=== PATIENT | female | born 1940 | race Caucasian/White ===

== ENCOUNTER 2018-11-14 07:57 | Day surgery (SDC) | payer OTHER ==
--- OUTSIDE RECORDS SUMMARY | 2018-11-14 08:00 | XMS REPORT | Clinical Summary ---
:1940 Author Organization [facility] Address [address] [place] [address] Care Team Providers Name Role Phone Raffaele White MD Primary Care Provider Allergies No Known Allergies Medications Medication Sig Dispensed Refills Start Date End Date Status XARELTO 20 mg tablet 0 02/04/2017 Active DULoxetine (CYMBALTA) 30 0 02/19/2017 Active MG capsule montelukast (SINGULAIR) 0 01/16/2017 Active 10 mg tablet rOPINIRole (REQUIP) 4 MG 0 01/26/2017 Active tablet fluticasone (FLONASE) 50 0 11/19/2016 Active mcg/actuation nasal spray esomeprazole (NexIUM) 40 Take 40 mg 0 Active MG capsule by mouth daily before breakfast. cetirizine (ZyrTEC) 10 Take 10 mg 0 Active MG tablet by mouth daily. multivitamin with Take 1 0 Active minerals tablet tablet by mouth daily. ezetimibe-simvastatin Take 1 0 Active (VYTORIN) 10-20 mg per tablet by tablet mouth nightly. thyroid, pork, (ARMOUR Take 65 mg 0 Active THYROID) 60 mg tablet by mouth daily. hydroCHLOROthiazide Take 1 0 01/26/2017 Active (MICROZIDE) 12.5 mg capsule by capsule mouth daily. sulfaSALAzine 0 03/24/2018 Active (AZULFIDINE) 500 mg tablet gabapentin (NEURONTIN) 0 12/30/2016 04/14/20 Discontinued 400 mg capsule 18 traMADol (ULTRAM) 50 mg 0 01/25/2017 04/12/20 Discontinued tablet 18 LINZESS 145 mcg capsule Take 1 0 11/25/2016 04/12/20 Discontinued capsule by 18 mouth as needed. Active Problems No known active problems Encounters Date Type Specialty Care Team Description 10/27/2018 Transcribe Orders Access Jono Sen, Nontraumatic cortical hemorrhage of cerebral hemisphere, unspecified laterality (HCC) (Primary Dx); Other spondylosis with myelopathy, cervical region 05/05/2018 Anesthesia Event General Surgery Ruth, Lora, COAT OPERATOR 05/05/2018 Surgery General Surgery Jono Sen, RADIOFREQUENCY LUMBAR MD BILATERAL L3, L4, L5, S1 05/05/2018 Hospital Encounter General Surgery Jono Sen MD 04/14/2018 Anesthesia Event General Surgery Ruth, Lora, COAT OPERATOR 04/14/2018 Surgery General Surgery Jono Sen, LUMBAR FACET INJECTION MD L3, L4, L5, S1 BILATERAL 04/14/2018 Hospital Encounter General Surgery Jono Sen MD after 11/13/2017 Social History Tobacco Use Types Packs/Day Years Used Date Never Smoker Smokeless Tobacco: Never Used Alcohol Use Drinks/Week oz/Week Comments No Sex Assigned at Date Recorded Not on file Job Start Date Occupation Industry Not on file Not on file Not on file Travel History Travel Start Travel End No recent travel history available. Last Filed Vital Signs Vital Sign Reading Time Taken Blood Pressure 129/63 05/05/2018 11:57 AM CDT Pulse 77 05/05/2018 11:57 AM CDT Temperature 36.2 C (97.1 F) 05/05/2018 11:17 AM CDT Respiratory Rate 19 05/05/2018 11:57 AM CDT Oxygen Saturation 100% 05/05/2018 11:57 AM CDT Inhaled Oxygen Concentration - - Weight 89.4 kg (197 lb) 04/14/2018 7:30 AM CDT Height 167.6 cm (5' 6") 04/14/2018 7:30 AM CDT Body Mass Index 31.8 04/14/2018 7:30 AM CDT Plan of Treatment Health Maintenance Due Date Last Done Comments SHINGLES VACCINES (#1) 1990 65+ PNEUMOCOCCAL VACCINE (1 of 2 - PCV13) 2005 PNEUMOCOCCAL POLYSACCHARIDE VACCINE AGE 65 AND OVER 2005 INFLUENZA VACCINE 03/09/2019 Procedures Procedure Name Priority Date/Time Associated Diagnosis Comments OR FL < 1 HOUR Routine 05/05/2018 11:05 AM Results for this CDT procedure are in the results section. OR FL < 1 HOUR Routine 04/14/2018 9:45 AM Results for this CDT procedure are in the results section. after 11/13/2017 Results OR FL < 1 Hour (05/05/2018 11:05 AM CDT)Only the most recent of2 resultswithin the time period is included. Narrative Performed At EXAMINATION:OR [place] 1 HOUR [facility] CLINICAL HISTORY: IMPRESSION: Fluoroscopy was provided. No radiologist present.Please see procedure report for discussion of procedure, findings and fluoroscopic time. [facility]-[id number] Procedure Note Hm Interface, Radiology Results Incoming - 05/05/2018 1:47 PM CDT EXAMINATION: OR [place] 1 HOUR CLINICAL HISTORY: IMPRESSION: Fluoroscopy was provided. No radiologist present. Please see procedure report for discussion of procedure, findings and fluoroscopic time. [id number] Performing Organization Address City/State/Zipcode Phone Number [facility] [address] [place] [address] after 11/13/2017 Insurance Payer Benefit Plan / Group Subscriber ID Type Phone Address MEDICARE MEDICARE PART A AND B xxxxxxxxxx Medicare [place], [place] AETNA AETNA HMO,POS,EPO, MC/EC xxxxxxxxx HMO Advance Directives Patient has advance care planning documents on file. For more information, please contact:[facility] [place] [phone]
--- OUTSIDE RECORDS SUMMARY | 2018-11-14 08:00 | XMS REPORT | Continuity of Care Document ---
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[facility] ARTHROPATHY [facility] SPRAIN OF ANKLE Active [facility] NEC Medications Medication Details Route Status Patient Ordering Order Source Instructions Provider Date Allergies, Adverse Reactions, Alerts Substance Category Reaction Severity Reaction Status Date Comments Source type Reported Immunizations Immunization Date Given Site Status Last Updated Comments Source Results Order Name Results Value Reference Date Interpretation Comments Source Range Shoulder 2+ Shoulder 2+ CLINICAL HISTORY: - Psoriatic Arthritis 08/04 - Views /2016 - [facility] Bilateral Bilateral AGE: 77 years City DX DX GENDER: Female Read by: Gildardo Elmore MD Dictated Date/time: 08/04/17 13:10 Electronically Signed by: Gildardo Elmore MD 08/04/17 13:15 FINAL REPORT TECHNIQUE: Bilateral shoulder radiographs, 3 views each. COMPARISON: None FINDINGS: Right shoulder: There is no evidence of fracture or dislocation. Moderate osseous demineralization.. Large subacromial spur formation with severe narrowing of the acromiohumeral distance. Mild osseous remodeling of the greater tuberosity. There is moderate degenerative change in the acromioclavicular joint. Mild osteophyte formation along the inferior humeral head and glenoid. Left shoulder: There is no evidence of fracture or dislocation. Moderate osseous demineralization.. Postoperative changes from rotator cuff repair with orthopedic anchors in the greater tuberosity. No significant narrowing of the acromiohumeral distance.. Status post distal clavicular resection and acromioplasty. Mild osteophyte formation along the glenoid articular surface. Spinal cord stimulator device with leads projecting over the midthoracic spine, partially visualized. IMPRESSION: Marked subacromial spurring on the right with findings highly suspicious for full-thickness rotator cuff tear and rotator cuff impingement.. Mild right glenohumeral joint osteoarthrosis. Postoperative changes from left rotator cuff repair and distal clavicular resection and acromioplasty. Mild left glenohumeral joint osteoarthrosis. Sacroiliac Sacroiliac EXAM: Sacroiliac joints series DX 08/04 - joints joints /2016 - [facility] series DX series DX DATE: 08/04/2017 11:10 AM SENIOR ADVOCATE . [facility] ORDERING PHYSICIAN: Karissa Rodriguez MD Read by: Berhane Forde MD Dictated Date/time: 08/04/17 13:07 Electronically Signed by: Berhane Forde MD 08/04/17 13:27 FINAL REPORT CLINICAL INDICATION: - Psoriatic Arthritis; TECHNIQUE: AP and bilateral oblique views of the SI joints COMPARISON: Unavailable FINDINGS: The SI joint spaces are preserved without osteophyte reformation. There is no bony sclerosis. There are no acute erosions. There is less portions of the sacrum and pubic symphysis are unremarkable. IMPRESSION: No radiographic sequela of sacroiliitis Knee 1-2 Knee 1-2 EXAMINATION: Bilateral knees 1 to 2 views each. 08/04 - Views Views /2016 - [facility] Bilateral Bilateral City DX DX HISTORY: Bilateral knee pain; bilateral knee arthritis Read by: Terrell Graff MD Dictated Date/time: 08/04/17 14:30 Electronically Signed by: Terrell Graff MD 08/04/17 14:31 FINAL REPORT FINDINGS: Frontal view of both knees and lateral views of each knee are performed without comparison. On the left, there is no acute fracture. There is mild to moderate medial and mild patellofemoral compartment, bicompartmental knee osteoarthritis. There is a trace knee effusion. On the right, there is no acute fracture. There is severe lateral and moderate to severe patellofemoral compartment, bicompartmental knee osteoarthritis. There is a trace knee effusion. IMPRESSION: 1. Mild to moderate medial and mild patellofemoral compartment, bicompartmental left knee osteoarthritis with a trace left knee effusion. 2. Severe lateral and moderate to severe patellofemoral compartment, bicompartmental right knee osteoarthritis with a trace right knee effusion. Hand 2 Hand 2 CLINICAL HISTORY: - Psoriatic Arthritis 08/04 - views views /2016 - [facility] Bilateral Bilateral AGE: 77 years City DX DX GENDER: Female Read by: Gildardo Elmore MD Dictated Date/time: 08/04/17 13:16 Electronically Signed by: Gildardo Elmore MD 08/04/17 13:19 FINAL REPORT TECHNIQUE:Bilateral hand radiographs, 2 views. COMPARISON: None FINDINGS: Right hand: There is no evidence of fracture or dislocation. Moderate osseous demineralization. Moderate interphalangeal joint space narrowing. Mild 1st CMC joint osteoarthrosis.. No cortical or erosion or periosteal reaction.. Left hand: There is no evidence of fracture or dislocation. Moderate osseous demineralization. Moderate interphalangeal joint space narrowing. Mild to moderate 1st CMC joint osteoarthrosis.. No cortical or erosion or periosteal reaction.. IMPRESSION: No specific radiographic evidence of inflammatory arthropathy. Moderate osseous demineralization. Mild bilateral osteoarthrosis. Foot 2 Foot 2 CLINICAL HISTORY: - Psoriatic Arthritis 08/04 - views views /2017 - [facility] bilateral bilateral AGE: 77 years City DX DX GENDER: Female Read by: Gildardo Elmore MD Dictated Date/time: 08/04/17 13:20 Electronically Signed by: Gildardo Elmore MD 08/04/17 13:26 FINAL REPORT TECHNIQUE: Bilateral foot radiographs, 2 views each. Bilateral ankle radiograph, 2 views. COMPARISON: None FINDINGS: Right foot and ankle: There is no evidence of fracture or dislocation. Moderate osseous demineralization.. No cortical or erosion or periosteal reaction. Joint space narrowing is seen in the DIP joints. Moderate osteoarthrosis is seen in the dorsal talonavicular joint. Mild plantar calcaneal spurring.. Talar dome and tibial plafond are intact allowing for obliquity Left foot and ankle: There is no evidence of fracture or dislocation. Moderate osseous demineralization.. No cortical or erosion or periosteal reaction. Mild joint space narrowing in the DIP joints. Mild to moderate osteoarthrosis of the dorsal talonavicular joint. Orthopedic anchor in the medial navicular suggesting prior The posterior tibialis tendon insertion. There is questionable cortical erosive change at the medial naviculocuneiform articulation.. Mild plantar calcaneal spurring. Talar dome and tibial plafond are intact. IMPRESSION: Questionable erosive change along the left medial naviculocuneiform articulation. Consider further evaluation with oblique images for further characterization. Moderate osseous demineralization. Mild to moderate bilateral osteoarthrosis of the talonavicular joints, right greater than left. Mild degenerative change of the bilateral interphalangeal joints. Mild plantar calcaneal spurring. Ankle 2 Ankle 2 CLINICAL HISTORY: - Psoriatic Arthritis 08/04 - views /2016 - [facility] bilateral bilateral AGE: 77 years City DX DX GENDER: Female Read by: Gildardo Elmore MD Dictated Date/time: 08/04/17 13:20 Electronically Signed by: Gildardo Elmore MD 08/04/17 13:26 FINAL REPORT TECHNIQUE: Bilateral foot radiographs, 2 views each. Bilateral ankle radiograph, 2 views. COMPARISON: None FINDINGS: Right foot and ankle: There is no evidence of fracture or dislocation. Moderate osseous demineralization.. No cortical or erosion or periosteal reaction. Joint space narrowing is seen in the DIP joints. Moderate osteoarthrosis is seen in the dorsal talonavicular joint. Mild plantar calcaneal spurring.. Talar dome and tibial plafond are intact allowing for obliquity Left foot and ankle: There is no evidence of fracture or dislocation. Moderate osseous demineralization.. No cortical or erosion or periosteal reaction. Mild joint space narrowing in the DIP joints. Mild to moderate osteoarthrosis of the dorsal talonavicular joint. Orthopedic anchor in the medial navicular suggesting prior The posterior tibialis tendon insertion. There is questionable cortical erosive change at the medial naviculocuneiform articulation.. Mild plantar calcaneal spurring. Talar dome and tibial plafond are intact. IMPRESSION: Questionable erosive change along the left medial naviculocuneiform articulation. Consider further evaluation with oblique images for further characterization. Moderate osseous demineralization. Mild to moderate bilateral osteoarthrosis of the talonavicular joints, right greater than left. Mild degenerative change of the bilateral interphalangeal joints. Mild plantar calcaneal spurring. Vital Signs Vital Sign Value Date Comments Source Encounters Location Location Encounter Encounter Reason Attending ADM DC Status Source Details Type Number For Provider Date Date Visit Outpatient [id number] TYESHA ANTONIO 11/18 Active [facility] SPRAIN, ANKLE SPRAIN LFT [facility] Outpatient [id number] Karissa 08/04 08/05 Bautista Rodriguez /2016 [facility] Procedures Procedure Code Date Perfomer Comments Source
[2018-11-14] MEDS ORDERED: NS 0.9% VIAL 10 ML ONE (08:29)
[2018-11-14] MEDS ORDERED: BALANCED SALT IRRIG PLAIN 500 ML BTL IRR ONE (08:29)
[2018-11-14] MEDS ORDERED: EPINEPHRINE/PF 1 MG/ML AMP ONE (08:29)
[2018-11-14] MEDS ORDERED: DUOVISC 1 KIT OPTH ONE (08:29)
[2018-11-14] MEDS ORDERED: LIDOCAINE 1% MPF 2 ML AMPULE ONE (08:30)
[2018-11-14] MEDS ORDERED: MOXIFLOXACIN HCL 10 DROPS/ML **OR USE OPTH ONE (08:30)
[2018-11-14] MEDS ORDERED: CYCLOPENTOLATE 1% OPTH 2 ML OPTH ONE ×2 (08:40→08:45)
[2018-11-14] MEDS ORDERED: PHENYLEPHRINE 10% OPTH 5ML OPTH ONE ×2 (08:40→08:45)
[2018-11-14 09:31] VITALS: O2SAT 97
[2018-11-14] MEDS ORDERED: TETRACAINE HCL 0.5% 2ML OPTH ONE (09:35)
[2018-11-14] MEDS ORDERED: LIDOCAINE 2% MPF 5 ML VIAL ONE (09:35)
[2018-11-14] MEDS ORDERED: BUPIVACAINE 0.25% PF 10 ML VIAL ONE (09:35)
[2018-11-14] MEDS ORDERED: CYCLOPENTOLATE 1% OPTH 2 ML ONE (09:35)
[2018-11-14] MEDS ORDERED: PHENYLEPHRINE 10% OPTH 5ML ONE (09:36)
[2018-11-14] MEDS ORDERED: LIDOCAINE HCL/PF 3.5% OPTH GEL ONE (09:36)
[2018-11-14] MEDS ORDERED: NA CHLORIDE 0.9% 500 ML ONE (09:36)
--- NOTE | 2018-11-14 10:36 | P.BOP ---
Preoperative diagnosis: Nuclear sclerotic cataract OD Postoperative diagnosis: Same Primary procedure: Phacoemulsification with IOL OD Estimated blood loss: None Anesthesia: Local (Topical with anesthesia for cataract surgery) Complications: None Implants: SN60WF +21.5 Transferred to: Other (Day surgery) Condition: Good
[2018-11-14 10:57] VITALS: BP 132/91; TEMP 97.5
--- NOTE | 2018-11-14 22:15 | OP ---
Date of Procedure: 11/14/2018 Surgeon: Rosa Sin MD Anesthesiologist: Nilda Lainez CRNA; Georges Brewer CRNA; and Malcolm Vaca MD. Preoperative Diagnosis: Nuclear sclerotic cataract, right eye. Operation Performed: Phacoemulsification with intraocular lens implant, right eye. Anesthesia: Per cataract surgery. Complications: None. Description Of Procedure: In the operating room the patient was prepped and draped in the usual ster ile fashion for ophthalmic surgery. A lid speculum was placed in the right eye. Two paracentesis si katharina were made superiorly and inferiorly in the limbal cornea. Viscoat was placed in the anterior uriel mber and a crescent blade was used to make a corneal groove and tunnel, and a keratome was used to en ter the anterior chamber. Provisc was placed in the anterior chamber and a 360 degree capsulotomy wa s performed with a cystitome. The lens was hydrodissected with BSS and rotated freely. The lens was removed with a stop and chop technique. 9.90 phaco CDE was used to remove the lens. Residual bonnie x was removed with the irrigation and aspiration. Provisc was placed in the capsular bag. A SN60WF +21.5 lens was placed in the capsular bag without complications. Irrigation and aspiration were used to remove residual viscoelastic. The paracentesis sites were hydrated with BSS. The wound and para centesis sites were inspected and found to be watertight. Vigamox 0.07 cc was placed intracamerally at the end of the procedure. The eye was irrigated with balanced salt solution. The eye was patched with a soft cotton patch and Zuniga metal shield. The patient was returned to day surgery in good condition. Comments: Akten was placed in the eye in Day Surgery and irrigated out of the eye with BSS in the OR . Preservative free 1% lidocaine was placed in the anterior chamber prior to Viscoat. Discharge Instructions: Ms. Klein is discharged to home in good condition and is to follow up with Kenny Sin in the morning. LOGAN/SABA Voice ID: [id number] Report ID: [id number]
== END 2018-11-14 11:05 | disposition home or self-care (01) ==
LOC: PRE 07:57
PROVIDERS: ATTEND Ophthalmology Retina Specialist
PROC: 08RJ3JZ Replacement of Right Lens with Synthetic Substitute, Percutaneous Approach (ICD-10-PCS; principal; 2018-11-14 09:35)
DX: H25.11 Age-related nuclear cataract, right eye (principal); I10 Essential (primary) hypertension; K21.9 Gastro-esophageal reflux disease without esophagitis; E03.9 Hypothyroidism, unspecified; G25.81 Restless legs syndrome; M19.90 Unspecified osteoarthritis, unspecified site; Z90.49 Acquired absence of other specified parts of digestive tract; Z86.718 Personal history of other venous thrombosis and embolism; Z79.01 Long term (current) use of anticoagulants; Z83.511 Family history of glaucoma; Z83.3 Family history of diabetes mellitus; Z82.3 Family history of stroke; Z82.49 Family history of ischemic heart disease and other diseases of the circulatory system
CPT/HCPCS: 36415; 84132; 66984; J0171; J2001

== ENCOUNTER 2020-03-28 09:08 | Emergency (ER) | payer OTHER ==
--- OUTSIDE RECORDS SUMMARY | 2020-03-28 09:10 | XMS REPORT | Continuity of Care Document ---
:1940 Author Organization [employer] Care Team Providers Name Role Phone [employer] Unavailable Un available Problems Problem Status Onset Classification Date Comments Sourc e Date Reported GRADE [address] SPRAIN, ANKLE 2 SPRAIN LFT L40.59 [facility] [place] [facility] [place] [facility] [place] OF [place] [facility] Medications No Data Provided for This Section Allergies, Adverse Reactions, Alerts No Known Medication Allergies Immunizations No Data Provided for This Section Results No Data Provided for This Section Pathology Reports No Data Provided for This Section Diagnostic Reports Report Value Date Source Shoulder 2+ Views CLINICAL HISTORY: - Psoriatic Arthritis 08/04 [facility] Bilateral DX AGE: 77 years GENDER: Female TECHNIQUE: Bilateral shoulder radiographs, 3 vie ws each. COMPARISON: None FINDINGS: Right shoulder: There is no evidence of frac ture or dislocation. Moderate osseous demineralization.. Large subacromial spur formation with severe narrowing of the acromiohumeral distance. Mild osseous remodeling of the greater tuberosity. There i s moderate degenerative change in the acromioclavicular joint. Mild osteophyte formation along the inferior hum eral head and glenoid. Left shoulder: There is no evidence of frac ture or dislocation. Moderate osseous demineralization.. Postoperative changes from rotator cuff repair with orthopedic anchors in the greater tuberosity. No significant narrowing of the acromiohumeral distance.. Status post distal clavicula r resection and acromioplasty. Mild osteophyte formation along the glenoid articular surface. Spinal cord stimulator devic e with leads projecting over the midthoracic spine, partially visualized. IMPRESSION: Marked subacromial spurring on the right with findings highly suspicious for full-thickness rotator cuff tear and rotator cuff impingement.. Mild right glenohumeral joint osteoarthrosis. Postoperative changes from l eft rotator cuff repair and distal clavicular resection and acromioplasty. Mild left glenohumeral joint osteoarthrosis. Sacroiliac joints EXAM: Sacroiliac joints series DX 08/04/2017 [facility] series DX DATE: 08/04/2017 11:10 AM [facility] [employer] . ORDERING PHYSICIAN: Karissa oRdriguez MD CLINICAL INDICATION: - Psoriatic Arthritis; TECHNIQUE: AP and bilateral oblique views of the SI joints COMPARISON: Unavailable FINDINGS: The SI joint space s are preserved without osteophyte reformation. There is no bony sclerosis. There are no acute erosions. There is less portions of the sacrum and pubic symphysis are unremarkable. IMPRESSION: No radiographic sequela of sacroilii tis Knee 1-2 Views EXAMINATION: Bilateral knees 1 to 2 views each. 08/04/2017 [facility] Bilateral DX HISTORY: Bilateral knee pain; bilateral knee art hritis FINDINGS: Frontal view of gabriel th knees and lateral views of each knee are performed without comparison. On the left, there is no acu te fracture. There is mild to moderate medial and mild patellofemoral compartment, bicompartmental knee osteoarthritis. There is a trace knee effusion. On the right, there is no ac [place] fracture. There is severe lateral and moderate to severe patellofemoral compartment, bicompartmental knee osteoarthritis. There is a trace knee effusion. IMPRESSION: 1. Mild to moderate medial a nd mild patellofemoral compartment, bicompartmental left knee osteoarthritis with a trace left knee effusion. 2. Severe lateral and modera te to severe patellofemoral compartment, bicompartmental right knee osteoarthritis with a trace right knee effusion. Hand 2 views Bilateral CLINICAL HISTORY: - Psoriatic Arthritis 08/04/2017 [facility] DX AGE: 77 years GENDER: Female TECHNIQUE:Bilateral hand radiographs, 2 views. COMPARISON: None FINDINGS: Right hand: There is no evidence of frac ture or dislocation. Moderate osseous demineralization. Moderate interphalangeal joint space narrowing. Mild 1st CMC joint osteoarthrosis.. No cortical or erosion or periosteal reaction.. Left hand: There is no evidence of frac ture or dislocation. Moderate osseous demineralization. Moderate interphalangeal joint space narrowing. Mild to moderate 1st CMC joint osteoarthrosis.. No cortical or erosion or periosteal reaction.. IMPRESSION: No specific radiographic evidence of inflammator y arthropathy. Moderate osseous demineralization. Mild bilateral osteoarthrosis. Foot 2 views bilateral CLINICAL HISTORY: - Psoriatic Arthritis 08/04/2017 [facility] DX AGE: 77 years GENDER: Female TECHNIQUE: Bilateral foot ra diographs, 2 views each. Bilateral ankle radiograph, 2 views. COMPARISON: None FINDINGS: Right foot and ankle: There is no evidence of frac ture or dislocation. Moderate osseous demineralization.. No cortical or erosion or pe riosteal reaction. Joint space narrowing is seen in the DIP joints. Moderate osteoarthrosis is seen in the dorsal talonavicular joint. Mild plantar calcaneal spurring.. Talar dome and tibial plafond are intact allowin g for obliquity Left foot and ankle: There is no evidence of frac ture or dislocation. Moderate osseous demineralization.. No cortical or erosion or pe riosteal reaction. Mild joint space narrowing in the DIP joints. Mild to moderate osteoarthrosis of the dorsal talonavicular joint. Orthopedic anchor in the medial navicular suggesting prior The posterior tibialis tendo n insertion. There is questionable cortical erosive change at the medial naviculocuneiform articulation.. Mild plantar calcaneal spurring. Talar dome and tibial plafond are intact. IMPRESSION: Questionable erosive change along the left medial naviculocuneiform articulation. Consider further evaluation with oblique images for further characterization. Moderate osseous demineralization. Mild to moderate bilateral o steoarthrosis of the talonavicular joints, right greater than left. Mild degenerative change of the bilateral interp halangeal joints. Mild plantar calcaneal spurring. Ankle 2 views CLINICAL HISTORY: - Psoriatic Arthritis 017 [facility] bilateral DX AGE: 77 years GENDER: Female TECHNIQUE: Bilateral foot ra diographs, 2 views each. Bilateral ankle radiograph, 2 views. COMPARISON: None FINDINGS: Right foot and ankle: There is no evidence of frac ture or dislocation. Moderate osseous demineralization.. No cortical or erosion or pe riosteal reaction. Joint space narrowing is seen in the DIP joints. Moderate osteoarthrosis is seen in the dorsal talonavicular joint. Mild plantar calcaneal spurring.. Talar dome and tibial plafond are intact allowin g for obliquity Left foot and ankle: There is no evidence of frac ture or dislocation. Moderate osseous demineralization.. No cortical or erosion or pe riosteal reaction. Mild joint space narrowing in the DIP joints. Mild to moderate osteoarthrosis of the dorsal talonavicular joint. Orthopedic anchor in the medial navicular suggesting prior The posterior tibialis tendo n insertion. There is questionable cortical erosive change at the medial naviculocuneiform articulation.. Mild plantar calcaneal spurring. Talar dome and tibial plafond are intact. IMPRESSION: Questionable erosive change along the left medial naviculocuneiform articulation. Consider further evaluation with oblique images for further characterization. Moderate osseous demineralization. Mild to moderate bilateral o steoarthrosis of the talonavicular joints, right greater than left. Mild degenerative change of the bilateral interp halangeal joints. Mild plantar calcaneal spurring. Consultation Notes No Data Provided for This Section Discharge Summaries No Data Provided for This Section History and Physicals No Data Provided for This Section Vital Signs No Data Provided for This Section Encounters Location Location Encounter Encounter Reason Attending ADM AR Stat us Source Details Type Number For Provider Date Date Visit Outpatient [id number] GRADE MAGALI ANTONIO 11/18 Acti ve [facility] st SPRAIN, ANKLE SPRAIN LFT [facility] Outpatient [id number] Karissa 08/04 08/05 Bautista Rodriguez /2016 [facility] Procedures No Data Provided for This Section Assessment and Plan No Data Provided for This Section Plan of Care No Data Provided for This Section Social History Social History Date Source No data available for this 08/05/2017 [facility] Tamiko cottrell section Family History No Data Provided for This Section Advance Directives No Data Provided for This Section Functional Status No Data Provided for This Section
--- OUTSIDE RECORDS SUMMARY | 2020-03-28 09:10 | XMS REPORT | Clinical Summary ---
:1940 Author Organization [facility] Address [address] [place] [id number] Care Team Providers Name Role Phone MD Cindy Primary Care Provider Allergies No Known Allergies Medications Medication Sig Dispensed Refills Start Date End Date Status multivitamin Take 1 tablet by 0 Active (MULTIVITAMIN) per mouth daily. tablet cholecalciferol, Take 2,000 Units 0 Active vitamin D3, 2,000 unit by mouth daily. Tab UNKNOWN Med Name: 0 Active esomeprazole (NEXIUM) Take 20 mg by 0 Active 20 MG capsule mouth daily. ezetimibe-simvastatin Take 1 tablet by 0 Active (VYTORIN) 10-40 mg per mouth nightly. tablet celecoxib (CELEBREX) Take 200 mg by 0 Active 200 MG capsule mouth every 12 (twelve) hours as needed. DULoxetine (CYMBALTA) Take 20 mg by 0 Active 20 MG capsule mouth daily. Active Problems No known active problems Social History Tobacco Use Types Packs/Day Years Used Date Never Smoker Alcohol Use Drinks/Week oz/Week Comments Yes 1-2 glass of win e a day Sex Assigned at Date Recorded Not on file Job Start Date Occupation Industry Not on file Not on file Not on file Travel History Travel Start Travel End No recent travel history available. Last Filed Vital Signs Not on file Plan of Treatment Not on file Results Not on fileafter 03/28/2019 Insurance Payer Benefit Plan / Group Subscriber ID Type Phone A ddress MEDICARE MEDICARE A B xxxxxxxxxx Medicare AETNA - MGD CARE AET[employer] INDEMNITY NON CONTR xxxxxxxxx Comm [id number] [place] [id number]
--- OUTSIDE RECORDS SUMMARY | 2020-03-28 09:10 | XMS REPORT | Clinical Summary ---
:1940 Author Organization [facility] Address [address] [place] [address] Care Team Providers Name Role Phone MD [...] spray esomeprazole (NexIUM) 40 Take 40 mg by 0 Active MG capsule mouth daily before breakfast. cetirizine (ZyrTEC) 10 MG Take 10 mg by 0 Active tablet mouth daily. multivitamin with Take 1 tablet 0 Active minerals tablet by mouth daily. ezetimibe-simvastatin Take 1 tablet 0 Active (VYTORIN) 10-20 mg per by mouth tablet nightly. thyroid, pork, (ARMOUR Take 65 mg by 0 Active THYROID) 60 mg tablet mouth daily. hydroCHLOROthiazide Take 1 capsule 0 01/26/2017 Active (MICROZIDE) 12.5 mg by mouth capsule daily. sulfaSALAzine 0 03/24/2018 Activ e (AZULFIDINE) 500 mg tablet acetaminophen-codeine Take 1 tablet 20 tablet 0 12/01/2019 (TYLENOL WITH CODEINE #3) by mouth every 0 300-30 mg per 6 (six) hours tabletIndications: acute as needed for pain moderate pain for up to 7 days .acute pain. Active Problems No known active problems Encounters Date Type Specialty Care Team Description 12/14/2019 Anesthesia Event General Surgery Domingo Lorenzo MD Cheema, Ivelisse, FNP 12/14/2019 Surgery General Surgery Jono Sen, SACROPLAST Y 12/14/2019 Hospital Encounter General Surgery Jono Sen MD 12/14/2019 Travel 12/01/2019 Emergency Emergency Medicine Taz Chase d fracture of T., sacrum, unspeci fied portion of sacr um, initial encount er ([facility]) (Primary Dx) after 03/28/2019 Social History Tobacco Use Types Packs/Day Years Used Date Never Smoker Smokeless Tobacco: Never Used Alcohol Use Drinks/Week oz/Week Comments No Sex Assigned at Date Recorded Not on file Job Start Date Occupation Industry Not on file Not on file Not on file Travel History Travel Start Travel End No recent travel history available. Last Filed Vital Signs Vital Sign Reading Time Taken Comments Blood Pressure 116/62 12/14/2019 9:40 AM CDT Pulse 72 12/14/2019 9:50 AM CDT Temperature 36.7 C (98 F) 12/14/2019 8:29 AM CDT Respiratory Rate 35 12/14/2019 10:00 AM CDT Oxygen Saturation 93% 12/14/2019 10:00 AM CDT Inhaled Oxygen Concentration - - Weight 90.7 kg (200 lb) 12/14/2019 7:01 AM CDT Height 167.6 cm (5' 6") 12/14/2019 7:01 AM CDT Body Mass Index 32.28 12/14/2019 7:01 AM CDT Plan of Treatment Health Maintenance Due Date Last Done Comments SHINGLES VACCINES (#1) 1990 65+ PNEUMOCOCCAL VACCINE (1 of 2 - PCV13) 2005 INFLUENZA VACCINE 04/09/2020 Implants Implanted Type Area Behavioral Health Rn Device Shelf Model / Identifier Expiration Serial / Date Lot [employer] - [id number] IMPLANT N/A: N/A ROSHNI 09/08/2021 [id number] / Implanted: 12/14/2019 at [facility] (Quantity not on file) DE VICES INSTRUMENTS / [id number] Kit Sys Autoplex W/O Ndl Vertaplex [facility] - [id number] Surgical N/A: N/A ROSHNI 08/09/2021 [id number] / Implanted: 12/14/2019 at [facility] (Quantity not on file) Im plants; INSTRUMENTS / Expanders; [id number] Extenders; Surgical Wires Procedures Procedure Name Priority Date/Time Associated Diagnosis Comme nts OR [place] < 1 HOUR Routine 12/14/2019 8:20 AM Result s for this CDT procedure are i n the results section. ECG 12-LEAD STAT 12/14/2019 7:00 AM Results for this CDT procedure are i n the results section. CT LUMBAR SPINE WO STAT 12/01/2019 7:46 PM Re sults for this CONTRAST CDT procedure are i n the results section. CT LOWER EXTREMITY STAT 12/01/2019 7:44 PM Re sults for this WO CONTRAST LEFT CDT procedure a re in the results section. after 03/28/2019 Results OR FL < 1 Hour (12/14/2019 8:20 AM CDT) Specimen Narrative Performed At EXAMINATION: OR [place] < 1 HOUR [facility] CL[facility]ICAL H[facility]ORY: None Provided IMPRESSION: Fluoroscopy was provided. No radiologist present. Pl ease see procedure report for discussion of procedure, find ings and fluoroscopic time. [id number] Procedure Note Interface, Radiology Results Incoming - 12/14/2019 10:19 AM CDT EXAMINATION: OR FL < 1 HOUR CLINICAL HISTORY: None Provided IMPRESSION: Fluoroscopy was provided. No radiologist present. Please see procedure report for discussion of procedure, findings and fluoroscopic time. [id number] Performing Organization Address City/State/Zipcode Phone Number [facility] [address] [place] [address] ECG 12 lead (12/14/2019 7:00 AM CDT) Pathologist Sig nature Ventricular rate 76 [facility] Atrial rate 76 [facility] [place] interval 158 [facility] QRSD interval 78 [facility] QT interval 408 [facility] QTC interval 459 [facility] P axis 1 84 [facility] QRS axis 1 62 [facility] T wave axis 73 [facility] EKG impression Normal sinus rhythm-ST eleva tion, consider early repolarization, pericarditis, or injury-Nonspecific ST abnormality-Abnormal ECG-In automated comparison with ECG of 04-MAR-2017 06:36,-ST elevation now p [facility] M[facility] resent in Inferior leads- Specimen Narrative Performed At This result has an attachment that is no t available. Performing Organization Address City/State/Zipcode Phone Number [facility] [address] [place] [address] CT Lumbar Spine Wo Contrast (12/01/2019 7:46 PM CDT) Specimen Narrative Performed At EXAMINATION: CT LUMBAR SPINE WO CONTRA ST [facility] CT IMAGING WAS PERFORMED WITH ITERATIVE RECONSTRUCTION TECHNIQUE AND/OR AUTOMATED EXPOSURE CONTROL TO REDUCE RAD IATION DOSE. CLINICAL HISTORY: Pain secondary to recent fall w ith negative plain films COMPARISON: None. FINDINGS: There is an element of diffuse bone demineralization. There is no lumbar spine fracture demonstrated. However there is a mild fracture of the anterior lateral aspect of the left sacral ala whi ch is acute in appearance. There could be a small chron ic cortical infarct in the anterior superior aspect of th e S2 vertebra. There is otherwise no fracture demonstra angi. There is mild to moderate curvature of the lumbar spin e convex towards the right. L5-S1: There is marked spondylosis, disc space narro wing and degenerative change in the disc laterally on the right at L5-S1 where there is grade 1 spondylolisthesis, marked degenerativ e change in the facet joint and mild dorsal bulging of t he disc with possible small central disc protrusion more towards t he left resulting in moderate to marked foraminal stenosis on the right and moderate foraminal stenosis on the left without significant spi nal canal stenosis. L4-5: There is a marked spondylosis, disc space narrow ing and degenerative change in the disc greater on the left at L4-5 and slight lateral subluxation of L4 relation L5 towards the righ t and with mild degenerative change in the facet joints. There is mild dorsal spondylosis and bulging of the disc much g reater on the left with moderate foraminal stenosis on the left and mild foraminal stenosis on the right without spinal canal stenos is. L3-4: There are moderate hypertrophic changes the face t joints at L3-4 where there is minimal spondylolisthesis, mild dorsal bulging of the disc resulting in moderate to marked (6 mm) spinal can al stenosis and moderate bilateral foraminal stenosis. L2-3: There is slight retrolisthesis and minimal spond ylosis with the mild the dorsal bulging of the disc. There are moderat e hypertrophic changes the facet joints and at least mild thickening of ligamentum flavum. There is somewhat prominent dors al epidural fat resulting in moderate to ma rked (6 mm) thecal sac stenosis. L1-2: There is minimal spondylosis, [id number]-[id number] dorsal bulging of the disc and mild thickening of the ligamentum flavum with a somewhat prominent dorsal epidural fat resulting in moderate (7 mm) thecal sac stenosis there is minimal spondylosis at T12-L1 and mild spondylosis and vacuum disc phenomena at T11-12 with moderate foraminal stenosis of bilaterally at T11-12 w ithout spinal canal stenosis IMPRESSION: Mild acute fracture involving the anterior lateral asp ect of the left sacral ala. Lumbar spondylosis with multilevel spina l canal and foraminal stenosis. Lumbar dextroscoliosis. CATIE BOWLING was informed of these findings on 8:06 PM and acknowledged understanding of the [facility]. [id number] Procedure Note Hm Interface, Radiology Results Incoming - 12/01/2019 8:11 PM CDT EXAMINATION: CT LUMBAR SPINE WO CONTRAST CT IMAGING WAS PERFORMED WITH ITERATIVE RECONSTRUCTION TECHNIQUE AND/OR AUTOMATED EXPOSURE CONTROL TO REDUCE RADIATION DOSE. CLINICAL HISTORY: Pain secondary to r ecent fall with negative plain films COMPARISON: None. FINDINGS: There is an element of diffuse bone dem ineralization. There is no lumbar spine fracture demonstrated. However there is a mild fracture of the anterior lateral aspect of the left sacral ala which is acute in appearance. There could be a small chron ic cortical infarct in the anterior superio r aspect of the S2 vertebra. There is otherwise no fracture demonstrated. There is mild to moderate curvature of t he lumbar spine convex towards the right. L5-S1: There is marked spondylosis, dis c space narrowing and degenerative change in the disc laterally on the right at L5-S1 where there is grade 1 spondylolisthesis, marked degenerative change in the facet joint and mild dorsal bulging of the disc with possible small central disc protrusion more towards the left resulting in moderate to marked foraminal stenosis on the right and moderate foraminal stenosis on the left without significant spinal canal stenosis. L4-5: There is a marked spondylosis, dis c space narrowing and degenerative change in the disc greater on the left at L4-5 and slight lateral subluxation of L4 relation L5 towards the right and with mild degenerative change in the facet joints. There is mild dorsal spondylosis and bulging of t he disc much greater on the left with moderate foraminal stenosis on the left and mild foraminal stenosis on the right without spinal canal stenosis. L3-4: There are moderate hypertrophic ch anges the facet joints at L3-4 where there is minimal spondylolisthesis, mild dorsal bulging of the disc resulting in moderate to marked (6 mm) spinal canal stenosis and moderate bilateral foraminal stenosis. L2-3: There is slight retrolisthesis and minimal spondylosis with the mild the dorsal bulging of the disc. There are moderate hypertrophic changes the facet joints and at least mild thickening of ligamentum flavum. There is somewhat prominent dorsal epidural fat resulting in moderate to ma rked (6 mm) thecal sac stenosis. L1-2: There is minimal spondylosis, mil [id number]-hb-hxkkwulk dorsal bulging of the disc and mild thickening of the ligamentum flavum with a somewhat prominent dorsal epidural fat resulting in moderate (7 mm) thecal sac stenosis there is minimal spondylosis at T12-L1 and mild spondylosis and vacuum d isc phenomena at T11-12 with moderate foraminal stenosis of bilaterally at T11-12 without spinal canal stenosis IMPRESSION: Mild acute fracture involving the anteri or lateral aspect of the left sacral ala. Lumbar spondylosis with multilevel spina l canal and foraminal stenosis. Lumbar dextroscoliosis. CAITE BOWLING was informed of these findings on 12/01/2019 8:06 PM and acknowledged understanding of the findings. [id number] Performing Organization Address City/State/Zipcode Phone Number [facility] [address] [place] [address] CT Lower Extremity Wo Contrast Left (12/01/2019 7:44 PM CDT) Specimen Narrative Performed At Procedure:CT LOWER EXTREMITY WO CONTRAST LEFT [facility] REFERRING PHYSICIAN:CATIE BOWLING HISTORY: Left hip. Pain secondary to recent fall wit h negative plain films COMPARISON: None. TECHNIQUE: Multiple helical axial images were performed of the pe lvis without contrast. Additional sagittal and coronal reformat pati ges were acquired., All CT scan performed using radiation dose reduction t echniques. Technical factors are evaluated and adjusted to ensure appropriate moderation of exposure. Automated dose talent management specialist nology is applied to adjust the radiation dose to minimize expose while achieving a diagnostic quality i mage. FINDINGS: No acute fracture or dislocation is seen of the left h ip. An approximately 1.6 x 2 cm expansile lytic narrows on th e transition lesion is seen within the right pubic bone with pathol ogic fracture, series 3 image #94. There is callus form ation along the anterior aspect of the fracture site, suggesting of edouard bacute healing fracture. No evidence of associated soft tissue mass. Subacute to chronic healing fracture deformity of the mid right in ferior ramus is seen, series 3 image #108. No other acut e fracture or dislocation is seen. Wbqh-nu-lkdphzyu dege nerative change of both hip joints with joint space narrowing are noted. Severe degenerative change of the image portion of the lumbar spine is noted. There is no evidence of hematoma. Limited evaluation o f the regional musculature is unremarkable. Diverticulosis is noted. Moderate to marked rectosigmo id colon fecal retention is noted. The image portion of the pelvic vi scera is otherwise unremarkable. IMPRESSION: No CT evidence of acute fracture or disl ocation of the left hip. An approximately 1.6 x 2 cm right pubic bone expansile lytic lesion with subacute healing pathologic fracture. Differential judith gnoses including enchondroma. Recommend clinical correlation and short- term follow-up with CT of the pelvis in 5-6 months to document stability and to rule out malig rhonda. Subacute to chronic healing fracture deformity of the mid aspect of the right inferior ramus. Large rectosigmoid colon fecal retention . Recommend evacuation. Diverticulosis noted. [id number] Procedure Note Hm Interface, Radiology Results Incoming - 12/01/2019 8:10 PM CDT Procedure:CT LOWER EXTREMITY WO CONTRAST LEFT REFERRING PHYSICIAN:CATIE ESTEVEZ RAY HISTORY: Left hip. Pain secondary to re cent fall with negative plain films COMPARISON: None. TECHNIQUE: Multiple helical axial images were perfo rmed of the pelvis without contrast. Additional sagittal and coronal reformat images were acquired., All CT scan performed using radiation do se reduction techniques. Technical factors are evaluated and adjusted to ensure appropriate moderation of exposure. Automated dose management technology is applied to adjust the radiation dose to minimize expose while achieving a diagnostic quality im age. FINDINGS: No acute fracture or dislocation is seen of the left hip. An approximately 1.6 x 2 cm expansile lytic narrows on the transition lesion is seen within the right pubic bone with pathologic fracture, series 3 image #94. There is callus formation along the anterior aspect of the fracture site, edouard ggesting of subacute healing fracture. No evidence of associated soft tissue mass. Subacute to chronic healing fracture deformity of the mid right inferior ramus is seen, series 3 image #108. No other acute fracture or dislocation is seen. Mild-to -moderate degenerative change of both hip joints with joint space narrowing are noted. Severe degenerative change of the image portion of the lumbar spine is noted. There is no evidence of hematoma. Limite d evaluation of the regional musculature is unremarkable. Diverticulosis is noted. Moderate to mar ked rectosigmoid colon fecal retention is noted. The image portion of the pelvic viscera is otherwise unremarkable. IMPRESSION: No CT evidence of acute fracture or disl ocation of the left hip. An approximately 1.6 x 2 cm right pubic bone expansile lytic lesion with subacute healing pathologic fracture. Differential diagnoses including enchondroma. Recommend clinical correlation and short-term follow-up with CT of the pelvis in 5-6 months to document stability and to rule out malig rhonda. Subacute to chronic healing fracture def ormity of the mid aspect of the right inferior ramus. Large rectosigmoid colon fecal retention . Recommend evacuation. Diverticulosis noted. 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
--- OUTSIDE RECORDS SUMMARY | 2020-03-28 09:11 | XMS REPORT | Continuity of Care Document ---
:1940 Author Organization [facility] t Address [address] [place] [address] Care Team Providers Name Role Phone Cindy DENG Primary Care Physician Mckinley DENG Attending Clinician Maura DENG Attending Clinician Ruth JACKSON Attending Clinician Robin DENG TJuan Attending Clinician Liz Rodriguez Attending Clinician MCKINLEY Admitting Clinician Unavailable Liz Rodriguez Admitting Clinician Payers Payer Name Policy Policy Number Effective Expiration Source Type Date Date MEDICAREMEDICARE PART xxxxxxxxxxx 2005 Alistair tong A AND 00:00:00 [place] Bxxxxxxxxxxx2004- [place], [place]xxxxxxxx 2000 [place] HMO,POS,EPO, 00:00:00 [facility] MELL/ECxxxxxxxxx1-PresentO Problems Condition Condition Condition Status Onset Resolution Last Treating Co mments Source Name Details Category Date Date Treatment Clinician Date GRADE 11 Diagnosis Active 2011-11-19 M emoria SPRAIN, 11-17 18:28:00 l ANKLE GRADE 11 00:00: González n SPRAIN LFT SPRAIN, 00 ANKLE SPRAIN LFT Active 11/18/2011 [place] L40.59 Diagnosis Active 2017-08-04 Mem oria 1- 11:19:00 l L40.59 00:00: [place] 00 Active 08/09/2000 [facility] [place] 2] OTHER Diagnosis Active 2017-08-04 Mem oria PSORIATIC 11:19:00 l ARTHROPATH OTHER Gisel nn Y PSORIATIC ARTHROPATH Y Active [facility] [place]note 2] SPRAIN OF Diagnosis Active 2011-11-19 Memoria ANKLE NEC 18:28:00 l SPRAIN Bautista OF ANKLE NEC Active [facility] Allergies, Adverse Reactions, Alerts This patient has no known allergies or adverse reactions. Social History Social Habit Start Date Stop Date Quantity Comments Source Sex Assigned At [facility] ethodist Alcohol intake 2019-12-15 2019-12-15 Current [facility] thodist 00:00:00 00:00:00 non-drinker of alcohol (finding) Social History 2017-08-05 2017-08-05 [facility] ermann 05:59:00 05:59:00 Alcohol Comment 2013-04-25 2013-04-25 1-[address] [facility] - 00:00:00 00:00:00 [email or web address] a day [facility] Smoking Status Start Date Stop Date Source Never smoker [place] [facility] Medications Ordered Filled Start Stop Current Ordering Indication Dosage Frequency Signature Comments Components Source Medication Medication Date Date Medication? Clinician (SIG) Name Name esomeprazol 2019-0 Yes 40mg QD Take 40 mg [place] e (NexIUM) 5-07 by mouth Metho di 40 MG 10:19: daily st capsule 21 before breakfast. cetirizine 0 Yes 10mg QD Take 10 mg [place] (ZyrTEC) 10 5-07 by mouth Meth danielle MG tablet 10:19: daily. st 21 multivitami 2020-0 Yes 1{tbl} QD Take 1 [place] with 5-07 tablet by [facility]i minerals 10:19: mouth st tablet 21 daily. ezetimibe-s 2020-0 Yes 1{tbl} QD Take 1 [place] imvastatin 5-07 tablet by Meth danielle (VYTORIN) 10:19: mouth st 10-20 mg 21 nightly. per tablet thyroid, 2019-0 Yes 65mg QD Take 65 mg Lewis ston pork, 5-07 by mouth Methodi (ARMOUR 10:19: daily. st THYROID) 60 21 mg tablet acetaminoph 2020- No acute pain 1{tbl} Q6H Take 1 [place] en-codeine 4-24 05-01 tablet by Met moreira (TYLENOL 00:00: 23:[address] WITH 00 :00 every 6 CODEINE #3) (six) 300-30 mg hours as per tablet needed for moderate pain for up to 7 days .acute pain. sulfaSALAzi Yes [place] n ne 8-16 [facility]i (AZULFIDINE 00:00: st ) 500 mg 00 tablet DULoxetine Yes [place] (CYMBALTA) 7-14 [facility] 30 MG 00:00: st capsule 00 XARELTO 20 Yes [place] mg tablet 6-29 [facility]i 00:00: st 00 rOPINIRole Yes [place] (REQUIP) 4 6-20 [facility] MG tablet 00:00: st 00 hydroCHLORO Yes 1{capsu QD Take 1 [place] thiazide 6-20 le} capsule by Wayne rios (MICROZIDE) 00:00: mouth st 12.5 mg 00 daily. capsule montelukast Yes Brian dave (SINGULAIR) 6-10 [facility] 10 mg 00:00: st tablet 00 fluticasone Yes Brina n (FLONASE) 4-13 Method[facility] 50 00:00: st mcg/actuati 00 on nasal spray DULoxetine Yes 20mg QD Take [address] (CYMBALTA) 9-17 by mouth [facility] - 20 MG 07:21: daily. Medical capsule 13 Center UNKNOWN Yes Med [facility] - 07[facility]19[facility] Medical 19 Center esomeprazol Yes 20mg QD Take [address] [facility] (NEXIUM) 9-17 by mouth [facility]ukes - 20 MG 07:19: daily. Medical capsule 19 Center ezetimibe-s Yes 1{tbl} QD Take [address] imvastatin 9-17 tablet by Russell mcdonald - (VYTORIN) 07:19: mouth Medical 10-40 mg 19 nightly. Center per tablet celecoxib Yes 200mg Take [address] (CELEBREX) 9-17 mg by [facility]ukes - 200 MG 07:19: mouth Medical capsule 19 every 12 Center (twelve) hours as needed. multivitami Yes 1{tbl} QD Take [address] n 9-17 tablet by Lukes - (MULTIVITAM 07:08: mouth Medic al [place]) per 56 daily. Center tablet cholecalcif Yes 2000U QD Take 2,[address] lyle, 9-17 Units by [email or web address] - vitamin D3, 07:08: mouth Medic al 2,000 unit 56 daily. Center Tab Vital Signs Vital Name Observation Time Observation Value Comments Source Respiratory rate 2019-12-14 10:00:00 35 /min Hazel Mcneil Oxygen saturation in 2019-12-14 10:00:00 93 /min Andrews Mcneil Arterial blood by Pulse oximetry Heart rate 2019-12-14 09:50:00 72 /min Andrews Mcneil Systolic blood 2019-12-14 09:40:00 116 mm[Hg] [place] n [facility] pressure Diastolic blood 2019-12-14 09:40:00 62 mm[Hg] Enedina on [facility]ab[facility]ism pressure Body temperature 2019-12-14 08:29:00 36.67 Allison Hazel Mcneil Body height 2019-12-14 07:01:00 167.6 cm Andrews Mcneil Body weight 2019-12-14 07:01:00 90.719 kg Andrews Mcneil BMI 2019-12-14 07:01:00 32.28 kg/m2 Andrews Mcneil Procedures Procedure Date / Time Performed Performing Clinician Sourc e OR [place] < 1 HOUR 2019-12-14 08:20:00 Jono Sen Meth odist ECG 12-LEAD 2019-12-14 07:00:15 Dom[address] od[address] LUMBAR SPINE WO 2019-12-01 19:46:17 Josef Paulino [facility] CONTRAST CT LOWER EXTREMITY WO 2019-12-01 19:44:46 Josef Paulino Lewis stojolie Mcneil CONTRAST LEFT Plan of Care Planned Activity Planned Date Details Comments Source Future Scheduled 2020-04-09 INFLUENZA VACCINE Brian n [facility] Test 00:00:00 [code = INFLUENZA VACCINE] Future Scheduled 2005 65+ PNEUMOCOCCAL Andrews [facility] Test 00:00:00 VACCINE (1 of 2 - PCV13) [code = 65+ PNEUMOCOCCAL VACCINE (1 of 2 - PCV13)] Future Scheduled 1990 SHINGLES VACCINES (#1) H emre [facility] Test 00:00:00 [code = SHINGLES VACCINES (#1)] Encounters Start End Encounter Admission Attending Care Care Encounter Source Date/Time Date/Time Type Type Clinicians Facility Department ID 2019-12-14 2019-12-14 Outpatient MCKINLEY, [facility] [id number] [place] 00:00:00 00:00:[address] IRFAN [address] 2019-12-01 2019-12-01 Emergency ROBIN, [facility] [id number] [place] 00:00:00 00:00:00 FARTUN [address] 2017-08-04 2017-08-04 [id number] 11:06:00 23:59:00 Karissa 61 Liz Results Test Description Test Time Test Comments Results Result Comments Source ECG 12 lead 2019-12-14 12:43:10 Test Item Value Reference Range Interpretation Comme nts Ventricular rate (test code = 253) 76 Atrial rate (test code = 255) 76 [place] interval (test code = 266) 158 QRSD interval (test code = 260) 78 QT interval (test code = 264) 408 QTC interval (test code = 265) 459 P axis 1 (test code = 267) 84 QRS axis 1 (test code = 268) 62 T wave axis (test code = 270) 73 EKG impression (test code = 273) Normal sinus rhythm-ST elevation, consider early repolarization, pericarditis, or injury-Nonspecific ST abnormality-Abnormal ECG-In automated comparison with ECG of 04-MAR-2017 06:36,-ST elevation now present in Inferior leads- Andrews Marquez [place] < 1 [id number] 10:16:43Hm Interface, Radiology Results - 12/14/2019 10:19 AM CDTEXAMINATION: OR [place] < 1 HOURCLIN ICAL HISTORY: None ProvidedIMPRESSION:Fluoroscopy was provided. No radiologist present. Please seeprocedure report for discussion of procedure, findings and fluoroscopic time.[facility]-[id number] MethodistCT Lumbar Spine Wo Contrast 2019-12-01 20:08:52Hm Interface, Radiology Results 12/01/2019 8:11 PM CDTEXAMINATION: CT LUMBAR SPINE WO CONTRASTCT IMAGING WAS PERFORMED WITH ITERATIVE RECONSTRUCTION TECHNIQUE AND/OR AUTOMATED EXPOSURE CONTROL TO REDUCE RADIATION DOSE.CLINICAL HISTORY: Pain secondary to recent fall with negative plain filmsCOMPARISON: None.FINDINGS: There is an element of diffuse bone demineralization. There is no lumbar spine fracture demonstrated. However there is a mild fracture of the anterior lateral aspect of the left sacral ala which is acute in appearance. There could be a small chronic cortical infarct in the anterior superior aspect of the S2 vertebra. There is otherwise no fracture demonstrated.There ismild to moderate curvature of the lumbar spine convex towards the right.L5-S1: There is marked spondylosis, disc space narrowing and degenerative change in the [...] on the left without significant spinal canal stenosis.L4-5: There is a marked spondylosis, disc space narrowing and degene rative change in the disc greater on the left at L4-5 and slight lateral subluxation of L4 relation L5 towards the right and with mild degenerative change in the facet joints. There is mild dorsal spondylosis and bulging of the disc much greater on the left with moderate foraminal stenosis on the leftand mild foraminal stenosis on the right without spinal canal stenosis.L3-4: There are moderate hypertrophic changes the facet joints at L3-4 where there is minimal spondylolisthesis, mild dorsal bulging of the disc resulting in moderate to marked (6 mm) spinal canal stenosis and moderate bilateral foraminal stenosis.L2-3: There is slight retrolisthesis and minimal spondylosis with the mild the dorsal bulging of the disc. There are moderate hypertrophic changes the facet joints and at least mild thickening of ligamentum flavum. There is somewhat prominent dorsal epidural fat resulting in moderate to marked (6 mm) thecal sac stenosis. L1-2: There is minimal spondylosis, ctnq-dr-onalsqkh dorsal bulging of the disc and mild thickening of the ligamentum flavum with a somewhat prominent dorsal epidural fat resulting in moderate (7 mm) thecal sac stenosis there is minimal spondylosis at T12-L1 and mild spondylosis and vacuum disc phenomena at T11-12 with moderate foraminal stenosis of bilaterally at T11-12 without spinal canal stenosisIMPRESSION:Mild acute fracture involving the anterior lateral aspect of the left sacral ala.Lumbar spondylosis with multilevel spinal canal and foraminal stenosis.Lumbar dextroscoliosis.JOSEF PAULINO was informed of these findings on 12/01/2019 8:06 PM and acknowledged understanding of the findings.[id number] MethodistCT Lower Extremity Wo Contrast [id number] 20:07:28Hm Interface, Radiology Results 12/01/2019 8:10 PM CDTProcedure:CT LOWER EXTREMITY WO CONTRAST LEFTREFERRING PHYSICIAN:JOSEF PAULINOHISTORY: Left hip. Pain secondary to recent fall with negative plain filmsCOMPARISON:None.TECHNIQUE:Multiple helical axial images were performed of the pelvis without contrast. Additional sagittal and coronal reformat images were acquired.,All CT scan performed using radiation dose reduction techniques. Technical factors are evaluated and adjusted to ensure appropriate moderation of exposure. Automated dose management technology is applied to adjust the radiation dose to minimize expose while achieving a diagnostic quality image.FINDINGS:No acute fracture or dislocation is seen of the left hip. An approximately 1.6 x 2 cm expansile lytic narrows on the transition lesion is seen within the right pubic bone with pathologic fracture, series 3 image #94. There is callus formation along the anterior aspect of the fracture site, suggesting of subacute healing fracture. No evidence of associated soft tissue mass. Subacute to chronic healing fracture deformity of the mid right inferior ramus is seen, series 3 image #108. No other acute fracture or dislocation is seen. Riss-sc-zebxjgfb degenerative change of both hip joints with joint space narrowing are noted. Severe degenerative change of the image portion of the lumbar spine is noted. There is no evidence of hematoma. Limited evaluation of the regional musculature is unremarkable.Diverticulosis is noted. Moderate to marked rectosigmoid colon fecal retention is noted. The image portion of the pelvic viscera is otherwise unremarkable.IMPRESSION:No CT evidence of acute fracture or dislocation of the left hip.An approximately 1.6 x 2 cm right pubic bone expansile lytic lesion with subacute healing pathologic fracture. Differential diagnoses including enchondroma. Recommend clinical correlation and short-term follow-up with CT of the pelvis in 5-6 months to document stability and to rule out maligna ncy.Subacute to chronic healing fracture deformity of the mid aspect of the right inferior ramus.Large rectosigmoid colon fecal retention. Recommend evacuation.Diverticulosis noted.[id number] [facility]ism
--- NOTE | 2020-03-28 09:50 | RAD REPORT ---
EXAM DESCRIPTION: CT - Spine Lumbar Wo Con - 03/28/2020 9:35 am CLINICAL HISTORY: Radiculopathy. PAIN COMPARISON: Lumbar Spine 3 Views dated 11/24/2019 TECHNIQUE: Axial noncontrast CT imaging of the lumbar spine was performed with coronal and sagittal re-formatted images. All CT scans are performed using dose optimization technique as appropriate and may include automated exposure control or mA/KV adjustment according to patient size. FINDINGS: The bones are diffusely osteopenic. There is no evidence of acute compression fracture. Va cuum disc degeneration is present L4-5 and L5-S1. Paraspinal tissues are normal in thickness. No paraspinal abscess or hematoma seen. Multilevel spondylosis is present involving the lumbar levels with facet hypertrophy and posterior di sc bulge is spinal canal stenosis is likely present. Mild degenerative dextroscoliosis is identified. Significant is noted in the left sacral ala likely related to prior insufficiency fracture. Subtle r ight-sided sacral insufficiency fracture is likely present. IMPRESSION: No acute lumbar spine abnormality discerned. Sacral insufficiency fractures are seen with cement present in the left sacral ala. Multilevel degenerative spondylosis lumbar spine with probable spinal canal stenosis.
--- NOTE | 2020-03-28 10:13 | ER ---
Nurse's Notes [facility] Name: Joellen Klein Age: 79 yrs Sex: Female : 1940 Arrival Date: 03/28/2020 Time: 09:10 Bed 18 Private MD: Raffaele White Diagnosis: Fall on same level from slipping, tripping and stumbling;Low back pain;Contusion of lower back and pelvis Presentation: 03/28 09:22 Chief complaint: Patient states: lost balance last night and fell from standing ss position. Pt c/o low back pain. Bruising noted to lumbar area. Pt had repair to sacrum 3 months ago at [facility]. Coronavirus screen: Client denies travel out of the [place] in the last 14 days. At this time, the client does not indicate any symptoms associated with coronavirus-19. Ebola Screen: Patient denies exposure to infectious person. Patient denies travel to an Ebola-affected area in the 21 days before illness onset. Initial Sepsis Screen: Does the patient meet any 2 criteria? No. Patient's initial sepsis screen is negative. Does the patient have a suspected source of infection? No. Patient's initial sepsis screen is negative. Risk Assessment: Do you want to hurt yourself or someone else? Patient reports no desire to harm self or others. Onset of symptoms was March 27, 2020. 09:22 Method Of Arrival: Wheelchair 09:22 Acuity: SRINIVASA 3 ss Historical: - Allergies: 09:25 No Known Allergies; ss - PMHx: 09:25 blood clots; GERD; Hypertension; ss - PSHx: 09:25 BACK SX; Cholecystectomy; nerve stimulator in spine; Hysterectomy; NECK SX; FOOT SX; ss - Immunization history:: Adult Immunizations up to date. - Social history:: Smoking status: Patient denies any tobacco usage or history of. Screenin: Abuse screen: Denies threats or abuse. Denies injuries from another. ss 09:25 Nutritional screening: No deficits noted. Tuberculosis screening: No symptoms or risk jr10 factors identified. Fall Risk Fall in past 12 months (25 points). No secondary diagnosis (0 pts). No IV (0 pts). Ambulatory Aid- Crutches/Cane/Walker (15 pts). Gait- Weak (10 pts.). Mental Status- Oriented to own ability (0 pts). Assessment: 09:25 General: Appears uncomfortable, Behavior is calm, cooperative, appropriate for age. jr10 Pain: Complains of pain in coccyx Pain began 1 day ago. Respiratory: Airway is patent Respiratory effort is even, unlabored, Respiratory pattern is regular, symmetrical. Derm: Bruising that is dark purple, on coccyx. Musculoskeletal: Tenderness present in coccyx. Injury Description: Bruise sustained to coccyx pt reports that she putting up a mirror in the bathroom with her last night and lost her balance and fell in the shower; pt reports recent sx to sacral area 3 months ago to repair a fx; pt c/o pain with palpation and ambulation; normally ambulatory with walker; pt reports that she is currently on eliquis. Vital Signs: 09:21 BP 121 / 67; Pulse 91; Resp 17; Temp 97.7(TE); Pulse Ox 97% on R/A; Weight 96.16 kg; ss Height 5 ft. 5 in. (165.10 cm); Pain 8/10; 10:30 BP 116 / 52; Pulse 79; Resp 20; Pulse Ox 97% on R/A; jr10 09:21 Body Mass Index 35.28 (96.16 kg, 165.10 cm) ss Carrington Coma Score: 09:21 Eye Response: spontaneous(4). Verbal Response: oriented(5). Motor Response: obeys ss commands(6). Total: 15. Trauma Score (Adult): 09:21 Eye Response: spontaneous(1); Verbal Response: oriented(1); Motor Response: obeys ss commands(2); Systolic BP: > 89 mm Hg(4); Respiratory Rate: 10 to 29 per min(4); Karyn Score: 15; Trauma Score: 12 ED Course: 09:10 Patient arrived in ED. mr 09:10 Raffaele White MD is Private Physician. mr 09:13 James Jimenez MD is Attending Physician. uriel 09:14 Geovanna Foote FNP-C [facility] kb 09:17 Lilian Mendez, STEVEN is Primary Nurse. jr10 09:24 Triage completed. ss 09:25 Arm band placed on right wrist. ss 09:25 Patient has correct armband on for positive identification. Fall risk band placed. Bed jr10 in low position. Call light in reach. Side rails up X2. 09:35 CT Lumbar Spine Wo Con In Process Unspecified. EDMS 10:22 No provider procedures requiring assistance completed. Patient did not have IV access jr10 during this emergency room visit. Administered Medications: No medications were administered Outcome: 10:12 Discharge ordered by . kb 10:22 Discharged to home via wheelchair. jr10 10: Condition: stable 10: Discharge instructions given to patient, Instructed on discharge instructions, follow up and referral plans. Demonstrated understanding of instructions, follow-up care, medications, Prescriptions given X 1. 10:29 Patient left the ED. jr10 Signatures: Dispatcher [employer] EDMS Geovanna Foote, MANAGER UNIVERSAL-C MANAGER UNIVERSAL-Ckb James Jimenez MD MD cha Rivera, Mary mr Smirch, Shelby, RN Lilian Jordan RN RN jr10 Corrections: (The following items were deleted from the chart) 09:25 Injury Description: Bruise sustained to coccyx pt reports that she putting up a jr10 mirror in the bathroom with her last night and lost her balance and fell in the shower; pt reports recent sx to sacral area 3 months ago to repair a fx; pt c/o pain with palpation and ambulation; normally ambulatory with walker jr10
--- NOTE | 2020-03-28 10:13 | EDPHYS ---
Physician Documentation [facility] Name: Joellen Klein Age: 79 yrs Sex: Female : 1940 Arrival Date: 03/28/2020 Time: 09:10 Bed 18 Private MD: Raffaele White ED Physician James Jimenez HPI: 03/28 09:58 This 79 yrs old Female presents to ER via Wheelchair with complaints of Fall kb Injury. 09:58 Details of fall: The patient fell from an upright position. Onset: The symptoms/episode kb began/occurred last night. Associated injuries: The patient sustained injury to the low back, contusion, swelling, tenderness. Severity of symptoms: At their worst the symptoms were moderate, in the emergency department the symptoms are unchanged. The patient has not experienced similar symptoms in the past. The patient has not recently seen a physician. Pt reports she has RA and is getting over a sacral fracture repair. States she cannot reach up because it causes her to loose her balance and fall. States she was helping her hang a mirror in the bathroom last night and lost her balance when she reached up causing her to fall to her buttocks into the bathtub. Historical: - Allergies: 09:25 No Known Allergies; ss - PMHx: 09:25 blood clots; GERD; Hypertension; ss - PSHx: 09:25 BACK SX; Cholecystectomy; nerve stimulator in spine; Hysterectomy; NECK SX; FOOT SX; ss - Immunization history:: Adult Immunizations up to date. - Social history:: Smoking status: Patient denies any tobacco usage or history of. ROS: 10:10 Constitutional: Negative for fever, chills, and weight loss, Cardiovascular: Negative kb for chest pain, palpitations, and edema, Respiratory: Negative for shortness of breath, cough, wheezing, and pleuritic chest pain, Abdomen/GI: Negative for abdominal pain, nausea, vomiting, diarrhea, and constipation, : Negative for injury, bleeding, discharge, and swelling, MS/Extremity: Negative for injury and deformity, Skin: Negative for injury, rash, and discoloration, Neuro: Negative for headache, weakness, numbness, tingling, and seizure. 10:10 Back: Positive for pain with movement, of the lumbar area and sacrum. Exam: 10:10 Constitutional: This is a well developed, well nourished patient who is awake, alert, kb and in no acute distress. Head/Face: Normocephalic, atraumatic. Chest/axilla: Normal chest wall appearance and motion. Nontender with no deformity. No lesions are appreciated. Cardiovascular: Regular rate and rhythm with a normal S1 and S2. No gallops, murmurs, or rubs. Normal PMI, no JVD. No pulse deficits. Respiratory: Lungs have equal breath sounds bilaterally, clear to auscultation and percussion. No rales, rhonchi or wheezes noted. No increased work of breathing, no retractions or nasal flaring. Abdomen/GI: Soft, non-tender, with normal bowel sounds. No distension or tympany. No guarding or rebound. No evidence of tenderness throughout. MS/ Extremity: Pulses equal, no cyanosis. Neurovascular intact. Full, normal range of motion. Neuro: Awake and alert, GCS 15, oriented to person, place, time, and situation. Cranial nerves II-XII grossly intact. Motor strength 5/5 in all extremities. Sensory grossly intact. Cerebellar exam normal. Normal gait. 10:10 Back: pain, that is moderate, of the lumbar area. 10:10 Skin: injury, contusion(s), that are superficial, of the lumbar area and sacrum. Vital Signs: 09:21 BP 121 / 67; Pulse 91; Resp 17; Temp 97.7(TE); Pulse Ox 97% on R/A; Weight 96.16 kg; ss Height 5 ft. 5 in. (165.10 cm); Pain 8/10; 10:30 BP 116 / 52; Pulse 79; Resp 20; Pulse Ox 97% on R/A; jr10 09:21 Body Mass Index 35.28 (96.16 kg, 165.10 cm) Karyn Coma Score: 09:21 Eye Response: spontaneous(4). Verbal Response: oriented(5). Motor Response: obeys ss commands(6). Total: 15. Trauma Score (Adult): 09:21 Eye Response: spontaneous(1); Verbal Response: oriented(1); Motor Response: obeys ss commands(2); Systolic BP: > 89 mm Hg(4); Respiratory Rate: 10 to 29 per min(4); Karyn Score: 15; Trauma Score: 12 MDM: 09:13 Patient medically screened. [facility] 09:55 Data reviewed: vital signs, nurses notes. Data interpreted: Pulse oximetry: on room air kb is 97 %. Interpretation: normal. Counseling: I had a detailed discussion with the patient and/or guardian regarding: the historical points, exam findings, and any diagnostic results supporting the discharge/admit diagnosis, radiology results, the need for outpatient follow up, a family practitioner, to return to the emergency department if symptoms worsen or persist or if there are any questions or concerns that arise at home. 03/28 09:21 Order name: CT Lumbar Spine Wo Con; Complete Time: 09:55 kb Administered Medications: No medications were administered Disposition: 03/28/20 10:12 Discharged to Home. Impression: Fall on same level from slipping, tripping and stumbling, Low back pain, Contusion of lower back and pelvis. - Condition is Stable. - Discharge Instructions: Musculoskeletal Pain, Back Pain, Adult, [id number], Fall Prevention in the Home, [id number]. - Prescriptions for Tramadol 50 mg Oral Tablet - take 1 tablet by ORAL route every 8 hours as needed; 12 tablet. - Medication Reconciliation Form, Thank You Letter, Antibiotic Education, Prescription Opioid Use form. - Follow up: Emergency Department; When: As needed; Reason: Worsening of condition. Follow up: Private Physician; When: 2 - 3 days; Reason: Recheck today's complaints, Continuance of care, Re-evaluation by your physician. Addendum: 03/29/2020 10:49 Co-signature as Attending Physician, James Jimenez MD I agree with the assessment and c zhao plan of care. Signatures: Dispatcher [employer] EDGeovanna Jaramillo, SHOPPER INSIGHTS MANAGER-C SHOPPER INSIGHTS MANAGER-Ckb James Jimenez MD MD cha Smirch, Shelby, RN RN Lilian Wills, STEVEN RN jr10 Corrections: (The following items were deleted from the chart) 03/28 10:29 10:12 03/28/2020 10:12 Discharged to Home. Impression: Fall on same level from jr10 slipping, tripping and stumbling; Low back pain; Contusion of lower back and pelvis. Condition is Stable. Forms are Medication Reconciliation Form, Thank You Letter, Antibiotic Education, Prescription Opioid Use. Follow up: Emergency Department; When: As needed; Reason: Worsening of condition. Follow up: Private Physician; When: 2 - 3 days; Reason: Recheck today's complaints, Continuance of care, Re-evaluation by your physician. kb
[2020-03-28 10:35] VITALS: BP 121/67; TEMP 97.7; O2SAT 97
== END 2020-03-28 10:29 | disposition home or self-care (01) ==
LOC: ER 09:08
DX: S30.0XXA Contusion of lower back and pelvis, initial encounter (principal); W01.0XXA Fall on same level from slipping, tripping and stumbling without subsequent striking against object, initial encounter; Y93.89 Activity, other specified; Y92.9 Unspecified place or not applicable; I10 Essential (primary) hypertension
CPT/HCPCS: 72131; 99283

== ENCOUNTER → 2022-09-18 | Day surgery (SDC) | payer OTHER ==
--- NOTE | 2022-09-18 13:16 | RAD REPORT ---
EXAM DESCRIPTION: US - Breast Core BX w/US Guidance - 09/18/2022 12:14 pm CLINICAL HISTORY: ICD N63.12 COMPARISON: ultrasound September 02, 2022 TECHNIQUE: The risks, benefits alternatives to the procedure were explained to the patient and infor med consent obtained. Skin and subcutaneous tissues anesthetized with lidocaine. Under sonographic guidance, three 14 gauge vacuum assisted core biopsies of the mass within the inner right breast obtained. 2 centimeter specimens taken. Tissue given to pathology. Subsequently a localizing clip was placed into the mass. Patient experienced no immediate complication IMPRESSION: Vacuum assisted core biopsies of the small right breast mass
== END ==
LOC: DS 09:30
PROVIDERS: ATTEND Family Medicine
DX: C50.911 Malignant neoplasm of unspecified site of right female breast (principal); Z17.0 Estrogen receptor positive status [ER+]
CPT/HCPCS: 19083; 88305

== ENCOUNTER 2022-10-22 08:01 | Day surgery (SDC) | payer OTHER ==
[~2022-10-22 08:01] MED LIST: CEFAZOLIN 3 GM in NA CHLORIDE 0.9% 100 ML IVPB SCH
[2022-10-22] MEDS ORDERED: BUPIVACAINE 0.25% PF 10 ML VIAL ONE (08:15)
[2022-10-22] MEDS: Ringers Lactate 1,000 ML IV ONE ×2 (08:16→08:18)
[2022-10-22] MEDS ORDERED: CEFAZOLIN SODIUM 1 GM/VIAL ONE (08:16)
[2022-10-22] MEDS ORDERED: CEFAZOLIN SODIUM 2 GM/VIAL ONE (08:16)
[2022-10-22] MEDS ORDERED: HEPARIN 5000 UNIT/ML 1 ML VIAL ONE (08:27)
[2022-10-22] MEDS ORDERED: propofoL 200 MG/20 ML VIAL IV ONE (08:27)
[2022-10-22] MEDS ORDERED: FENTANYL CITR 100 MCG/2 ML ONE (08:27)
[2022-10-22] MEDS ORDERED: ONDANSETRON 4 MG/2 ML VIAL ONE (08:27)
[2022-10-22] MEDS ORDERED: ROCURONIUM 50 MG/5 ML VIAL IV ONE (08:27)
[2022-10-22] MEDS ORDERED: LIDOCAINE 2% MPF 5 ML VIAL ONE (08:27)
[2022-10-22] MEDS ORDERED: BUPIVACAINE 0.25% PF 30 ML VIAL ONE (09:03)
[2022-10-22] MEDS ORDERED: dexAMETHasone 4 MG/ML VIAL ONE (09:57)
[2022-10-22] MEDS ORDERED: dexAMETHasone 10 MG/ML VIAL ONE (09:58)
[2022-10-22] MEDS ORDERED: EPHEDRINE SULF 50 MG/ML VIAL ONE (10:17)
[2022-10-22] MEDS ORDERED: PROMETHAZINE INJ 25 MG/ML AMP IV PRN (11:24)
[2022-10-22] MEDS ORDERED: HYDROCODONE/APAP 5/325 MG TAB PO PRN (11:24)
[2022-10-22] MEDS ORDERED: INFLIXIMAB 100 MG IV SCH (11:30)
--- NOTE | 2022-10-22 11:34 | P.BOP ---
Preoperative diagnosis: mixed incontinence, UUI, voiding dysfunction Postoperative diagnosis: same Primary procedure: Incision/Implantation of quadripolar tined lead electrodes RtS3 foramen Secondary procedure: with Fluoroscopic guidance for needle placement, Pocket on Rt Estimated blood loss: min Specimen: none Findings: RtS3, Lead0:no repsonse,1&2: strongToe/karol@3.5mA;4:mildToe/Karol Anesthesia: General Complications: None Implants: Quadripolar tined lead, percutaneous extension Transferred to: Recovery Room Condition: Good
[2022-10-22] MEDS ORDERED: HYDROCODONE/APAP 5/325 MG TAB ONE (12:10)
--- NOTE | 2022-10-22 12:12 | RAD REPORT ---
EXAM DESCRIPTION: RAD - Fluoroscopy <1 Hour - 10/22/2022 12:00 pm CLINICAL HISTORY: Sacral neural modulation FINDINGS: Sacral neural modulation performed The examination was performed by Fluoroscopy time 1 minutes. Eleven fluoroscopic spot images obtained
[2022-10-22 13:21] VITALS: BP 117/82; TEMP 97.4; O2SAT 100
--- NOTE | 2022-10-22 17:13 | OP ---
Surgeon: Humaira Krueger MD Marine Cargo Specialist: No assistants. Preoperative Diagnosis: Mixed urinary incontinence (refractory overactive bladder, stress urinary in continence), urinary urgency, urinary incontinence, voiding dysfunction. Postoperative Diagnoses: Mixed urinary incontinence (refractory overactive bladder, stress urinary i ncontinence), urinary urgency, urinary incontinence, voiding dysfunction. Procedures Performed: Incision and implantation of quadripolar tined lead electrodes into right S3 f oramen under fluoroscopic guidance for needle placement, pocket on the right side as well (InterStim stage I). Complications: None. Drains: None. Specimens: None. Estimated Blood Loss: Minimal. Anesthesia: General. Implants: Quadripolar tined lead and percutaneous extension. Condition: Patient's condition is stable. Findings: Right S3 foramen was used. Right side buttock pocket was created. Lead 0 had no response and leads 1 and 2 had strong toe and jt between 2.5 to 3.5 mL and lead 3 had mild toe and nielson ws. 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 History of venous thromboembolism, h ad medical clearance for this and was on Xarelto, held for 48 hours, now on heparin subcu. Early amb ulation is a plan and then restarting this in 2 days. She underwent all investigations including cys toscopy, urodynamic studies to understand her voiding function. No evidence of any bladder tumors. Recurrent bladder infections being treated. However, although she is in remission right now from an infection, these have been recurrent and still have to be worked on. Despite the treatment optimally of the infection, she still has severe urgency and urge-related symptoms. May fail the medications and the second-line treatments, so she was offered sacral neuromodulation as her third-line treatment option and she is not a good candidate for Botox injections due to her history as dictated above. She has history of back surgery and neurostimulator on the left side in the past. She understood the benefits and risks and complications of this procedure. I reviewed all these with the patient and her . Trial of 1 week post for bladder logging and looking for response, the n she will come off stage II. She was consented for stage I. 3 g of Ancef were given. Description Of Procedure: She was taken back to OR placed in supine fashion. General anesthesia was given on the bed. Then, she was placed in a prone position per OR protocol. Pillows were placed un aliza the lower abdomen to flatten her sacrum and under the shins to allow the toes to dangle freely. Patient was then prepped and draped in a sterile fashion using ChloraPrep. The C-arm was draped and moved into an AP position to provide fluoroscopic mapping of the sacral region, which marked out the midline SI joint, sciatic notches, from no borders and the sacral foramen. The C-arm was then moved to lateral position to image the area from the sacral promontory and coccyx. Local injection was given 10 cc of lidocaine. A 19-gauge foramen needle was inserted 1.5 cm lateral to the midline, 11 cm superior to the coccyx, a nd aiming towards the midline in the plane parallel to the lateral aspect of the sacral foramina. Th e needle was dropped into the foraminal space. On testing, this had jt only confirming that thi s is S4. Then, the needle was removed from this foramen and then reinserted showing the needle up an d once it was placed in the S3 foramen confirmed by the fluoroscopy to get to the anterior aspect of the sacrum and then observation of lifting of the perineum or bellowing was seen as well as the plant ar flexion of the great toe with the external test stimulator. The foramen needle and stylet were removed, however, the response was not optimal, so this was remove d at the level of the skin and I went up 1 cm superior to this in the same plane. There was an excel lent bellowing of the perineum and plantar flexion of the great toe. So, this was optimal position a nd angle. The foramen needle and stylet were removed and the bidirectional guide was placed and confirmed fluor oscopically, the needle was removed. The incision was made peripherally to the directional guide ginger ng the fascial layer, the lead introducer sheath. The lead introducer sheath with the dilator was pl aced over the bidirectional guide and directed to the foramen ensuring the radiopaque marker of the l ead introducer did not extend beyond the anterior edge of the sacrum. The dilator was unlocked and r emoved along with the bidirectional guide and the lead was then introduced through the introducer she ath to the first white line. Position was checked fluoroscopically and the lead was then further ins erted in until 3 electrodes were visible below the sacrum. Each electrode was tested for jt and plantar flexion of the great toe. After satisfactory positioning and changing the angle, then I carlyle led the introducer sheath out carefully. The electrode seemed to be slightly more distal, so pinchin g the electrode at the level of the skin, this was adjusted to pull back moderate amount and this was confirmed to be in an optimal position at this point on both AP and lateral views. Further incision was made in the subcutaneous tissue posterior to the iliac crest, lateral to the sac rum on the right side. Blunt dissection was continued along with the Bovie until the gluteal fascia was identified and hemostasis was secured here. The tunneling tool was used with a straw and was man earl around the lead exit site subcutaneously to the incision pocket side. A tunneling tool was remov ed and the lead was fed through the straw, pulled out of the pocket site. The lead was cleaned of the bodily fluids and dried and a protective boot was introduced through the incision superior to it on the right side as well. The temporary percutaneous extension of the metal bands were brought out. They were inserted into the extension. The lead was inserted into the exte nsion. 4 set screws were tightened with a hex wrench and the boot was pushed over the connection and the silk ties were placed and sutured to the boot grooves on either side of the connection. The tunnel that was made from here to the percutaneous extension side was done first. Wounds were irrigated with antibiotic solution and water and closed with the help of 3-0 chromic in t he subcutaneous plane and then 4-0 Monocryl in the subcuticular plane. All skin incisions were close d with simple suture at the lead incision site. Then, at the exit site and then continuous running s uture at the pocket site. Counts were correct and Dermabond was placed and then 4 x 4's over this in cision and Tegaderm was placed to cover the incisions and the gauze was placed under the Twist-Lock c able connector. EBL was minimal. Patient was transferred to the recovery room in stable condition u sing the external test stimulator. Patient will be programmed to the electrode of optimal sensation and given instructions on utilizing the external test stimulator prior to discharge. Diary will be k ept until return appointment to my office to discuss results of this test stimulation. JENNIFER/SABA Voice ID: [id number] Report ID: [id number]
[2022-10-22] MEDS ORDERED: FOLIC ACID 1 MG TABLET PO SCH (21:00)
[2022-10-22] MEDS ORDERED: BIFIDOBACTERIUM INFANTIS 4 MG PO SCH (21:00)
[2022-10-22] MEDS ORDERED: HOME MED 1 EA UNK (Vit C/E/Zn/Coppr/Lutein/Zeaxan [Preservision Areds 2 Softgel] Capsule) PO SCH (21:00)
[2022-10-22] MEDS ORDERED: HOME MED 1 EA UNK (Ropinirole Hcl [Ropinirole Hcl] 4 MG Tablet) PO SCH (21:00)
[2022-10-22] MEDS ORDERED: HOME MED 1 EA UNK (Omeprazole Magnesium [Prilosec Otc] 20 MG Tablet.Dr) PO SCH (21:00)
[2022-10-22] MEDS ORDERED: HOME MED 1 EA UNK (Simvastatin [Simvastatin] 20 MG Tablet) PO SCH (21:00)
[2022-10-22] MEDS ORDERED: HOME MED 1 EA UNK (Cyclosporine [Restasis] Droperette) EACH EYE SCH (21:00)
[2022-10-22] MEDS ORDERED: MELATONIN 10 MG PO SCH (21:00)
[2022-10-23] MEDS ORDERED: HOME MED 1 EA UNK (Cholecalciferol (Vitamin D3) [Vitamin D3] 2000 UNIT Capsule) PO SCH (09:00)
[2022-10-23] MEDS ORDERED: HOME MED 1 EA UNK (Cetirizine Hcl [Zyrtec] 10 MG Tablet) PO SCH (09:00)
[2022-10-23] MEDS ORDERED: FUROSEMIDE 40 MG TABLET PO SCH (09:00)
[2022-10-23] MEDS ORDERED: THYROID PORK 15 MG PO SCH (09:00)
[2022-10-23] MEDS ORDERED: DULOXETINE 30 MG CAP PO SCH (09:00)
[2022-10-23] MEDS ORDERED: CRANBERRY FRUIT EXTRACT 200 MG CAP PO SCH (09:00)
[2022-10-23] MEDS ORDERED: HOME MED 1 EA UNK (Multivitamin [Multivitamin] Tablet) PO SCH (09:00)
[2022-10-24] MEDS ORDERED: RIVAROXABAN 10 MG TABLET PO SCH (21:00)
== END 2022-10-22 12:45 | disposition home or self-care (01) ==
LOC: OR 08:01
PROVIDERS: ADMIT Obstetrics & Gynecology; ATTEND Obstetrics & Gynecology
PROC: 01HY3MZ Insertion of Neurostimulator Lead into Peripheral Nerve, Percutaneous Approach (ICD-10-PCS; principal; 2022-10-22 09:15)
DX: N39.46 Mixed incontinence (principal); N32.81 Overactive bladder; N31.9 Neuromuscular dysfunction of bladder, unspecified
CPT/HCPCS: 76000; J0690; J1100; J1644; J2001; J2405; J2704; J3010; J7120

== ENCOUNTER 2022-10-29 07:30 | Day surgery (SDC) | payer OTHER ==
[2022-10-29] MEDS ORDERED: HEPARIN 5000 UNIT/ML 1 ML VIAL ONE ×2 (07:54→07:56)
[2022-10-29] MEDS ORDERED: Ringers Lactate 1,000 ML IV ONE (07:54)
[2022-10-29] MEDS ORDERED: propofoL 200 MG/20 ML VIAL IV ONE ×3 (08:41→09:37)
[2022-10-29] MEDS ORDERED: LIDOCAINE 2% MPF 5 ML VIAL ONE (08:41)
[2022-10-29] MEDS ORDERED: FENTANYL CITR 100 MCG/2 ML ONE (08:41)
[2022-10-29] MEDS ORDERED: MIDAZOLAM HCL 2 MG/2 ML INJ ONE (08:43)
[2022-10-29] MEDS ORDERED: LIDOCAINE 1% W/EPI 1:100,000 50 ML MDV ONE ×2 (08:44→09:59)
[2022-10-29] MEDS ORDERED: CEFAZOLIN SODIUM 1 GM/VIAL ONE (08:44)
[2022-10-29] MEDS ORDERED: ONDANSETRON 4 MG/2 ML VIAL ONE (09:17)
[2022-10-29] MEDS ORDERED: Mastisol Adhesive Liq ONE (09:19)
[2022-10-29] MEDS ORDERED: MORPHINE 4 MG/ML SYR ONE (10:18)
--- NOTE | 2022-10-29 10:22 | P.BOP ---
Preoperative diagnosis: urge incontinence, refractory OAB, ROHINI Postoperative diagnosis: same Primary procedure: Stage 2 interstim(implantation of Neurostimulator+programming) Secondary procedure: Urethral Bulking and cysto Estimated blood loss: min Specimen: none Findings: Rt buttock, 1.2ml Bulkamid Anesthesia: MAC Complications: None Implants: Interstim X, Bulkamid Transferred to: Recovery Room Condition: Good
[2022-10-29] MEDS ORDERED: INFLIXIMAB 100 MG IV SCH (10:30)
[2022-10-29 13:11] VITALS: BP 131/51; TEMP 96.4; O2SAT 98
[2022-10-29] MEDS ORDERED: HOME MED 1 EA UNK (Simvastatin [Simvastatin] 20 MG Tablet) PO SCH (21:00)
[2022-10-29] MEDS ORDERED: HOME MED 1 EA UNK (Cyclosporine [Restasis] Droperette) EACH EYE SCH (21:00)
[2022-10-29] MEDS ORDERED: BIFIDOBACTERIUM INFANTIS 4 MG PO SCH (21:00)
[2022-10-29] MEDS ORDERED: HOME MED 1 EA UNK (Vit C/E/Zn/Coppr/Lutein/Zeaxan [Preservision Areds 2 Softgel] Capsule) PO SCH (21:00)
[2022-10-29] MEDS ORDERED: MELATONIN 10 MG PO SCH (21:00)
[2022-10-29] MEDS ORDERED: FOLIC ACID 1 MG TABLET PO SCH (21:00)
[2022-10-29] MEDS ORDERED: HOME MED 1 EA UNK (Omeprazole Magnesium [Prilosec Otc] 20 MG Tablet.Dr) PO SCH (21:00)
[2022-10-29] MEDS ORDERED: HOME MED 1 EA UNK (Ropinirole Hcl [Ropinirole Hcl] 4 MG Tablet) PO SCH (21:00)
[2022-10-30] MEDS ORDERED: CRANBERRY FRUIT EXTRACT 200 MG CAP PO SCH (09:00)
[2022-10-30] MEDS ORDERED: HOME MED 1 EA UNK (Multivitamin [Multivitamin] Tablet) PO SCH (09:00)
[2022-10-30] MEDS ORDERED: THYROID PORK 15 MG PO SCH (09:00)
[2022-10-30] MEDS ORDERED: HOME MED 1 EA UNK (Cetirizine Hcl [Zyrtec] 10 MG Tablet) PO SCH (09:00)
[2022-10-30] MEDS ORDERED: HOME MED 1 EA UNK (Cholecalciferol (Vitamin D3) [Vitamin D3] 2000 UNIT Capsule) PO SCH (09:00)
[2022-10-30] MEDS ORDERED: FUROSEMIDE 40 MG TABLET PO SCH (09:00)
[2022-10-30] MEDS ORDERED: DULOXETINE 30 MG CAP PO SCH (09:00)
[2022-10-30] MEDS ORDERED: RIVAROXABAN 10 MG TABLET PO SCH (21:00)
--- NOTE | 2022-10-31 00:38 | OP ---
Date of Procedure: 10/29/2022 Surgeon: Humaira Krueger MD Preoperative Diagnoses: Urge incontinence, refractory overactive bladder, and stress urinary inconti nence. Postoperative Diagnoses: Urge incontinence, refractory overactive bladder, and stress urinary incont inence. Procedures Performed: 1.Stage II InterStim and implantation of neurostimulator and programming. 2.Urethral bulking with Bulkamid. 3.Cystoscopy. Anesthesia: MAC. Specimens: None. Complications: None. Drains: None. Implants: InterStim X neurostimulator and Bulkamid 1.2 mL. Findings: Right buttock implant was placed and the Bulkamid quantity is as dictated 1.2 mL. Condition: Good. Indications: The patient is an 82-year-old female with mixed incontinence with predominant urge symp toms treated with suppression second-line therapies and failed to improve and tolerate. She has cont raindication due to her age and dementia and memory loss. So she was counseled on the alternatives b etween Botox and given the fact that she has voiding dysfunction as well, she wanted to proceed with the InterStim neurostimulator. She went through stage I with an excellent response with significant decrease in urge, frequency, and urge incontinence. She is very excited to proceed with the implanta tion. She was also evaluated with urodynamic cystoscopy. No evidence of any bladder tumor or foreign body or stone. No infections either. She went ahead and wanted to get a urethral bulking procedure. At this age, probably just adequate for this patient instead of sling at this time as there was no signi ficant hypermobility. Description Of Procedure: Once the patient was consented, she was taken back to the OR and placed in a supine fashion. After MAC was given, she was placed in a prone position per OR protocol. She was prepped and draped in the usual sterile fashion using ChloraPrep for prep solution. Local injection of 1% lidocaine, 10 cc was administered. The previous body pocket incision was opened up using scalpel after the local was placed and slightly extended laterally. The lead and percutaneous extension connection were identified and elevated. T he sutures holding the protective boot were exposed and the protective boot was retracted from the po cket. The set screws were exposed and loosened with a hex wrench. The boot was removed and discarde d after the extension was cut and removed from the field ensuring sterility. The subcutaneous pocket anterior to the muscle surface was then enlarged and hemostasis was established. The lead was then cleansed off bodily fluids and dried. The lead was inserted into the header of the InterStim II neurostimulator until the blue tip was visualized at the distal window. The single set screw was tightened. The pocket was irrigated with sterile water. The neurostimulator was placed into the subcutaneous pocket with the etched identification side place d upwards and the excessive lead wrapped counterclockwise around the neurostimulator. The programmin g head was placed over the implanted neurostimulator in a sterile cover to ensure adequate lead conne ction and that parameters are within normal limits. The impedances were confirmed to be within rosario l limits, greater than 50 and less than 4000. The wound was irrigated with the antibiotic solution and water and closed with 3-0 chromic sutures in subcuticular plane and a 5-0 Monocryl on the skin. Counts were correct. Steri-Strips and 4x4s were placed over the incision. EBL was minimal. The patient was transferred to the bed and placed in a supine fashion and transferred back on the ope rating table and placed in a dorsal lithotomy position using Zay stirrups. Once this position was done, vulva, vagina, and perineum were prepped and draped in a sterile fashion. Then using a pediatr ic cystoscope, the bladder was entered and drained first and then visualized with brisk flow to maint ain the lumen of the urethra. The Bulkamid syringe was opened up, tightened into the needle and this was advanced after placing the tip of the cystoscope sheath at the internal meatus. The needle was extended 2 cm into the bladder. Once this was done, then the entire system was pulled into the mid urethral area, which was 2 cm pr oximal to the internal meatus and here the injections started at 4 o'clock, 2 o'clock, 11 o'clock, an d at 8 o'clock position injecting a total of 1.3 mL. Excellent cushions were made. Good coaptation was noted. The cystoscope was gradually removed from the urethra. EBL was minimal. She tolerated t he procedure well. She was recovered from anesthesia and taken to PACU in stable condition. The generator was programmed while the patient was still sedated and restored to the old settings. S he will be called later in the day and the settings will be redone and they will be entered into the electronic chart at the office. EBL minimal. She will follow up after a voiding trial today at the office. The family was debriefed about her procedure. JENNIFER/SABA Voice ID: [id number] Report ID: [id number]
[2022-11-05] MEDS ORDERED: METHOTREXATE 2.5 MG TAB PO SCH (09:00)
== END 2022-10-29 11:33 | disposition home or self-care (01) ==
LOC: OR 07:30
PROVIDERS: ATTEND Obstetrics & Gynecology
PROC: 0JH73BZ Insertion of Single Array Stimulator Generator into Back Subcutaneous Tissue and Fascia, Percutaneous Approach (ICD-10-PCS; principal; 2022-10-29 08:30)
PROC: 0TVD8ZZ Restriction of Urethra, Via Natural or Artificial Opening Endoscopic (ICD-10-PCS; 2022-10-29 08:30)
DX: N39.46 Mixed incontinence (principal); N32.81 Overactive bladder
CPT/HCPCS: 64590; 51715; J1644 ×2; J2704 ×3; J2001; J2250; J2405; J7120; J0690; L8606; J3010

== ENCOUNTER 2023-06-05 14:13 | Inpatient (IN) | payer OTHER ==
--- OUTSIDE RECORDS SUMMARY | 2023-06-05 14:19 | XMS REPORT | Continuity of Care Document ---
:1940 Author Organization [facility] [place] [facility] t Address [address] [place] [address] Care Team Providers Name Role Phone Raffaele White MD Primary Care Physician Darleen FRITZ, Silke Attending Clinician Mirian DENG, Benjamín Attending Clinician Vonnie Rodriguez MA Attending Clinician Unavailable Doreen HARRIS, Cristina Attending Clinician Unavailable Hannah Gallegos RN Attending Clinician Unavailable Jose Herrera MD Attending Clinician Becky Rider RN Attending Clinician Unavailable Provider, Unknown Attending Clinician Unavailable [email or web address]_S Attending Clinician Unavailable Sindhu Saldivar RN Attending Clinician Unavailable Dameon Rutherford MD Attending Clinician Rhett Meléndez MD Attending Clinician [phone] Roger Yin APRN Attending Clinician Betty Herman RN Attending Clinician Unavailable SHAWN, LUCERO Attending Clinician Unavailable Shawn DENG, Lucero Attending Clinician Doctor Unassigned, [place] Attending Clinician Unavailable Honorio HARRIS, Missy Vance Attending Clinician Unavailable Zbigniew Will MA Attending Clinician Unavailable Provider , Not In System Attending Clinician Unavailable Stefany Cuellar MD Attending Clinician Fidel Rios Attending Clinician Unavailable Hai MCMANUS, Galilea Attending Clinician Unavailable Jamin Freire MD Attending Clinician Sho Barry MA Attending Clinician Unavailable Ángela Laws DO Attending Clinician Pob, [facility] Attending Clinician Unavailable Ya Cody MD Attending Clinician YA CODY Attending Clinician Unavailable JACQUELINE WANG Attending Clinician Unavailable MD JACQUELINE WANG Attending Clinician Unavailable 2, [facility] Attending Clinician Unavailable , [facility] Vascular Room 1 - Attending Clinician Unavailable FARTUN KELLY Attending Clinician Unavailable Karissa Rodriguez Attending Clinician [email or web address]_S Admitting Clinician Unavailable DAMEON RUTHERFORD Admitting Clinician Unavailable JACQUELINE WANG Admitting Clinician Unavailable CATRINA SOW Admitting Clinician Unavailable Karissa Rodriguez Admitting Clinician Payers Payer Name Policy Type Policy Number Effective Date Expiration Date Raj luke [employer] (MEDICARE [id number] REPLACEMENT PPO) [employer] MANAGED [id number] 2022 MEDICARE PPO-BIN 00:00:00 Problems Condition Condition Condition Status Onset Resolution Last Treating Co mments Source Name Details Category Date Date Treatment Clinician Date 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 00:00: Ho spita (DVT) of (DVT) of 00 l right right lower lower extremity extremity Fall Fall Disease Active 2022-08 [facility] 0[facility] 00:00: Hospita 00 l Arthritis Arthritis Disease Active 2022-08 Met [facility] 0-03 [facility] 00:00: Hospita 00 l Malignant Malignant Disease Active 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 00:00: Hosp jaclyn breast breast 00 l History of History of Disease Active U nivers DVT (deep DVT (deep - ity of vein vein 00:00: [place] thrombosis thrombosis 00 Me dical ) ) Branch Venous Venous Disease Active Univers insufficie insufficie 4-09 it y of ncy ncy 00:00: [place] [address] Medical Branch Elevated Elevated Disease Active Unive rs brain brain 4-09 ity of natri[place] peptide c peptide 00 [place] (BNP) (BNP) Branch level level Hyperlipid Hyperlipid Disease Active U nivers emia, emia, 4- ity of unspecifie unspecifie [place] d 00 Medical hyperlipid hyperlipid Br anch emia type emia type Obesity Obesity Disease Active Univers (BMI (BMI - ity of 30-39.9) 30-39.9) 00:00: [place] [address] Medical Branch S/P total S/P total Disease Active Uni vers knee knee 5-16 ity of arthroplas arthroplas [place] ty, right ty, right 00 Med[place] Branch GRADE 11 GRADE 11 Diagnosis Active 2011-11-19 Memoria SPRAIN, SPRAIN, 4-11 18:28:00 l ANKLE ANKLE 00:00: aButista SPRAIN LFT SPRAIN LFT 00 Active 11/18/2011 [facility] L40.59 L40.59 Diagnosis Active 2017-08-04 M emoria Active 08-09 11:19:00 l 08/09/2000 00:00: González dave [address] No known No known Disease Metho di active active st problems problems Hospit a l OTHER OTHER Diagnosis Active 2017-08-04 Mem oria PSORIATIC PSORIATIC 11:19:00 l ARTHROPATH ARTHROPATH He rmann Y Y Active [facility] SPRAIN OF SPRAIN OF Diagnosis Active 2011-11-19 Memoria ANKLE NEC ANKLE NEC 18:28:00 l Active González [facility] Allergies, Adverse Reactions, Alerts Allergy Allergy Status Severity Reaction(s) Onset Inactive Treating Comm ents Source Name Type Date Date Clinician NO KNOWN Drug Active Univers ALLERGIE Class ity of S [facility] NO KNOWN Allergy Active [facility] Family History Family Member Diagnosis Comments Start Date Stop Date Source [facility] father Hyperlipidemia Method [facility] Natural father Skin cancer Cheondoism [facility] Natural father Stroke [facility] Natural mother Diabetes [facility] Natural sister Breast cancer [facility] Social History Social Habit Start Date Stop Date Quantity Comments Source History SDOH [facility] Alcohol Frequency [facility] History SDOH [facility] Alcohol Std Dr[facility] History SDOH [facility] Alcohol Binge Medical Dominick ter Sexual orientation Method [facility] History of Social 2023-05-11 2023-05-[address] function 00:00:00 00:00:00 Hospital Exposure to 2022-12-20 2022-12-30 Not sure University of SARS-CoV-2 (event) 00:00:00 14:00:00 [facility] Tobacco use and 2022-11-17 2022-11-17 Smokeless Cheondoism exposure 00:00:00 00:00:00 tobacco non-user Hospital Alcohol intake 2013-04-26 2013-04-26 [facility]er [facility]00 of [facility] (finding) Alcohol Comment 2013-04-25 2013-04-25 1-2 glass of ANDRES Cassidy 00:00:00 00:00:00 wine a day [facility] Sex Assigned At [birth year] ANDRES Perdue 00:00:00 00:00:00 Medical Center Smoking Status Start Date Stop Date Source Never smoked tobacco [facility]ondoism [facility]spital Medications Ordered Filled Start Stop Current Ordering Indication Dosage Frequency Signature Comments Components Source Medication Medication Date Date Medication? Clinician (SIG) Name Name cephalexin 2022-08 Yes 500mg [id number] Take 1 Methodi (Keflex) 0-[id number] 500 MG 00:00: 3D (500 mg Hospita capsule 00 total) by l mouth 3 (three) times a day. esomeprazol 2022-08 Yes 40mg QD Take 1 Meth danielle e (NexIUM) 0-[address] 40 MG 13:35: (40 mg Hospita capsule 44 total) by l mouth daily before breakfast. cetirizine 2022-08 Yes 10mg QD Take 1 Metho di (ZyrTEC) 10 0-03 tablet (10 st MG tablet 13:35: mg total) Hos doug 44 by mouth l daily. multivitami 2022-08 Yes 1{tbl} QD Take 1 Me thodi n with 0-[address] minerals 13:35: mouth Hospita tablet 44 daily. l ezetimibe-s 2022-08 Yes 1{tbl} QD Take 1 Me thodi imvastatin 0-[address] (VYTORIN) 13:35: mouth Hospita 10-20 mg 44 nightly. l per tablet thyroid, 2022-08 Yes 65mg QD Take 65 mg Met hodi pork, 0-[address] (ARMOUR 13:35: daily. Hospita THYROID) 60 44 l mg tablet cholecalcif 2022-08 Yes 2000U QD Take 2,000 Methodi lyle, 0-[address] vitamin D3, 13:35: mouth Hospi ta (VITAMIN D3 44 daily. l ORAL) traMADoL 2022-08 Yes [id number] 50mg Q6H Take 1 Method i (ULTRAM) 50 0-03 tablet (50 st mg tablet 13:35: mg total) Hos doug 44 by mouth l every 6 (six) hours as needed for moderate pain .acute pain. ondansetron 2022- No 4mg Q8H Take 1 Met hodi (ZOFRAN) 4 04-2114 tablet (4 st MG tablet 00:00: 04:59 mg total) Ho spita 00 :00 by mouth l every 8 (eight) hours as needed for nausea or vomiting for up to 30 days. cephalexin 2022- No 500mg Q.25D Take 1 Me thodi (Keflex) 02-[address] 500 MG 00:00: 04:59 (500 mg Hospita capsule 00 :00 total) by l mouth 4 (four) times a day for 14 days. celecoxib 2022- No 100mg Q.5D Take 1 Meth danielle (CeleBREX) 01-[address] 100 MG 00:00: 04:59 (100 mg Hospita capsule 00 :00 total) by l mouth 2 (two) times a day for 5 days. certolizuma 2022- No Q30D Inject Met hodi b pegol 6-16 06-[address] (CIMZIA 06:22: 00:00 skin every Hos doug SUBQ) 25 :00 30 l (thirty) days. acetaminoph 3-0 Yes 1000mg Q6H Take 2 Me thodi en (Tylenol 6-[address] Extra 00:00: (1,000 mg Hospita Strength) 00 total) by l 500 MG mouth tablet every 6 (six) hours. celecoxib 3-0 2023- No 100mg Q.5D Take 1 Meth danielle (CeleBREX) 16 - capsule st 100 MG 00:00: 04:59 (100 mg Hospita capsule 00 :00 total) by l mouth 2 (two) times a day for 5 days. furosemide 2021-0 Yes [id number] 40mg Take 1 U nivers 40 mg 9-09 tablet by ity of tablet 00:00: mouth in [place] [address] the Medical morning. Branch furosemide 2022-0 Yes [id number] 40mg Take 1 U nivers 40 mg 9-09 tablet by ity of tablet 00:00: mouth in [place] 00 the Medical morning. Branch furosemide 2022-0 Yes [id number] 40mg Take 1 U nivers 40 mg 9-09 tablet by ity of tablet 00:00: mouth in [place] 00 the Medical morning. Branch furosemide 2022-0 Yes [id number] 40mg Take 1 U nivers 40 mg 9-09 tablet by ity of tablet 00:00: mouth in [place] 00 the Medical morning. Branch furosemide 2022-0 Yes [id number] 40mg Take 1 U nivers 40 mg 9-09 tablet by ity of tablet 00:00: mouth in [place] 00 the Medical morning. Branch furosemide 2022-0 Yes [id number] 40mg Take 1 U nivers 40 mg 9-09 tablet by ity of tablet 00:00: mouth in [place] 00 the Medical morning. Branch furosemide 2022-0 Yes [id number] 40mg Take 1 U nivers 40 mg 8-09 tablet by ity of tablet 00:00: mouth in [place] 00 the Medical morning. Branch furosemide 2022-0 Yes [id number] 40mg Take 1 U nivers 40 mg 8-09 tablet by ity of tablet 00:00: mouth in [place] 00 the Medical morning. Branch furosemide 2022-0 Yes [id number] 40mg Take 1 U nivers 40 mg 8-09 tablet by ity of tablet 00:00: mouth in [place] 00 the Medical morning. Branch furosemide Yes [id number] 40mg Take 1 U nivers 40 mg 8-09 tablet by ity of tablet 00:00: mouth in [place] 00 the Medical morning. Branch furosemide 2021-0 2022- No [id number] 40mg Take 1 Univers 40 mg 8-09 -09 tablet by ity of tablet 00:00: 00:00 mouth in [place] 00 :00 the Medical morning. Branch furosemide 0 Yes 40mg Take 1 Unive rs 40 mg 2-10 tablet by ity of tablet 00:00: mouth [place] 00 daily. Medical Branch furosemide 0 2021- No 40mg Take 1 Univ ers 40 mg 2-10 08-09 tablet by ity of tablet 00:00: 00:00 mouth [place] 00 :00 daily. Medical Branch rivaroxaban Yes 20mg Take 20 mg Univers (XARELTO) 02-14 by mouth ity of 20 mg 13:33: daily. [place] tablet 12 Medical Branch Cholecalcif Yes 1{tbl} Take 1 Un puneet lyle, - tablet by ity of Vitamin D3, 13:33: mouth [place] (VITAMIN 12 daily. Medical D3) 2,000 Branch unit tablet cetirizine Yes 10mg Take 10 mg U nivers (ZYRTEC) 10 02-14 by mouth ity of mg tablet 13:33: daily. [place] [address] Medical Branch cycloSPORIN Yes 1[drp] Place 1 U nivers E - Drop in ity of (RESTASIS) 13:33: left eye [place] as 0.05 % 12 daily. Medical drops Branch rOPINIRole Yes 4mg Take 4 mg Un puneet 4 mg tablet -09 by mouth ity of 13:33: at [place] [address] bedtime. Medical Branch thyroid Yes 60mg Take 60 mg Univ ers (ARMOUR 02-14 by mouth ity of THYROID) 60 13:33: [place]. [place] tablet 12 Medical Branch montelukast Yes 10mg Take 10 mg Univers (SINGULAIR) 02-14 by mouth ity of 10 mg 13:33: daily. [place] tablet 12 Medical Branch esomeprazol Yes 40mg Take 40 mg Univers e 40 mg 7-09 by mouth ity of capsule 13:33: daily. [place] [address] Medical Branch ezetimibe-s Yes 1{tbl} Take 1 Un puneet imvastatin 7-09 tablet by ity of -20 13:33: mouth at [place] (VYTORIN 12 bedtime. Medical 05/28) Branch 10-20 mg tablet DULoxetine Yes 30mg Take 30 mg U nivers 30 mg 7-09 by mouth ity of capsule 13:33: daily. [place] [address] Medical Branch traMADoL 50 Yes 50mg Take 50 mg Univers mg tablet 7-09 by mouth ity of 13:33: every 6 [place] [address] (six) Medical hours as Branch needed. rivaroxaban Yes 20mg Take 20 mg Univers (XARELTO) 7-09 by mouth ity of 20 mg 13:33: daily. [place] [address] Medical Branch Cholecalcif Yes 1{tbl} Take 1 Un puneet lyle, - tablet by ity of Vitamin D3, 13:33: mouth [place] (VITAMIN 12 daily. Medical D3) 2,000 Branch unit tablet cetirizine Yes 10mg Take 10 mg U nivers (ZYRTEC) 10 7-09 by mouth ity of mg tablet 13:33: daily. [place] [address] Medical Branch cycloSPORIN Yes 1[drp] Place 1 U nivers E - Drop in ity of (RESTASIS) 13:33: left eye [place] as 0.05 % 12 daily. Medical drops Branch rOPINIRole Yes 4mg Take 4 mg Un puneet 4 mg tablet 7-09 by mouth ity of 13:33: at [place] 12 bedtime. Medical Branch thyroid Yes 60mg Take 60 mg Univ ers (ARMOUR 7-09 by mouth ity of THYROID) 60 13:33: [place]. [place] tablet 12 [place] Branch montelukast Yes 10mg Take 10 mg Univers (SINGULAIR) 7-09 by mouth ity of 10 mg 13:33: daily. [place] [address] Medical Branch esomeprazol Yes 40mg Take 40 mg Univers e 40 mg 7-09 by mouth ity of capsule 13:33: daily. [place] [address] Medical Branch ezetimibe-s Yes 1{tbl} Take 1 Un puneet imvastatin 7-09 tablet by ity of 05-28 13:33: mouth at [place] (VYTORIN 12 bedtime. Medical 05/28) Branch 10-20 mg tablet DULoxetine Yes 30mg Take 30 mg U nivers 30 mg 7-09 by mouth ity of capsule 13:33: daily. [place] [address] Medical Branch traMADoL 50 Yes 50mg Take 50 mg Univers mg tablet 7-09 by mouth ity of 13:33: every 6 [place] [address] (six) Medical hours as Branch needed. rivaroxaban Yes 20mg Take 20 mg Univers (XARELTO) 7-09 by mouth ity of 20 mg 13:33: daily. [place] [address] Medical Branch Cholecalcif Yes 1{tbl} Take 1 Un puneet lyle, - tablet by ity of Vitamin D3, 13:33: mouth [place] (VITAMIN 12 daily. Medical D3) 2,000 Branch unit tablet cetirizine Yes 10mg Take 10 mg U nivers (ZYRTEC) 10 -09 by mouth ity of mg tablet 13:33: daily. [place] [address] Medical Branch cycloSPORIN Yes 1[drp] Place 1 U nivers E - Drop in ity of (RESTASIS) 13:33: left eye [place] as 0.05 % 12 daily. Medical drops Branch rOPINIRole Yes 4mg Take 4 mg Un puneet 4 mg tablet 02-14 by mouth ity of 13:33: at [place] 12 bedtime. Medical Branch thyroid Yes 60mg Take 60 mg Univ ers (ARMOUR 02-14 by mouth ity of THYROID) 60 13:33: [place]. [place] tablet 12 [place] Branch montelukast Yes 10mg Take 10 mg Univers (SINGULAIR) 09 by mouth ity of 10 mg 13:33: daily. [place] [address] Medical Branch esomeprazol Yes 40mg Take 40 mg Univers e 40 mg 7-09 by mouth ity of capsule 13:33: daily. [place] [address] Medical Branch ezetimibe-s Yes 1{tbl} Take 1 Un puneet imvastatin 7-09 tablet by ity of -20 13:33: mouth at [place] (VYTORIN 12 bedtime. Medical 05/28) Branch 10-20 mg tablet DULoxetine Yes 30mg Take 30 mg U nivers 30 mg 7-09 by mouth ity of capsule 13:33: daily. [place] [address] Medical Branch traMADoL 50 Yes 50mg Take 50 mg Univers mg tablet 7-09 by mouth ity of 13:33: every 6 [place] [address] (six) Medical hours as Branch needed. rivaroxaban Yes 20mg Take 20 mg Univers (XARELTO) 7-09 by mouth ity of 20 mg 13:33: daily. [place] [address] Medical Branch Cholecalcif Yes 1{tbl} Take 1 Un puneet lyle, - tablet by ity of Vitamin D3, 13:33: mouth [place] (VITAMIN 12 daily. Medical D3) 2,000 Branch unit tablet cetirizine Yes 10mg Take 10 mg U nivers (ZYRTEC) 10 -09 by mouth ity of mg tablet 13:33: daily. [place] [address] Medical Branch cycloSPORIN Yes 1[drp] Place 1 U nivers E - Drop in ity of (RESTASIS) 13:33: left eye [place] as 0.05 % 12 daily. Medical drops Branch rOPINIRole Yes 4mg Take 4 mg Un puneet 4 mg tablet 02-14 by mouth ity of 13:33: at [place] [address] bedtime. Medical Branch thyroid Yes 60mg Take 60 mg Univ ers (ARMOUR -09 by mouth ity of THYROID) 60 13:33: [place]. [place] tablet 12 [place] Branch montelukast Yes 10mg Take 10 mg Univers (SINGULAIR) 7-09 by mouth ity of 10 mg 13:33: daily. [place] [address] Medical Branch esomeprazol Yes 40mg Take 40 mg Univers e 40 mg 7-09 by mouth ity of capsule 13:33: daily. [place] [address] Medical Branch ezetimibe-s Yes 1{tbl} Take 1 Un puneet imvastatin 7-09 tablet by ity of 10-20 13:33: mouth at [place] (VYTORIN 12 bedtime. Medical 05/28) Branch 10-20 mg tablet DULoxetine Yes 30mg Take 30 mg U nivers 30 mg 7-09 by mouth ity of capsule 13:33: daily. [address] Branch traMADoL 50 Yes 50mg Take 50 mg Univers mg tablet 7-09 by mouth ity of 13:33: every 6 [place] [address] (six) Medical hours as Branch needed. rivaroxaban Yes 20mg Take 20 mg Univers (XARELTO) 7-09 by mouth ity of 20 mg 13:33: daily. [place] [address] Medical Branch Cholecalcif Yes 1{tbl} Take 1 Un puneet lyle, - tablet by ity of Vitamin D3, 13:33: mouth [place] (VITAMIN 12 daily. Medical D3) 2,000 Branch unit tablet cetirizine Yes 10mg Take 10 mg U nivers (ZYRTEC) 10 -09 by mouth ity of mg tablet 13:33: daily. [place] [address] Medical Branch cycloSPORIN Yes 1[drp] Place 1 U nivers E 7- Drop in ity of (RESTASIS) 13:33: left eye [place] as 0.05 % 12 daily. Medical drops Branch rOPINIRole Yes 4mg Take 4 mg Un puneet 4 mg tablet 09 by mouth ity of 13:33: at [place] 12 bedtime. Medical Branch thyroid Yes 60mg Take 60 mg Univ ers (ARMOUR 02-14 by mouth ity of THYROID) 60 13:33: [place]. [place] tablet 12 Medical Branch montelukast Yes 10mg Take 10 mg Univers (SINGULAIR) 09 by mouth ity of 10 mg 13:33: daily. [place] [address] Medical Branch esomeprazol Yes 40mg Take 40 mg Univers e 40 mg 7-09 by mouth ity of capsule 13:33: daily. [address] Branch ezetimibe-s Yes 1{tbl} Take 1 Un puneet imvastatin - tablet by ity of - 13:33: mouth at [place] (VYTORIN 12 bedtime. Medical 05/28) Branch 10-20 mg tablet DULoxetine Yes 30mg Take 30 mg U nivers 30 mg 7-09 by mouth ity of capsule 13:33: daily. [place] [address] Medical Branch traMADoL 50 Yes 50mg Take 50 mg Univers mg tablet 7-09 by mouth ity of 13:33: every 6 [place] [address] (six) Medical hours as Branch needed. rivaroxaban Yes 20mg Take 20 mg Univers (XARELTO) 7-09 by mouth ity of 20 mg 13:33: daily. [place] [address] Medical Branch Cholecalcif Yes 1{tbl} Take 1 Un puneet lyle, 7- tablet by ity of Vitamin D3, 13:33: mouth [place] (VITAMIN 12 daily. [facility] D3) 2,000 Branch unit tablet cetirizine Yes 10mg Take 10 mg U nivers (ZYRTEC) 10 7-09 by mouth ity of mg tablet 13:33: daily. [place] [address] Medical Branch cycloSPORIN Yes 1[drp] Place 1 U nivers E - Drop in ity of (RESTASIS) 13:33: left eye [place] as 0.05 % 12 daily. Medical drops Branch rOPINIRole Yes 4mg Take 4 mg Un puneet 4 mg tablet 09 by mouth ity of 13:33: at [place] 12 bedtime. Medical Branch thyroid Yes 60mg Take 60 mg Univ ers (ARMOUR 02-14 by mouth ity of THYROID) 60 13:33: [place]. [place] mg tablet 12 Medical Branch montelukast Yes 10mg Take 10 mg Univers (SINGULAIR) 09 by mouth ity of 10 mg 13:33: daily. [place] [address] Medical Branch esomeprazol Yes 40mg Take 40 mg Univers e 40 mg 7-09 by mouth ity of capsule 13:33: daily. [place] [address] Medical Branch ezetimibe-s Yes 1{tbl} Take 1 Un puneet imvastatin 7-09 tablet by ity of 10-20 13:33: mouth at [place] (VYTORIN 12 bedtime. Medical 05/28) Branch 10-20 mg tablet DULoxetine 2021-0 Yes 30mg Take 30 mg U nivers 30 mg 7-09 by mouth ity of capsule 13:33: daily. [place] [address] Medical Branch traMADoL 50 Yes 50mg Take 50 mg Univers mg tablet 7-09 by mouth ity of 13:33: every 6 [place] [address] (six) Medical hours as Branch needed. rivaroxaban Yes 20mg Take 20 mg Univers (XARELTO) 7-09 by mouth ity of 20 mg 13:33: daily. [place] [address] Medical Branch Cholecalcif Yes 1{tbl} Take 1 Un puneet lyle, 7-09 tablet by ity of Vitamin D3, 13:33: mouth [place] (VITAMIN 12 daily. Medical D3) 2,000 Branch unit tablet cetirizine Yes 10mg Take 10 mg U nivers (ZYRTEC) 10 7-09 by mouth ity of mg tablet 13:33: daily. [place] [address] Medical Branch cycloSPORIN Yes 1[drp] Place 1 U nivers E - Drop in ity of (RESTASIS) 13:33: left eye [place] as 0.05 % 12 daily. Medical drops Branch rOPINIRole Yes 4mg Take 4 mg Un puneet 4 mg tablet -09 by mouth ity of 13:33: at [place] 12 bedtime. Medical Branch thyroid Yes 60mg Take 60 mg Univ ers (ARMOUR 09 by mouth ity of THYROID) 60 13:33: [place]. [place] mg tablet 12 Medical Branch montelukast Yes 10mg Take 10 mg Univers (SINGULAIR) 09 by mouth ity of 10 mg 13:33: daily. [place] [address] Medical Branch esomeprazol Yes 40mg Take 40 mg Univers e 40 mg 7-09 by mouth ity of capsule 13:33: daily. [place] [address] Medical Branch ezetimibe-s Yes 1{tbl} Take 1 Un puneet imvastatin 7-09 tablet by ity of -20 13:33: mouth at [place] (VYTORIN 12 bedtime. Medical 05/28) Branch 10-20 mg tablet DULoxetine Yes 30mg Take 30 mg U nivers 30 mg -09 by mouth ity of capsule 13:33: daily. [place] [address] Medical Branch traMADoL 50 Yes 50mg Take 50 mg Univers mg tablet 09 by mouth ity of 13:33: every 6 [place] [address] (six) Medical hours as Branch needed. rivaroxaban Yes 20mg Take 20 mg Univers (XARELTO) 02-14 by mouth ity of 20 mg 13:33: daily. [place] [address] Medical Branch Cholecalcif Yes 1{tbl} Take 1 Un puneet lyle, - tablet by ity of Vitamin D3, 13:33: mouth [place] (VITAMIN 12 daily. Medical D3) 2,000 Branch unit tablet cetirizine Yes 10mg Take 10 mg U nivers (ZYRTEC) 10 09 by mouth ity of mg tablet 13:33: daily. [place] [address] Medical Branch cycloSPORIN Yes 1[drp] Place 1 U nivers E - Drop in ity of (RESTASIS) 13:33: left eye [place] as 0.05 % 12 daily. Medical drops Branch rOPINIRole Yes 4mg Take 4 mg Un puneet 4 mg tablet 02-14 by mouth ity of 13:33: at [place] 12 bedtime. Medical Branch thyroid Yes 60mg Take 60 mg Univ ers (ARMOUR 02-14 by mouth ity of THYROID) 60 13:33: [place]. [place] tablet 12 Medical Branch montelukast Yes 10mg Take 10 mg Univers (SINGULAIR) 02-14 by mouth ity of 10 mg 13:33: daily. [place] [address] Medical Branch esomeprazol Yes 40mg Take 40 mg Univers e 40 mg -09 by mouth ity of capsule 13:33: daily. [place] [address] Medical Branch ezetimibe-s Yes 1{tbl} Take 1 Un puneet imvastatin 7-09 tablet by ity of - 13:33: mouth at [place] (VYTORIN 12 bedtime. Medical 05/28) Branch 10-20 mg tablet DULoxetine Yes 30mg Take 30 mg U nivers 30 mg 09 by mouth ity of capsule 13:33: daily. [place] [address] Medical Branch traMADoL 50 Yes 50mg Take 50 mg Univers mg tablet 7-09 by mouth ity of 13:33: every 6 [place] [address] (six) Medical hours as Branch needed. rivaroxaban Yes 20mg Take 20 mg Univers (XARELTO) 7-09 by mouth ity of 20 mg 13:33: daily. [place] [address] Medical Branch Cholecalcif Yes 1{tbl} Take 1 Un puneet lyle, 7-09 tablet by ity of Vitamin D3, 13:33: mouth [place] (VITAMIN 12 daily. Medical D3) 2,000 Branch unit tablet cetirizine Yes 10mg Take 10 mg U nivers (ZYRTEC) 10 7-09 by mouth ity of mg tablet 13:33: daily. [place] [address] Medical Branch cycloSPORIN Yes 1[drp] Place 1 U nivers E 7-09 Drop in ity of (RESTASIS) 13:33: left eye [place] as 0.05 % 12 daily. Medical drops Branch rOPINIRole Yes 4mg Take 4 mg Un puneet 4 mg tablet 7-09 by mouth ity of 13:33: at [place] 12 bedtime. Medical Branch thyroid Yes 60mg Take 60 mg Univ ers (ARMOUR 7-09 by mouth ity of THYROID) 60 13:33: [place]. [place] mg tablet 12 Medical Branch montelukast Yes 10mg Take 10 mg Univers (SINGULAIR) 7-09 by mouth ity of 10 mg 13:33: daily. [place] [address] Medical Branch esomeprazol Yes 40mg Take 40 mg Univers e 40 mg 7-09 by mouth ity of capsule 13:33: daily. [place] [address] Medical Branch ezetimibe-s Yes 1{tbl} Take 1 Un puneet imvastatin 7-09 tablet by ity of - 13:33: mouth at [place] (VYTORIN 12 bedtime. Medical 05/28) Branch 10-20 mg tablet DULoxetine Yes 30mg Take 30 mg U nivers 30 mg 7-09 by mouth ity of capsule 13:33: daily. [place] [address] Medical Branch traMADoL 50 Yes 50mg Take 50 mg Univers mg tablet 7-09 by mouth ity of 13:33: every 6 [place] 12 (six) Medical hours as Branch needed. rivaroxaban Yes 20mg Take 20 mg Univers (XARELTO) 7-09 by mouth ity of 20 mg 13:33: daily. [facility] 12 Medical Branch Cholecalcif Yes 1{tbl} Take 1 Un puneet lyle, 7-09 tablet by ity of Vitamin D3, 13:33: mouth [place] (VITAMIN 12 daily. Medical D3) 2,000 Branch unit tablet cetirizine Yes 10mg Take 10 mg U nivers (ZYRTEC) 10 7-09 by mouth ity of mg tablet 13:33: daily. [place] [address] Medical Branch cycloSPORIN Yes 1[drp] Place 1 U nivers E 7- Drop in ity of (RESTASIS) 13:33: left eye [place] as 0.05 % 12 daily. Medical drops Branch rOPINIRole Yes 4mg Take 4 mg Un puneet 4 mg tablet 7-09 by mouth ity of 13:33: at [place] 12 bedtime. Medical Branch thyroid Yes 60mg Take 60 mg Univ ers (ARMOUR 09 by mouth ity of THYROID) 60 13:[place] tablet 12 [facility] montelukast Yes 10mg Take 10 mg Univers (SINGULAIR) 09 by mouth ity of 10 mg 13:33: daily. [place] [address] Medical Branch esomeprazol Yes 40mg Take 40 mg Univers e 40 mg 7-09 by mouth ity of capsule 13:33: daily. [place] [address] Medical Branch ezetimibe-s Yes 1{tbl} Take 1 Un puneet imvastatin -09 tablet by ity of 10-20 13:33: mouth at [place] (VYTORIN 12 bedtime. Medical 05/28) Branch 10-20 mg tablet DULoxetine Yes 30mg Take 30 mg U nivers 30 mg 7-09 by mouth ity of capsule 13:33: daily. [place] [address] Medical Branch traMADoL 50 Yes 50mg Take 50 mg Univers mg tablet 7-09 by mouth ity of 13:33: every 6 [place] [address] (six) Medical hours as Branch needed. rivaroxaban Yes 20mg Take 20 mg Univers (XARELTO) 7-09 by mouth ity of 20 mg 13:33: daily. [place] [address] Medical Branch Cholecalcif Yes 1{tbl} Take 1 Un puneet lyle, 7- tablet by ity of Vitamin D3, 13:33: mouth [place] (VITAMIN 12 daily. Medical D3) 2,000 Branch unit tablet cetirizine Yes 10mg Take 10 mg U nivers (ZYRTEC) 10 7-09 by mouth ity of mg tablet 13:33: daily. [place] [address] Medical Branch cycloSPORIN Yes 1[drp] Place 1 U nivers E 7- Drop in ity of (RESTASIS) 13:33: left eye [place] as 0.05 % 12 daily. Medical drops Branch rOPINIRole Yes 4mg Take 4 mg Un puneet 4 mg tablet -09 by mouth ity of 13:33: at [place] 12 bedtime. Medical Branch thyroid Yes 60mg Take 60 mg Univ ers (ARMOUR 02-14 by mouth ity of THYROID) 60 13:[place]. [place] 12 [facility] montelukast Yes 10mg Take 10 mg Univers (SINGULAIR) 09 by mouth ity of 10 mg 13:33: daily. [place] [address] Medical Branch esomeprazol Yes 40mg Take 40 mg Univers e 40 mg -09 by mouth ity of capsule 13:33: daily. [address] Branch ezetimibe-s Yes 1{tbl} Take 1 Un puneet imvastatin - tablet by ity of 10-20 13:33: mouth at [place] (VYTORIN 12 bedtime. Medical 05/28) Branch 10-20 mg tablet DULoxetine Yes 30mg Take 30 mg U nivers 30 mg 7-09 by mouth ity of capsule 13:33: daily. [address] Branch traMADoL 50 Yes 50mg Take 50 mg Univers mg tablet 7-09 by mouth ity of 13:33: every 6 [place] [address] (six) Medical hours as Branch needed. rivaroxaban Yes 20mg Take 20 mg Univers (XARELTO) 7-09 by mouth ity of 20 mg 13:33: daily. [place] [address] Medical Branch Cholecalcif Yes 1{tbl} Take 1 Un puneet lyle, 7- tablet by ity of Vitamin D3, 13:33: mouth [place] (VITAMIN 12 daily. Medical D3) 2,000 Branch unit tablet cetirizine Yes 10mg Take 10 mg U nivers (ZYRTEC) 10 7-09 by mouth ity of mg tablet 13:33: daily. [place] [address] Medical Branch cycloSPORIN Yes 1[drp] Place 1 U nivers E 7- Drop in ity of (RESTASIS) 13:33: left eye [place] as 0.05 % 12 daily. Medical drops Branch rOPINIRole Yes 4mg Take 4 mg Un puneet 4 mg tablet 7-09 by mouth ity of 13:33: at [place] 12 bedtime. Medical Branch thyroid Yes 60mg Take 60 mg Univ ers (ARMOUR 02-14 by mouth ity of THYROID) 60 13:[place]: [place] tablet 12 [facility] montelukast Yes 10mg Take 10 mg Univers (SINGULAIR) 709 by mouth ity of 10 mg 13:33: daily. [place] [address] Medical Branch esomeprazol Yes 40mg Take 40 mg Univers e 40 mg 7-09 by mouth ity of capsule 13:33: daily. [place] [address] Medical Branch ezetimibe-s Yes 1{tbl} Take 1 Un puneet imvastatin 7-09 tablet by ity of - 13:33: mouth at [place] (VYTORIN 12 bedtime. Medical 05/28) Branch 10-20 mg tablet DULoxetine Yes 30mg Take 30 mg U nivers 30 mg 7-09 by mouth ity of capsule 13:33: daily. [place] [address] Medical Branch traMADoL 50 Yes 50mg Take 50 mg Univers mg tablet 7-09 by mouth ity of 13:33: every 6 [place] [address] (six) Medical hours as Branch needed. esomeprazol Yes 40mg QD Take 40 mg Methodi e (NexIUM) 4-[address] 40 MG 12:40: daily Hospita capsule 13 before l breakfast. cetirizine Yes 10mg QD Take 10 mg M ethodi (ZyrTEC) 10 4-[address] MG tablet 12:40: daily. Hospit a 13 l multivitami Yes 1{tbl} QD Take 1 Me thodi n with 4-[address] minerals 12:40: mouth Hospita tablet 13 daily. l ezetimibe-s Yes 1{tbl} QD Take 1 Me thodi imvastatin 4-[address] (VYTORIN) 12:40: mouth Hospita 10-20 mg 13 nightly. l per tablet thyroid, Yes 65mg QD Take 65 mg Met hodi pork, 4-[address] (ARMOUR 12:40: daily. Hospita THYROID) 60 13 l mg tablet cholecalcif Yes 2000U QD Take 2,000 Methodi lyle, 4-[address] vitamin D3, 12:40: mouth Hospi ta (VITAMIN D3 13 daily. l ORAL) traMADoL Yes 24710 50mg Q6H Take 50 mg Me thodi (ULTRAM) 50 4-[address] mg tablet 12:40: every 6 Hospi ta 13 (six) l hours as needed for moderate pain .acute pain. certolizuma Yes Q30D Inject Meth danielle b pegol 4-[address] (CIMZIA 12:40: skin every Hosp jaclyn SUBQ) 13 30 l (thirty) days. furosemide Yes 40mg Take 1 Unive rs 40 mg 3-17 tablet by ity of tablet 00:00: mouth [place] 00 daily. Medical Branch furosemide 0 2021- No 40mg Take 1 Univ ers 40 mg 3-17 02-10 tablet by ity of tablet 00:00: 00:00 mouth [place] 00 :00 daily. Medical Branch DULoxetine Yes Methodi (CYMBALTA) 7-14 st 30 MG 00:00: Hospita capsule 00 l DULoxetine Yes QD daily. Metho di (CYMBALTA) 7-14 st 30 MG 00:00: Hospita capsule 00 l XARELTO 20 Yes 20mg QD Take 20 mg M ethodi mg tablet 6-[address] 00:00: daily. Hospita 00 l XARELTO 20 Yes 20mg QD Take 1 Metho di mg tablet 6-29 tablet (20 st 00:00: mg total) Hospita 00 by mouth l daily. rOPINIRole Yes Methodi (REQUIP) 4 6-20 st MG tablet 00:00: Hospita 00 l hydroCHLORO Yes 1{capsu QD Take 1 M ethodi thiazide 6-20 le} capsule by st (MICROZIDE) 00:00: mouth Hospi ta 12.5 mg 00 daily. l capsule rOPINIRole Yes QD nightly. Met hodi (REQUIP) 4 6-20 st MG tablet 00:00: Hospita 00 l hydroCHLORO Yes 12.5mg QD Take 1 Me thodi thiazide 6-[address] (MICROZIDE) 00:00: (12.5 mg Ho spita 12.5 mg 00 total) by l capsule mouth daily. montelukast Yes 10mg QD Take 10 mg Methodi (SINGULAIR) 6-[address] 10 mg 00:00: daily. Hospita tablet 00 l montelukast Yes 10mg QD Take 1 Meth danielle (SINGULAIR) 6-10 tablet (10 st 10 mg 00:00: mg total) Hospita tablet 00 by mouth l nightly. cholecalcif Yes 2000U QD Take 2,[address] [facility]yle, 9-17 Units by [facility] vitamin D3, 10:31: mouth Medic al 2,000 unit 11 daily. Center Tab UNKNOWN Yes Med [facility] [place] 10:31: Medical 11 Center esomeprazol Yes 20mg QD Take [address] [facility] (NEXIUM) 9-17 [facility] 20 MG 10:31: daily. Medical capsule 11 Center ezetimibe-s Yes 1{tbl} QD Take [address] imvastatin 9-17 tablet by [place] [facility] (VYTORIN) 10:31: mouth Medical 10-40 mg 11 nightly. Center per tablet celecoxib Yes 200mg Take [address] (CELEBREX) 9-17 mg by [facility] 200 MG 10:31: mouth Medical capsule 11 every 12 Center (twelve) hours as needed. DULoxetine Yes 20mg QD Take [address] (CYMBALTA) 9-17 by mouth [facility] 20 MG 10:31: daily. Medical capsule 11 Center multivitami Yes 1{tbl} QD Take [address] n 9-17 tablet by [facility] (MULTIVITAM 10:31: mouth Medic al [place]) per 11 daily. Center tablet ezetimibe-s Yes 1{tbl} QD Take [address] imvastatin 9-17 tablet by Luke s (VYTORIN) 10:31: mouth Medical 10-40 mg 11 nightly. Center per tablet celecoxib Yes 200mg Take [address] (CELEBREX) 9-17 mg by [facility] 200 MG 10:31: mouth Medical capsule 11 every 12 Center (twelve) hours as needed. DULoxetine Yes 20mg QD Take [address] (CYMBALTA) 9-17 by mouth [facility] 20 MG 10:31: daily. Medical capsule 11 [place] multivitami Yes 1{tbl} QD Take [address] n 9-17 tablet by [facility] (MULTIVITAM 10:31: mouth Medic al [place]) per 11 daily. Center tablet cholecalcif Yes 2000U QD Take 2,[address] lyle, 9-17 Units by [facility] vitamin D3, 10:31: mouth Medic al 2,000 unit 11 daily. Center Tab UNKNOWN Yes Med [facility] 10:31: Medical 11 Center esomeprazol Yes 20mg QD Take [address] [facility] (NEXIUM) 9-17 by mouth [facility] 20 MG 10:31: daily. Medical capsule 11 Center Immunizations Ordered Filled Date Status Comments Source Immunization Name Immunization Name MODERNA COVID-19 2020-10-11 Completed Methodis t MRNA VACCINATION 00:00:00 Hospital MODERNA COVID-19 2020-09-15 Completed Methodis t MRNA VACCINATION 00:00:00 [facility] SARS-COV-2 COVID-19 2020-08-16 Completed Unive rsity of MODERNA VACCINE 00:00:00 [facility] SARS-COV-2 COVID-19 2020-08-16 Completed Unive rsity of MODERNA VACCINE 00:00:00 [place] [facility] SARS-COV-2 COVID-19 2020-08-16 Completed Unive rsity of MODERNA VACCINE 00:00:00 [place] [facility] ical Branch SARS-COV-2 COVID-19 2020-08-16 Completed Unive rsity of MODERNA VACCINE 00:00:00 [facility] ical Branch SARS-COV-2 COVID-19 2020-08-16 Completed Unive rsity of MODERNA VACCINE 00:00:00 [place] [facility] ical Branch SARS-COV-2 COVID-19 2020-08-16 Completed Unive rsity of MODERNA VACCINE 00:00:00 [facility] ical Branch SARS-COV-2 COVID-19 2020-08-16 Completed Unive rsity of MODERNA 12+ YRS 00:00:00 [facility] ical VACCINE Branch SARS-COV-2 COVID-19 2020-08-16 Completed Unive rsity of MODERNA 12+ YRS 00:00:00 [facility] ical VACCINE Branch SARS-COV-2 COVID-19 2020-08-16 Completed Unive rsity of MODERNA 12+ YRS 00:00:00 [place] [facility] ical VACCINE Branch SARS-COV-2 COVID-19 2020-08-16 Completed Unive rsity of MODERNA 12+ YRS 00:00:00 [facility] ical VACCINE Branch SARS-COV-2 COVID-19 2020-08-16 Completed Unive rsity of MODERNA 12+ YRS 00:00:00 [facility] ical VACCINE Branch SARS-COV-2 COVID-19 2020-08-16 Completed Unive rsity of MODERNA 12+ YRS 00:00:00 [facility] [place] [facility] VACCINE Branch Influenza High Dose 2020-05-09 Completed Unive rsity of 00:00:00 [facility] Influenza High Dose 2020-05-09 Completed Unive rsity of 00:00:00 [facility] Influenza High Dose 2020-05-09 Completed Unive rsity of 00:00:00 [facility] Influenza High Dose 2020-05-09 Completed Unive rsity of 00:00:00 [facility] Influenza High Dose 2020-05-09 Completed Unive rsity of 00:00:00 [facility] Influenza High Dose 2020-05-09 Completed Unive rsity of 00:00:00 [facility] Influenza High Dose 2020-05-09 Completed Unive rsity of 00:00:00 [facility] Influenza High Dose 2020-05-09 Completed Unive rsity of 00:00:00 [facility] Influenza High Dose 2020-05-09 Completed Unive rsity of 00:00:00 [facility] Influenza High Dose 2020-05-09 Completed Unive rsity of 00:00:00 [facility] Influenza High Dose 2020-05-09 Completed Unive rsity of 00:00:00 [facility] Influenza High Dose 2020-05-09 Completed Unive rsity of 00:00:00 [facility] MODERNA COVID-19 Unknown Completed Methodis t [facility]RNA VACCINATION Hospital [facility] COVID-19 Unknown Completed Methodis t MRNA VACCINATION Hospital Vital Signs Vital Name Observation Time Observation Value Comments Source Systolic blood 2022-12-30 19:50:00 141 mm[Hg] Univer sity of pressure [facility] Diastolic blood 2022-12-30 19:50:00 65 mm[Hg] Unive rsity of pressure [facility] Heart rate 2022-12-30 19:50:00 64 /min Universi ty of [facility] Body height 2022-12-30 19:50:00 167.6 cm Universi ty of [facility] Body weight 2022-12-30 19:50:00 99.882 kg Universi ty [facility] BMI 2022-12-30 19:50:00 35.54 kg/m2 Universi ty [facility] Oxygen saturation in 2022-12-30 19:50:00 96 /min [facility] Arterial blood by [facility] Pulse oximetry Branch Systolic blood 2021-09-15 20:56:00 123 mm[Hg] Univer sity of pressure [facility] Diastolic blood 2021-09-15 20:56:00 67 mm[Hg] Unive rsity of pressure [facility] Heart rate 2021-09-15 20:56:00 79 /min Universi ty of [facility] Respiratory rate 2021-09-15 20:56:00 20 /min Univ ersity of [facility] Body height 2021-09-15 20:56:00 170.2 cm Universi ty [facility] Body weight 2021-09-15 20:56:00 96.026 kg Universi ty of [facility] BMI 2021-09-15 20:56:00 33.16 kg/m2 Universi [facility] Medical Branch Oxygen saturation in 2021-09-15 20:56:00 97 /min University Arterial blood by [facility] Pulse oximetry Branch Systolic blood 2023-05-11 18:33:00 161 mm[Hg] [facility] pressure Diastolic blood 2023-05-11 18:33:00 93 mm[Hg] [facility] pressure Heart rate 2023-05-11 18:33:00 81 /min [facility] Body temperature 2023-05-11 18:33:00 36.67 Allison [facility] Body height 2023-05-11 18:33:00 168.9 cm [facility] Body weight 2023-05-11 18:33:00 98.005 kg [facility] BMI 2023-05-11 18:33:00 34.35 kg/m2 [facility] Oxygen saturation in 2023-05-11 18:33:00 98 /min [facility] Arterial blood by Pulse oximetry Respiratory rate 2023-04-21 19:03:00 18 /min [facility] Procedures Procedure Date / Time Performing Clinician Source Performed RAD ONC COURSE SUMMARY 2023-04-27 16:03:40 Provider, Unknown [facility] [place] [facility] RAD ONC DAILY TREATMENT 2023-04-21 18:44:09 Provider, Unknown [facility] RAD ONC DAILY TREATMENT 2023-04-19 18:48:08 Provider, Unknown [facility] RAD ONC DAILY TREATMENT 2023-04-16 18:34:03 Provider, Unknown [facility] RAD ONC DAILY TREATMENT 2023-04-09 18:01:19 Provider, Unknown [facility] RAD ONC DAILY TREATMENT 2023-04-07 17:36:29 Provider, Unknown [facility] SURGICAL PATHOLOGY 2023-01-22 13:30:00 Dameon Rutherford [facility] REQUEST BREAST SPECIMEN 2023-01-22 13:18:[address] [facility] MI AN ELECTIVE 2023-01-22 12:46:00 Ann Marie Merino [facility] ENDOTRACHEAL AIRWAY MASTECTOMY, PARTIAL 2023-01-22 12:30:00 Dameon Rutherford [facility] [place] [facility] BIOPSY, LYMPH NODE, 2023-01-22 12:30:00 Dameon Rutherford [facility] [place] [facility] SENTINEL NM INJECTION LYMPHOSEEK 2023-01-22 12:28:51 [facility]NOSTIC POST 2023-01-21 18:50:08 Dameon Rutherford [facility] CLIP RIGHT MAMMO DIGITAL BREAST 2023-01-21 18:34:00 Dameon Rutherford [facility] LOCALIZATION RIGHT HEMOGLOBIN A1C 2023-01-07 22:44:00 Roger Yin ospital COMPREHENSIVE METABOLIC 2023-01-07 22:44:00 Roger Yin [facility] PANEL ESTIMATED GFR 2023-01-07 22:44:00 Roger Yin ospital ASSIGNMENT OF BENEFITS 2022-12-30 19:01:42 Doctor Unassigned, No [facility] US BREAST COMPLETE 2022-12-24 18:36:16 [facility] DIAGNOSTIC 2022-12-24 18:10:39 [facility] TOMOSYNTHESIS BILATERAL AUTHORIZATION FOR 2022-12-17 05:01:00 [facility] SURGICAL PATHOLOGY 2022-12-14 16:23:00 [facility] US BREAST EXTERNAL STUDY 2022-09-18 15:46:25 Stefany Cuellar [facility] US BREAST EXTERNAL STUDY 2022-09-02 16:46:57 Stefany Cuellar [facility] MAMMO EXTERNAL STUDY 2022-09-02 16:19:47 Stefany Cuellar [facility] MAMMO EXTERNAL STUDY 2022-07-28 20:03:49 Stefany Cuellar [facility] ASSIGNMENT OF BENEFITS 2022-03-21 15:16:16 Doctor Unassigned, No [facility] Plan of Care Planned Activity Planned Date Details Comments Source Future Scheduled 2023-06-02 SHINGLES VACCINES (1 Met [facility] Test 02:20:43 of 2) [code = SHINGLES VACCINES (1 of 2)] Future Scheduled 2023-06-02 65+ PNEUMOCOCCAL [facility] Test 02:20:43 VACCINE (1 - PCV) [code = 65+ PNEUMOCOCCAL VACCINE (1 - PCV)] Future Scheduled 2023-06-02 COVID-19 VACCINE (7 - [facility] Hospital Test 02:20:43 season) [code = COVID-19 VACCINE (7 - season)] Future Scheduled 2023-06-02 INFLUENZA VACCINE (#1) M [facility] Hospital Test 02:20:43 [code = INFLUENZA VACCINE (#1)] Future Scheduled 2022-07-22 SHINGLES VACCINES (1 Met [facility] Hospital Test 02:26:19 of 2) [code = SHINGLES VACCINES (1 of 2)] Future Scheduled 2022-07-22 65+ PNEUMOCOCCAL [facility] Test 02:26:19 VACCINE (1 - PCV) [code = 65+ PNEUMOCOCCAL VACCINE (1 - PCV)] Future Scheduled 2022-07-22 COVID-19 VACCINE (4 - [facility] Hospital Test 02:26:19 Booster for Moderna series) [code = COVID-19 VACCINE (4 - Booster for Moderna series)] Future Scheduled 2022-07-22 INFLUENZA VACCINE Method [facility] Hospital Test 02:26:19 [code = INFLUENZA VACCINE] Encounters Start End Encounter Admission Attending Care Care Encounter Source Date/Time Date/Time Type Type Clinicians Facility Department ID 2023-05-19 2023-05-19 Orders Silke Mahmood 1.2.840.6 [id number] [facility]i 00:00:00 00:00:[id number] 3.430.2.7 Hospit a .3.999834 l .8 2023-05-18 2023-05-18 Telephone Benjamín Buenrostro 1.2.840.1 [id number] Methodi 00:00:00 00:00:[address] 3.430.2.7 Hospit a .3.713370 l .8 2023-05-12 2023-05-12 Orders Jennifer 1.2.840.1 [id number] Methodi 00:00:00 00:00:00 Only Vonnie 77234.1.[address] 3.430.2.7 Hospit a .3.238685 l .8 2023-05-11 2023-05-11 Office Benjamín Buenrostro 1.2.840.1 [id number] Methodi 13:30:00 14:30:[address] 3.430.2.7 Hospit a .3.383187 l .8 2023-05-11 2023-05-11 Outpatient BENJAMÍN BUENROSTRO [facility] [id number] [place] 00:00:00 00:00:[address] 2023-05-07 2023-05-07 Telephone Doreen, 1.2.840.1 [id number] Methodi 00:00:00 00:00:[address] 3.430.2.7 Hospit a .3.842542 l .8 2023-04-30 2023-04-30 Telephone Jennifer, 1.2.840.1 [id number] Methodi 00:00:00 00:00:[address] 3.430.2.7 Hospit a .3.423812 l .8 2023-04-28 2023-04-28 Oncology Bartos, 1.2.840.1 [id number] Methodi 00:00:00 00:00:00 Survivorsh Hannah 10590.1.1 162 s t ip 3.430.2.7 Hospit a .3.322935 l .8 2023-04-27 2023-04-27 Telephone Jennifer, 1.2.840.1 [id number] Methodi 00:00:00 00:00:[address] 3.430.2.7 Hospit a .3.167477 l .8 2023-04-22 2023-04-22 Oncology Bartos, 1.2.840.1 [id number] Methodi 00:00:00 00:00:00 Survivorsh Hannah 15620.1.1 339 s t ip 3.430.2.7 Hospit a .3.902173 l .8 2023-04-21 2023-04-21 [facility] Sanders 1.2.840.1 [id number] Methodi 13:45:00 15:01:58 Encounter Becky Rider 40407.1.[address] 3.430.2.7 Hospit a .3.737189 l .8 2023-04-21 2023-04-21 [facility] 1.2.840.1 [id number] Methodi 13:24:47 13:44:09 Encounter Tommy [address]648.1.[address] 3.430.2.7 Hospit a .3.227410 l .8 2023-04-21 2023-04-21 Orders Provider, 1.2.840.1 [id number] Methodi 00:00:00 00:00:00 Only Unknown 81299.1.[address] 3.430.2.7 Hospit a .3.083029 l .8 2023-04-21 2023-04-21 Outpatient [facility] [id number] [place] 00:00:00 00:00:[address] 2023-04-21 2023-04-21 Outpatient [facility] [id number] [place] 00:00:00 00:00:[address] 2023-04-19 2023-04-19 Outpatient GC_GCBZW_Ka PRIV PRIV [id number] [facility] 00:00:00 00:00:00 diyala_S [id number] Medic al 2023-04-19 2023-04-19 Outpatient GC_GCBZW_Ka PRIV PRIV [id number] [facility] 00:00:00 00:00:00 diyala_S [id number] Medic al 2023-04-19 2023-04-19 Outpatient GC_GCBZW_Ka PRIV PRIV [id number] [facility] 00:00:00 00:00:00 diyala_S [id number] Medic al 2023-04-19 2023-04-19 Orders Provider, 1.2.840.1 [id number] Methodi 00:00:00 00:00:00 Only Unknown 37416.1.[address] 3.430.2.7 Hospit a .3.509758 l .8 2023-04-16 2023-04-16 Orders Provider, 1.2.840.1 [id number] [id number] Methodi 00:00:00 00:00:00 Only Unknown [address]122.1.[address] 3.430.2.7 Hospit a .3.136348 l .8 2023-04-09 2023-04-09 [facility] 1.2.840.1 [id number] Methodi 01:00:00 11:48:07 Encounter Sing 03839.1.[address] 3.430.2.7 Hospit a .3.374842 l .8 2023-04-09 2023-04-09 Orders Provider, 1.2.840.1 [id number] [id number] Methodi 00:00:00 00:00:00 Only Unknown 32734.1.[address] 3.430.2.7 Hospit a .3.852059 l .8 2023-04-09 2023-04-09 [facility] [id number] [place] 00:00:00 00:00:[address] 2023-04-07 2023-04-07 Orders Provider, 1.2.840.1 [id number] 2099 [id number] [facility]i 00:00:00 00:00:00 Only Unknown 19620.1.[address] 3.430.2.7 Hospit a .3.757262 l .8 2023-03-29 2023-03-29 Telephone Jennifer, 1.2.840.1 [id number] [facility]i 00:00:00 00:00:[address] 3.430.2.7 Hospit a .3.417614 l .8 2023-03-29 2023-03-29 Telephone Jennifer, 1.2.840.1 [id number] Methodi 00:00:00 00:00:[address] 3.430.2.7 Hospit a .3.375697 l .8 2023-03-22 2023-03-23 [facility] Jose Sanders 1.2.840.1 [id number] Methodi 15:27:09 07:52:48 Encounter Sindhu Saldivar 88273.1.[address] 3.430.2.7 Hospit a .3.774513 l .8 2023-03-23 2023-03-23 Documentat Yariel 1.2.840.1 [id number] Methodi 00:00:00 00:00:00 ion Sindhu 86425.1.[address] 3.430.2.7 Hospit a .3.020461 l .8 2023-03-22 2023-03-23 Outpatient [facility] [id number] [place] 00:00:00 00:00:[address] 2023-03-22 2023-03-22 [facility] 1.2.840.1 [id number] Methodi 16:15:00 16:48:13 Encounter Sing 73628.1.[address] 3.430.2.7 Hospit a .3.611473 l .8 2023-03-22 2023-03-22 [facility] [id number] [place] 00:00:00 00:00:[address] 2023-03-17 2023-03-17 Telephone Benjamín Buenrostro 1.2.840.1 [id number] Methodi 00:00:00 00:00:[address] 3.430.2.7 Hospit a .3.626197 l .8 2023-03-16 2023-03-16 [facility] Jose 1.2.840.1 [id number] Methodi 00:00:00 00:00:[address] 3.430.2.7 Hospit a .3.130448 l .8 2023-03-12 2023-03-12 [facility] Sing 1.2.840.1 [id number] Methodi 14:45:27 15:15:59 Encounter Sindhu Saldivar 67641.1.[address] 3.430.2.7 Hospit a .3.814422 l .8 2023-03-12 2023-03-12 Outpatient [facility] [id number] [address] [place] 00:00:00 00:00:[address] 2023-03-11 2023-03-11 Office Sangeeta 1.2.840.5 [id number] Methodi 12:15:00 12:28:34 Visit Dameon Walton 74050.1.1 [address] 3.430.2.7 Hospit a .3.810879 l .8 2023-03-11 2023-03-11 [facility] [address] [address] [place] 00:00:00 00:00:[address] 2023-03-09 2023-03-09 [facility] 1.2.840.1 [id number] 2100 [id number] Methodi 01:00:00 14:37:22 Encounter Tommy 57692.1.[address] 3.430.2.7 Hospit a .3.887896 l .8 2023-03-09 2023-03-09 Outpatient [facility] [id number] 3166 [place] 00:00:00 00:00:[address] 2023-02-24 2023-02-24 Telephone Jennifer 1.2.840.1 [id number] 2100 [id number] Methodi 00:00:00 00:00:[address] 3.430.2.7 Hospit a .3.371153 l .8 2023-02-18 2023-02-18 Office Sangeeta 1.2.840.5 [id number] 220 [id number] Methodi 12:45:00 15:45:31 Visit Dameon Walton 15388.1.1 499 s t 3.430.2.7 Hospit a .3.388757 l .8 2023-02-18 2023-02-18 [facility] 82548 06149 [place] 00:00:00 00:00:[address] 2023-01-29 2023-01-29 Orders Silke Mahmood 1.2.840.1 [id number] 2 [id number] Methodi 00:00:00 00:00:[address] 3.430.2.7 Hospit a .3.929086 l .8 2023-01-28 2023-01-28 Telephone [facility], 1.2.840.3 [id number] 2 [id number] Methodi 00:00:00 00:00:00 Dameon Walton 49136.1.1 446 s t 3.430.2.7 Hospit a .3.673768 l .8 2023-01-28 2023-01-28 Oncology Rosy, 1.2.840.1 [id number] 08572 44484 Methodi 00:00:00 00:00:00 [facility] Hannah 61464.1.1 086 s t ip 3.430.2.7 Hospit a .3.366615 l .8 2023-01-22 2023-01-22 [facility], 1.2.840.1 [id number] 142 [id number] Methodi 07:07:18 23:59:00 Encounter Dameon Walton 12144.1.[address] 3.430.2.7 Hospit a .3.658396 l .8 2023-01-22 2023-01-22 [facility], 1.2.840.1 [id number] 814 [id number] Methodi 06:02:00 14:11:00 Encounter Dameon Walton 76315.1.[address] 3.430.2.7 Hospit a .3.815621 l .8 2023-01-22 2023-01-22 [facility], 1.2.840.1 [id number] 2100 547590 Methodi 07:30:00 10:20:00 Dameon Walton 46364.1.1 203 s t 3.430.2.7 Hospit a .3.839168 l .8 2023-01-22 2023-01-22 Anesthesia Rhett Meléndez. 1.2.840 .1 [id number] Methodi 07:30:00 09:55:00 Event Roger Yin 11882.1.[address] 3.430.2.7 Hospit a .3.939611 l .8 2023-01-22 2023-01-22 [facility], 1.2.840.1 [id number] 461 [id number] Methodi 00:00:00 00:00:00 Encounter Dameon Walton 47362.1.[address] 3.430.2.7 Hospit a .3.536871 l .8 2023-01-22 2023-01-22 Outpatient [facility], [facility] 021 [id number] 80293 [place] 00:00:00 00:00:00 DAMEON [address] 2023-01-22 2023-01-22 Outpatient [facility], [facility] 021 87079 15800 [place] 00:00:00 00:00:00 DAMEON [address] 2023-01-22 2023-01-22 Outpatient [facility], [facility] [id number] 45127 [place] 00:00:00 00:00:00 DAMEON [address] 2023-01-21 2023-01-21 [facility], 1.2.840.1 [id number] 384 [id number] Methodi 13:34:10 23:59:00 Encounter Dameon Anton 27247.1.[address] 3.430.2.7 Hospit a .3.618816 l .8 2023-01-21 2023-01-21 [facility], 1.2.840.1 [id number] 209 [id number] Methodi 12:42:54 13:33:00 Encounter Dameon Walton 11297.1.[address] 3.430.2.7 Hospit a .3.982024 l .8 2023-01-21 2023-01-21 [facility], 1.2.840.1 [id number] 205 [id number] Methodi 11:55:02 12:41:00 Encounter Dameon A 48636.1.[address] 3.430.2.7 Hospit a .3.463064 l .8 2023-01-21 2023-01-21 Outpatient SANGEETA, [facility] 35529 83450 [place] 00:00:00 00:00:00 DAMEON [address] 2023-01-21 2023-01-21 Outpatient SANGEETA, [facility] 27241 78761 [place] 00:00:00 00:00:00 DAMEON [address] 2023-01-21 2023-01-21 Outpatient SANGEETA, [facility] 29032 [place] 00:00:00 00:00:00 DAMEON [address] 2023-01-11 2023-01-11 Telephone Virgil, 1.2.840.1 [id number] 2100 079115 Methodi 00:00:00 00:00:[address] 3.430.2.7 Hospit a .3.407198 l .8 2023-01-08 2023-01-08 Telephone Virgil, 1.2.840.1 [id number] 2100 768019 Methodi 00:00:00 00:00:[address] 3.430.2.7 Hospit a .3.409005 l .8 2023-01-07 2023-01-07 Pre-Admiss Sangeeta, 1.2.840.1 [id number] 2 [id number] Methodi 16:00:00 17:00:00 ion Dameon A 39609.1.1 687 s t Testing 3.430.2.7 Hospit a .3.432443 l .8 2023-01-07 2023-01-07 Travel 1.2.840.1 1.2.891.662 2290 843854 Methodi 00:00:00 00:00:[address] 3.430.2.7 0.2.7.3.698 Ho spita .3.503382 084.8 l .8 2023-01-07 2023-01-07 Outpatient SANGEETA, [facility] 47399 80596 [place] 00:00:00 00:00:[address]AMEON [address] 2023-01-06 2023-01-06 Telephone Virgil, 1.2.840.1 [id number] 2100 [id number] Methodi 00:00:00 00:00:[address] 3.430.2.7 Hospit a .3.117073 l .8 2023-01-05 2023-01-05 Telephone Virgil, 1.2.840.1 [id number] 2099 604116 Methodi 00:00:00 00:00:[address] 3.430.2.7 Hospit a .3.482203 l .8 2022-12-31 2022-12-31 Telemedici Sangeeta, 1.2.840.1 [id number] Methodi 15:00:00 15:44:23 ne Dameon A 17442.1.1 863 s t 3.430.2.7 Hospit a .3.045864 l .8 2022-12-31 2022-12-31 Outpatient [facility] 24956 99117 [place] 00:00:00 00:00:00 DAMEON [address] 2022-12-30 2022-12-30 Outpatient R SHAWN [facility] [id number] 927 Univers 14:40:00 15:05:44 LUCERO centeno [facility] 2022-12-30 2022-12-30 [facility] 1.2.840.114 [id number] 270 Univers 14:40:00 15:05:44 Visit Lucero JOYA 350.1.13.10 ity of [place] [phone] [address] 2022-12-30 2022-12-30 Orders Doctor DARLEEN 1.2.840.114 [id number] 996 Univers 00:00:00 00:00:00 Only Unassigned, MIKE 350.1.13.10 ity of [place] [facility] 4.2.7.2.686 [place] [phone] [place] [address] [place] 2022-12-29 2022-12-29 Telephone Virgil, 1.2.840.1 [id number] 2099 [id number] Methodi 00:00:00 00:00:[address] 3.430.2.7 Hospit a .3.599211 l .8 2022-12-28 2022-12-28 Telephone Honorio, 1.2.840.1 [id number] 2100 138568 Methodi 00:00:00 00:00:[address] 3.430.2.7 Hospit a .3.937099 l .8 2022-12-28 2022-12-28 Travel 1.2.840.1 1.2.384.415 3814 211001 Methodi 00:00:00 00:00:[address] 3.430.2.7 0.2.7.3.698 spita .3.871019 084.8 l .8 2022-12-24 2022-12-24 [facility], 1.2.840.1 [id number] 534 [id number] Methodi 12:06:54 23:59:00 Encounter Dameon Walton 10601.1.[address] 3.430.2.7 Hospit a .3.152450 l .8 2022-12-24 2022-12-24 [facility], 1.2.840.1 [id number] 219 [id number] Methodi 11:49:45 12:05:00 Encounter Dameon Walton 15682.1.[address] 3.430.2.7 Hospit a .3.950419 l .8 2022-12-24 2022-12-24 Outpatient [facility] 08421 60342 [place] 00:00:00 00:00:00 DAMEON [address] 2022-12-24 2022-12-24 Outpatient [facility] 44585 47041 [place] 00:00:00 00:00:00 DAMEON [address] 2022-12-232022-12-23 Orders Will, 1.2.840.2 [id number] 21 [id number] Methodi 00:00:00 00:00:00 Only Zbigniew 29914.1.[address] 3.430.2.7 Hospit a .3.071096 l .8 2022-12-23 2022-12-23 Travel 1.2.840.1 1.2.024.642 1022 344156 Methodi 00:00:00 00:00:[address] 3.430.2.7 0.2.7.3.698 Ho spita .3.538824 084.8 l .8 2022-12-17 2022-12-17 Office Sangeeta, 1.2.840.1 [id number] 575 [id number] Methodi 12:30:00 15:53:09 Visit Dameon Walton 49348.1.1 298 s t 3.430.2.7 Hospit a .3.124944 l .8 2022-12-17 2022-12-17 Telephone [facility], [facility] 1.2.071.453 2676 56222 Univers 00:00:00 00:00:00 Lucero JOYA 350.1.13.10 it[place] of [place] [phone] [facility] 059 [facility] 2022-12-17 2022-12-17 Orders Doctor DARLEEN 1.2.840.114 [id number] 856 Univers 00:00:00 00:00:00 Only Unassigned, MIKE 350.1.13.10 ity of [place] [facility] 4.2.7.2.686 [place] [phone] [place] [address] [place] 2022-12-17 2022-12-17 Travel 1.2.840.1 1.2.441.173 7335 893330 Methodi 00:00:00 00:00:[address] 3.430.2.7 0.2.7.3.698 Ho spita .3.085513 084.8 l .8 2022-12-17 2022-12-17 Outpatient SANGEETA [facility] 87096 29652 [place] 00:00:00 00:00:00 DAMEON [address] 2022-12-16 2022-12-16 Telephone Sangeeta 1.2.840.5 [id number] 2 [id number] Methodi 00:00:00 00:00:00 Dameon Walton 01076.1.1 626 s t 3.430.2.7 Hospit a .3.413224 l .8 2022-12-14 2022-12-14 Lab Provider, Not In System 1.2.840.1 [id number] Methodi 00:00:00 00:05:00 Dameon Rutherford 98206.1.[address] 3.430.2.7 Hospit a .3.353225 l .8 2022-12-14 2022-12-14 Outpatient SANGEETA [facility] 23215 64147 [place] 00:00:00 00:00:[address] DAMEON [address] 2022-12-10 2022-12-10 Telephone Polo, 1.2.840.4 [id number] 162 [id number] Methodi 00:00:00 00:00:[address] [facility] a .3.022276 l .8 2022-12-09 2022-12-09 Travel 1.2.840.1 1.2.333.144 3547 021778 Methodi 00:00:00 00:00:[address] 3.430.2.7 0.2.7.3.698 Ho spita .3.237761 084.8 l .8 2022-12-01 2022-12-01 Telephone Fidel Rios 1.2.840.1 [id number] Methodi 00:00:00 00:00:[address] 3.430.2.7 Hospit a .3.642494 l .8 2022-11-26 2022-11-26 Telephone Hai, 1.2.840.1 [id number] 21 [id number] Methodi 00:00:00 00:00:[address] 3.430.2.7 Hospit a .3.312711 l .8 2022-11-11 2022-11-11 [facility] Black, 1.2.840.1 [id number] 06192 85358 Methodi 12:28:18 23:59:00 Encounter Dalliah 12007.1.[address] [place] 3.430.2.7 Hospit a .3.847834 l .8 2022-11-11 2022-11-11 [facility] Black, 1.2.840.1 [id number] 36655 47342 Methodi 12:17:28 12:27:00 Encounter Dalliah [address]159.1.[address] [facility] 3[facility]430[facility] Hospit a .3.957144 l .8 2022-11-11 2022-11-11 [facility] Black, 1.2.840.1 [id number] 99891 53179 Methodi 12:03:16 12:16:00 Encounter Dalliah 44716.1.[address] [facility] Hospit a .3.952583 l .8 2022-11-11 2022-11-11 Outpatient BLACK, [facility] [id number] [address] [place] [address] 00:00:00 00:00:00 PHUOGNIA [address] 2022-11-11 2022-11-11 Outpatient BLACK, [facility] [id number] [address] [place] [address] 00:00:00 00:00:00 [facility] [address] 2022-11-11 2022-11-11 Outpatient BLACK, [facility] [id number] [address] [place] [address] 00:00:00 00:00:00 PHUONGIA [address] 2022-11-10 2022-11-10 [facility], 1.2.840.1 [id number] 1020 Methodi 12:10:00 12:15:[address] 3.430.2.7 Hospit a .3.221925 l .8 2022-11-10 2022-11-10 Clinical Freire, 1.2.840.1 [id number] 45361 97803 Methodi 11:00:00 12:00:00 Support Dharamvir 68601.1.[address] 3.430.2.7 Hospit a .3.934069 l .8 2022-11-10 2022-11-10 Oncology Bartos, 1.2.840.1 [id number] 93133 36617 Methodi 00:00:00 00:00:00 [facility] Hannah 25609.1.1 456 s t ip 3.430.2.7 Hospit a .3.511781 l .8 2022-11-10 2022-11-10 Travel 1.2.840.1 1.2.391.435 8631 037113 Methodi 00:00:00 00:00:[address] 3.430.2.7 0.2.7.3.698 Ho spita .3.119622 084.8 l .8 2022-11-10 2022-11-10 Outpatient FREIRE, [facility] [id number] 105 [place] 00:00:00 00:00:00 DHARAMVIR [address] 2022-11-10 2022-11-10 Outpatient FREIRE, [facility] [id number] 593 [place] 00:00:00 00:00:[address]IR [address] 2022-11-09 2022-11-09 Telephone Hai, 1.2.840.1 [id number] 21 [id number] Methodi 00:00:00 00:00:[address] 3.430.2.7 Hospit a .3.833199 l .8 2022-11-04 2022-11-04 Telephone Asha, 1.2.840.3 [id number] 880 [id number] Methodi 00:00:00 00:00:00 [address]12.1.[address] 3.430.2.7 Hospit a .3.275181 l .8 2022-11-03 2022-11-03 Oncology Bartos, 1.2.840.1 [id number] 45300 86482 Methodi 00:00:00 00:00:00 [facility] 05477.1.1 861 s t ip 3.430.2.7 Hospit a .3.610684 l .8 2022-11-03 2022-11-03 Telephone Ángela Laws 1.2.840.1 [id number] 21 [id number] Methodi 00:00:00 00:00:[address] 3.430.2.7 Hospit a .3.079450 l .8 2022-10-30 2022-10-30 Hospital Black, 1.2.840.1 [id number] 18527 96937 Methodi 12:21:24 23:59:00 Encounter Stefany 92194.1.[address] [place] 3.430.2.7 Hospit a .3.227276 l .8 2022-10-30 2022-10-30 Hospital Black, 1.2.840.1 [id number] 13078 94291 Methodi 12:21:15 23:59:00 Encounter Stefany 91992.1.[address] [place] 3.430.2.7 Hospit a .3.684348 l .8 2022-10-30 2022-10-30 Office Black, 1.2.840.0 [id number] 21421 97179 Methodi 12:30:00 13:26:18 Visit Stefany 66883.1.[address] [facility]430[facility] Hospit a .3.596365 l .8 2022-10-30 2022-10-30 Hospital Black, 1.2.840.1 [id number] 96120 59418 Methodi 12:20:36 12:20:36 Encounter Stefany 73049.1.[address] [place] 3.430.2.7 Hospit a .3.553045 l .8 2022-10-30 2022-10-30 Orders Black, 1.2.840.1 [id number] 430348 3385 Methodi 00:00:00 00:00:00 Only Stefany 03943.1.1 740 [facility] 3.430.2.7 Hospit a .3.266066 l .8 2022-10-30 2022-10-30 Travel 1.2.840.1 1.2.822.236 0661 065724 Methodi 00:00:00 00:00:[address] 3.430.2.7 0.2.7.3.698 Ho spita .3.609639 084.8 l .8 2022-10-30 2022-10-30 Outpatient BLACK, [facility] [id number] 495 [place] 00:00:00 00:00:00 APRIL 191 Method i 2022-10-30 2022-10-30 Outpatient BLACK, [facility] [id number] 830 [place] 00:00:00 00:00:00 APRIL 743 Method i 2022-10-30 2022-10-30 Outpatient BLACK, [facility] [id number] 830 [place] 00:00:00 00:00:00 APRIL 816 Method i 2022-10-30 2022-10-30 Outpatient BLACK, [facility] [id number] 830 [place] 00:00:00 00:00:00 APRIL 836 Method i 2022-09-29 2022-09-29 Travel 1.2.840.1 1.2.857.320 4248 801044 Methodi 00:00:00 00:00:[address] 3.430.2.7 0.2.7.3.698 Ho spita .3.856796 084.8 l .8 2022-04-16 2022-04-16 Refill ALYSSA Escobar 1.2.840.114 [id number] 96 Univers 00:00:00 00:00:00 Lucero [facility].1.13.10 [facility] 4.2.7.2.686 Patricia KNOWLESIO [phone] [address] 2022-03-31 2022-03-31 Telephone ALYSSA Escobar 1.2.052.689 3007 0434 Univers 00:00:00 00:00:00 Amadoreyluh TOAN 350.1.13.10 ity of [place] [phone] Ar dical NAL 059 [facility] 2022-03-21 2022-03-21 Tabber Jonh, [facility] 1.2.8 40.114 [id number] Univers 10:15:00 10:30:00 Visit Lucero Escobar 350.1.13.10 ity of [facility] 4.2.7.2.[place] [phone] [facility] NAL 353 [facility] 2022-03-21 2022-03-21 [facility] [id number] 094 Univers 10:15:00 10:15:00 LUCERO cottrell o f [facility] 2022-03-21 2022-03-21 Orders Doctor DARLEEN 1.2.840.114 [id number] Univers 00:00:00 00:00:00 Only Unassigned, MIKE 350.1.13.10 ity of [place] [facility] 4.2.7.2.686 [place] [phone] [address] 2022-03-17 2022-03-17 [facility] 1.2.840.114 [id number] 54 Univers 00:00:00 00:00:00 Amadoreyluh TOAN 350.1.13.10 it[place] [phone] Ar dical NAL 059 [facility] 2021-09-15 2021-09-15 [facility] 1.2.840.114 [id number] 52 Univers 14:40:00 16:43:14 Visit Lucero JOYA 350.1.13.10 it[place] of [place] [phone] Ar dical NAL 059 [facility] 2021-09-15 2021-09-15 [facility] [id number] 872 Univers 14:40:00 16:43:14 LUCERO montoyay o f [facility] 2021-09-15 2021-09-15 Outpatient R SHAWN, [facility] [id number] 872 Univers 14:40:00 14:40:00 LUCERO centeno [facility] 2021-09-15 2021-09-15 Orders Doctor DARLEEN 1.2.840.114 [id number] Univers 00:00:00 00:00:00 Only Unassigned, MIKE 350.1.13.[address] [facility] 4.2.7.2.686 [place] [phone] [address] 2021-09-15 2021-09-15 Refill [facility] 1.2.840.114 [id number] 49 Univers 00:00:00 00:00:00 Lucero JOYA 350.1.13.10 it[place] [phone] Ar dical NAL [address] [place] [address] 2021-08-26 2021-08-26 Outpatient R SHAWN, [facility] [id number] 061 Univers 13:00:00 13:00:00 LUCERO anthony [facility] 2021-08-20 2021-08-20 Outpatient R SHAWN, [facility] [id number] 812 Univers 13:40:00 13:40:00 LUCERO anthony [facility] 2021-02-14 2021-02-14 [facility] 1.2.840.114 [id number] Univers 13:15:49 13:47:15 Visit Lucero Joya 350.1.13.10 ity of [place] [phone] Ar dical nal [address] [place] [address] 2021-02-14 2021-02-14 Outpatient R SHAWN, [facility] [id number] 475 Univers 13:20:00 13:20:00 LUCERO anthony [facility] 2020-12-24 2020-12-24 [facility] 1.2.840.114 [id number] 792 Univers 11:05:32 12:20:15 Visit Ya Joya 350.1.13.10 it[place] of [place] [phone] Ar dical nal 205 [facility] 2020-12-24 2020-12-24 Outpatient R GLO [facility] [id number] 2076 [facility] 11:15:00 11:15:00 YA centeno [facility] 2020-12-05 2020-12-05 Outpatient KATHLEEN, [facility] 908 [id number] 342 [place] 00:00:00 00:00:00 IRFAN 835 Method i 2020-12-04 2020-12-04 Outpatient KATHLEEN, [facility] [id number] 365 [place] 00:00:00 00:00:00 IRFAN 266 Method i 2020-12-04 2020-12-04 [facility]phone [facility] 1.2.039.753 6126 0603 [facility] 00:00:00 00:00:00 Lucero Joya 350.1.13.10 it[place] of [place] [phone] Ar dical nal 059 [facility] 2020-12-03 2020-12-03 Orders Doctor DARLEEN 1.2.840.114 [id number] Univers 00:00:00 00:00:00 Only Unassigned, MIKE 350.1.13.10 ity of [place] [facility] 4.2.7.2.686 [place] [phone] [address] 2020-11-15 2020-11-15 Tabber 2, [facility] 1.2.840.114 [id number] Univers 14:31:28 14:46:28 Visit Lucero Escobar 350.1.13.10 it[place] of [place] [phone] Ar dical nal 353 [facility] 2020-11-15 2020-11-15 Office [facility] 1.2.840.114 [id number] 15 Univers 13:56:52 14:25:53 Visit Lucero Joya 350.1.13.10 it[place] of [place] [phone] Ar dical nal 059 [facility] 2020-11-15 2020-11-15 Outpatient R [facility] [id number] 597 Univers 14:00:00 14:00:00 AMADOCHRISTINA centeno [facility] 2020-11-12 2020-11-12 [facility] 1.2.840.114 [id number] Univers 11:11:25 13:04:19 Visit Ya Joya 350.1.13.10 it[place] of [place] [phone] Ar dical nal 205 [facility] 2020-11-12 2020-11-12 Outpatient R [facility] [id number] Univers 11:15:00 11:15:00 YA centeno [facility] 2020-10-23 2020-10-23 [facility] 1.2.408.960 8511 1468 Univers 00:00:00 00:00:00 Lucero Joya 350.1.13.10 it[place] of [place] [phone] Ar dical nal 059 [facility] 2020-10-21 2020-10-21 Outpatient R [facility] [id number] 647 Univers 14:02:42 15:34:00 RAMBOLUH jansabrina anthony [facility] 2020-10-21 2020-10-21 Outpatient R [facility] [id number] Univers 15:00:00 15:00:00 ity of [facility] 2020-10-21 2020-10-21 Outpatient R [facility] [id number] Univers 14:00:00 14:00:00 RAMBOLUH ronit gabrielle [facility] 2020-10-15 2020-10-15 [facility] [id number] Univers 11:53:56 23:59:00 Encounter Lucero Joya [id number] [id number] [phone] [facility] [address] 2020-10-15 2020-10-15 Outpatient R [facility] [id number] Univers 00:00:00 00:00:00 LUCERO cottrell o f [facility] 2020-10-14 2020-10-14 [facility] [id number] Univers 00:00:00 00:00:00 Lucero [facility] [id number] [place] [facility] [phone] [facility] [address] 2020-10-04 2020-10-04 Tabber Podaisy, Adc Lab Main [facility] [id number] Univers 11:02:20 11:17:20 Visit Lucero Escobar [id number] [id number] [phone] Ar dical nal [address] [facility] 2020-10-04 2020-10-04 Tabber Pc, Adc Vascular Room 1 - [facility] [id number] Univers 09:55:04 10:55:04 Visit Lucero Escobar 350.1.13.10 [id number] [phone] Ar dical nal 9 [facility] 2020-10-04 2020-10-04 [facility] [id number] Univers 10:00:00 10:00:00 LUCERO cottrell o [facility] 2020-10-01 2020-10-01 [facility] [id number] Univers 15:00:00 15:00:00 LUCERO anthony [facility] 2020-09-18 2020-09-18 Outpatient R [facility] [id number] Univers 16:00:00 16:00:00 ity [facility] 2020-09-03 2020-09-03 [facility] [id number] Univers 16:40:00 16:40:00 LUCERO cottrell o [facility] 2020-09-03 2020-09-03 Office [facility] [id number] Univers 15:41:08 16:22:01 Visit Lucero Joya 350.1.13.10 [place] [phone] Ar dical nal 059 [facility] 2020-09-03 2020-09-03 Orders Doctor DARLEEN [id number] Univers 00:00:00 00:00:00 Only Unassigned, MIKE 350.1.13.10 [facility] 4.2.7.2.686 [place] [phone] [facility] [address] 2019-12-14 2019-12-14 Outpatient KATHLEEN, [facility] [id number] 951 [place] 00:00:00 00:00:00 IRFAN 589 Method i 2019-12-01 2019-12-01 Emergency ROBIN, [facility] [id number] 9890 [place] 00:00:00 00:00:00 FARTUN 357 Method i 2017-08-04 2017-08-05 Outpatient Replaced by [facility] [id number] Memoria 17:06:00 05:59:00 r Bautista [address] [facility] 2017-08-04 2017-08-05 Outpatient Replaced by [facility] [id number] Memoria 17:06:00 05:59:00 r Bautista [address] [facility] 2017-08-04 2017-08-04 Outpatient Jennifer [facility] [id number] 11:06:00 23:59:00 Karissa 61 Liz 2011-11-19 2011-11-19 Outpatient [facility] [id number] Memoria 18:24:00 18:24:00 r Yanick Baum 2011-11-19 2011-11-19 Outpatient nullFlavo [id number] Memoria 18:24:00 18:24:00 [place] 02 sony Baum Results Test Description Test Time Test Comments Results Result Comments Source RAD ONC COURSE SUMMARY 2023-04-27 16:03:40 Test Item Value Reference Range Interpretation Comme nts Course ID (test code = 5706) C1 Course Start Date (test code = 5707) 2023-03-29 @16:35 Treatment Elapsed Days (test code = 5709) 14 Course Intent (test code = 5686) Unknown Treatment Dates (test code = 5685) Course End Date: 2023-04-27 @11:03First Treatment Date: 2023-04-07 @12:33Last Treatment Date: 2023-04-21 @13:42 Reference Point ID (test code = 5710) Rt Breast Dosage Given to Date in Gy (test code = 30 5711) Plan ID (test code = 5713) Rt Breast Plan Name (test code = 5714) Rt Breast Fractions Treated to Date (test code = 5 of 5 5715) Prescribed Dose Per Fraction in Gy (test 6 code = 5716) Prescription Dose in cGy (test code = 3000 5717) [facility] DAILY [id number] 18:44:09 Test Item Value Reference Range Interpretation Comments Course ID (test code = C1 5706) Course Start Date (test 2023-03-29 @16:35 code = 5707) Treatment Elapsed Days 14 (test code = 5709) Course Intent (test code Unknown = 5686) Treatment Dates (test First Treatment Date: code = 5685) 2023-04-07 @12:33Last Treatment Date: 2023-04-21 @13:42 Reference Point ID (test Rt Breast code = 5710) Dosage Given to Date in 30 Gy (test code = 5711) Session Dosage Given in 6 Gy (test code = 5712) Plan ID (test code = Rt Breast 5713) Plan Name (test code = Rt Breast 5714) Fractions Treated to 5 of 5 Date (test code = 5715) Prescribed Dose Per 6 Fraction in Gy (test code = 5716) Prescription Dose in cGy 3000 (test code = 5717) [facility] ONC DAILY [id number] 18:48:08 Test Item Value Reference Range Interpretation Comments Course ID (test code = C1 5706) Course Start Date (test 2023-03-29 @16:35 code = 5707) Treatment Elapsed Days 12 (test code = 5709) Course Intent (test code Unknown = 5686) Treatment Dates (test First Treatment Date: code = 5685) 2023-04-07 @12:33Last Treatment Date: 2023-04-19 @13:46 Reference Point ID (test Rt Breast code = 5710) Dosage Given to Date in 24 Gy (test code = 5711) Session Dosage Given in 6 Gy (test code = 5712) Plan ID (test code = Rt Breast 5713) Plan Name (test code = Rt Breast 5714) Fractions Treated to 4 of 5 Date (test code = 5715) Prescribed Dose Per 6 Fraction in Gy (test code = 5716) Prescription Dose in cGy 3000 (test code = 5717) [facility] DAILY [id number] 18:34:03 Test Item Value Reference Range Interpretation Comments Course ID (test code = C1 5706) Course Start Date (test 2023-03-29 @16:35 code = 5707) Treatment Elapsed Days 9 (test code = 5709) Course Intent (test code Unknown = 5686) Treatment Dates (test First Treatment Date: code = 5685) 2023-04-07 @12:33Last Treatment Date: 2023-04-16 @13:32 Reference Point ID (test Rt Breast code = 5710) Dosage Given to Date in 18 Gy (test code = 5711) Session Dosage Given in 6 Gy (test code = 5712) Plan ID (test code = Rt Breast 5713) Plan Name (test code = Rt Breast 5714) Fractions Treated to 3 of 5 Date (test code = 5715) Prescribed Dose Per 6 Fraction in Gy (test code = 5716) Prescription Dose in cGy 3000 (test code = 5717) [facility] DAILY [id number] 18:01:19 Test Item Value Reference Range Interpretation Comments Course ID (test code = C1 5706) Course Start Date (test 2023-03-29 @16:35 code = 5707) Treatment Elapsed Days 2 (test code = 5709) Course Intent (test code Unknown = 5686) Treatment Dates (test First Treatment Date: code = 5685) 2023-04-07 @12:33Last Treatment Date: 2023-04-09 @12:59 Reference Point ID (test Rt Breast code = 5710) Dosage Given to Date in 12 Gy (test code = 5711) Session Dosage Given in 6 Gy (test code = 5712) Plan ID (test code = Rt Breast 5713) Plan Name (test code = Rt Breast 5714) Fractions Treated to 2 of 5 Date (test code = 5715) Prescribed Dose Per 6 Fraction in Gy (test code = 5716) Prescription Dose in cGy 3000 (test code = 5717) [facility] [id number] 17:36:29 Test Item Value Reference Range Interpretation Comments Course ID (test code = C1 5706) Course Start Date (test 2023-03-29 @16:35 code = 5707) Treatment Elapsed Days 0 (test code = 5709) Course Intent (test code Unknown = 5686) Treatment Dates (test First Treatment Date: code = 5685) 2023-04-07 @12:33Last Treatment Date: 2023-04-07 @12:34 Reference Point ID (test Rt Breast code = 5710) Dosage Given to Date in 6 Gy (test code = 5711) Session Dosage Given in 6 Gy (test code = 5712) Plan ID (test code = Rt Breast 5713) Plan Name (test code = Rt Breast 5714) Fractions Treated to 1 of 5 Date (test code = 5715) Prescribed Dose Per 6 Fraction in Gy (test code = 5716) Prescription Dose in cGy 3000 (test code = 5717) [facility] [id number] 15:21:07 Test Item Value Reference Range Interpretation Comments Case number (test code = [id number]) Surgical pathology See link below for report (test code = PDF Lab Report 9264) Result status (test code This is Final Report = [id number]) for [id number] [facility] RNA [Presence] in Respiratory specimen by YAMILA with probe [id number] 14:28:44 Test Item Value Reference Range Interpretation Comments SARS-CoV-2 (COVID-19) RNA Not detected Not-Detected [Presence] in Respiratory specimen by YAMILA with probe detection (test code = 92465-6) Whether patient is employed in a healthcare setting (test code = 18274-9) Whether the patient has symptoms related to condition of interest (test code = 91966-8) Patient was hospitalized because of this condition (test code = 05387-3) Whether the patient was admitted to intensive care unit (ICU) for condition of interest (test code = 26820-2) Whether patient resides in a congregate care setting (test code = 01235-1) [facility]
[2023-06-05 15:59] LABS: Absolute Lymphocytes (CBC) 1.8 K/uL (0.7-4.9); Hematocrit 37.1 % (36.0-45.0); Lymphocytes % 23.6 % (15.3-44.8); MCV 90.3 fL (80-100); MPV 9.5 fL (7.6-11.3); Platelets 214 thou/uL (152-406); RBC Red Blood Cell Count 4.11 M/uL (3.86-4.86)
[2023-06-05 16:00] LABS: Protime INR 1.23
[2023-06-05] MEDS ORDERED: dilTIAZem HCL 25 MG/5 ML VIAL IV ONE ×3 (16:12→18:09)
[2023-06-05] MEDS ORDERED: ASPIRIN 81 MG CHEWABLE TABLET ONE (16:13)
[2023-06-05 16:15] LABS: Magnesium 2.1 mg/dL (1.6-2.4); Potassium 3.1 mEq/L (3.5-5.1); Troponin High Sensitivity 44.3 pg/mL (<58.9)
--- NOTE | 2023-06-05 16:27 | RAD REPORT ---
EXAM DESCRIPTION: RAD - Chest Single View - 06/05/2023 4:12 pm CLINICAL HISTORY: COUGH COMPARISON: Chest Single View dated 07/09/2016; Chest Single View dated 06/12/2016; ABDOMEN 1 VIEW KUB dated 09/27/2014; CHEST PA AND LAT 2 VIEW dated 06/01/2008 FINDINGS: Lines: None. Lungs: Diffuse prominence of pulmonary interstitium . Pleural: Probable small effusions . Cardiac: Cardiomegaly. Mediastinum: Within normal limits. Bones: No acute fractures. Spinal stimulator . Soft tissue anchors in the left humeral head. Other: Surgical clips in the right axilla. IMPRESSION: Interstitial edema. Small pleural effusions.
[2023-06-05] MEDS ORDERED: POTASSIUM 25 MEQ EFFERV TAB ONE (16:52)
--- NOTE | 2023-06-05 17:12 | RAD REPORT ---
EXAM DESCRIPTION: CT - Chest For Pe Angio - 06/05/2023 4:55 pm CLINICAL HISTORY: Chest pain;SOB COMPARISON: Chest For Pe Angio dated 07/10/2016 TECHNIQUE: Dynamically enhanced axial 3 mm thick images of the chest were obtained during administra tion of <100> mL Isovue 370 IV contrast. Coronal and oblique reconstruction images were generated and reviewed. Exam utilizes a protocol for optimal evaluation of pulmonary arterial tree. Maximum intensity projections 3D imaging was utilized All CT scans are performed using dose optimization technique as appropriate and may include automated exposure control or mA/KV adjustment according to patient size. FINDINGS: Chest Wall: No suspicious thyroid nodules or pathologic lymphadenopathy. Surgical clips in the right breast and axilla. Skin thickening may be treatment related. Lungs: Likely atelectasis as result of the pleural effusions. No convincing evidence of pneumonia. Pleura: Small bilateral pleural effusions . Mediastinum/radha: No pathologic lymphadenopathy. Pulmonary arteries/Aorta: No filling defect identified. No aortic aneurysm. Heart: No significant pericardial effusion. Mild cardiomegaly. Coronary artery calcifications. Trace pericardial effusion. Upper abdomen: Cholecystectomy Bones: No acute abnormality. IMPRESSION: Negative for pulmonary embolism. Small bilateral pleural effusions could be secondary to edema but is nonspecific. No evidence of pneumonia.
[2023-06-05] MEDS ORDERED: DIGOXIN 0.25 MG/ML AMP ONE (17:39)
--- NOTE | 2023-06-05 17:59 | EDPHYS ---
Physician Documentation [facility] Name: Joellen Klein Age: 83 yrs Sex: Female : 1940 Arrival Date: 06/05/2023 Time: 14:13 Bed 28 Private MD: ED Physician Harjinder Loja HPI: 06/05 15:20 This 83 yrs old Female presents to ER via Wheelchair with complaints of Sent By Urgent cp Care-Irregulr Heartbeat,blood presure. 15:20 Patient is a 83-year-old female who presents to the emergency department with cp complaints of a cough, chest congestion, fatigue x1 week. Patient denies any fevers. Patient reports she went to an urgent care clinic today and was referred to the emergency department for evaluation for irregular and rapid heart rate and possible concern for A-fib. Patient denies any history of A-fib but does take Xarelto at night for history of DVT and pulmonary embolism. Patient denies any chest pain and/or abdominal pain. Historical: - Allergies: 15:03 No Known Allergies; hb - Home Meds: 16:43 cetirizine 10 mg oral tablet [Active]; duloxetine 30 mg oral Capsule, Delayed Release rs5 Sprinkle [Active]; esomeprazole magnesium 40 mg oral capsule,delayed release (e.c.) [Active]; ezetimibe-simvastatin 10-20 mg oral tablet [Active]; hydrochlorothiazide 12.5 mg Oral capsule [Active]; montelukast 10 mg oral tablet [Active]; Zofran Oral [Active]; ropinirole 4 mg oral tablet [Active]; thyroid (pork) 60 mg oral tablet [Active]; tramadol 50 mg Oral tablet [Active]; Xarelto 20 mg oral tablet [Active]; 16:48 Methotrexate Sodium Oral 2.5 tabs [Active]; rs5 - PMHx: 15:03 blood clots; Hypertension; GERD; Hypothyroidism; hb - Immunization history:: Adult Immunizations up to date. - Social history:: Smoking status: Patient denies any tobacco usage or history of. ROS: 15:25 Constitutional: Negative for body aches, chills, fever, poor PO intake, cp 15:25 Eyes: Negative for injury, pain, redness, and discharge, cp 15:25 ENT: Negative for drainage from ear(s), ear pain, sore throat, difficulty swallowing, difficulty handling secretions, 15:25 Cardiovascular: Negative for chest pain, edema, 15:25 Respiratory: Positive for cough, "sounds productive", shortness of breath, 15:25 Abdomen/GI: Negative for abdominal pain, vomiting, diarrhea, constipation, 15:25 : Negative for urinary symptoms, 15:25 Neuro: Negative for altered mental status, dizziness, headache, syncope, 15:25 All other systems are negative, Exam: 15:23 ECG was reviewed by the Attending Physician. cp 15:30 Constitutional: The patient appears in no acute distress, alert, awake, cp non-diaphoretic, non-toxic, well developed, well nourished, obese, 15:30 Head/Face: Normocephalic, atraumatic. cp 15:30 Eyes: Periorbital structures: appear normal, Conjunctiva: normal, no exudate, no injection, Sclera: no appreciated abnormality, Lids and lashes: appear normal, bilaterally, 15:30 ENT: External ear(s): are unremarkable, Nose: is normal, Mouth: Lips: moist, Oral mucosa: pink and intact, moist, Posterior pharynx: is normal, airway is patent, no erythema, no exudate, 15:30 Chest/axilla: Inspection: normal, Palpation: is normal, no crepitus, no tenderness, 15:30 Cardiovascular: Rate: tachycardic, Rhythm: irregular, Edema: ankle edema, that is mild, JVD: is not appreciated, 15:30 Respiratory: the patient does not display signs of respiratory distress, Respirations: labored breathing, is not present, shallow respirations, that is mild, Breath sounds: decreased breath sounds, that are mild, throughout, stridor, is not appreciated, wheezing: is not appreciated, 15:30 Abdomen/GI: Inspection: abdomen appears normal, Bowel sounds: active, all quadrants, Palpation: abdomen is soft and non-tender, in all quadrants, 15:30 Back: pain, is absent, ROM is normal, 15:30 Skin: cellulitis, is not appreciated, 15:30 Neuro: Orientation: to person, place \\T\\ time. Mentation: is normal, Motor: moves all fours, general weakness with no focal deficits, Sensation: is normal, Vital Signs: 15:02 BP 129 / 82; Pulse 39; Resp 18; Temp 97.1; Pulse Ox 100% on R/A; Weight 97.52 kg; hb Height 5 ft. 6 in. ; Pain 3/10; 15:49 BP 117 / 79; Pulse 160; Resp 15; Pulse Ox 100% ; jl7 16:36 BP 126 / 102; Pulse 102; Resp 17; Pulse Ox 99% on R/A; rs5 17:46 BP 109 / 64; Pulse 150; Resp 17; Pulse Ox 99% on R/A; rs5 18:05 BP 113 / 66; Pulse 106; Resp 17; Pulse Ox 98% on R/A; rs5 18:40 BP 118 / 91; Pulse 144; Resp 16; Pulse Ox 99% on R/A; rs5 18:58 BP 109 / 55; Pulse 110; Resp 18; Pulse Ox 99% on R/A; rs5 15:02 Body Mass Index 34.70 (97.52 kg, 167.64 cm) hb 15:02 Pain Scale: Adult hb MDM: 15:12 Patient medically screened. cp 16:00 Differential diagnosis: bronchitis, flu, pneumonia, atrial fibrillation. cp 17:30 Data reviewed: vital signs, nurses notes, lab test result(s), EKG, radiologic studies, cp CT scan, and as a result, I will admit patient. 17:30 Antibiotic administration: Not indicated, the patient does not have an appreciated cp infiltrate. Management of patient was discussed with the following: Hospitalist: Barrett Cabral NP wants admission to DR Stallings. I considered the following discharge prescriptions or medication management in the emergency department Medications were administered in the Emergency Department. See MAR. Independent interpretation of the following test(s) in the Emergency Department EKG: See my EKG interpretation above. Counseling: I had a detailed discussion with the patient and/or guardian regarding the historical points, exam findings, and any diagnostic results supporting the discharge/admit diagnosis, lab results, radiology results, the need for further work-up and treatment in the hospital. Response to treatment: the patient's symptoms have markedly improved after treatment. 06/05 15:21 Order name: Basic Metabolic Panel; Complete Time: 16:29 cp 06/05 16:30 Interpretation: Normal except: K 3.1; CL 108; GLUC 186; GFR 59. cp 06/05 15:21 Order name: CBC with Diff; Complete Time: 16:29 cp 06/05 18:32 Interpretation: Reviewed. cp 06/05 15:21 Order name: Magnesium; Complete Time: 16:29 cp 06/05 15:21 Order name: NT PRO-BNP; Complete Time: 16:29 cp 06/05 18:33 Interpretation: Abnormal: NT PRO-BNP 1849. cp 06/05 15:21 Order name: PT-INR; Complete Time: 16:29 cp 06/05 15:21 Order name: Troponin HS; Complete Time: 16:29 cp 06/05 15:21 Order name: COVID-19 SARS RT PCR; Complete Time: 16:29 cp 06/05 15:21 Order name: Influenza Screen (a \\T\\ B); Complete Time: 18:32 cp 06/05 18:32 Interpretation: Reviewed. cp 06/05 19:47 Order name: T4 Free EDMS 06/05 19:47 Order name: Thyroid Stimulating Hormone EDMS 06/05 19:47 Order name: CBC with Automated Diff EDMS 06/05 19:47 Order name: CBC with Automated Diff EDMS 06/05 19:47 Order name: Comprehensive Metabolic Panel EDMS 06/05 19:47 Order name: Comprehensive Metabolic Panel EDMS 06/05 19:47 Order name: Lipid Profile EDMS 06/05 19:47 Order name: Lipid Profile EDMS 06/05 19:47 Order name: Magnesium EDMS 06/05 19:47 Order name: Magnesium EDMS 06/05 19:47 Order name: Phosphorus EDMS 06/05 19:47 Order name: Phosphorus EDMS 06/05 19:47 Order name: Troponin High Sensitivity EDMS 06/05 19:47 Order name: Troponin High Sensitivity EDMS 06/05 19:47 Order name: Troponin High Sensitivity EDMS 06/05 19:47 Order name: Troponin High Sensitivity EDMS 06/05 15:21 Order name: XRAY Chest (1 view); Complete Time: 16:29 cp 06/05 16:33 Order name: CT Chest For PE Angio; Complete Time: 17:23 cp 06/05 15:14 Order name: EKG; Complete Time: 15:14 cp 06/05 15:14 Order name: EKG - Nurse/Tech; Complete Time: 15:44 cp 06/05 15:21 Order name: Cardiac monitoring; Complete Time: 15:56 cp 06/05 15:21 Order name: IV Saline Lock; Complete Time: 15:44 cp 06/05 15:21 Order name: Labs collected and sent; Complete Time: 15:44 cp 06/05 15:21 Order name: O2 Per Protocol; Complete Time: 15:50 cp 06/05 15:21 Order name: O2 Sat Monitoring; Complete Time: 15:50 cp 06/05 15:21 Order name: Vital Signs; Complete Time: 15:50 cp EC:23 Rate is 164 beats/min. Rhythm is irregular. QRS interval is normal. QT interval is cp normal. Clinical impression: Atrial Fibrillation. Interpreted by me. Reviewed by me. Administered Medications: 16:00 Drug: Aspirin PO Chewable Tablet 324 mg PO once; 81 mg tablets x 4 Route: PO; rs5 16:25 Follow up: Response: No adverse reaction rs5 16:00 Drug: Diltiazem IVP 10 mg IVP once; Over 2 Minutes Route: IVP; Site: right forearm; rs5 16:17 Follow up: Response: No adverse reaction; Cardiac rhythm changed rs5 16:29 Drug: Diltiazem IVP 10 mg IVP once; Over 2 minutes Route: IVP; Site: right antecubital; rs5 17:01 Follow up: Response: No adverse reaction; pulse is decreased rs5 16:37 Drug: Potassium PO Effervescent Tablet 50 mEq PO once; dissolve in 4 ounces of water or rs5 juice Route: PO; 17:15 Follow up: Response: No adverse reaction rs5 16:38 Not Given (Physician Discretion): digoxin0.25 mg IVP once cp 17:31 Drug: Digoxin IVP 0.25 mg IVP once Route: IVP; Site: right antecubital; rs5 17:52 Follow up: Response: No adverse reaction rs5 17:38 Drug: Diltiazem IVP 10 mg IVP once; Over 2 minutes Route: IVP; Site: right antecubital; rs5 18:02 Follow up: Response: No adverse reaction rs5 Disposition Summary: 06/05/23 17:59 Hospitalization Ordered Notes: Hospitalization Status: Inpatient Admission cp Provider: Kavon Hammonds cp Condition: Stable cp Problem: new cp Symptoms: have improved cp Bed/Room Type: Standard cp Location: Telemetry/MedSurg (Inpatient)(06/05/23 20:22) cg Room Assignment: 209(06/05/23 20:22) cg Diagnosis - Unspecified atrial fibrillation cp Forms: - Medication Reconciliation Form cp - SBAR form cp - Leadership Thank You Letter cp Addendum: 06/07/2023 11:00 I was immediately available for consultation during this patient's visit. I did not e c2 personally see the patient or guide the patient's care. Signatures: Dispatcher [employer] EDMS James Fregoso PA PA cp Garcia, Cindy, STEVEN RN cg Samantha Aguilar RN RN Reji Ball RN RN rs5 Harjinder Loja MD MD ec2 [facility] Luong [facility] Corrections: (The following items were deleted from the chart) 06/05 20:01 17:59 Telemetry/MedSurg (Inpatient) cp jr12 20:01 17:59 cp jr12 20:22 20:01 [facility] ER HOLD jr12 20:22 20:01 ERHOLD- jr12
--- NOTE | 2023-06-05 17:59 | ER ---
Nurse's Notes [facility] Name: Joellen Klein Age: 83 yrs Sex: Female : 1940 Arrival Date: 06/05/2023 Time: 14:13 Bed 28 [facility] MD: Diagnosis: Unspecified atrial fibrillation Presentation: 06/05 14:58 Chief complaint: Malaise and cough x 1 week. Seen at urgent care this afternoon, sent for possible new onset a fib. Coronavirus screen: Client presents with at least one sign or symptom that may indicate coronavirus-19. Provider contacted for isolation considerations. Ebola Screen: No symptoms or risks identified at this time. Initial Sepsis Screen: Does the patient meet any 2 criteria? No. Patient's initial sepsis screen is negative. Does the patient have a suspected source of infection? No. Patient's initial sepsis screen is negative. Risk Assessment: Do you want to hurt yourself or someone else? Patient reports no desire to harm self or others. Onset of symptoms was May 29, 2023. 14:58 Method Of Arrival: Wheelchair 14:58 Acuity: SRINIVASA 2 hb Historical: - Allergies: 15:03 No Known Allergies; hb - Home Meds: 16:43 cetirizine 10 mg oral tablet [Active]; duloxetine 30 mg oral Capsule, Delayed Release rs5 Sprinkle [Active]; esomeprazole magnesium 40 mg oral capsule,delayed release (e.c.) [Active]; ezetimibe-simvastatin 10-20 mg oral tablet [Active]; hydrochlorothiazide 12.5 mg Oral capsule [Active]; montelukast 10 mg oral tablet [Active]; Zofran Oral [Active]; ropinirole 4 mg oral tablet [Active]; thyroid (pork) 60 mg oral tablet [Active]; tramadol 50 mg Oral tablet [Active]; Xarelto 20 mg oral tablet [Active]; 16:48 Methotrexate Sodium Oral 2.5 tabs [Active]; rs5 - PMHx: 15:03 blood clots; Hypertension; GERD; Hypothyroidism; hb - Immunization history:: Adult Immunizations up to date. - Social history:: Smoking status: Patient denies any tobacco usage or history of. Screenin:00 [facility] ED Fall Risk Assessment (Adult) History of falling in the last 3 months, rs5 including since admission No falls in past 3 months (0 pts) Confusion or Disorientation No (0 pts) Intoxicated or Sedated No (0 pts) Impaired Gait No (0 pts) Mobility Assist Device Used No (0 pt) Altered Elimination No (0 pt) Score/Fall Risk Level 0 - 2 = Low Risk Oriented to surroundings, Maintained a safe environment. Abuse screen: Denies threats or abuse. 16:00 Nutritional screening: No deficits noted. Tuberculosis screening: No symptoms or risk rs5 factors identified. Assessment: 15:55 Reassessment: Pt arrived in room . rs5 16:00 General: Appears in no apparent distress. comfortable, Behavior is calm, cooperative. rs5 16:00 Pain: Denies pain. Neuro: Level of Consciousness is awake, alert, obeys commands, rs5 Oriented to person, place, time, situation. Cardiovascular: Heart tones S1 S2 present Rhythm is sinus tachycardia. Respiratory: Airway is patent Respiratory effort is even, unlabored, Respiratory pattern is regular, symmetrical, Breath sounds are clear bilaterally. GI: Abdomen is round non-distended, Bowel sounds present X 4 quads. Abd is soft and non tender X 4 quads. : No signs and/or symptoms were reported regarding the genitourinary system. EENT: No signs and/or symptoms were reported regarding the EENT system. Derm: Skin is intact, Skin is pink, warm \T\ dry. Musculoskeletal: Range of motion: intact in all extremities. 16:26 Cardiovascular: Denies chest pain, Heart tones S1 S2 present Rhythm is sinus rs5 tachycardia. Respiratory: Airway is patent Respiratory effort is even, unlabored, Respiratory pattern is regular, symmetrical. 17:34 Reassessment: Patient and/or family updated on plan of care and expected duration. Pain rs5 level reassessed. Patient is alert, oriented x 3, equal unlabored respirations, skin warm/dry/pink. 17:34 Respiratory: Respiratory effort is even, unlabored, Respiratory pattern is regular, rs5 symmetrical. 18:47 Cardiovascular: Rhythm is sinus tachycardia. rs5 Vital Signs: 15:02 BP 129 / 82; Pulse 39; Resp 18; Temp 97.1; Pulse Ox 100% on R/A; Weight 97.52 kg; hb Height 5 ft. 6 in. ; Pain 3/10; 15:49 BP 117 / 79; Pulse 160; Resp 15; Pulse Ox 100% ; jl7 16:36 BP 126 / 102; Pulse 102; Resp 17; Pulse Ox 99% on R/A; rs5 17:46 BP 109 / 64; Pulse 150; Resp 17; Pulse Ox 99% on R/A; rs5 18:05 BP 113 / 66; Pulse 106; Resp 17; Pulse Ox 98% on R/A; rs5 18:40 BP 118 / 91; Pulse 144; Resp 16; Pulse Ox 99% on R/A; rs5 18:58 BP 109 / 55; Pulse 110; Resp 18; Pulse Ox 99% on R/A; rs5 15:02 Body Mass Index 34.70 (97.52 kg, 167.64 cm) hb 15:02 Pain Scale: Adult hb ED Course: 14:18 Patient arrived in ED. mg5 15:02 Triage completed. hb 15:03 Arm band placed on. hb 15:09 James Fregoso PA is PHCP. cp 15:09 Harjinder Loja MD is Attending Physician. cp 15:22 Kandis Trammell, STEVEN is Primary Nurse. jl7 15:44 Initial lab(s) drawn, by me, sent to lab. EKG done, by ED staff, reviewed by James Fregoso em1 PA. Inserted saline lock: 20 gauge in right forearm, using aseptic technique. Blood collected. 16:00 Patient has correct armband on for positive identification. Bed in low position. Call rs5 light in reach. Side rails up X2. 16:14 XRAY Chest (1 view) In Process Unspecified. EDMS 16:57 CT Chest For PE Angio In Process Unspecified. EDMS 17:58 Kavon Hammonds MD is Hospitalizing Provider. cp Administered Medications: 16:00 Drug: Aspirin PO Chewable Tablet 324 mg PO once; 81 mg tablets x 4 Route: PO; rs5 16:25 Follow up: Response: No adverse reaction rs5 16:00 Drug: Diltiazem IVP 10 mg IVP once; Over 2 Minutes Route: IVP; Site: right forearm; rs5 16:17 Follow up: Response: No adverse reaction; Cardiac rhythm changed rs5 16:29 Drug: Diltiazem IVP 10 mg IVP once; Over 2 minutes Route: IVP; Site: right antecubital; rs5 17:01 Follow up: Response: No adverse reaction; pulse is decreased rs5 16:37 Drug: Potassium PO Effervescent Tablet 50 mEq PO once; dissolve in 4 ounces of water or rs5 juice Route: PO; 17:15 Follow up: Response: No adverse reaction rs5 16:38 Not Given (Physician Discretion): digoxin0.25 mg IVP once cp 17:31 Drug: Digoxin IVP 0.25 mg IVP once Route: IVP; Site: right antecubital; rs5 17:52 Follow up: Response: No adverse reaction rs5 17:38 Drug: Diltiazem IVP 10 mg IVP once; Over 2 minutes Route: IVP; Site: right antecubital; rs5 18:02 Follow up: Response: No adverse reaction rs5 Intake: Outcome: 17:59 Decision to Hospitalize by Provider. cp 21:34 Patient left the ED. cm10 Signatures: Dispatcher [employer] EDMS Nikolai Chase em1 James Fregoso PA PA cp Samantha Aguilar RN RN Kandis Trammell RN RN jl7 Reji Ball RN RN rs5 Sherri Chase RN RN cm10 Mary Kate Johnson mg5 Corrections: (The following items were deleted from the chart) 15:04 14:58 Acuity: SRINIVASA 3 hb hb 15:50 15:49 BP 117 / 79; jlKate collins 16:25 16:23 General: Appears rs5 rs5 16:26 16:00 Cardiovascular: Heart tones S1 S2 present Rhythm is regular rs5 rs5 18:48 18:47 Reassessment: Patient and/or family updated on plan of care and expected rs5 duration. Pain level reassessed. Patient is alert, oriented x 3, equal unlabored respirations, skin warm/dry/pink. rs5
[2023-06-05] MEDS ORDERED: ONDANSETRON 4 MG/2 ML VIAL IV PRN (19:41)
[2023-06-05] MEDS ORDERED: ACETAMINOPHEN 325 MG TABLET PO PRN (19:41)
--- NOTE | 2023-06-05 19:47 | P.HP ---
Certification for Inpatient Patient admitted to: Inpatient With expected LOS: >2 Midnights Practitioner: I am a practitioner with admitting privileges, knowledge of patient current condition, hospital course, and medical plan of care. Services: Services provided to patient in accordance with Admission requirements found in Title 42 Section 412.3 of the Code of Federal Regulations Patient History Date of Service: 06/06/23 Reason for admission: Rapid atrial fibrillation, volume overload, CHF exacerbation. History of Present Illness: 83-year-old female patient past medical history significant for hypertension, hyperlipidemia, congestive heart failure, history of reflux esophagitis, admitted for management of rapid atrial fibrillation and felt of volume overload. She had complained of shortness of breath and palpitations and was found to have rapid atrial fibrillation with heart rates in the 150s. She was worked up with imaging studies that revealed bilateral pleural effusions and pulmonary edema and she was started on rate control medication. She was admitted for inpatient care. Allergies No Known Allergies Allergy (Verified 10/20/22 10:56) Home Medications: Cetirizine HCl [Zyrtec] 10 mg PO DAILY 10/20/22 Cranberry Fruit Extract [Ellura] 200 mg PO DAILY 10/20/22 Duloxetine HCl [Cymbalta] 30 mg PO DAILY 10/20/22 Furosemide [Lasix] 40 mg PO DAILY 10/20/22 Melatonin 2 tab PO BEDTIME 10/20/22 Rivaroxaban [Xarelto] 10 mg PO DAILY 10/20/22 Ropinirole HCl 4 mg PO BEDTIME 10/20/22 Vit C/E/Zn/Coppr/Lutein/Zeaxan [Preservision Areds 2 Softgel] 2 each PO BEDTIME 10/20/22 Esomeprazole Magnesium 40 mg PO DAILY 06/05/23 Ezetimibe/Simvastatin [Ezetimibe-Simvastatin 10-20 mg] 1 each PO DAILY 06/05/23 Folic Acid 1 mg PO DAILY 06/05/23 Montelukast Sodium [Singulair] 10 mg PO DAILY 06/05/23 Ondansetron [Zofran] 4 mg PO Q6H PRN 06/05/23 Thyroid,Pork [Thyroid] 90 mg PO DAILY 06/05/23 hydroCHLOROthiazide [Hydrochlorothiazide*] 12.5 mg PO DAILY 06/05/23 - Past Medical/Surgical History Diabetic: No -: gerd -: hypertension -: thyroid issues -: restless leg syndrome -: Prior history of thromboembolism 15 years ago -: Bladder Infections -: tish -: back surg -: hysterectomy -: neck surg -: foot surg -: cataract surg -: shoulder surg - Family History Father -: Stroke Mother -: Diabetes Sister -: Cancer, Blood disorders - Social History Alcohol use: No CD- Drugs: No Caffeine use: No Review of Systems General: Unremarkable Eyes: Unremarkable ENT: Unremarkable Respiratory: Shortness of Breath Cardiovascular: Palpitations Gastrointestinal: Unremarkable Genitourinary: Unremarkable Musculoskeletal: Unremarkable Neurological: Unremarkable Physical Examination - Physical Exam General: Alert, Oriented x3 HEENT: Normocephalic Neck: Supple Respiratory: Normal air movement Cardiovascular: Normal S1 S2, Irregular heart rate/rhythm Gastrointestinal: Soft and benign Musculoskeletal: No swelling Neurological: Normal speech - Studies Laboratory Data (last 24 hrs) 06/05/23 06/05/23 06/05/23 15:40 15:40 15:40 WBC 7.40 Hgb 12.4 Hct 37.1 Plt Count 214 PT 13.5 H INR 1.23 Sodium 139 Potassium 3.1 L BUN 16 Creatinine 0.95 Glucose 186 H Magnesium 2.1 Microbiology Data (last 24 hrs): 06/05/23 15:40 Nasopharnyx Influenza Type A Antigen Screen - Final 06/05/23 15:40 Nasopharnyx Influenza Type B Antigen Screen - Final Assessment and Plan - Plan Atrial fibrillation with rapid ventricular response: Patient has rapid A-fib and irregular heart rate. We will continue metoprolol and diltiazem dose and achieve heart rate of less than 90 bpm. We will continue anticoagulation with aspirin and rivaroxaban. We will continue to monitor on telemetry. We will obtain echocardiogram. We will obtain lipid panel. We will trend troponin. Cardiology consult to be placed Hypertension: Monitor vitals per unit protocol and continue routine outpatient antihypertensive medications. Hypothyroidism: we will continue levothyroxine. Hyperlipidemia: We will continue statin therapy. CHF: We will continue Lasix therapy and monitor input and output closely. Fluid restricted to 1.5 L/day. Prophylaxis: Rivaroxaban was started for A-fib with anticoagulation and DVT prophylaxis. CODE STATUS: Full code. Disposition: We will treat rapid A-fib, achieve rate control and discharge her when she is deemed clinically stable Discharge Plan: Home - Advance Directives Does patient have a Living Will: Yes Does patient have a Durable POA for Healthcare: No
[2023-06-05] MEDS: INSULIN REGULAR (HUMAN) 100 UNIT/ML SQ SCH (21:00)
[2023-06-05] MEDS: FUROSEMIDE 20 MG/ 2ML VIAL IV SCH (22:20)
[2023-06-05 23:15] LABS: Troponin High Sensitivity 37.6 pg/mL (<58.9)
[2023-06-05 23:17] LABS: Thyroid Stimulating Hormone 11.2 uIU/mL (0.358-3.740)
[2023-06-05] MEDS: DILTIAZEM HCL 60 MG TAB PO SCH (23:18)
[2023-06-06 01:29] VITALS: BMI 34.7
[2023-06-06 03:32] LABS: Absolute Lymphocytes (CBC) 1.5 K/uL (0.7-4.9); Hematocrit 33.8 % (36.0-45.0); Lymphocytes % 20.9 % (15.3-44.8); MCV 89.6 fL (80-100); MPV 9.2 fL (7.6-11.3); Platelets 201 thou/uL (152-406); RBC Red Blood Cell Count 3.77 M/uL (3.86-4.86)
[2023-06-06 04:01] LABS: Bilirubin Total 0.5 mg/dL (0.2-1.0); Magnesium 1.9 mg/dL (1.6-2.4); Phosphorus 3.2 mg/dL (2.5-4.9); Potassium 3.4 mEq/L (3.5-5.1); Protein, Total 6.4 g/dL (6.4-8.2)
[2023-06-06] MEDS: METOPROLOL TAR 25 MG TAB PO SCH ×2 (05:22→17:00)
[2023-06-06] MEDS: DILTIAZEM HCL 60 MG TAB PO SCH (05:22)
[2023-06-06] MEDS: ASPIRIN 81 MG CHEWABLE TABLET PO SCH (05:28)
[2023-06-06] MEDS: DOCUSATE NA 100 MG CAP PO SCH ×2 (05:28→21:09)
[2023-06-06] MEDS ORDERED: POTASSIUM CL SA 10 MEQ TAB PO ONE (06:00)
[2023-06-06] MEDS: INSULIN REGULAR (HUMAN) 100 UNIT/ML SQ SCH ×4 (06:24→21:00)
[2023-06-06] MEDS: FUROSEMIDE 20 MG/ 2ML VIAL IV SCH (08:01)
--- NOTE | 2023-06-06 10:48 | P.PN ---
Subjective Date of Service: 06/06/23 Chief Complaint: Rapid atrial fibrillation, volume overload, CHF exacerbation. Subjective: Improving <MariannaBarrett Anton Gordon - Last Filed: 06/06/23 10:43> Date of Service: 06/06/23 <Butch Davis - Last Filed: 06/06/23 22:12> Review of Systems 10-point ROS is otherwise unremarkable General: Weakness, Malaise <MariannaBarrett Gordon - Last Filed: 06/06/23 10:43> Physical Examination - Vital Signs Temperature: 96.8 F Blood Pressure: 119/74 Pulse: 91 Respirations: 18 Pulse Ox (%): 90 - Physical Exam General: Alert, In no apparent distress, Oriented x3, Obese HEENT: Atraumatic, PERRLA, EOMI Neck: Supple Respiratory: Clear to auscultation bilaterally, Normal air movement Cardiovascular: No edema, Normal S1 S2, Irregular heart rate/rhythm (A-fib, rate around 91) Gastrointestinal: Normal bowel sounds, No tenderness Integumentary: No rashes Neurological: Normal speech, Normal affect Lymphatics: No axilla or inguinal lymphadenopathy - Studies Laboratory Data (last 24 hrs) 06/05/23 06/05/23 06/05/23 15:40 15:40 15:40 WBC 7.40 Hgb 12.4 Hct 37.1 Plt Count 214 PT 13.5 H INR 1.23 Sodium 139 Potassium 3.1 L BUN 16 Creatinine 0.95 Glucose 186 H Magnesium 2.1 Microbiology Data (last 24 hrs): 06/05/23 15:40 Nasopharnyx Influenza Type A Antigen Screen - Final 06/05/23 15:40 Nasopharnyx Influenza Type B Antigen Screen - Final Medications List Reviewed: Yes <Barrett Cabral - Last Filed: 06/06/23 10:43> - Studies Microbiology Data (last 24 hrs): 06/05/23 15:40 Nasopharnyx Influenza Type A Antigen Screen - Final 06/05/23 15:40 Nasopharnyx Influenza Type B Antigen Screen - Final <Butch Davis - Last Filed: 06/06/23 22:12> Assessment And Plan - Plan Assessment: New onset atrial fibrillation with rapid ventricular response Acute on chronic CHFunknown EF Hypertension Hypothyroidism Hyperlipidemia 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 Acute on chronic CHFunknown EF Takes Lasix at home, continue gentle IV diuresis for today can likely switch to oral tomorrow. 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
[2023-06-06] MEDS ORDERED: DILTIAZEM HCL 60 MG TAB PO SCH (12:00)
[2023-06-06 12:33] LABS: Potassium 3.4 mEq/L (3.5-5.1); Troponin High Sensitivity 44.9 pg/mL (<58.9)
--- NOTE | 2023-06-06 12:39 | P.CNS ---
Date of Consult: 06/06/23 Reason for Consult: AF Chief Complaint: Rapid atrial fibrillation, volume overload, CHF exacerbation. History of Present Illness: This an 83 YO female with PMHs of CHF unknown EF, HTN, DVT/PE who is here with worsening SOB and palpitations. Pt was found in AF with RVR and admitted for further care. She fells better now, HR is improved, still in AF. No CP. Allergies No Known Allergies Allergy (Verified 10/20/22 10:56) Home medications list reviewed: Yes Home Medications: Cetirizine HCl [Zyrtec] 10 mg PO DAILY 10/20/22 Cranberry Fruit Extract [Ellura] 200 mg PO DAILY 10/20/22 Duloxetine HCl [Cymbalta] 30 mg PO DAILY 10/20/22 Furosemide [Lasix] 40 mg PO DAILY 10/20/22 Melatonin 2 tab PO BEDTIME 10/20/22 Rivaroxaban [Xarelto] 10 mg PO DAILY 10/20/22 Ropinirole HCl 4 mg PO BEDTIME 10/20/22 Vit C/E/Zn/Coppr/Lutein/Zeaxan [Preservision Areds 2 Softgel] 2 each PO BEDTIME 10/20/22 Esomeprazole Magnesium 40 mg PO DAILY 06/05/23 Ezetimibe/Simvastatin [Ezetimibe-Simvastatin 10-20 mg] 1 each PO DAILY 06/05/23 Folic Acid 1 mg PO DAILY 06/05/23 Montelukast Sodium [Singulair] 10 mg PO DAILY 06/05/23 Ondansetron [Zofran] 4 mg PO Q6H PRN 06/05/23 Thyroid,Pork [Thyroid] 90 mg PO DAILY 06/05/23 hydroCHLOROthiazide [Hydrochlorothiazide*] 12.5 mg PO DAILY 06/05/23 - Past Medical/Surgical History Diabetic: No -: gerd -: hypertension -: thyroid issues -: restless leg syndrome -: Prior history of thromboembolism 15 years ago -: Bladder Infections -: tish -: back surg -: hysterectomy -: neck surg -: foot surg -: cataract surg -: shoulder surg - Family History Father Medical History: Stroke Mother Medical History: Diabetes Sister Medical History: Cancer, Blood disorders - Social History Smoking Status: Unknown if ever smoked Alcohol use: No CD- Drugs: No Caffeine use: No Place of Residence: Home Review of Systems 10-point ROS is otherwise unremarkable Physical Examination Temp Pulse Resp BP Pulse Ox 96.8 F 92 H 18 116/75 90 L 06/06/23 10:48 06/06/23 11:41 06/06/23 10:48 06/06/23 11:41 06/06/23 10:48 General: Oriented x3 HEENT: Atraumatic Neck: JVD not distended Respiratory: Clear to auscultation bilaterally Cardiovascular: Irregular heart rate/rhythm Gastrointestinal: Soft and benign Integumentary: No rashes Neurological: Normal speech Laboratory Data (last 24 hrs) 06/05/23 06/05/23 06/05/23 15:40 15:40 15:40 WBC 7.40 Hgb 12.4 Hct 37.1 Plt Count 214 PT 13.5 H INR 1.23 Sodium 139 Potassium 3.1 L BUN 16 Creatinine 0.95 Glucose 186 H Magnesium 2.1 Conclusions/Impression: 1. AF: new onset, rate controlled, start Amio 400 mg BID x 3 doses, then 200 mg BID, contiue Metoprolol 25 mg BID. already on AC for DVT/PE 2. H/O PE: continue Xarelto 3. CHF: acute on chronic, unknown AF will get ECHO, continue Lasix.
[2023-06-06] MEDS: BENZONATATE 100 MG CAP PO PRN (17:16)
[2023-06-06] MEDS: MELATONIN 10 MG PO SCH ×2 (21:00)
[2023-06-06] MEDS: AMIODARONE HCL 200 MG TAB PO SCH (21:10)
[2023-06-06] MEDS: ROPINIROLE HCL 1 MG TAB PO SCH (21:10)
[2023-06-07 03:04] LABS: Potassium 3.5 mEq/L (3.5-5.1)
[2023-06-07] MEDS: METOPROLOL TAR 25 MG TAB PO SCH ×3 (05:27→21:25)
[2023-06-07] MEDS: PANTOPRAZOLE 40MG TABLET PO SCH (05:27)
[2023-06-07] MEDS: THYROID 30 MG TAB PO SCH (05:28)
[2023-06-07] MEDS: INSULIN REGULAR (HUMAN) 100 UNIT/ML SQ SCH ×4 (07:30→21:00)
[2023-06-07] MEDS: DOCUSATE NA 100 MG CAP PO SCH ×2 (08:26→21:25)
[2023-06-07] MEDS: FUROSEMIDE 40 MG TABLET PO SCH (08:27)
[2023-06-07] MEDS: ASPIRIN 81 MG CHEWABLE TABLET PO SCH (08:27)
[2023-06-07] MEDS: FOLIC ACID 1 MG TABLET PO SCH (08:27)
[2023-06-07] MEDS: CETIRIZINE HCL 5 MG TABLET PO SCH (08:27)
[2023-06-07] MEDS: DULOXETINE 30 MG CAP PO SCH (08:27)
[2023-06-07] MEDS: hydroCHLOROthiazide 12.5 MG CAP PO SCH (08:27)
[2023-06-07] MEDS: AMIODARONE HCL 200 MG TAB PO SCH ×4 (08:28→21:26)
[2023-06-07] MEDS ORDERED: POTASSIUM CL SA 10 MEQ TAB PO ONE (09:00)
[2023-06-07] MEDS: MONTELUKAST 10 MG TAB PO SCH (09:00)
[2023-06-07] MEDS: EZETIMIBE PO SCH (09:00)
[2023-06-07] MEDS: SIMVASTATIN PO SCH (09:00)
[2023-06-07] MEDS: CRANBERRY FRUIT EXTRACT 200 MG CAP PO SCH (12:09)
[2023-06-07] MEDS: RIVAROXABAN 10 MG TABLET PO SCH ×2 (17:00→21:25)
[2023-06-07] MEDS: MELATONIN 10 MG PO SCH (21:00)
[2023-06-07] MEDS: ROPINIROLE HCL 1 MG TAB PO SCH (21:26)
[2023-06-07] MEDS: BENZONATATE 100 MG CAP PO PRN (21:27)
[2023-06-08 01:09] LABS: Absolute Lymphocytes (CBC) 1.3 K/uL (0.7-4.9); Hematocrit 33.9 % (36.0-45.0); Lymphocytes % 19.5 % (15.3-44.8); MCV 89.6 fL (80-100); MPV 9.4 fL (7.6-11.3); Platelets 224 thou/uL (152-406); RBC Red Blood Cell Count 3.79 M/uL (3.86-4.86)
[2023-06-08 01:23] LABS: Bilirubin Total 0.8 mg/dL (0.2-1.0); Potassium 3.5 mEq/L (3.5-5.1)
[2023-06-08 01:24] LABS: Albumin 3.1 g/dL (3.4-5.0); Protein, Total 6.5 g/dL (6.4-8.2); Thyroid Stimulating Hormone 4.07 uIU/mL (0.358-3.740)
[2023-06-08] MEDS: PANTOPRAZOLE 40MG TABLET PO SCH (05:47)
[2023-06-08] MEDS: THYROID 30 MG TAB PO SCH (05:47)
[2023-06-08] MEDS: METOPROLOL TAR 25 MG TAB PO SCH ×2 (05:47→17:56)
[2023-06-08] MEDS: INSULIN REGULAR (HUMAN) 100 UNIT/ML SQ SCH ×4 (07:30→21:00)
--- NOTE | 2023-06-08 07:58 | EKG ---
Test Date: 2023-06-05 Test Time: 15:17:07 Fire Management Technician: YESSI MEASUREMENT RESULTS: Intervals: Rate: 164 [place]: QRSD: 74 QT: 244 QTc: 403 [place]: P: [place]: QRS: 84 T: 110 INTERPRETIVE STATEMENTS: Atrial fibrillation with rapid ventricular response Low voltage QRS Nonspecific T wave abnormality Abnormal ECG Compared to ECG 07/10/2016 05:25:58 Low QRS voltage now present T-wave abnormality now present Sinus rhythm no longer present Sinus arrhythmia no longer present Electronically Signed On 06-08-23 07:52:43 CDT by Saurav Davila
--- NOTE | 2023-06-08 08:23 | ECHO ---
HEIGHT: 5 ft 6 in WEIGHT: 215 lb 0 oz DATE OF STUDY: 06/07/[address]: Kavon Hammonds MD 2-DIMENSIONAL: YES M.MODE: YES DOPPLER: YES COLOR FLOW: YES TDS: PORTABLE: YES DEFINITY: BUBBLE STUDY: DIAGNOSIS: EVALUATE FOR ATRIAL FIBRILLATION CARDIAC HISTORY: CATHERIZATION: SURGERY: PROSTHETIC VALVE: PACEMAKER: MEASUREMENTS (cm) DIASTOLIC (NORMALS) SYSTOLIC (NORMALS) IVSd 1.3 (0.6-1.2) LA Diam 4.1 (1.9-4.0) LVEF 45-55% LVIDd 3.8 (3.5-5.7) LVIDs 31 (2.0-3.5) %FS % LVPWd 1.4 (0.6-1.2) Ao Diam 3.0 (2.0-3.7) 2 DIMENSIONAL ASSESSMENT: RIGHT ATRIUM: NORMAL LEFT ATRIUM: ENLARGED RIGHT VENTRICLE: NORMAL LEFT VENTRICLE: DEPRESSED EJECTION FRACTION TRICUSPID VALVE: MILD TRICUSPID REGURGITATION MITRAL VALVE: MILD MITRAL REGURGITATION PULMONIC VALVE: MILD PULMONIC INSUFFICIENCY AORTIC VALVE: MILD AORTIC INSUFFICIENCY PERICARDIAL EFFUSION: NONE AORTIC ROOT: NORMAL LEFT VENTRICULAR WALL MOTION: ATRIAL FIBRILLATION WITH MILD GLOBAL HYPOKINESIS DOPPLER/COLOR FLOW: SEE BELOW COMMENTS: 1. LEFT VENTRICULAR EJECTION FRACTION IS 45-55% (SECONDARY TO ATRIAL FIBRILLATION). 2. LEFT ATRIAL ENLARGEMENT 3. MILD MITRAL REGURGITATION, TRICUSPID REGURGITATION, AORTIC INSUFFICIENCY, PULMONIC INSUFFICIENCY TECHNOLOGIST: MACARIO PEREZ
[2023-06-08] MEDS: SIMVASTATIN PO SCH (09:00)
[2023-06-08] MEDS ORDERED: POTASSIUM CL SA 10 MEQ TAB PO ONE (09:00)
[2023-06-08] MEDS: EZETIMIBE PO SCH (09:00)
[2023-06-08] MEDS: FUROSEMIDE 40 MG TABLET PO SCH (09:27)
[2023-06-08] MEDS: FOLIC ACID 1 MG TABLET PO SCH (09:27)
[2023-06-08] MEDS: hydroCHLOROthiazide 12.5 MG CAP PO SCH (09:27)
[2023-06-08] MEDS: DOCUSATE NA 100 MG CAP PO SCH ×2 (09:27→22:23)
[2023-06-08] MEDS: MONTELUKAST 10 MG TAB PO SCH (09:27)
[2023-06-08] MEDS: DULOXETINE 30 MG CAP PO SCH (09:27)
[2023-06-08] MEDS: ASPIRIN 81 MG CHEWABLE TABLET PO SCH (09:27)
[2023-06-08] MEDS: CETIRIZINE HCL 5 MG TABLET PO SCH (09:28)
[2023-06-08] MEDS: BENZONATATE 100 MG CAP PO PRN ×2 (11:41→22:23)
[2023-06-08] MEDS: CRANBERRY FRUIT EXTRACT 200 MG CAP PO SCH (11:41)
--- NOTE | 2023-06-08 13:49 | PN ---
Date of Progress Note: 06/07/2023 The patient is still quite sleepy and minimal energy. However, she is responsive. She has been seen by Cardiology in [place] over the past few months. Only significant factor may be that the Lasix h as been on intermittent basis because the patient it make her diuresed too much. This may have been contributing factor and probably was for the CHF. She has not yet been seen by Cardiology. We will obtain a consult and the possibility of placement in the SNF has been discussed as well according to the high school social studies teacher. HR/MODL Voice ID: [id number] Report ID: [id number]
--- NOTE | 2023-06-08 14:59 | PN ---
Date of Progress Note: 06/08/2023 Subjective: The patient seems to feel considerably stronger today. She has been up a little bit mor e than in the past few days. Her confusion is cleared considerably. Continues to diurese. Echo did show atrial fibrillation and decreased ejection fraction. Awaiting Cardiology consult for further w orkup. Discussion with the family as far as placement in SNF and Social Service has also been involv ed in this and sugars slightly elevated. No prior history of this, although states that her mother d ied from diabetes. HR/MODL Voice ID: [id number] Report ID: [id number]
[2023-06-08] MEDS: RIVAROXABAN 10 MG TABLET PO SCH (17:56)
[2023-06-08] MEDS ORDERED: AMIODARONE HCL 150 MG in D5W 100 ML IV STA (19:15)
[2023-06-08] MEDS: FUROSEMIDE 20 MG/ 2ML VIAL IV SCH (19:16)
--- NOTE | 2023-06-08 19:19 | PN ---
Date of Progress Note: 06/08/2023 Subjective: Seen by bedside. Heart rates are still running in the 120-130s. She was started on ami odarone by mouth, but it is not touching her heart rate. Review of Systems: She has no chest pain, shortness of breath, orthopnea, cough. No nausea, vomiting, diarrhea. All ot her systems reviewed are negative. Physical Examination: Vital signs: Reviewed. Head and Neck: Pupils are equal, reactive to light. Intact eye movements. No JVD. No cervical lym phadenopathy. Neck: Supple. Thyroid is not enlarged. Lungs : Clear to auscultation bilaterally. No rhonchi, wheezing, or crackles. No accessory muscle use. Heart: Irregularly irregular. No extra sounds. Abdomen: Soft, nontender. Bowel sounds positive. No organomegaly. No organomegaly. No masses or hernia. No rigidity or rebound. Extremities: No clubbing, cyanosis. Positive edema. Neurologic: Alert, awake, oriented x3. No acute focal deficits appreciated. Investigations: Her BUN is 15, creatinine 0.8. TSH was 4 and hemoglobin is 11.5. Assessment/recommendations: 1.Atrial fibrillation with rapid ventricular response. Discontinue oral amiodarone. Load her with IV amiodarone 150 mg over 10 minutes, then 1 mg/minute for 6 hours, and then 0.5 mg/minute for 16 john rs and if she sustains rapid atrial fibrillation after that, then I will plan for TINA-guided cardiove rsion. Continue the Xarelto and also I recommend that increase the metoprolol to 50 mg twice a day. 2.Acute on chronic diastolic heart failure exacerbation. I will switch the Lasix to IV. She appear s to be fluid overloaded and monitor her BUN and creatinine electrolytes very carefully during that a nd her ejection fraction on echo was borderline low, likely due to the fact that she is in atrial fib rillation and after the obtaining a sinus rhythm, we will repeat echo to evaluate heart function. 3.Hypertension. Increase metoprolol to 50 mg twice a day as above. SR/MODL Voice ID: [id number] Report ID: [id number]
[2023-06-08] MEDS ORDERED: AMIODARONE HCL 450 MG in D5W 241 ML IV SCH (20:00)
[2023-06-08] MEDS: AMIODARONE IN DEXTROSE,ISO-OSM 360 MG/200 ML BAG IV ONE ×2 (20:25→21:42)
[2023-06-08] MEDS: MELATONIN 10 MG PO SCH (21:00)
[2023-06-08] MEDS: ROPINIROLE HCL 1 MG TAB PO SCH (22:22)
[2023-06-08] MEDS: METOPROLOL TAR 50 MG TAB PO SCH (22:23)
[2023-06-09] MEDS ORDERED: FUROSEMIDE 40 MG/4 ML VIAL IV ONE ×2 (02:51→10:11)
[2023-06-09] MEDS ORDERED: AMIODARONE IN DEXTROSE,ISO-OSM 360 MG/200 ML BAG IV ONE (04:51)
[2023-06-09] MEDS: THYROID 30 MG TAB PO SCH (05:26)
[2023-06-09] MEDS: PANTOPRAZOLE 40MG TABLET PO SCH (05:27)
[2023-06-09] MEDS: BENZONATATE 100 MG CAP PO PRN (05:29)
[2023-06-09] MEDS: INSULIN REGULAR (HUMAN) 100 UNIT/ML SQ SCH ×4 (07:30→21:00)
[2023-06-09] MEDS: SIMVASTATIN PO SCH (09:00)
[2023-06-09] MEDS: FOLIC ACID 1 MG TABLET PO SCH (09:00)
[2023-06-09] MEDS: FUROSEMIDE 20 MG/ 2ML VIAL IV SCH (09:00)
[2023-06-09] MEDS: CRANBERRY FRUIT EXTRACT 200 MG CAP PO SCH (09:00)
[2023-06-09] MEDS: ASPIRIN 81 MG CHEWABLE TABLET PO SCH (09:00)
[2023-06-09] MEDS: MONTELUKAST 10 MG TAB PO SCH (09:00)
[2023-06-09] MEDS: DOCUSATE NA 100 MG CAP PO SCH ×2 (09:00→21:00)
[2023-06-09] MEDS: hydroCHLOROthiazide 12.5 MG CAP PO SCH (09:00)
[2023-06-09] MEDS: DULOXETINE 30 MG CAP PO SCH (09:00)
[2023-06-09] MEDS: CETIRIZINE HCL 5 MG TABLET PO SCH (09:00)
[2023-06-09] MEDS: EZETIMIBE PO SCH (09:00)
[2023-06-09] MEDS: METOPROLOL TAR 50 MG TAB PO SCH (09:00)
[2023-06-09 10:23] LABS: Absolute Lymphocytes (CBC) 0.5 K/uL (0.7-4.9); Hematocrit 39.6 % (36.0-45.0); Lymphocytes % 3.1 % (15.3-44.8); MCV 91.6 fL (80-100); MPV 9.4 fL (7.6-11.3); Platelets 232 thou/uL (152-406); RBC Red Blood Cell Count 4.32 M/uL (3.86-4.86)
[2023-06-09 10:28] LABS: Magnesium 2.2 mg/dL (1.6-2.4); Potassium 5.4 mEq/L (3.5-5.1)
[2023-06-09 11:13] LABS: White Blood Cell Scan OK (OK)
[2023-06-09 11:14] LABS: Blood Morphology Comment NOT SEEN (NOT SEEN); Platelet Estimate ADEQ
[2023-06-09] MEDS: AMIODARONE HCL 900 MG in Dextrose 5%-Water 482 ML IV SCH (11:45)
--- NOTE | 2023-06-09 15:00 | RAD REPORT ---
EXAM DESCRIPTION: X-ray single view chest. CLINICAL HISTORY: 83 years Female, Dyspnea COMPARISON: Chest x-ray report from 06/05/2023. The image was unavailable for review. TECHNIQUE: Single portable x-ray view of the chest performed on 06/09/2023 1:56 AM FINDINGS: The lungs are well-expanded. There is mild to moderate diffuse patchy interstitial and gaby eolar opacification bilaterally suggesting pulmonary edema. The lateral costophrenic sulci are grossl y clear. No dense airspace consolidation is identified. There is no evidence of a pneumothorax. The cardiac silhouette is prominent. The mediastinal contours are normal. No acute osseous abnormality is identified. There are postsurgical changes of the left humeral head. There appear to be remote postsurgical changes of the distal left clavicle. No acute soft tissue abnormalities are seen. Surgical clips project over the region of the right axil la. Lines and tubes: A dorsal column stimulator projects over the midthoracic spine. Free air: None IMPRESSION: 1. Mild to moderate diffuse patchy interstitial and alveolar opacification bilaterally suggesting pulmonary edema. 2. Prominence of the cardiac silhouette. 3. Dorsal column stimulator projects over the midthoracic spine. 4. Other chronic findings as described above. Electronically signed by: Ro Jimenez DO 06/09/2023 2:13 AM CDT Due to temporary technical issues with the PACS/Fluency reporting system, reports are being signed by the in house radiologists without review as a courtesy to insure prompt reporting. The interpreting radiologist is fully responsible for the content of the report.
[2023-06-09] MEDS ORDERED: FUROSEMIDE 40 MG/4 ML VIAL IV SCH (16:00)
[2023-06-09 16:06] LABS: Blood O2 Saturation 97.7 % (92-98.5)
[2023-06-09 17:00] LABS: Uric Acid 11.2 mg/dL (2.6-6.0)
[2023-06-09] MEDS: RIVAROXABAN 10 MG TABLET PO SCH (17:00)
[2023-06-09] MEDS ORDERED: NA CHLORIDE 0.9% 250 ML IV ONE (17:34)
[2023-06-09 17:49] LABS: Transitional Epithelial <5 /HPF (None Seen); Urine Bacteria <20 /HPF (<20); Urine Mucus Slight /HPF (None Seen); Urine RBC <5 /HPF (None Seen)
[2023-06-09] MEDS ORDERED: ENOXAPARIN 40 MG/0.4 ML SQ ONE (18:18)
[2023-06-09 18:37] LABS: Specific Gravity 1.015 (1.005-1.030); Urine Bilirubin NEGATIVE (Negative); Urine Blood 3+ (Negative); Urine Clarity Extremely Turbid (Clear); Urine Color Yellow (Yellow); Urine Glucose NEGATIVE (Negative); Urine Protein 1+ (Negative); Urine Urobilinogen Normal (Normal)
--- NOTE | 2023-06-09 19:28 | RAD REPORT ---
EXAM DESCRIPTION: CT - Head Brain Wo Cont - 06/09/2023 6:19 pm CLINICAL HISTORY: Altered Mental Status COMPARISON: Head Brain Wo Cont dated 11/02/2018 TECHNIQUE: Noncontrast head CT images were obtained without IV contrast. Multiplanar reformats were generated and reviewed. All CT scans are performed using dose optimization technique as appropriate and may include automated exposure control or mA/KV adjustment according to patient size. FINDINGS: No intracranial hemorrhage, mass, or edema. Midline structures are unremarkable. Disproportionate prominence of the ventricles relative to the sulci. Overall ventricular caliber is s table. Wisdom-white matter differentiation is preserved, without evidence of acute infarct. No abnormal extra- axial fluid collections. Confluent periventricular and deep white matter hypoattenuation, pattern is stable and nonspecific, m ost suggestive of chronic small vessel ischemic changes. Mastoid air cells and visualized portions of the paranasal sinuses are clear. No acute bony findings. IMPRESSION: No evidence of an acute intracranial process. Stable chronic findings including disproportionate prominence of the ventricular caliber relative to the sulci, may relate to centrally predominant volume loss versus sequelae of normal pressure hydroce phalus. Please correlate clinically.
[2023-06-09 21:00] LABS: BUN Blood Urea Nitrogen 31 mg/dL (7-18); Bicarbonate 24 mEq/L (21-32); Glomerular Filtration Rate 20 ml/min (=/>90); Glucose Level 163 mg/dL (74-106); Potassium 4.4 mEq/L (3.5-5.1); Sodium Level 135 mEq/L (136-145)
[2023-06-09] MEDS: MELATONIN 10 MG PO SCH (21:00)
--- NOTE | 2023-06-09 21:19 | RAD REPORT ---
EXAM DESCRIPTION: US - Renal Ultrasound-Complete - 06/09/2023 4:25 pm CLINICAL HISTORY: MICHAEL COMPARISON: Abdomen Pelvis W/Wo Contrast dated 08/18/2022 TECHNIQUE: Sonographic grayscale and color flow images of the kidneys were obtained. FINDINGS: Both kidneys are normal in size, shape and echotexture. The right kidney measures 9.3 cm in length. No hydronephrosis, focal mass or perinephric fluid. The left kidney measures 9.0 cm length. No hydronephrosis, focal mass or perinephric fluid. No echogenic calculi. Bladder is decompressed limiting evaluation. IMPRESSION: Unremarkable renal ultrasound.
[2023-06-09 21:53] LABS: Absolute Lymphocytes (CBC) 0.9 K/uL (0.7-4.9); Hematocrit 37.3 % (36.0-45.0); Lymphocytes % 4.9 % (15.3-44.8); MCV 90.8 fL (80-100); MPV 10.2 fL (7.6-11.3); Platelets 209 thou/uL (152-406)
[2023-06-09] MEDS ORDERED: NA CHLORIDE 0.9% 1,000 ML IV SCH (22:00)
[2023-06-10] MEDS: ROPINIROLE HCL 1 MG TAB PO SCH ×2 (00:34→20:33)
[2023-06-10 01:18] LABS: UR PROTEIN 268.2 mg/dL (<11.9); Urine Protein/Creatinine Ratio 1.85 ratio (<0.15)
[2023-06-10 02:51] LABS: Blood Gas Oxyhemoglobin 97.7 % (94-97); Blood O2 Saturation 99.3 % (92-98.5)
[2023-06-10 02:52] LABS: Arterial Blood Carboxyhemoglob 0.7 % (0-1.5)
[2023-06-10 05:44] VITALS: O2SAT 100
[2023-06-10 07:19] LABS: Albumin 3.4 g/dL (3.4-5.0); Phosphorus 7.1 mg/dL (2.5-4.9); Potassium 4.6 mEq/L (3.5-5.1)
[2023-06-10] MEDS: PANTOPRAZOLE 40MG TABLET PO SCH (07:19)
[2023-06-10] MEDS: THYROID 30 MG TAB PO SCH (07:19)
[2023-06-10] MEDS: INSULIN REGULAR (HUMAN) 100 UNIT/ML SQ SCH ×4 (07:30→20:44)
[2023-06-10] MEDS ORDERED: FUROSEMIDE 40 MG/4 ML VIAL IV ONE (07:43)
[2023-06-10] MEDS: DEXTROSE 10%-WATER 500 ML IV SCH (07:53)
[2023-06-10] MEDS: ASPIRIN 81 MG CHEWABLE TABLET PO SCH (07:53)
[2023-06-10] MEDS ORDERED: FUROSEMIDE 80 MG in NA CHLORIDE 0.9% 50 ML IV ONE (08:00)
[2023-06-10] MEDS: CRANBERRY FRUIT EXTRACT 200 MG CAP PO SCH (08:06)
[2023-06-10] MEDS: DULOXETINE 30 MG CAP PO SCH (08:06)
[2023-06-10] MEDS: FOLIC ACID 1 MG TABLET PO SCH (08:06)
[2023-06-10] MEDS: CETIRIZINE HCL 5 MG TABLET PO SCH (08:06)
[2023-06-10] MEDS: DOCUSATE NA 100 MG CAP PO SCH ×2 (08:06→20:36)
[2023-06-10] MEDS: EZETIMIBE PO SCH (08:06)
[2023-06-10] MEDS: SIMVASTATIN PO SCH (08:06)
[2023-06-10] MEDS: CEFTRIAXONE 1,000 MG in NA CHLORIDE 0.9% 50 ML IVPB SCH (09:00)
--- NOTE | 2023-06-10 09:48 | EKG ---
Test Date: 2023-06-09 Test Time: 14:42:58 Sample Dye Mixer: MIR MEASUREMENT RESULTS: Intervals: Rate: 58 MA: QRSD: 82 QT: 544 QTc: 534 [place]: P: MA: QRS: 74 T: 188 INTERPRETIVE STATEMENTS: Junctional rhythm T wave abnormality, consider anterolateral ischemia Prolonged QT Abnormal ECG Compared to ECG 06/05/2023 15:17:07 Junctional rhythm now present Possible ischemia now present Prolonged QT interval now present Atrial fibrillation no longer present T-wave abnormality still present Electronically Signed On 06-10-23 09:46:01 CDT by Saurav Davila
--- NOTE | 2023-06-10 12:19 | P.OP ---
Preoperative diagnosis: Need for Dialysis Postoperative diagnosis: Need for Dialysis Primary procedure: Placement of RIGHT femoral Temporary Hemodialysis Cathteter Secondary procedure: Ultrasound Guidance Utilized Anesthesia: Local 1% Lidocaine Estimated blood loss: <5cc Specimen: none Findings: dark non-pulsatile blood returned Complications: None Implants: 12Fr temporary HD catheter Transferred to: ICU Condition: Serious
[2023-06-10] MEDS ORDERED: HEPARIN 5000 UNIT/ML 1 ML VIAL ONE (12:28)
--- NOTE | 2023-06-10 13:05 | OP ---
Date of Procedure: 06/10/2023 Surgeon: Timbo Garcia MD, Procedure Performed: Placement of right femoral temporary hemodialysis catheter using ultrasound guidance and microintroducer set. Anesthesia: Local 1% lidocaine utilized. Estimated Blood Loss: 5 cc. Specimen: None. Findings: Dark nonpulsatile blood return. 12 [place] temporary dialysis catheter. Procedure In Detail: After informed consent was obtained, the patient was prepped and draped in the usual sterile fashion, then I anesthetized the skin appropriately and under ultrasound guidance cannulated the right femoral vein on the first attempt using a microintroducer set. At this point, microwire was advanced at this point, found to be in the vein in good position. A small gen incision was made overlying the insertion site and then placed a 5-[place] introducer sheath. At this point, the microwire was removed. At this point, I advanced a standard wire. Dark red nonpulsatile blood was returned during the procedure. The standard wire was advanced at this point. I then performed sequential dilatation using Seldinger technique over the wire and placed a catheter into the right femoral vein without evidence of complication. Both ports agustina back dark red nonpulsatile blood. It was flushed quite easily with sterile saline. At this point, the port was packed with heparin super flush. At this point, the catheter was then secured to the skin using a 2-0 nylon suture and a sterile dressing placed over top. The patient tolerated the procedure well without complication, remained in the ICU in serious condition at the end of the procedure. All counts were correct at the end of the case. HEIDI/SABA Voice ID: [id number] Report ID: [id number] MANN
--- NOTE | 2023-06-10 13:20 | PN ---
Date of Progress Note: 06/10/2023 Subjective: Patient was admitted to the hospital with AFib with RVR. Patient started having worsening kidney function and oliguria in the last 48 hours. Yesterday, patient received 400 of normal saline, received the Lasix. Patient continued to deteriorate clinically. Patient continued to be oliguric, kidney function had declined further. Physical Examination: Vital Signs: When I saw the patient, patient was on BiPAP, blood pressure of 105/56, pulse regular, tachycardic. Heart: S1, S2. Tachycardic, irregular. Abdomen: Soft, morbidly obese. Could not appreciate any organomegaly. Chest: Crackles bilateral. Extremities: Venous stasis change, cold extremity. Neuro: Patient is sleepy. Laboratory Data: WBC 17.4, hemoglobin 12.4, platelet 209. Sodium 135, potassium 4.6, bicarb 24, BUN 40, creatinine 2.9. GFR of 15. Calcium 8.5. Phosphorus 7.1. CK 617. LDH more than 4000. Troponin 98. C-reactive protein 73. Procalcitonin 3.5. TSH 4. Renal ultrasound, no obstruction, no hydronephrosis, 9.10/15. No masses. Current Medications: The patient is on include: 1. Ceftriaxone. 2. Aspirin. 3. Lovenox. 4. Tylenol. 5. Requip. 6. Patient received Lasix 80 mg in the morning by me. 7. Thyroid tab. 8. Cranberry fluid. Assessment And Plan: 1. Acute kidney injury, oliguric. No hyperkalemia. No acidosis. Our differential diagnosis, poor perfusion, acute tubular necrosis/cardiorenal. 2. 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 3. To rule out HUS given the elevation in her LDH and elevation in CRP. I am going to go ahead and followup haptoglobin. 4. I am going to go ahead and consult Surgery for hemodialysis catheter and we will initiate dialysis today. 5. Consult Pulmonary for pulmonary renal syndrome. 6. Followup full serology, pending. 7. Hyponatremia secondary to dilutional, secondary to renal failure will be corrected with dialysis. 8. Respiratory failure. Patient continued to have good saturation. We will follow up with Pulmonary. 9. Right heart failure as by history, presented by Dr. White. We will follow up with Cardiology. 10. Atrial fibrillation with rapid ventricular rate as by Cardiology. 11. Multiorgan failure to rule out any autoimmune disease. We will follow up with other specialty, follow up serology as above. time spend exam the patient face to face , reviewing data lab and radiology , placing order discussing with the family , Nursing staff and hospitalist >35 min ANISHA Voice ID: [id number] Report ID: [id number] MANN
--- NOTE | 2023-06-10 13:26 | ECHO ---
HEIGHT: 5 ft 6 in WEIGHT: 232 lb 0 oz DATE OF STUDY: 06/10/[address]: Saurav Davila 2-DIMENSIONAL: YES M.MODE: DOPPLER: YES COLOR FLOW: TDS: PORTABLE: YES DEFINITY: BUBBLE STUDY: DIAGNOSIS: CONGESTIVE HEART FAILURE CARDIAC HISTORY: CATHERIZATION: SURGERY: PROSTHETIC VALVE: PACEMAKER: MEASUREMENTS (cm) DIASTOLIC (NORMALS) SYSTOLIC (NORMALS) IVSd 1.2 (0.6-1.2) LA Diam 3.7 (1.9-4.0) LVEF 43% LVIDd 4.7 (3.5-5.7) LVIDs 3.7 (2.0-3.5) %FS 21% LVPWd 1.4 (0.6-1.2) Ao Diam 2.9 (2.0-3.7) 2 DIMENSIONAL ASSESSMENT: RIGHT ATRIUM: LEFT ATRIUM: RIGHT VENTRICLE: LEFT VENTRICLE: TRICUSPID VALVE: MITRAL VALVE: PULMONIC VALVE: AORTIC VALVE: PERICARDIAL EFFUSION: AORTIC ROOT: LEFT VENTRICULAR WALL MOTION: DOPPLER/COLOR FLOW: COMMENTS: 1. LIMITED ECHOCARDIOGRAM TO EVALUATE RIGHT VENTRICULAR SYSTOLIC PRESSURE 2. MODERATE PULMONARY HYPERTENSION WITH RIGHT VENTRICULAR SYSTOLIC PRESSURE OF 40-50 mmHg TECHNOLOGIST: JUNAID HORNE
--- NOTE | 2023-06-10 15:17 | CON ---
Date of Consultation: 06/09/2023 Reason For Consultation: Elevated BUN and creatinine, fluid management. History Of Present Illness: All the information has been obtained from the daughter by bedside, as the patient had altered mental status. This is a pleasant 83-year-old female with significant past medical history of breast cancer status post chemo and radiation, hypertension, hyperlipidemia, congestive heart failure with ejection fraction around 45%, rheumatoid arthritis on infusion monthly, last infusion after she diagnosed with cancer. So, it has been held for the last couple of months. The patient came to the hospital complaining of shortness of breath, found to have atrial fibrillation with RVR with CHF exacerbation. The patient received a couple of doses of Lasix and the patient upon arrival to the hospital had normal kidney function with creatinine 0.9 and normal GFR. Gradually creatinine started trending up starting on June 09 with creatinine 1.9 and currently creatinine 2.3. For that reason, we have been consulted. GFR drop down to 20. The patient apparently used to take meloxicam, but there is no nonsteroidal exposure during this hospitalization. The patient had contrast exposure on June 05, had multiple episodes of low blood pressure down to the 90. As I mentioned, the patient received some couple of doses of Lasix. The patient started being oliguric in the last 24 to 48 hours with shortness of breath and tachypnea. The patient continued to have atrial fibrillation with RVR. Past Medical History: Include: 1. Hypertension. 2. Hyperlipidemia. 3. Breast cancer, status post radio and chemo. 4. Rheumatoid arthritis. 5. Psoriatic arthritis status post infusion monthly. 6. Atrial fibrillation. Past Surgical History: Include: 1. Shoulder surgery. 2. Cataract surgery. 3. Foot surgery. 4. Neck surgery. 5. Hysterectomy. 6. Back surgery. 7. Cholecystectomy. Family History: Positive for CVA, psoriatic arthritis, diabetes. Social History: Denied smoking. Denied drinking. Denied drugs abuse. Review of Systems: Not obtainable. The patient confused. Physical Examination: Vital Signs: When I saw the patient blood pressure 110/74, pulse of 120, respiratory rate 20. Chest: Faint rales bilateral base, more prominent on the left side. Heart: S1, S2. Tachycardic. Could not appreciate any murmur. Abdomen: Morbidly obese. Could not appreciate any organomegaly. Extremity: No edema. Venous stasis change with cold extremity. Could not evaluate under nail pad as the patient had nail [place], but on the bottom of the sole, there are no petechiae. There is no purpura or any hemorrhages. Pulses appreciated on the dorsal. Neuro: The patient moves 4 extremity without any focality, but the patient is confused. Laboratory Data: The patient when was admitted to the hospital on the 05 of June, creatinine 0.9, GFR 59. On the , creatinine 0.8, GFR 70. Latest lab data today, sodium 135, potassium 4.4, bicarb 24, BUN 31, creatinine 2.3, calcium 9.2. Urinalysis negative for infection. No leukorrhea. No hematuria. PC ratio 1.8. ABG; pH 7.35, CO2 30, O2 124, saturation 97 on 2 L nasal cannula. Chest x-ray, cardiomegaly with congestion bilaterally. WBC upon admission 7.4, hemoglobin 12.4, platelet 214, currently WBC 16.4, hemoglobin 12.9, platelet 232. As I mentioned, patient had CT with contrast. Echocardiogram was done on 07 of June, ejection fraction of 45, no evaluation for her pulmonary pressure. She has mild MR as I mentioned CT with contrast on the 05 of June, negative for PE. Current Medications: The patient on include: 1. Xarelto. 2. Cetirizine. 3. Ceftriaxone. 4. Aspirin. 5. Amiodarone. 6. Insulin. 7. Zetia. 8. Melatonin. Assessment And Plan: 1. Acute kidney injury. Our differential diagnosis given. 2. I had long discussion with the Cardiology, Dr. Davila, about the condition of the patient and discussed with her primary care. 3. Our differential as follow, possible prerenal supported with elevation in the uric acid of the patient, superimposed with contrast induced nephropathy and poor perfusion. ATN secondary to low blood pressure, currently oliguric. 4. Given the fact that the patient used to be on immunosuppressive therapy for her rheumatoid arthritis and with present of stopping dose immunosuppressive therapy and worsening her presentation with atrial fibrillation with RVR without any history of cardiac disease before with congestive heart failure to rule out any autoimmune attack with pulmonary renal syndrome for the patient with involvement of the heart as myocarditis/atrial fibrillation and the congestive heart failure and pulmonary renal syndrome. 5. Cardiorenal syndrome secondary to atrial fibrillation with poor perfusion ATN and congestive heart failure exacerbation. 6. After discussing with Cardiology, Dr. Davila, he is in favor that the patient is on the dry side. We agreed that we are going to give the patient a challenge with IV fluid bolus. Hold the diuresis for the time being and we will monitor improvement of the patient depending on her lab and her clinical condition. If her atrial fibrillation started being improving that in favor of it, but if her saturation worsening that is going to be ? hemosidorsis At that time, we will switch and give her challenge of diuresis to overcome the oliguric state. 7. I discuss with the family in the presence of the daughter and the patient that if kidney function continue to deteriorate, the patient may need further evaluation including pulmonary evaluation for pulmonary renal syndrome and for kidney biopsy when patient is more stable. 8. I going to go ahead and send full serology workup for the patient and we will follow up the patient closely. 9. If kidney function continued to decline, patient may need renal replacement therapy. 10. Atrial fibrillation with RVR as by primary. 11. Respiratory distress, mostly her oxygenation is being on the normal side, even with minimal FiO2 with worsening finding on the chest x-ray. We raised the possibility of interstitial lung disease/pulmonary renal syndrome as above. 12. Congestive heart failure with exacerbation as above. 13. Hypertension. Currently blood pressure on the lower side. Keep holding all blood pressure medications. 14. Hyperlipidemia with the presence of acute kidney injury. Zetia is going to be discontinued. 15. Altered mental status. Unknown etiology. We will proceed with CT. We will hold on Xarelto and place the patient on heparin. Thank you Dr. White for allowing us to participate in the care of your patient. time spend exam the patient face to face , reviewing data lab and radiology , placing order discussing with the family , Nursing staff and hospitalist >75 min ANISHA Voice ID: [id number] Report ID: [id number] MANN
--- NOTE | 2023-06-10 15:26 | PN ---
Date of Progress Note: 06/09/2023 Subjective: Seen at bedside, heart rate still running in the 130s and she is short of breath with or thopnea. Review of Systems: Positive shortness of breath without any palpitations. No chest pain. No nausea, vomiting, diarrhea . All other systems reviewed are negative. Physical Examination: Vital Signs: Reviewed. Head and Neck: Pupils are equal, reactive to light. Intact eye movements. No JVD. No cervical nod es. Neck: Supple. Thyroid is not enlarged. Lungs: Clear to auscultation bilaterally. No rhonchi, wheezing, or crackles. No accessory muscle u se. Heart: Irregularly irregular. No extra sounds. Abdomen: Soft, nontender. Bowel sounds positive. No organomegaly. No masses or hernia. No rigidi ty or rebound. Extremities: No edema, clubbing, cyanosis. Intact pulses. Skin: No rash. Neurologic: Alert, awake, oriented x3. No acute focal deficits appreciated. Investigations: Labs were reviewed. Assessment/recommendation: 1.Atrial fibrillation with rapid ventricular response. Discontinue oral amiodarone, load with IV am iodarone that was started yesterday and the patient today went into acute renal failure, probably sep tic. See below. We will keep on IV amiodarone and plan for TINA cardioversion at later time. 2.Acute on chronic heart failure exacerbation. IV Lasix, but creatinine jumped up, which could be d ue to contrast exposure. However, recommend to discontinue Lasix and gentle IV hydration. Monitor kidney function very closely. Consult Nephrology. 3.Acute renal failure. Recommendation as above. /SABA Voice ID: [id number] Report ID: [id number]
--- NOTE | 2023-06-10 15:48 | P.CNS ---
Date of Consult: 06/10/23 Reason for Consult: Respiratory failure patient on BiPAP Chief Complaint: Rapid atrial fibrillation, volume overload, CHF exacerbation. History of Present Illness: Patient is 83 years of age admitted with weakness cough congestion fatigue for 1 week [place] any fever and was referred to the emergency room so was in A-fib patient was diuresed and got worse ended up here in the emergency room progressive renal failure renal function went from normal to creatinine of 2.94 she has a history of thromboembolism and was on Xarelto currently on BiPAP unresponsive she has now accessed for dialysis Allergies No Known Allergies Allergy (Verified 10/20/22 10:56) Home Medications: Cetirizine HCl [Zyrtec] 10 mg PO DAILY 10/20/22 Cranberry Fruit Extract [Ellura] 200 mg PO DAILY 10/20/22 Duloxetine HCl [Cymbalta] 30 mg PO DAILY 10/20/22 Furosemide [Lasix] 40 mg PO DAILY 10/20/22 Melatonin 2 tab PO BEDTIME 10/20/22 Rivaroxaban [Xarelto] 10 mg PO DAILY 10/20/22 Ropinirole HCl 4 mg PO BEDTIME 10/20/22 Vit C/E/Zn/Coppr/Lutein/Zeaxan [Preservision Areds 2 Softgel] 2 each PO BEDTIME 10/20/22 Esomeprazole Magnesium 40 mg PO DAILY 06/05/23 Ezetimibe/Simvastatin [Ezetimibe-Simvastatin 10-20 mg] 1 each PO DAILY 06/05/23 Folic Acid 1 mg PO DAILY 06/05/23 Montelukast Sodium [Singulair] 10 mg PO DAILY 06/05/23 Ondansetron [Zofran] 4 mg PO Q6H PRN 06/05/23 Thyroid,Pork [Thyroid] 90 mg PO DAILY 06/05/23 hydroCHLOROthiazide [Hydrochlorothiazide*] 12.5 mg PO DAILY 06/05/23 - Past Medical/Surgical History Diabetic: No -: gerd -: hypertension -: thyroid issues -: restless leg syndrome -: Prior history of thromboembolism 15 years ago -: Bladder Infections -: tish -: back surg -: hysterectomy -: neck surg -: foot surg -: cataract surg -: shoulder surg - Family History Father Medical History: Stroke Mother Medical History: Diabetes Sister Medical History: Cancer, Blood disorders - Social History Smoking Status: Unknown if ever smoked Alcohol use: No CD- Drugs: No Caffeine use: No Place of Residence: Home Review of Systems is unable to be obtained Physical Examination Temp Pulse Resp BP Pulse Ox 96.6 F L 119 H 24 H 101/69 100 06/10/23 08:00 06/10/23 14:00 06/10/23 14:00 06/10/23 14:00 06/10/23 14:00 General: Unresponsive Neck: Supple Respiratory: Clear to auscultation bilaterally Cardiovascular: No edema, Irregular heart rate/rhythm Gastrointestinal: Soft and benign, Non-distended Musculoskeletal: No clubbing, No swelling, No contractures - Problems (1) Respiratory failure Current Visit: Yes Status: Acute Plan: Ms. Hernandez is doing much better aeration satisfactory will tachycardia wean her off the BiPAP change to nasal cannula oxygen DC doxycycline White count is declining gram-negative rods in the urine patient is on Rocephin chest x-ray has improved significantly most likely volume overload Qualifiers: Chronicity: acute
[2023-06-10 15:54] LABS: Hepatitis B Surface Ab - Quant 3.98 mIU/mL (<8.0); Hepatitis B surface AG Interp. Nonreactive (Nonreactive)
--- NOTE | 2023-06-10 16:26 | PN ---
Date of Progress Note: 06/10/2023 Subjective: Seen at bedside, breathing comfortably, saturating 100%, but kidney function is signific antly worse. Review of Systems: Shortness of breath, mild. No nausea, vomiting, diarrhea. No abdominal pain. No dysuria, polyuria, or urinary urgency. All other systems reviewed are negative.. Physical Examination: Vital Signs: Reviewed. Head and Neck: Pupils are equal, reactive to light. Intact eye movements. No JVD. No cervical lym phadenopathy. Neck: Supple. Thyroid is not enlarged. Lungs: Clear to auscultation bilaterally. No rhonchi, rales, or crackles. No accessory muscle use. Heart: Irregularly irregular. No extra sounds. Abdomen: Soft, nontender. Bowel sounds positive. No organomegaly. No masses or hernia. No rigidit y or rebound. Extremities: No clubbing, cyanosis. Intact pulses. No edema. Neurologic: Alert, awake, oriented x3. No acute focal deficits appreciated. Investigations: BUN 40, creatinine 2.94, hemoglobin is 12.4, white blood cell count 17.4 thousand. Assessment And Recommendation: 1.Acute renal failure. Check procalcitonin level. I believe this patient is septic. Recommend to broaden the antibiotics and to harry cultures. 2.Atrial fibrillation. Rate is acceptable. Continue the infusion for a full 24 hours, then switch her to oral if she is able to swallow by mouth. Continue metoprolol as well. We will do that at a l ater time once her condition is more stable. 3.Congestive heart failure exacerbation. Chest x-ray appears what I believe this could be infection as the patient did worse after the Lasix. We will discuss further [facility] nephrology. SR/MODL Voice ID: [id number] Report ID: [id number]
[2023-06-10] MEDS ORDERED: ALBUMIN HUMAN 25% 100 ML IV ONE (16:57)
[2023-06-10] MEDS ORDERED: ENOXAPARIN 30 MG/0.3 ML SQ SCH (17:00)
[2023-06-10] MEDS ORDERED: NA CHLORIDE 0.9% 1,000 ML ONE (17:49)
[2023-06-10] MEDS: AMIODARONE HCL 900 MG in Dextrose 5%-Water 482 ML IV SCH (18:09)
--- NOTE | 2023-06-10 19:10 | PN ---
The patient has deteriorated rather rapidly overnight. She is more and more blunt and dusky looking, although blood gases were not too bad and her chest x-ray showed slight progression of fluid, either described as overload or CHF, I suspect more CHF. She still has episodes of atrial fibrillation, al though the rate has been much more controlled being done in the 100s compared to before the amiodaron e drip. She has also had some marked increase in her renal chemistries suggesting a rapid decline wi th the possibility of dialysis. We will move the patient to ICU. I have consulted Cardiology and Ne phrology. HR/MODL Voice ID: [id number] Report ID: [id number]
--- NOTE | 2023-06-10 19:21 | PN ---
The patient is now in ICU. She has had minimal output. Creatinine is still elevated. An access was inserted for probable dialysis. Her blood gases remained stable. She is now on BiPAP. Coloring is m uch improved. She is somewhat responsive. 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 Dep ending on her progress in the next 24 hours with regard to renal function, appropriate measures will be taken. She is also seen by Cardiology and Pulmonology. HR/MODL Voice ID: [id number] Report ID: [id number]
[2023-06-10] MEDS: DOXYCYCLINE 100 MG in NA CHLORIDE 0.9% 100 ML IVPB SCH (20:39)
[2023-06-10 22:07] LABS: Rheumatoid Factor POS (NEG)
[2023-06-11] MEDS: DEXTROSE 10%-WATER 500 ML IV SCH ×2 (00:13→17:24)
[2023-06-11 05:26] LABS: Hematocrit 36.9 % (36.0-45.0); Lymphocytes % 8.4 % (15.3-44.8); MCV 90.1 fL (80-100); MPV 10.1 fL (7.6-11.3); Platelets 148 thou/uL (152-406); RBC Red Blood Cell Count 4.09 M/uL (3.86-4.86)
[2023-06-11 05:44] LABS: Albumin 3.5 g/dL (3.4-5.0); Magnesium 2.1 mg/dL (1.6-2.4); Phosphorus 5.2 mg/dL (2.5-4.9)
[2023-06-11] MEDS: THYROID 30 MG TAB PO SCH (06:00)
[2023-06-11] MEDS: PANTOPRAZOLE 40MG TABLET PO SCH (06:12)
--- NOTE | 2023-06-11 07:21 | RAD REPORT ---
EXAM DESCRIPTION: RAD - Chest Single View - 06/11/2023 4:34 am CLINICAL HISTORY: resp faillure COMPARISON: Chest Single View dated 06/09/2023; Chest Single View dated 06/05/2023; Chest Single View dated 07/09/2016; Chest Single View dated 06/12/2016; Chest For Pe Angio dated 06/05/2023 FINDINGS: Lines: None. Lungs: Diffuse prominence of the pulmonary interstitium. Pleural: Layering bilateral pleural effusions . Cardiac: Cardiomegaly. Mediastinum: Within normal limits. Bones: No acute fractures. Other: None IMPRESSION: Pulmonary edema without significant change.
[2023-06-11] MEDS: INSULIN REGULAR (HUMAN) 100 UNIT/ML SQ SCH ×4 (07:30→21:00)
[2023-06-11] MEDS: DOCUSATE NA 100 MG CAP PO SCH ×2 (09:00→21:00)
[2023-06-11] MEDS: CETIRIZINE HCL 5 MG TABLET PO SCH (09:00)
[2023-06-11] MEDS: FOLIC ACID 1 MG TABLET PO SCH (09:00)
[2023-06-11] MEDS: CRANBERRY FRUIT EXTRACT 200 MG CAP PO SCH (09:00)
[2023-06-11] MEDS: DULOXETINE 30 MG CAP PO SCH (09:00)
[2023-06-11] MEDS: CEFTRIAXONE 1,000 MG in NA CHLORIDE 0.9% 50 ML IVPB SCH (09:19)
[2023-06-11] MEDS: DOXYCYCLINE 100 MG in NA CHLORIDE 0.9% 100 ML IVPB SCH (09:19)
--- NOTE | 2023-06-11 10:38 | P.PN ---
Subjective Date of Service: 06/11/23 Chief Complaint: Rapid atrial fibrillation, volume overload, CHF exacerbation. Subjective: Improving (Patient is improving doing much better oxygenation satisfactory this postdialysis test x-ray improved) Review of Systems is unable to be obtained Physical Examination - Vital Signs Temperature: 96.5 F Blood Pressure: 112/77 Pulse: 124 Respirations: 22 Pulse Ox (%): 100 - Physical Exam General: Alert, Cooperative Respiratory: Clear to auscultation bilaterally, Diminished Cardiovascular: No edema, Irregular heart rate/rhythm Gastrointestinal: Normal bowel sounds, Soft and benign - Studies Medications List Reviewed: Yes Assessment And Plan - Current Problems (Diagnosis) (1) Respiratory failure Current Visit: Yes Status: Acute Plan: Patient has improved significantly chest x-ray is clear s/p dialysis/Labs improved Qualifiers: Chronicity: acute
[2023-06-11] MEDS: AMIODARONE HCL 900 MG in Dextrose 5%-Water 482 ML IV SCH (12:59)
--- NOTE | 2023-06-11 14:23 | P.PN ---
Subjective Date of Service: 06/11/23 Chief Complaint: Rapid atrial fibrillation, volume overload, CHF exacerbation. Subjective: No new changes Physical Examination - Vital Signs Temperature: 98 F Blood Pressure: 119/76 Pulse: 130 Respirations: 24 Pulse Ox (%): 99 - Physical Exam General: Other (appears as her stated age) HEENT: Atraumatic, Normocephalic Neck: Supple Respiratory: Other (symmetric chest expansion) Cardiovascular: No rubs, No murmurs Gastrointestinal: Soft and benign, No guarding Musculoskeletal: No clubbing Integumentary: No warmth Neurological: Normal tone Urinary: Other (no bladder distention) External genitalia: Deferred Rectal: Deferred - Studies Medications List Reviewed: Yes Assessment And Plan - Plan # MICHAEL 2/2 CRS1/rapid afib + contrast-induced nephropathy SCr increased to 3.1 renal ultrasound unremarkable HR control < 110 bpm Received HD yesterday Ordered HD for tomorrow # Hypoglycemia ? etiology No clear e/o sepsis or liver dysfxn Check serum cortisol & lactic acid ON dextrose IV gtt # Afib w/ RVR Per other services # Acute respi failure TTE on 06/10/2023 showed LVEF slightly decreased at 43%, RVSP moderately elevated at 40-50 respiratory Chest CTA showed no pulmonary embolism. No clear evidence of pulmonary hypertension. HR control as above Per other services # AMS Head CT negative Per other services
[2023-06-11] MEDS ORDERED: ADENOSINE 6 MG/ 2ML VIAL IV ONE (16:13)
[2023-06-11] MEDS ORDERED: ENOXAPARIN 30 MG/0.3 ML SQ SCH (17:00)
[2023-06-11 19:40] LABS: Albumin 3.3 g/dL (3.4-5.0); Bilirubin Direct 2.4 mg/dL (0-0.2); Bilirubin Indirect, Calculated 1.7 mg/dL (0.2-0.8); Bilirubin Total 4.1 mg/dL (0.2-1.0)
[2023-06-11] MEDS: ROPINIROLE HCL 1 MG TAB PO SCH (21:00)
[2023-06-11] MEDS: NEPRO SHAKE 237 ML CAN PO SCH (21:00)
[2023-06-11] MEDS ORDERED: D50W 25 GM/50 ML SYRINGE IV PRN (22:03)
[2023-06-11] MEDS ORDERED: GLUCAGON 1 MG/VIAL IM PRN (22:03)
[2023-06-11] MEDS ORDERED: D10W 125 ML IV PRN (22:07)
[2023-06-12 04:55] LABS: Absolute Lymphocytes (CBC) 1.3 K/uL (0.7-4.9); Hematocrit 39.3 % (36.0-45.0); Lymphocytes % 9.5 % (15.3-44.8); MCV 88.9 fL (80-100); MPV 10.6 fL (7.6-11.3); Platelets 157 thou/uL (152-406); RBC Red Blood Cell Count 4.41 M/uL (3.86-4.86)
[2023-06-12 05:02] LABS: Albumin 3.1 g/dL (3.4-5.0); Phosphorus 3.6 mg/dL (2.5-4.9); Potassium 3.4 mEq/L (3.5-5.1)
[2023-06-12 05:20] LABS: Bilirubin Direct 2.6 mg/dL (0-0.2); Bilirubin Indirect, Calculated 1.7 mg/dL (0.2-0.8); Bilirubin Total 4.3 mg/dL (0.2-1.0); Protein, Total 5.7 g/dL (6.4-8.2)
[2023-06-12 05:28] LABS: Blood Morphology Comment NOT SEEN (NOT SEEN); Platelet Estimate ADEQ
[2023-06-12] MEDS: THYROID 30 MG TAB PO SCH (05:39)
[2023-06-12] MEDS: PANTOPRAZOLE 40MG TABLET PO SCH (05:40)
[2023-06-12] MEDS: INSULIN REGULAR (HUMAN) 100 UNIT/ML SQ SCH ×4 (05:41→16:42)
[2023-06-12] MEDS: DOCUSATE NA 100 MG CAP PO SCH (08:24)
[2023-06-12] MEDS: CRANBERRY FRUIT EXTRACT 200 MG CAP PO SCH (08:25)
[2023-06-12] MEDS: NEPRO SHAKE 237 ML CAN PO SCH (08:25)
[2023-06-12] MEDS: CETIRIZINE HCL 5 MG TABLET PO SCH (08:25)
[2023-06-12] MEDS: DULOXETINE 30 MG CAP PO SCH (08:25)
[2023-06-12] MEDS: FOLIC ACID 1 MG TABLET PO SCH (08:25)
[2023-06-12] MEDS: CEFTRIAXONE 1,000 MG in NA CHLORIDE 0.9% 50 ML IVPB SCH (08:29)
[2023-06-12] MEDS ORDERED: METOPROLOL TARTRATE 5 MG/5 ML INJ IV PRN (09:27)
[2023-06-12] MEDS: METOPROLOL TARTRATE 5 MG/5 ML INJ IV PRN ×2 (10:44→13:44)
[2023-06-12] MEDS: DEXTROSE 10%-WATER 500 ML IV SCH (10:46)
--- NOTE | 2023-06-12 13:36 | RAD REPORT ---
EXAM DESCRIPTION: CT - Thorax Wo Con - 06/12/2023 1:30 pm CLINICAL HISTORY: oxygen demand increase COMPARISON: Chest For Pe Angio dated 06/05/2023; Chest For Pe Angio dated 07/10/2016; Head Brain Wo C ont dated 06/12/2023; Chest Single View dated 06/11/2023 FINDINGS: Chest Wall: No suspicious thyroid nodules or pathologic lymphadenopathy. Lungs: Interlobular septal thickening is present. Ground-glass and nodular opacities are present in t he right upper lobe. Atelectasis. Pleura: Small to moderate bilateral pleural effusions. Mediastinum/radha: No pathologic lymphadenopathy. Pulmonary arteries/Aorta: Limited evaluation without contrast. No aortic aneurysm. Heart: No significant pericardial effusion. Mild cardiomegaly. Coronary artery calcifications. Small pericardial effusion. Upper abdomen: No acute abnormality. Bones: No acute abnormality. Spinal stimulator . All CT scans are performed using dose optimization technique as appropriate and may include automated exposure control or mA/KV adjustment according to patient size. IMPRESSION: Pulmonary edema with small to moderate bilateral pleural effusions. Airspace disease in the right upper lobe could reflect coexisting pneumonia.
--- NOTE | 2023-06-12 13:41 | PN ---
Date of Progress Note: 06/12/2023 The patient is basically status quo cardiac, pulmonary, hepatic issues. Liver enzymes are up necessi tating keeping the amiodarone drip at 0.5. However, she is still having some tachycardia slightly in creased in the 120s. Has been given some beta blockers. Her renal function has put out 300 cc. Is s cheduled for dialysis later this afternoon. A tube will be inserted for feeding purposes as she has not been responsive enough to do this status as we try to wean her off sedation with poor results. However, even on it today has been somewhat lesser responsive awaiting pulmonary and renal input later today. HR/MODL Voice ID: [id number] Report ID: [id number]
--- NOTE | 2023-06-12 14:10 | RAD REPORT ---
EXAM DESCRIPTION: CT - Head Brain Wo Cont - 06/12/2023 2:01 pm CLINICAL HISTORY: Altered mental status COMPARISON: Head Brain Wo Cont dated 06/09/2023; Head Brain Wo Cont dated 11/02/2018 TECHNIQUE: All CT scans are performed using dose optimization technique as appropriate and may inclu de automated exposure control or mA/KV adjustment according to patient size. FINDINGS: No intracranial hemorrhage, hydrocephalus or extra-axial fluid collection.No areas of brai n edema or evidence of midline shift. Mild chronic small vessel ischemic changes. Cerebral atrophy wh ich is age appropriate. The paranasal sinuses and mastoids are clear. The calvarium is intact. IMPRESSION: No acute intracranial abnormality.
[2023-06-12] MEDS ORDERED: DOXYCYCLINE 100 MG in NA CHLORIDE 0.9% 100 ML IVPB SCH (14:30)
[2023-06-12] MEDS ORDERED: DIGOXIN 0.25 MG/ML AMP IV SCH (15:00)
[2023-06-12] MEDS ORDERED: FUROSEMIDE 100 MG in NA CHLORIDE 0.9% 90 ML IV SCH (15:30)
[2023-06-12] MEDS: AMIODARONE HCL 900 MG in Dextrose 5%-Water 482 ML IV SCH (16:46)
[2023-06-12 16:53] VITALS: TEMP 97.8
[2023-06-12] MEDS ORDERED: ENOXAPARIN 40 MG/0.4 ML SQ SCH (17:00)
[2023-06-12 18:15] VITALS: BP 106/77
[2023-06-12] MEDS ORDERED: THIAMINE 200 MG/2 ML INJ IVP SCH (21:00)
== END 2023-06-12 18:15 | disposition short-term general hospital (02) | DRG 291 ==
LOC: ER 14:13 → 2ND 19:42 → 3RD-ICU 06-09 14:05
PROVIDERS: ADMIT Internal Medicine Nephrology; ATTEND Family Medicine
PROC: 5A09457 Assistance with Respiratory Ventilation, 24-96 Consecutive Hours, Continuous Positive Airway Pressure (ICD-10-PCS; principal; 2023-06-10)
PROC: 06HY33Z Insertion of Infusion Device into Lower Vein, Percutaneous Approach (ICD-10-PCS; 2023-06-10)
PROC: 5A1D70Z Performance of Urinary Filtration, Intermittent, Less than 6 Hours Per Day (ICD-10-PCS; 2023-06-12)
DX: I11.0 Hypertensive heart disease with heart failure (principal); I50.33 Acute on chronic diastolic (congestive) heart failure; N17.0 Acute kidney failure with tubular necrosis; J96.00 Acute respiratory failure, unspecified whether with hypoxia or hypercapnia; E87.1 Hypo-osmolality and hyponatremia; I48.91 Unspecified atrial fibrillation; N30.90 Cystitis, unspecified without hematuria; M06.9 Rheumatoid arthritis, unspecified; E03.9 Hypothyroidism, unspecified; E78.5 Hyperlipidemia, unspecified; L40.50 Arthropathic psoriasis, unspecified; G25.81 Restless legs syndrome; K21.9 Gastro-esophageal reflux disease without esophagitis; T50.8X5A Adverse effect of diagnostic agents, initial encounter; Z85.3 Personal history of malignant neoplasm of breast; Z92.3 Personal history of irradiation; Z90.49 Acquired absence of other specified parts of digestive tract; Z79.01 Long term (current) use of anticoagulants; Z92.21 Personal history of antineoplastic chemotherapy; Z11.52 Encounter for screening for COVID-19; Z90.710 Acquired absence of both cervix and uterus; Z79.899 Other long term (current) drug therapy; Z86.718 Personal history of other venous thrombosis and embolism; Z86.711 Personal history of pulmonary embolism
CPT/HCPCS: 36415; 36600; 70450; 71045; 71250; 71275; 76770; 80048; 80053; 80061; 80069; 80076; 81001; 82533; 82550; 82570; 82805; 82947; 83010; 83520; 83605; 83615; 83735; 83880; 84100; 84132; 84145; 84156; 84439; 84443; 84484; 84550; 85025; 85302; 85610; 86021; 86038; 86140; 86160; 86225; 86430; 86706; 86803; 87040; 87077; 87086; 87088; 87186; 87340; 87635; 87804; 93005; 93306; 93308; 94660; 97116; 97161; 97530; 99284; J0153; J0282; J0696; J1160; J1644; J1650; J1940; J7030; J7050; J7060; P9047; Q9967

== ENCOUNTER 2023-10-03 09:31 | Observation (INO) | payer OTHER ==
[2023-10-03 09:52] LABS: Absolute Lymphocytes (CBC) 1.9 K/uL (0.7-4.9); Hematocrit 33.2 % (36.0-45.0); Lymphocytes % 36.8 % (15.3-44.8); MCV 93.6 fL (80-100); MPV 9.3 fL (7.6-11.3); Platelets 206 thou/uL (152-406); RBC Red Blood Cell Count 3.55 M/uL (3.86-4.86)
[2023-10-03 09:56] LABS: Protime INR 2.55
[2023-10-03 10:12] LABS: Albumin 3.2 g/dL (3.4-5.0); Bilirubin Direct 0.4 mg/dL (0-0.2); Bilirubin Indirect, Calculated 0.5 mg/dL (0.2-0.8); Bilirubin Total 0.9 mg/dL (0.2-1.0); Magnesium 2.2 mg/dL (1.6-2.4); Potassium 3.6 mEq/L (3.5-5.1); Protein, Total 6.4 g/dL (6.4-8.2)
[2023-10-03 10:15] LABS: Troponin High Sensitivity 67.4 pg/mL (<58.9)
--- NOTE | 2023-10-03 10:44 | RAD REPORT ---
EXAM DESCRIPTION: CT - Head C Spine Mpr Wo Con - 10/03/2023 10:25 am CLINICAL HISTORY: Dizziness Head and neck injury status post fall. Head and neck pain COMPARISON: 2022 TECHNIQUE: Computed axial tomography of the head and cervical spine was obtained. Sagittal and coronal reconstruction was performed. All CT scans are performed using dose optimization technique as appropriate and may include automated exposure control or mA/KV adjustment according to patient size. FINDINGS: An intracranial bleed is not seen. The ventricles are normal in caliber. Mild cerebral atrophy. Mild the densities periventricular, deep and subcortical white matter probably ischemic changes secondary to small vessel disease An extra-axial fluid collection is not noted. Fluid within the visualized sinuses and mastoids is not seen A cervical fracture is not visualized. No dislocation is noted. Spondylosis involves the cervical spi ne IMPRESSION: No acute intracranial abnormality is seen. A cervical fracture is not visualized. If the patient continues to have symptoms to suggest intracranial /spinal cord pathology then MRI wou ld be recommended
--- NOTE | 2023-10-03 12:01 | ER ---
Nurse's Notes [facility] Name: Joellen Klein Age: 83 yrs Sex: Female : 1940 Arrival Date: 10/03/2023 Time: 09:31 Bed 9 Private MD: Diagnosis: Syncope Presentation: 10/03 09:27 Chief complaint: EMS states: got up while at the bathroom, got dizzy, lost her balance nj1 and fell hitting head on floor tile. CO upper back pain. No LOC. On xarelto. Positive orthostatics. From assisted living. 09:27 Coronavirus screen: Vaccine status: Patient reports receiving the 2nd dose of the covid nj1 vaccine. Ebola Screen: Patient denies travel to an Ebola-affected area in the 21 days before illness onset. Initial Sepsis Screen: Does the patient meet any 2 criteria? No. Patient's initial sepsis screen is negative. Does the patient have a suspected source of infection? No. Patient's initial sepsis screen is negative. Risk Assessment: Do you want to hurt yourself or someone else? Patient reports no desire to harm self or others. Onset of symptoms was October 03, 2023. 09:27 Method Of Arrival: EMS: [facility] 09:27 Acuity: SRINIVASA 3 nj1 09:27 Care prior to arrival: Medication(s) given: Normal saline infusion, Initiated zofran 4 nj1 mg, IV initiated. 20 GA, in the right antecubital area. 17:18 Care prior to arrival: None. Mechanism of Injury: Fall. Trauma event details: Injury ll1 occurred in the [facility]. Triage Assessment: 09:36 General: Appears uncomfortable, Behavior is calm, cooperative, appropriate for age. ll1 Pain: Complains of pain in back Quality of pain is described as aching. Neuro: Reports dizziness, headache weakness. Derm: Reports abrasion scalp. Trauma Activation: Not Applicable Physician: ED Physician; Name: ; Notified At: ; Arrived At: Physician: General Surgeon; Name: ; Notified At: ; Arrived At: Physician: Radiology; Name: ; Notified At: ; Arrived At: Physician: Respiratory; Name: ; Notified At: ; Arrived At: Physician: Lab; Name: ; Notified At: ; Arrived At: Historical: - Allergies: 09:51 No Known Allergies; ph - PMHx: 09:36 blood clots; GERD; Hypertension; Hypothyroidism; nj1 - Immunization history:: Client reports receiving the 2nd dose of the Covid vaccine. - Social history:: Smoking status: Patient denies any tobacco usage or history of. - Immunization history: Last tetanus immunization: - up to date. Screenin:28 [facility] ED Fall Risk Assessment (Adult) Score/Fall Risk Level 0 - 2 = Low Risk ll1 Oriented to surroundings, Maintained a safe environment, Educated pt \T\ family on fall prevention, incl call for assistance when getting out of bed, Hourly rounding (assess needs \T\ fall precautionary measures) done. Abuse screen: Denies threats or abuse. Nutritional screening: No deficits noted. Tuberculosis screening: No symptoms or risk factors identified. Primary Survey: 11:01 NO uncontrolled hemorrhage observed. A: The client is awake and alert. The airway is ll1 patent. Breathing/Chest: Spontaneous respiratory effort, equal unlabored respirations, breath sounds clear bilaterally, regular pattern, symmetrical chest rise and fall. Circulation: No external hemorrhage present. Regular and strong central pulse, skin warm/dry/normal color. Disability Pupils are equal, round, reactive to light and accommodation. Exposure/Environment: There is no evidence of uncontrolled external bleeding. 17:18 Reassessment Breathing: Spontaneous respiratory effort, equal unlabored respirations, ll1 breath sounds clear bilaterally, regular pattern with symmetrical chest rise and fall. Assessment: 10:29 Reassessment: No changes from previously documented assessment. Patient and/or family ll1 updated on plan of care and expected duration. Pain level reassessed. Patient is alert, oriented x 3, equal unlabored respirations, skin warm/dry/pink. 14:10 Reassessment: No changes from previously documented assessment. Patient and/or family tl4 updated on plan of care and expected duration. Pain level reassessed. Patient is alert, oriented x 3, equal unlabored respirations, skin warm/dry/pink. 15:44 Reassessment: No changes from previously documented assessment. Patient and/or family ll1 updated on plan of care and expected duration. Pain level reassessed. to BS commode and back. Tolerated well. 17:46 Reassessment: No changes from previously documented assessment. Patient and/or family ll1 updated on plan of care and expected duration. Pain level reassessed. Patient is alert, oriented x 3, equal unlabored respirations, skin warm/dry/pink. 17:50 Reassessment: Report called to STEVEN Flores. ll1 Vital Signs: 09:27 BP 128 / 55; Pulse 57; Resp 18; Temp 98.3(O); Pulse Ox 98% on R/A; Weight 86.18 kg (R); nj1 Height 5 ft. 7 in. ; 11:01 BP 143 / 62; Pulse 57; ll1 12:03 BP 118 / 67; Pulse 63; Resp 20; Pulse Ox 96% on R/A; tl4 13:00 BP 131 / 67; Pulse 70; Resp 19; Pulse Ox 95% ; tl4 13:00 BP 122 / 55; Pulse 42; Resp 16; Pulse Ox 100% on R/A; tl4 15:35 BP 114 / 51; Pulse 60; Resp 15; Temp 97.7; Pulse Ox 100% on R/A; ll1 17:15 BP 105 / 54; Pulse 57; Resp 17; Pulse Ox 100% ; Pain 4/10; ll1 18:13 BP 106 / 61; Pulse 60; Resp 17; Pulse Ox 100% ; ll1 09:27 Body Mass Index 29.76 (86.18 kg, 170.18 cm) nj1 17:15 Pain Scale: Adult ll1 [place] Coma Score: 09:27 Eye Response: spontaneous(4). Motor Response: obeys commands(6). Verbal Response: jh7 oriented(5). Total: 15. 10:28 Eye Response: spontaneous(4). Motor Response: obeys commands(6). Verbal Response: ll1 oriented(5). Total: 15. Trauma Score (Adult): 09:27 Eye Response: spontaneous(1); Verbal Response: oriented(1); Motor Response: obeys jh7 commands(2); Systolic BP: > 89 mm Hg(4); Respiratory Rate: 10 to 29 per min(4); [place] Score: 15; Trauma Score: 12 10:28 Eye Response: spontaneous(1); Verbal Response: oriented(1); Motor Response: obeys ll1 commands(2); Systolic BP: > 89 mm Hg(4); Respiratory Rate: 10 to 29 per min(4); Karyn Score: 15; Trauma Score: 12 NIH Stroke Scale Scores: 09:27 NIHSS Score: 0 [facility] ED Course: 09:25 Arm band placed on Patient placed in an exam room, on a stretcher. ll1 09:30 Provided Education on: ER process and procedures. ll1 09:33 Patient arrived in ED. nj1 09:34 [facility] jh7 09:34 James Jimenez MD is Attending Physician. 7 09:36 Triage completed. nj1 09:37 Nayeli Verduzco RN is Primary Nurse. ll1 10:15 Maintain EMS IV. Dressing intact. Good blood return noted. Site clean \T\ dry. Gauge \T\ ll 1 site: 20 G R AC. 10:26 CT Head C Spine In Process Unspecified. EDMS 10:28 Patient has correct armband on for positive identification. Bed in low position. Call ll1 light in reach. Client placed on continuous cardiac and pulse oximetry monitoring. NIBP monitoring applied. library monitor on. 10:28 Thermoregulation: warm blanket given to patient. ll1 11:01 Patient maintains SpO2 saturation greater than 95% on room air. ll1 11:24 XRAY Chest (1 view) In Process Unspecified. EDMS 11:24 XRAY Thoracic Spine (Ap/lat) In Process Unspecified. EDMS 11:27 Troponin High Sensitivity: DRAW AT 11:45AM Sent. ll1 11:59 Ramírez Ann is Hospitalizing Provider. [facility] 12:41 XRAY Shoulder RIGHT 2 view In Process Unspecified. EDMS 17:16 No provider procedures requiring assistance completed. ll1 17:19 Patient did not have IV access during this emergency room visit. ll1 Administered Medications: 15:38 Drug: fentaNYL (PF) IVP 25 mcg IVP once Route: IVP; Site: right antecubital; ll1 17:20 Follow up: Response: No adverse reaction; Pain is decreased; RASS: Alert and Calm (0) ll1 Medication: 17:19 VIS not applicable for this client. ll1 Intake: 17:19 PO: 300ml; Total: 300ml. ll1 Output: 17:19 Urine: 400ml; Total: 400ml. ll1 Outcome: 12:00 Decision to Hospitalize by Provider. 7 17:18 Admitted to Med/surg accompanied by tech, via wheelchair, room 207, with chart, ll1 17:18 Condition: stable 17:18 Instructed on the need for admit, 17:20 Patient's length of stay was not longer than 2 hours. 1 18:14 Patient left the ED. 1 NIH Stroke Scale - NIH Stroke Score Date: 10/03/2023 Time: 09:27 Total Score = 0 10. Dysarthria (speech clarity - read or repeat words) - 0(Normal) 11. Extinction and Inattention (visual/tactile/auditory/spatial/personal) - 0(No abnormality) 1a. Level of Consciousness (LOC) - 0(Alert) 1b. Level of Consciousness (LOC) (Month \T\ Age) - 0(Both) 1c. LOC Commands (Open \T\ Closes Eyes/Internal Salesperson) - 0(Both) 2. Best Gaze (Lateral Gaze Paresis) - 0(Normal) 3. Visual Field Loss - 0(No visual loss) 4. Facial Palsy - 0(Normal) 5a. Left Arm: Motor (10-second hold) - 0(No drift) 5b. Right Arm: Motor (10-second hold) - 0(No drift) 6a. Left Leg: Motor (5-second hold - always test supine) - 0(No drift) 6b. Right Leg: Motor (5-second hold - always test supine) - 0(No drift) 7. Limb Ataxia (finger/nose \T\ heel/[place] - test with eyes open) - 0(Absent) 8. Sensory Loss (pinprick arms/legs/face) - 0(Normal) 9. Best Language: Aphasia (description/naming/reading) - 0(No aphasia) Initials: [facility] Signatures: Dispatcher [employer] EDLA Ami Bhandari RN RN Nayeli Verduzco RN RN 1 Ya Musa, CIRCULATION TENDER CIRCULATION TENDER [facility] Susana Leigh RN RN nj1 Sudhir Gillis RN RN tl4 Corrections: (The following items were deleted from the chart) 09:37 09:37 Arm band placed on nj1 nj1 10:29 10:28 Reassessment: In CT 1 1
--- NOTE | 2023-10-03 12:01 | EDPHYS ---
Physician Documentation [facility] Name: Joellen Klein Age: 83 yrs Sex: Female : 1940 Arrival Date: 10/03/2023 Time: 09:31 Bed 9 Private MD: ED Physician James Jmienez HPI: 10/03 09:27 This 83 yrs old Female presents to ER via EMS with complaints of Fall Injury. 7 09:27 Details of fall: The patient fell from seated position, toilet. Onset: The jh7 symptoms/episode began/occurred acutely. Associated injuries: The patient sustained injury to the head, hematoma, upper back injury, pain. 83-year-old female with a past medical history of hypertension, CVA this past June, CHF and hypothyroidism presents to the ER post syncopal episode. Patient reports that she was getting off the toilet, suddenly felt dizzy and nauseous, and fell. EMS states that a scalp hematoma was present and that orthostatic vital signs were positive. Patient also complains of right thoracic spine tenderness. She is on Xarelto and is a patient of Dr. White.. Historical: - Allergies: 09:51 No Known Allergies; ph - PMHx: 09:36 blood clots; GERD; Hypertension; Hypothyroidism; nj1 - Immunization history:: Client reports receiving the 2nd dose of the Covid vaccine. - Social history:: Smoking status: Patient denies any tobacco usage or history of. - Immunization history: Last tetanus immunization: - up to date. ROS: 09:27 Constitutional: Negative for fever, chills, and weight loss, Eyes: Negative for injury, jh7 pain, redness, and discharge, Neck: Negative for injury, pain, and swelling, Cardiovascular: Negative for chest pain, palpitations, and edema, Respiratory: Negative for shortness of breath, cough, wheezing, and pleuritic chest pain, 09:27 MS/Extremity: Negative for injury and deformity, Skin: Negative for injury, rash, and discoloration, 09:27 Abdomen/GI: Positive for nausea, Negative for vomiting, diarrhea, constipation, :27 Back: Positive for pain with movement, :27 Neuro: Positive for dizziness, syncope, Negative for altered mental status, seizure activity, speech changes, tingling, visual changes, weakness, 09:27 All other systems are negative, Exam: : Constitutional: This is a well developed, well nourished patient who is awake, alert, jh7 and in no acute distress. Eyes: Pupils equal round and reactive to light, extra-ocular motions intact. Lids and lashes normal. Conjunctiva and sclera are non-icteric and not injected. Cornea within normal limits. Periorbital areas with no swelling, redness, or edema. ENT: Nares patent. No nasal discharge, no septal abnormalities noted. Tympanic membranes are normal and external auditory canals are clear. Oropharynx with no redness, swelling, or masses, exudates, or evidence of obstruction, uvula midline. Mucous membranes moist. Neck: Trachea midline, no thyromegaly or masses palpated, and no cervical lymphadenopathy. Supple, full range of motion without nuchal rigidity, or vertebral point tenderness. No Meningismus. Cardiovascular: Regular rate and rhythm with a normal S1 and S2. No gallops, murmurs, or rubs. Normal PMI, no JVD. No pulse deficits. Respiratory: Lungs have equal breath sounds bilaterally, clear to auscultation and percussion. No rales, rhonchi or wheezes noted. No increased work of breathing, no retractions or nasal flaring. Abdomen/GI: Soft, non-tender, with normal bowel sounds. No distension or tympany. No guarding or rebound. No evidence of tenderness throughout. Skin: Warm, dry with normal turgor. Normal color with no rashes, no lesions, and no evidence of cellulitis. MS/ Extremity: Pulses equal, no cyanosis. Neurovascular intact. Full, normal range of motion. Neuro: Awake and alert, GCS 15, oriented to person, place, time, and situation. Cranial nerves II-XII grossly intact. Motor strength 5/5 in all extremities. Sensory grossly intact. Cerebellar exam normal. : Head/face: Noted is hematoma, that is mild, of the left side of the back of head and right side of the back of head, 09:27 Back: pain, that is mild, of the right mid back, ROM is normal, Vital Signs: : BP 128 / 55; Pulse 57; Resp 18; Temp 98.3(O); Pulse Ox 98% on R/A; Weight 86.18 kg (R); nj1 Height 5 ft. 7 in. ; 11:01 BP 143 / 62; Pulse 57; ll1 12:03 BP 118 / 67; Pulse 63; Resp 20; Pulse Ox 96% on R/A; tl4 13:00 BP 131 / 67; Pulse 70; Resp 19; Pulse Ox 95% ; tl4 13:00 BP 122 / 55; Pulse 42; Resp 16; Pulse Ox 100% on R/A; tl4 15:35 BP 114 / 51; Pulse 60; Resp 15; Temp 97.7; Pulse Ox 100% on R/A; ll1 17:15 BP 105 / 54; Pulse 57; Resp 17; Pulse Ox 100% ; Pain 4/10; ll1 18:13 BP 106 / 61; Pulse 60; Resp 17; Pulse Ox 100% ; ll1 09:27 Body Mass Index 29.76 (86.18 kg, 170.18 cm) nj1 17:15 Pain Scale: Adult 1 NIH Stroke Scale Scores: 09:27 NIHSS Score: 0 7 Karyn Coma Score: 09:27 Eye Response: spontaneous(4). Motor Response: obeys commands(6). Verbal Response: jh7 oriented(5). Total: 15. 10:28 Eye Response: spontaneous(4). Motor Response: obeys commands(6). Verbal Response: ll1 oriented(5). Total: 15. Trauma Score (Adult): 09:27 Eye Response: spontaneous(1); Verbal Response: oriented(1); Motor Response: obeys jh7 commands(2); Systolic BP: > 89 mm Hg(4); Respiratory Rate: 10 to 29 per min(4); [place] Score: 15; Trauma Score: 12 10:28 Eye Response: spontaneous(1); Verbal Response: oriented(1); Motor Response: obeys ll1 commands(2); Systolic BP: > 89 mm Hg(4); Respiratory Rate: 10 to 29 per min(4); Karyn Score: 15; Trauma Score: 12 MDM: 09:34 Patient medically screened. [facility] 12:00 Differential diagnosis: closed head injury, fracture, multiple trauma, Intracranial jh7 bleed, vasovagal syncope, orthostatic hypotension, TIA. Data reviewed: vital signs, nurses notes, lab test result(s), EKG, radiologic studies, CT scan, plain films. Consideration of Admission/Observation Patient was admitted/placed on observation. Management of patient was discussed with the following: Hospitalist: Dr. Ann. I considered the following discharge prescriptions or medication management in the emergency department Medications were administered in the Emergency Department. See MAR. Independent interpretation of the following test(s) in the Emergency Department EKG: See my EKG interpretation above. Historians other than the Patient: EMS: EMS. Care significantly affected by the following chronic conditions: Hypertension. Counseling: I had a detailed discussion with the patient and/or guardian regarding the historical points, exam findings, and any diagnostic results supporting the discharge/admit diagnosis, the need for further work-up and treatment in the hospital. Response to treatment: the patient's symptoms have mildly improved after treatment. 10/03 09:36 Order name: Basic Metabolic Panel; Complete Time: 10:18 [facility] 10/03 09:36 Order name: CBC with Diff; Complete Time: 10: [facility] 10/03 09:36 Order name: Magnesium; Complete Time: 10: [facility] 10/03 09:36 Order name: NT PRO-BNP; Complete Time: 10: [facility] 10/03 09:36 Order name: PT-INR; Complete Time: 10: [facility] 10/03 09:36 Order name: Troponin HS; Complete Time: 10: [facility] 10/03 09:36 Order name: LFT's; Complete Time: : [facility] 10/03 10:58 Order name: Troponin High Sensitivity: DRAW AT 11:45AM; Complete Time: 11:37 [facility] 10/03 12:47 Order name: Urinalysis w/ reflexes WI 10/03 12:50 Order name: T4 Free [place] 10/03 12:50 Order name: Thyroid Stimulating Hormone EDWI 10/03 12:50 Order name: Basic Metabolic Panel EDMS 10/03 12:50 Order name: Basic Metabolic Panel EDMS 10/03 12:50 Order name: CBC with Automated Diff EDMS 10/03 12:50 Order name: CBC with Automated Diff EDMS 10/03 12:50 Order name: Magnesium EDMS 10/03 12:50 Order name: Magnesium EDMS 10/03 12:50 Order name: Phosphorus EDMS 10/03 12:50 Order name: Phosphorus EDMS 10/03 12:50 Order name: Troponin High Sensitivity [facility] 10/03 12:50 Order name: Troponin High Sensitivity [facility] 10/03 12:50 Order name: Troponin High Sensitivity [facility] 10/03 14:39 Order name: Urinalysis w/ reflexes [facility] 10/03 09:36 Order name: XRAY Chest (1 view); Complete Time: 12:54 [facility] 10/03 09:36 Order name: XRAY Thoracic Spine (Ap/lat); Complete Time: 12:54 [facility] 10/03 09:36 Order name: CT Head C Spine; Complete Time: 10:56 [facility] 10/03 11:55 Order name: XRAY Shoulder RIGHT 2 view; Complete Time: 12:54 [facility] 10/03 09:36 Order name: EKG; Complete Time: 09:37 [facility] 10/03 12:50 Order name: CONS Physician Consult [facility] 10/03 09:36 Order name: Cardiac monitoring; Complete Time: 09:45 [facility] 10/03 09:36 Order name: EKG - Nurse/Tech; Complete Time: 09:45 [facility] 10/03 09:36 Order name: IV Saline Lock; Complete Time: 09:38 [facility] 10/03 09:36 Order name: Labs collected and sent; Complete Time: 09:38 [facility] 10/03 09:36 Order name: O2 Per Protocol; Complete Time: 09:38 [facility] 10/03 09:36 Order name: O2 Sat Monitoring; Complete Time: 09:38 [facility] 10/03 09:36 Order name: Misc. Order: give 500mL of the NS EMS provided; Complete Time: 09:38 [facility] EC:43 Rate is 56 beats/min. Rhythm is regular. QRS [place] is Normal. OR interval is prolonged [facility] at 222 msec. QRS interval is normal. QT interval is prolonged at 518 msec. No Q waves. T waves are Normal. No ST changes noted. Clinical impression: 1st degree heart block and Sinus bradycardia. Administered Medications: 15:38 Drug: fentaNYL (PF) IVP 25 mcg IVP once Route: IVP; Site: right antecubital; ll1 17:20 Follow up: Response: No adverse reaction; Pain is decreased; RASS: Alert and Calm (0) ll1 Disposition Summary: 10/03/23 12:00 Hospitalization Ordered Notes: Hospitalization Status: Observation [facility] Provider: Ramírez Ann [facility] Location: Telemetry/MedSurg (observation) [facility] Condition: Fair [facility] Problem: new [facility] Symptoms: are unchanged [facility] Bed/Room Type: Standard [facility] Room Assignment: [facility](10/03/23 17:17) ll1 Diagnosis - Syncope [facility] Forms: - Medication Reconciliation Form [facility] - SBAR form [facility] - Leadership Thank You Letter [facility] NIH Stroke Scale - NIH Stroke Score Date: 10/03/2023 Time: 09:27 Total Score = 0 10. Dysarthria (speech clarity - read or repeat words) - 0(Normal) 11. Extinction and Inattention (visual/tactile/auditory/spatial/personal) - 0(No abnormality) 1a. Level of Consciousness (LOC) - 0(Alert) 1b. Level of Consciousness (LOC) (Month \T\ Age) - 0(Both) 1c. LOC Commands (Open \T\ Closes Eyes/Cow Washer) - 0(Both) 2. Best Gaze (Lateral Gaze Paresis) - 0(Normal) 3. Visual Field Loss - 0(No visual loss) 4. Facial Palsy - 0(Normal) 5a. Left Arm: Motor (10-second hold) - 0(No drift) 5b. Right Arm: Motor (10-second hold) - 0(No drift) 6a. Left Leg: Motor (5-second hold - always test supine) - 0(No drift) 6b. Right Leg: Motor (5-second hold - always test supine) - 0(No drift) 7. Limb Ataxia (finger/nose \T\ heel/wellington - test with eyes open) - 0(Absent) 8. Sensory Loss (pinprick arms/legs/face) - 0(Normal) 9. Best Language: Aphasia (description/naming/reading) - 0(No aphasia) Initials: [facility] Signatures: Dispatcher [employer] Ami Silva RN RN Nayeli Verduzco RN RN 1 Ya Msua FNP [place] [id number] Susana Leigh RN RN nj1 Corrections: (The following items were deleted from the chart) 17:17 12:00 [place] [id number]
--- NOTE | 2023-10-03 12:16 | P.HP ---
Certification for Inpatient Patient admitted to: Observation With expected LOS: >2 Midnights Practitioner: I am a practitioner with admitting privileges, knowledge of patient current condition, hospital course, and medical plan of care. Services: Services provided to patient in accordance with Admission requirements found in Title 42 Section 412.3 of the Code of Federal Regulations Patient History Date of Service: 10/03/23 Reason for admission: syncopal episode, positive orthostatic History of Present Illness: Joellen Klein is an 83-year-old female with past medical history of hypertension,CVA in June, CHF, hypothyroidism, and GERD who presents to the ED complaining of fall from seated position, off the toilet due to a syncopal episode. She reports standing from the toilet when she felt dizzy and nauseous and fell down hitting her head. Upon arrival, the EMS reports a scalp hematoma and orthostatic vital signs were positive. She also complains of a right thorac ic spine tenderness. She is on Xarelto and a patient of Dr. White. She was recently admitted to [facility] for stroke like symptoms, at which time an MRI was not possible d/t her back implant. Her cardiologists are at [facility] and were also planning to cardiovert but was unable d/t a clot seen in the appendage. Dr. Ojeda has been consulted. Initial vitals BP 128/55, heart rate send 57, respirations 18, temperature 98.3, pulse ox 98 on room air, weight 86.18 kg, NIH SS score 0 Laboratory evaluation WBC 5.1, H&H 11/33, platelets 206, BUN/creatinine 22/1.39, GFR 38, troponin 67.4/65.1, BNP 954 EKG reports rate is 56 bpm. Rhythm is regular. QRS axis is normal. NE interval is prolonged at 222 msec. QRS interval is normal. QT interval is prolonged at 518 msec. No Q waves. T waves are normal. No ST changes noted. Clinical impression first-degree heart block and sinus bradycardia. Head C-spine without contrast reports "no acute intracranial abnormality is seen. A cervical fracture is not visualized. If the patient continues to have symptoms to suggest intracranial/spinal cord pathology then MRI would be recommended." Shoulder right x-ray reports "No fracture or dislocation is seen. Osteoporosis, Moderate to marked osteoarthritis AC joint. Mild osteoarthritis glenohumeral joint" Thoracic spine AP lateral reports "The bones are osteoporotic. Neurostimulator device in place. No fracture is seen. No dislocation" Chest x-ray reports "The lungs appear clear of acute infiltrate. The heart is mildly enlarged. IMPRESSION: No acute abnormalities displayed." Joellen will admitted to hospitalist service for further evaluation and treatment. Allergies No Known Allergies Allergy (Verified 10/20/22 10:56) Home Medications: Cetirizine HCl [Zyrtec] 10 mg PO DAILY 10/20/22 Cranberry Fruit Extract [Ellura] 200 mg PO DAILY 10/20/22 Duloxetine HCl [Cymbalta] 30 mg PO DAILY 10/20/22 Furosemide [Lasix] 40 mg PO DAILY 10/20/22 Melatonin 2 tab PO BEDTIME 10/20/22 Rivaroxaban [Xarelto] 10 mg PO DAILY 10/20/22 Ropinirole HCl 4 mg PO BEDTIME 10/20/22 Vit C/E/Zn/Coppr/Lutein/Zeaxan [Preservision Areds 2 Softgel] 2 each PO BEDTIME 10/20/22 Esomeprazole Magnesium 40 mg PO DAILY 06/05/23 Ezetimibe/Simvastatin [Ezetimibe-Simvastatin 10-20 mg] 1 each PO DAILY 06/05/23 Folic Acid 1 mg PO DAILY 06/05/23 Montelukast Sodium [Singulair] 10 mg PO DAILY 06/05/23 Ondansetron [Zofran] 4 mg PO Q6H PRN 06/05/23 Thyroid,Pork [Thyroid] 90 mg PO DAILY 06/05/23 hydroCHLOROthiazide [Hydrochlorothiazide*] 12.5 mg PO DAILY 06/05/23 - Past Medical/Surgical History Diabetic: No -: gerd -: hypertension -: thyroid issues -: restless leg syndrome -: Prior history of thromboembolism 15 years ago -: Bladder Infections -: tish -: back surg -: hysterectomy -: neck surg -: foot surg -: cataract surg -: shoulder surg - Family History Father -: Stroke Mother -: Diabetes Sister -: Cancer, Blood disorders - Social History Alcohol use: No CD- Drugs: No Caffeine use: No Review of Systems Neurological: Other (dizzy) Physical Examination - Physical Exam General: Alert, In no apparent distress, Oriented x3 HEENT: Atraumatic, Normocephalic, PERRLA Neck: Supple, 2+ carotid pulse no bruit, JVD not distended Respiratory: Clear to auscultation bilaterally, Normal air movement Cardiovascular: No edema, Normal pulses, Regular rate/rhythm, Normal S1 S2 Capillary refill: <2 Seconds Gastrointestinal: Normal bowel sounds, Soft and benign Musculoskeletal: No clubbing, No swelling, No contractures Integumentary: Other (discoloration) Neurological: Normal speech, Normal strength at 5/5 x4 extr, Normal tone - Studies Laboratory Data (last 24 hrs) 10/03/23 10/03/23 10/03/23 09:40 09:40 09:40 WBC 5.10 Hgb 11.2 L Hct 33.2 L Plt Count 206 PT 27.3 H INR 2.55 Sodium 140 Potassium 3.6 BUN 22 H Creatinine 1.39 H Glucose 102 Magnesium 2.2 Total Bilirubin 0.9 AST 17 ALT 23 Alkaline Phosphatase 45 Assessment and Plan - Plan Assessment plan Syncopal episode likely secondary to Orthostatsis Elevated troponin Prolonged QT History A-fib History of CHF -EKG shows Rate is 56 beats/min. Rhythm is regular. QRS [place] is Normal. NE interval is prolonged at 222 msec. QRS interval is normal. QT interval is prolonged at 518 msec. No Q waves.T waves are Normal. No ST changes noted. Clinical impression: 1st degree heart block and Sinus bradycardia -Cardiology consulted- TINA in the AM 10/04 -Troponin 67.4/65.1, serial pending -QT/QTC 518/499 -BNP 954 -On Xarelto at home, will continue -Restart home medication when available -PT consulted-currently using wheelchair, was ambulatory with walker prior to stroke in June History of CVA (june 2023) Restart home medication MICHAEL BUN/creatinine 22/1.39, GFR 38 Gentle IV fluids History of GERD History of HTN/HLD Restart home medication when available DVT PPx on Xarelto, will continue Full code LOS 2 days Dispo to [facility], currently in rehab from stroke in June, wheelchair Discharge Plan: Home Plan to discharge in: 48 Hours - Advance Directives Does patient have a Living Will: No Does patient have a Durable POA for Healthcare: No Time Spent Managing Pts Care (In Minutes): 50
--- NOTE | 2023-10-03 12:40 | RAD REPORT ---
EXAM DESCRIPTION: Aliyah Single View10/03/2023 11:22 am CLINICAL HISTORY: Chest pain COMPARISON: 2022 FINDINGS: The lungs appear clear of acute infiltrate. The heart is mildly enlarged. IMPRESSION: No acute abnormalities displayed
--- NOTE | 2023-10-03 12:42 | RAD REPORT ---
EXAM DESCRIPTION: RAD - Thoracic Spine Ap/Lat - 10/03/2023 11:22 am CLINICAL HISTORY: Back pain FINDINGS: The bones are osteoporotic. Neurostimulator device in place No fracture is seen. No dislocation
--- NOTE | 2023-10-03 12:47 | RAD REPORT ---
EXAM DESCRIPTION: RAD - Shoulder Right 2 View - 10/03/2023 12:39 pm CLINICAL HISTORY: Right shoulder pain FINDINGS: No fracture or dislocation is seen. Osteoporosis Moderate to marked osteoarthritis AC joint. Mild osteoarthritis glenohumeral joint
[2023-10-03 14:39] LABS: Urine Bilirubin NEGATIVE (Negative); Urine Blood Negative (Negative); Urine Clarity Clear (Clear); Urine Color Light-Yellow (Yellow); Urine Glucose NEGATIVE (Negative); Urine Protein NEGATIVE (Negative); Urine Urobilinogen Normal (Normal); Urine pH 5.5 (5.0-7.0)
[2023-10-03] MEDS ORDERED: FENTANYL CITR 100 MCG/2 ML ONE (15:28)
[2023-10-03] MEDS: NA CHLORIDE 0.9% 1,000 ML IV SCH (19:33)
[2023-10-03] MEDS: HEPARIN 5000 UNIT/ML 1 ML VIAL SQ SCH (19:33)
[2023-10-03 20:40] LABS: Thyroid Stimulating Hormone 3.5 uIU/mL (0.358-3.740)
[2023-10-03] MEDS: ASPIRIN EC 81 MG TAB PO SCH (23:51)
[2023-10-04 01:38] VITALS: O2SAT 96
[2023-10-04 06:19] LABS: Absolute Lymphocytes (CBC) 1.7 K/uL (0.7-4.9); Lymphocytes % 34.4 % (15.3-44.8); MCV 93.9 fL (80-100); MPV 9.9 fL (7.6-11.3); Platelets 165 thou/uL (152-406)
[2023-10-04 06:39] LABS: Magnesium 2.2 mg/dL (1.6-2.4); Phosphorus 3.2 mg/dL (2.5-4.9); Potassium 3.6 mEq/L (3.5-5.1)
[2023-10-04 09:22] VITALS: BP 113/52; TEMP 97.2
--- NOTE | 2023-10-04 13:35 | P.DS ---
Admission Date: 10/03/23 Discharge Date: 10/04/23 Disposition: ROUTINE DISCHARGE Discharge Condition: FAIR Reason for Admission: syncopal episode, positive orthostatic Brief History of Present Illness: Joellen Klein is an 83-year-old female with past medical history of hypertension, CVA, CHF, hypothyroidism, and GERD who presented to the ED complaining of fall from seated position, off the toilet due to a syncopal episode. She reports standing from the toilet when she felt dizzy and nauseous, blacked out and fell down hitting her head. Upon arrival, the EMS reported a scalp hematoma and orthostatic vital signs were positive. She also complains of back pain. She is on Xarelto and a patient of Dr. White. She was recently admitted to [facility] for stroke like symptoms, at which time an MRI was not possible d/t her back implant. Her cardiologists are at [facility] and were also planning to cardiovert but was unable d/t a clot seen in the appendage. Initial vitals BP 128/55, heart rate send 57, respirations 18, temperature 98.3, pulse ox 98 on room air, weight 86.18 kg, NIH SS score 0 Laboratory evaluation WBC 5.1, H&H 11/33, platelets 206, BUN/creatinine 22/1.39, GFR 38, troponin 67.4/65.1, BNP 954 EKG reports rate is 56 bpm. Rhythm is regular. QRS axis is normal. CA interval is prolonged at 222 msec. QRS interval is normal. QT interval is prolonged at 518 msec. No Q waves. T waves are normal. No ST changes noted. Clinical impression first-degree heart block and sinus bradycardia. Head C-spine without contrast reports "no acute intracranial abnormality is seen. A cervical fracture not visualized. Shoulder right x-ray reports "No fracture or dislocation is seen. Osteoporosis, Moderate to marked osteoarthritis AC joint. Mild osteoarthritis glenohumeral joint" Thoracic spine AP lateral reports "The bones are osteoporotic. Neurostimulator device in place. No fracture is seen. No dislocation" Chest x-ray reports "The lungs appear clear of acute infiltrate. The heart is mildly enlarged. IMPRESSION: No acute abnormalities displayed." Patient hospitalized for further management. Hospital Course: Patient placed on observation on the medical floor. Troponin trended flat. Patient and family want any cardiology procedure to be done in [facility]. Cardiology evaluated patient and recommended discharge for outpatient follow-up at [facility]. Orthostatic vitals checked today was negative. Fall precautions and orthostatic precautions advised. Syncopal episode likely secondary to Orthostatsis Elevated troponin Prolonged QT History A-fib History of CHF -On Xarelto at home. Continue History of CVA (june 2023) Continue home medication MICHAEL Serum creatinine trended down MICHAEL improved. History of GERD History of HTN/HLD Continue home medications. Vital Signs/Physical Exam: Temp Pulse Resp BP Pulse Ox 97.2 F 62 16 113/52 L 97 10/04/23 08:00 10/04/23 08:00 10/04/23 08:00 10/04/23 08:00 10/04/23 08:00 General: Alert, In no apparent distress, Oriented x3 Neck: Supple, JVD not distended Respiratory: Clear to auscultation bilaterally, Normal air movement Cardiovascular: Normal S1 S2, Irregular heart rate/rhythm Gastrointestinal: Soft and benign, Non-distended Musculoskeletal: No swelling Integumentary: No cyanosis Neurological: Normal strength at 5/5 x4 extr Laboratory Data at Discharge: WBC 4.80 thou/uL (4.3-10.9) 10/04/23 05:10 Hgb 10.5 g/dL (12.0-15.0) L 10/04/23 05:10 Hct 31.0 % (36.0-45.0) L 10/04/23 05:10 Plt Count 165 thou/uL (152-406) 10/04/23 05:10 PT 27.3 SECONDS (9.5-12.5) H 10/03/23 09:40 INR 2.55 10/03/23 09:40 Sodium 142 mEq/L (136-145) 10/04/23 05:10 Potassium 3.6 mEq/L (3.5-5.1) 10/04/23 05:10 BUN 18 mg/dL (7-18) 10/04/23 05:10 Creatinine 1.25 mg/dL (0.55-1.02) H 10/04/23 05:10 Glucose 89 mg/dL (74-106) 10/04/23 05:10 Phosphorus 3.2 mg/dL (2.5-4.9) 10/04/23 05:10 Magnesium 2.2 mg/dL (1.6-2.4) 10/04/23 05:10 Total Bilirubin 0.9 mg/dL (0.2-1.0) 10/03/23 09:40 AST 17 U/L (15-37) 10/03/23 09:40 ALT 23 U/L (13-56) 10/03/23 09:40 Alkaline Phosphatase 45 U/L (45-117) 10/03/23 09:40 Home Medications: Cetirizine HCl [Zyrtec] 10 mg PO DAILY 10/20/22 Cranberry Fruit Extract [Ellura] 200 mg PO DAILY 10/20/22 Duloxetine HCl [Cymbalta] 30 mg PO DAILY 10/20/22 Furosemide [Lasix*] 40 mg PO DAILY 10/20/22 Melatonin 2 tab PO BEDTIME 10/20/22 Rivaroxaban [Xarelto*] 10 mg PO DAILY 10/20/22 Ropinirole HCl 4 mg PO BEDTIME 10/20/22 Vit C/E/Zn/Coppr/Lutein/Zeaxan [Preservision Areds 2 Softgel] 2 each PO BEDTIME 10/20/22 Esomeprazole Magnesium 40 mg PO DAILY 06/05/23 Ezetimibe/Simvastatin [Ezetimibe-Simvastatin 10-20 mg] 1 each PO DAILY 06/05/23 Folic Acid 1 mg PO DAILY 06/05/23 Montelukast Sodium [Singulair] 10 mg PO DAILY 06/05/23 Ondansetron [Zofran (Odt)*] 4 mg PO Q6H PRN 06/05/23 Thyroid,Pork [Thyroid] 90 mg PO DAILY 06/05/23 hydroCHLOROthiazide [Hydrochlorothiazide*] 12.5 mg PO DAILY 06/05/23 Diet: AHA Activity: Fall precautions Followup: Raffaele White MD [Primary Care Provider] - 1-2 Weeks Time spent managing pt's care (in minutes): 28
--- NOTE | 2023-10-04 14:27 | EKG ---
Test Date: 2023-10-04 Test Time: 08:40:44 Operations Analyst: MIR MEASUREMENT RESULTS: Intervals: Rate: 66 AL: 240 QRSD: 90 QT: 458 QTc: 480 Alvin: P: 65 AL: 240 QRS: 66 T: 76 INTERPRETIVE STATEMENTS: Sinus rhythm with 1st degree AV block Prolonged QT Abnormal ECG Compared to ECG 10/03/2023 09:43:07 Prolonged QT interval now present Sinus bradycardia no longer present Atrial premature complex(es) no longer present Electronically Signed On 10-04-23 14:25:58 QUALITY ASSURANCE TECHNICIAN by Saurav Davila
--- NOTE | 2023-10-04 14:32 | EKG ---
Test Date: 2023-10-03 Test Time: 09:43:07 Senior Support Analyst: GRICEL MEASUREMENT RESULTS: Intervals: Rate: 56 IA: 222 QRSD: 92 QT: 518 QTc: 499 [place]: P: 65 IA: 222 QRS: 67 T: 48 INTERPRETIVE STATEMENTS: Sinus bradycardia with 1st degree AV block with premature atrial complexes Otherwise normal ECG Compared to ECG 06/09/2023 14:42:58 Atrial premature complex(es) now present First degree AV block now present Junctional rhythm no longer present T-wave abnormality no longer present Possible ischemia no longer present Prolonged QT interval no longer present Electronically Signed On 10-04-23 14:27:29 PARTY PLAN SELLING DISTRIBUTOR by Saurav Davila
== END 2023-10-04 14:20 ==
LOC: ER 09:31 → ERHOLD 12:42 → 2ND 17:47
PROVIDERS: ADMIT Internal Medicine; ATTEND Internal Medicine
DX: R55 Syncope and collapse (principal); R94.31 Abnormal electrocardiogram [ECG] [EKG]; I10 Essential (primary) hypertension; I50.9 Heart failure, unspecified; E03.9 Hypothyroidism, unspecified; K21.9 Gastro-esophageal reflux disease without esophagitis; R79.89 Other specified abnormal findings of blood chemistry; N17.9 Acute kidney failure, unspecified; E78.5 Hyperlipidemia, unspecified; I45.9 Conduction disorder, unspecified; R00.1 Bradycardia, unspecified; S09.90XA Unspecified injury of head, initial encounter; W18.11XA Fall from or off toilet without subsequent striking against object, initial encounter; Y93.89 Activity, other specified; Y92.012 Bathroom of single-family (private) house as the place of occurrence of the external cause; Z81.0 Family history of intellectual disabilities; Z86.73 Personal history of transient ischemic attack (TIA), and cerebral infarction without residual deficits
CPT/HCPCS: 93005 ×2; 85025 ×2; 80048 ×2; 36415 ×2; 83735 ×2; 84100; 85610; 80076; 84443; 81003; 84484 ×4; 84439; 83880; 70450; 72125; 71045; 72070; 73030; 96374; 99285; J1644 ×3; J3010; J7030; G0378 ×4

== ENCOUNTER 2024-03-23 14:16 | Inpatient (IN) | payer OTHER ==
--- NOTE | 2024-03-23 15:12 | RAD REPORT ---
EXAM DESCRIPTION: CT - Head Brain Wo Cont - 03/23/2024 3:06 pm CLINICAL HISTORY: ams Headache, drowsiness COMPARISON: Head Brain Wo Cont dated 06/12/2023; Head Brain Wo Cont dated 06/09/2023 TECHNIQUE: All CT scans are performed using dose optimization technique as appropriate and may inclu de automated exposure control or mA/KV adjustment according to patient size. FINDINGS: No intracranial hemorrhage, hydrocephalus or extra-axial fluid collection.Moderate general ized brain atrophy is present with mild periventricular and deep white matter chronic microvascular i schemic changes.No areas of brain edema or evidence of midline shift. The paranasal sinuses and mastoids are clear. The calvarium is intact. IMPRESSION: No acute intracranial abnormality.
--- NOTE | 2024-03-23 15:29 | RAD REPORT ---
EXAM DESCRIPTION: RAD - Chest Single View - 03/23/2024 3:16 pm CLINICAL HISTORY: ams Chest pain. COMPARISON: Chest Single View dated 10/03/2023; Chest Single View dated 06/11/2023; Chest Single View dated 06/09/2023; Chest Single View dated 06/05/2023; Head Brain Wo Cont dated 03/23/2024 FINDINGS: Portable technique limits examination quality. The lungs are grossly clear. The heart is mildly enlarged in size. No displaced fractures. IMPRESSION: No acute intrathoracic process suspected.
[2024-03-23 15:47] LABS: Absolute Lymphocytes (CBC) 1.4 K/uL (0.7-4.9); Absolute Monocytes 0.4 K/uL (0.1-1.3); Absolute Neutrophil 1.4 K/uL (1.8-8.0); Basophils % 0.4 % (0-1.3); Eosinophils % 0.5 % (0-4.4); Hematocrit 35.2 % (36.0-45.0); Hemoglobin 11.9 g/dL (12.0-15.0); Lymphocytes % 42.6 % (15.3-44.8); MCH 32.2 pg (27.0-35.0); MCHC 33.7 g/dL (32.0-36.0); MCV 95.3 fL (80-100); MPV 10.1 fL (7.6-11.3); Monocytes % 12.8 % (3.3-12.3); Neutrophils % 43.7 % (41.7-73.7); Nucleated Red Blood Cells % 0.1 % (0-0); Platelets 148 thou/uL (152-406); Red Cell Distribution Width 13.4 % (12.1-15.2)
[2024-03-23 15:53] LABS: PT Prothrombin Time 15.1 SECONDS (9.4-12.5); Protime INR 1.36
[2024-03-23 16:06] LABS: Albumin 3.3 g/dL (3.4-5.0); Bilirubin Total 0.6 mg/dL (0.2-1.0); Globulin 3.3 g/dL (2.3-3.5); Protein, Total 6.6 g/dL (6.4-8.2)
[2024-03-23 16:15] LABS: SARS-CoV-2 Antigen CONTROL BLUE LINE VIS/BG OK; SARS-CoV-2 Antigen Rapid Res Negative (Negative)
--- NOTE | 2024-03-23 17:09 | ER ---
Nurse's Notes [facility] Name: Joellen Klein Age: 83 yrs Sex: Female : 1940 Arrival Date: 03/23/2024 Time: 14:16 Bed 5 Private MD: Diagnosis: Dehydration, acute on chronic renal insufficiency Presentation: 03/23 14:30 Chief complaint: Patient's son or daughter states: pt has not been acting like her iw normal self, cough, diarrhea, nausea, not feeling well for a few days , was seen at urgent care yesterday and her COVId was negative and urine was clear. Coronavirus screen: Client presents with at least one sign or symptom that may indicate coronavirus-19. Ebola Screen: No symptoms or risks identified at this time. Initial Sepsis Screen: Does the patient meet any 2 criteria? No. Patient's initial sepsis screen is negative. Does the patient have a suspected source of infection? No. Patient's initial sepsis screen is negative. Risk Assessment: Do you want to hurt yourself or someone else? Patient reports no desire to harm self or others. Onset of symptoms was March 20, 2024. 14:30 Method Of Arrival: EMS: [facility] iw 14:30 Acuity: SRINIVASA 3 iw 14:31 Care prior to arrival: Medication(s) given: Normal saline infusion, IV initiated. 22 iw GA, in the right forearm, Glucose check: 108. Historical: - Allergies: 14:33 No Known Allergies; iw - PMHx: 14:32 blood clots; Hypertension; Hypothyroidism; GERD; iw - Immunization history:: Adult Immunizations up to date. - Infectious Disease History:: Denies. - Social history:: Smoking status: unknown. Screenin:30 [facility] ED Fall Risk Assessment (Adult) History of falling in the last 3 months, me1 including since admission No falls in past 3 months (0 pts) Confusion or Disorientation No (0 pts) Intoxicated or Sedated No (0 pts) Impaired Gait No (0 pts) Mobility Assist Device Used No (0 pt) Altered Elimination No (0 pt) Score/Fall Risk Level 0 - 2 = Low Risk Maintained a safe environment, Provided non-skid footwear, Hourly rounding (assess needs \T\ fall precautionary measures) done. Abuse screen: Denies threats or abuse. Nutritional screening: No deficits noted. Tuberculosis screening: No symptoms or risk factors identified. Assessment: 14:30 General: Appears ill, well groomed, well developed, well nourished, Behavior is calm, me1 cooperative, appropriate for age, Reports daughter has not been acting like her normal self, cough, diarrhea, nausea, not feeling well for a few days , was seen at urgent care yesterday and her COVId was negative and urine was clear. Pain: Denies pain. Neuro: Level of Consciousness is awake, alert, obeys commands, Oriented to person, place, time, situation, Appropriate for age. Cardiovascular: Patient's skin is warm and dry. Respiratory: Reports cough that is persistent Airway is patent Respiratory effort is even, unlabored, Respiratory pattern is regular, symmetrical. GI: Reports diarrhea, nausea. : No signs and/or symptoms were reported regarding the genitourinary system. EENT: No signs and/or symptoms were reported regarding the EENT system. Derm: Skin is intact, is healthy with good turgor, Skin is pink, warm \T\ dry. Musculoskeletal: No signs and/or symptoms reported regarding the musculoskeletal system. 15:33 Reassessment: Patient and/or family updated on plan of care and expected duration. Pain rs5 level reassessed. Patient is alert, oriented x 3, equal unlabored respirations, skin warm/dry/pink. 16:35 Reassessment: Patient and/or family updated on plan of care and expected duration. Pain rs5 level reassessed. Patient is alert, oriented x 3, equal unlabored respirations, skin warm/dry/pink. Patient states feeling better. Patient states symptoms have improved. 17:40 Reassessment: No changes from previously documented assessment. rs5 18:34 Reassessment: Patient and/or family updated on plan of care and expected duration. Pain rs5 level reassessed. Patient is alert, oriented x 3, equal unlabored respirations, skin warm/dry/pink. Vital Signs: 14:30 BP 103 / 53; Pulse 61; Resp 18; Temp 97(TE); iw 14:45 BP 108 / 82; Pulse 48; Resp 16; Pulse Ox 91% on R/A; me1 15:30 BP 102 / 76; Pulse 60; Resp 16; Pulse Ox 93% ; me1 16:00 BP 115 / 99; Pulse 68; Resp 16; Temp 97.8; Pulse Ox 92% ; rs5 17:00 BP 114 / 67; Pulse 57; Resp 16; Pulse Ox 98% on R/A; me1 18:34 BP 110 / 81; Pulse 62; Resp 17; Pulse Ox 93% ; rs5 ED Course: 14:19 Patient arrived in ED. iw 14:22 Sara Fitzpatrick MD is Attending Physician. sp3 14:30 Patient has correct armband on for positive identification. Bed in low position. Call me1 light in reach. Side rails up X2. Provided Education on: POC. Verbalized understanding. . Client placed on continuous cardiac and pulse oximetry monitoring. NIBP monitoring applied. Pulse ox on. NIBP on. 14:30 No provider procedures requiring assistance completed. Maintain EMS IV. Dressing me1 intact. Good blood return noted. Site clean \T\ dry. Gauge \T\ site: 20g RAC. Flushed with 10 mL NS. 14:31 Triage completed. iw 14:32 Arm band placed on. iw 15:08 CT Head Brain wo Cont In Process Unspecified. EDMS 15:18 Chest Single View XRAY In Process Unspecified. EDMS 16:04 Second set of blood cultures drawn by me. me1 16:05 Blood Culture Adult (2) Sent. me1 16:20 Rebecca Salguero, RN is Primary Nurse. me1 17:08 Butch Davsi MD is Hospitalizing Provider. sp3 Administered Medications: No medications were administered Medication: 14:30 VIS not applicable for this client. me1 Outcome: 17:09 Decision to Hospitalize by Provider. sp3 19:00 Patient left the ED. iw Signatures: Dispatcher [employer] EDMS Yuridia Jade, RN RN iw Sara Fitzpatrick MD MD sp3 Reji Ball RN RN rs5 Rebecca Salguero, STEVEN RN me1 Corrections: (The following items were deleted from the chart) 16:20 14:30 Chief complaint: Patient's son or daughter states: pt has not been acting like me1 her normal self, cough, diarrhea, nausea, not feeling well for a few days , was seen at urgent care yesterday and her COVId was negative and urine was clear iw 18:35 16:00 BP 115 / 99; Resp 51bpm; Pulse Ox 92%; Temp 16F; me1 rs5 18:35 16:00 BP 115 / 99; Resp 16bpm; Pulse Ox 92%; Temp 97.8F; rs5 rs5
--- NOTE | 2024-03-23 17:10 | EDPHYS ---
Physician Documentation [facility] Name: Joellen Klein Age: 83 yrs Sex: Female : 1940 Arrival Date: 03/23/2024 Time: 14:16 Bed 5 Private MD: ED Physician Sara Fitzpatrick HPI: 03/23 15:04 This 83 yrs old Female presents to ER via EMS with complaints of Altered Mental Status, sp3 Diarrhea, Cough, Nausea, Dizziness. 15:04 83-year-old female who presents via EMS with family for symptoms of generalized sp3 weakness, off-and-on diarrhea, altered mental status with confusion and disorientation in the setting of prior atrial fibrillation and CVA. Patient was seen at urgent care facility yesterday where they assessed viral swabs and urinalysis and subsequently sent her back to the care of adrianne berry. Family states that she is not improving and therefore they present here today. ROS, history and physical limited secondary to disorientation however patient does answer most questions. She denies headache, fever, cough, neck pain, chest pain, shortness of breath, back pain, rash, focal neurological deficit and or weakness, or any other signs or symptoms on ROS at this time.. Historical: - Allergies: 14:33 No Known Allergies; iw - PMHx: 14:32 blood clots; Hypertension; Hypothyroidism; GERD; iw - Immunization history:: Adult Immunizations up to date. - Infectious Disease History:: Denies. - Social history:: Smoking status: unknown. ROS: 15:06 Eyes: Negative for injury, pain, redness, and discharge, Neck: Negative for injury, sp3 pain, and swelling, Respiratory: Negative for shortness of breath, cough, wheezing, and pleuritic chest pain, Back: Negative for injury and pain, Skin: Negative for injury, rash, and discoloration, Allergy/Immunology: Negative for hives, rash, and allergies, Endocrine: Negative for neck swelling, polydipsia, polyuria, polyphagia, and marked weight changes, 15:06 All other systems are negative, Exam: 15:07 Constitutional: This is a well developed, well nourished patient who is awake, alert, sp3 and in no acute distress. Head/Face: Normocephalic, atraumatic. Eyes: Pupils equal round and reactive to light, extra-ocular motions intact. Lids and lashes normal. Conjunctiva and sclera are non-icteric and not injected. Cornea within normal limits. Periorbital areas with no swelling, redness, or edema. ENT: Nares patent. No nasal discharge, no septal abnormalities noted. External auditory canals are clear. Oropharynx with no redness, swelling, or masses, exudates, or evidence of obstruction, uvula midline. Mucous membranes moist. Neck: Trachea midline, no thyromegaly or masses palpated, and no cervical lymphadenopathy. Supple, full range of motion without nuchal rigidity, or vertebral point tenderness. No Meningismus. Chest/axilla: Normal chest wall appearance and motion. Nontender with no deformity. No lesions are appreciated. Cardiovascular: Regular rate and rhythm with a normal S1 and S2. No gallops, murmurs, or rubs. Normal PMI, no JVD. No pulse deficits. Respiratory: Lungs have equal breath sounds bilaterally, clear to auscultation and percussion. No rales, rhonchi or wheezes noted. No increased work of breathing, no retractions or nasal flaring. Abdomen/GI: Soft, non-tender, with normal bowel sounds. No distension or tympany. No guarding or rebound. No evidence of tenderness throughout. Back: No spinal tenderness. No costovertebral tenderness. Full range of motion. Skin: Warm, dry with normal turgor. Normal color with no rashes, no lesions, and no evidence of cellulitis. MS/ Extremity: Pulses equal, no cyanosis. Neurovascular intact. Full, normal range of motion. Neuro: Awake and alert, GCS 15, oriented to person, place, time, and situation. Cranial nerves II-XII grossly intact. Motor strength 5/5 in all extremities. Sensory grossly intact. Cerebellar exam normal. Normal gait. Psych: Awake, alert, with orientation to person, place and time. Behavior, mood, and affect are within normal limits. 15:37 ECG was reviewed by the Attending Physician. EKG demonstrates sinus bradycardia at 40 sp3 bpm with first-degree AV block at 210 ms IN interval, QTc at 519 ms and diffuse nonspecific ST's ST changes without evidence of acute ischemia. Vital Signs: 14:30 BP 103 / 53; Pulse 61; Resp 18; Temp 97(TE); iw 14:45 BP 108 / 82; Pulse 48; Resp 16; Pulse Ox 91% on R/A; me1 15:30 BP 102 / 76; Pulse 60; Resp 16; Pulse Ox 93% ; me1 16:00 BP 115 / 99; Pulse 68; Resp 16; Temp 97.8; Pulse Ox 92% ; rs5 17:00 BP 114 / 67; Pulse 57; Resp 16; Pulse Ox 98% on R/A; me1 18:34 BP 110 / 81; Pulse 62; Resp 17; Pulse Ox 93% ; rs5 MDM: 14:24 Patient medically screened. sp3 15:07 Data reviewed: vital signs, nurses notes, EMS record, old medical records, lab test sp3 result(s), EKG, radiologic studies. ED course: 83-year-old female with PMH above now with altered mental status, diarrhea and generalized weakness. Patient is from [facility]. Differential diagnosis includes dehydration, diarrhea induced symptoms, colitis, TIA/CVA spectrum, cardiac pathology, sepsis, among others. Workup will include CT scan of the head, chest x-ray, general septic workup and general supportive care as indicated. Disposition probable admission with final decision pending workup and patient course.. 15:43 ED course: Med list reviewed. Patient is on amiodarone, metoprolol and Xarelto.. sp3 17:08 ED course: UA pending. Patient will be admitted for dehydration and renal insufficiency sp3 and supportive care for generalized weakness.. 03/23 14:54 Order name: Strep sp3 03/23 14:54 Order name: Blood Culture Adult (2) sp3 03/23 14:54 Order name: CBC with Diff; Complete Time: 16:36 sp3 03/23 14:54 Order name: CMP; Complete Time: 16:36 sp3 03/23 14:54 Order name: Lactate w/ 2H reflex if indic.; Complete Time: 16:36 sp3 03/23 14:54 Order name: Protime (+inr); Complete Time: 16:36 sp3 03/23 14:54 Order name: Urinalysis w/ reflexes sp3 03/23 14:54 Order name: Lipase; Complete Time: 16:36 sp3 03/23 14:54 Order name: SARS RAPID; Complete Time: 16:36 sp3 03/23 14:54 Order name: Flu; Complete Time: 16:36 sp3 03/23 14:54 Order name: CDIFF sp3 03/23 16:21 Order name: Throat Culture EDMS 03/23 14:54 Order name: Chest Single View XRAY; Complete Time: 15:32 sp3 03/23 14:54 Order name: CT Head Brain wo Cont; Complete Time: 15:32 sp3 03/23 17:32 Order name: CT Abd/Pelvis - Without Contrast la1 03/23 18:31 Order name: CT EDMS 03/23 14:54 Order name: EKG; Complete Time: 14:54 sp3 03/23 14:54 Order name: Cardiac monitoring; Complete Time: 15:34 sp3 03/23 14:54 Order name: EKG - Nurse/Tech; Complete Time: 15:34 sp3 03/23 14:54 Order name: IV Saline Lock - Large Bore; Complete Time: 15:34 sp3 03/23 14:54 Order name: Labs collected and sent; Complete Time: 15:34 sp3 03/23 14:54 Order name: O2 Per Protocol; Complete Time: 15:34 sp3 03/23 14:54 Order name: O2 Sat Monitoring; Complete Time: 15:34 sp3 03/23 14:54 Order name: Vital Signs; Complete Time: 15:34 sp3 Administered Medications: No medications were administered Disposition Summary: 03/23/24 17:09 Hospitalization Ordered Notes: Hospitalization Status: Observation sp3 Provider: Butch Davis3 [facility] Condition: Stable sp3 Problem: an acute exacerbation sp3 Symptoms: have worsened sp3 Bed/Room Type: Standard sp3 Room Assignment: 221(03/23/24 17:43) bd Diagnosis - Dehydration, acute on chronic renal insufficiency sp3 Forms: - Medication Reconciliation Form sp3 - SBAR form sp3 - Leadership Thank You Letter sp3 Signatures: Dispatcher [employer] Brittany Jones Irene, RN RN iw Barrett Cabral, CHILD CARE ATTENDANT-C CHILD CARE ATTENDANT-Cla1 Sara Fitzpatrick MD MD sp3 Rebecca Salguero RN RN me1 Corrections: (The following items were deleted from the chart) 14:55 14:54 BLOOD CULTURE*+BA.LAB.BRZ ordered. EDMS EDMS 14:55 14:54 CBC+H.LAB.BRZ ordered. EDMS EDMS 14:55 14:54 COMPREHENSIVE METABOLIC PANEL+C.LAB.BRZ ordered. EDMS EDMS 14:55 14:54 LACTATE+C.LAB.BRZ ordered. EDMS EDMS 14:55 14:54 PROTIME (+INR)+COAG.LAB.BRZ ordered. EDMS EDMS 14:55 14:54 Urinalysis+U.LAB.BRZ ordered. EDMS EDMS 14:55 14:54 LIPASE+C.LAB.BRZ ordered. EDMS EDMS 14:55 14:54 SARS-COV-2 Antigen Rapid+I.LAB.BRZ ordered. EDMS EDMS 14:55 14:54 Group A Streptococcus Rapid Sc+BA.LAB.BRZ ordered. EDMS EDMS 14:55 14:54 Influenza Screen (A \T\ B)+BA.LAB.BRZ ordered. EDMS EDMS 14:55 14:54 C.difficile GDH Ag \T\ Toxin AB+LAB.BRZ ordered. EDMS EDMS 17:43 17:09 sp3 bd
--- NOTE | 2024-03-23 17:52 | P.HP ---
Certification for Inpatient Patient admitted to: Inpatient With expected LOS: >2 Midnights Patient will require the following post-hospital care: None Practitioner: I am a practitioner with admitting privileges, knowledge of patient current condition, hospital course, and medical plan of care. Services: Services provided to patient in accordance with Admission requirements found in Title 42 Section 412.3 of the Code of Federal Regulations Patient History Date of Service: 03/23/24 Reason for admission: MICHAEL, diarrhea History of Present Illness: 83-year-old female with history of atrial fibrillation on chronic anticoagulation, GERD, CHFunknown EF, previous CVA, hypertension, hypothyroidism presents to the emergency department from [facility] facility for hypotension, bradycardia, diarrhea. She reports she has had diarrhea for about 3 days with 3-5 episodes per day, cough for 2 days as well as a sore throat. She was recently seen at an urgent care where she had viral swabs and a urine test performed which were all negative, also had a another urine test at the [facility] facility which was also negative for UTI. This afternoon she was more confused and when they checked her blood pressure was 80/49 with a heart rate of 46. Patient was brought to the emergency department and evaluated, her labs were significant for an acute kidney injury with a creatinine of 1.97 sodium 134 hemoglobin 11.9 hematocrit 35.2 LFTs and lipase within normal limits CT head was negative for acute findings chest x-ray also showed no acute findings blood pressure has improved to 115 systolic heart rate between 50 and 60 currently. ED provider wishes to admit patient for MICHAEL, dehydration, diarrhea Allergies No Known Allergies Allergy (Verified 10/20/22 10:56) Home Medications: Cetirizine HCl [Zyrtec] 10 mg PO DAILY 10/20/22 Cranberry Fruit Extract [Ellura] 200 mg PO DAILY 10/20/22 Duloxetine HCl [Cymbalta] 30 mg PO DAILY 10/20/22 Furosemide [Lasix*] 40 mg PO DAILY 10/20/22 Melatonin 2 tab PO BEDTIME 10/20/22 Rivaroxaban [Xarelto*] 10 mg PO DAILY 10/20/22 Ropinirole HCl 4 mg PO BEDTIME 10/20/22 Vit C/E/Zn/Coppr/Lutein/Zeaxan [Preservision Areds 2 Softgel] 2 each PO BEDTIME 10/20/22 Esomeprazole Magnesium 40 mg PO DAILY 06/05/23 Ezetimibe/Simvastatin [Ezetimibe-Simvastatin 10-20 mg] 1 each PO DAILY 06/05/23 Folic Acid 1 mg PO DAILY 06/05/23 Montelukast Sodium [Singulair] 10 mg PO DAILY 06/05/23 Ondansetron [Zofran (Odt)*] 4 mg PO Q6H PRN 06/05/23 Thyroid,Pork [Thyroid] 90 mg PO DAILY 06/05/23 hydroCHLOROthiazide [Hydrochlorothiazide*] 12.5 mg PO DAILY 06/05/23 - Past Medical/Surgical History Diabetic: No -: gerd -: hypertension -: thyroid issues -: restless leg syndrome -: Prior history of thromboembolism 15 years ago -: Bladder Infections -: Atrial fibrillation on chronic anticoagulation -: CHFunknown EF -: tish -: back surg -: hysterectomy -: neck surg -: foot surg -: cataract surg -: shoulder surg Psychosocial/ Personal History: Lives at [facility] - Family History Father -: Stroke Mother -: Diabetes Sister -: Cancer, Blood disorders - Social History Alcohol use: No CD- Drugs: No Caffeine use: No Place of Residence: Home Review of Systems 10-point ROS is otherwise unremarkable Respiratory: Cough Gastrointestinal: Nausea, Diarrhea Physical Examination - Physical Exam General: Alert, In no apparent distress, Oriented x3 HEENT: Atraumatic, PERRLA, Other (Mucous membranes dry) Neck: Supple, 2+ carotid pulse no bruit, No LAD Respiratory: Clear to auscultation bilaterally, Normal air movement Cardiovascular: Regular rate/rhythm, Normal S1 S2 Gastrointestinal: Normal bowel sounds, Soft and benign, No tenderness Musculoskeletal: No tenderness Integumentary: No rashes Neurological: Normal speech, Normal strength at 5/5 x4 extr, Normal affect - Studies Laboratory Data (last 24 hrs) 03/23/24 03/23/24 03/23/24 15:33 15:33 15:33 WBC 3.30 L Hgb 11.9 L Hct 35.2 L Plt Count 148 L PT 15.1 H INR 1.36 Sodium 134 L Potassium 4.0 BUN 30 H Creatinine 1.97 H Glucose 111 H Total Bilirubin 0.6 AST 40 H ALT 47 Alkaline Phosphatase 67 Lipase 67 Microbiology Data (last 24 hrs): 03/23/24 15:37 Throat Group A Streptococcus Rapid Screen - Final 03/23/24 15:37 Nasopharnyx Influenza Type A Antigen Screen - Final 03/23/24 15:37 Nasopharnyx Influenza Type B Antigen Screen - Final Assessment and Plan - Plan Assessment: Acute kidney injury Diarrhea Hypotension/bradycardia Hyponatremia Weakness/deconditioning Atrial fibrillation on chronic anticoagulation Chronic CHFunknown EF GERD RLS Hypothyroidism Plan: Acute kidney injury Diarrhea Hypotension/bradycardia Hyponatremia Patient is a 3 days of diarrhea with 3-5 episodes per day Was recently on antibiotics a few weeks ago for UTI C. difficile ordered and pending, isolation precautions ordered CT abdomen pelvis without contrast also ordered and pending Blood pressure improved with gentle IV fluid so far, continue IV fluids overnight History of diverticulitis as well Hold oral antihypertensive agents until blood pressure/heart rate improved Weakness/deconditioning States that assisted living, typically uses a wheelchair but is able to perform transfers independently Having difficulty with transfers the past couple days with increasing weakness, will consult physical therapy Would likely benefit with home health/PT at assisted-living facility, await PT eval Atrial fibrillation on chronic anticoagulation Chronic CHFunknown EF Continue Xarelto, hold metoprolol/amiodarone/spironolactone while bradycardic/hypotensive Monitor on telemetry, trend troponins Echocardiogram ordered-history of clot in atrial appendage on echo at [facility] GERD RLS Hypothyroidism Continue home medications when verified DVT PPX: Continue Xarelto Code status: Full Discharge Plan: Home Plan to discharge in: 48 Hours - Advance Directives Does patient have a Living Will: Yes Does patient have a Durable POA for Healthcare: Yes - Code Status/Comfort Care Code Status Assessed: Yes (Full code) Critical Care: No Time Spent Managing Pts Care (In Minutes): 60
--- NOTE | 2024-03-23 18:30 | RAD REPORT ---
EXAM DESCRIPTION: CT - Abdomen Pelvis Wo Contrast - 03/23/2024 6:07 pm CLINICAL HISTORY: Abdominal pain. diarrhea, hypotension, glen, hx diverticulitis COMPARISON: Abdomen Pelvis Wo Contrast dated 02/24/2024 TECHNIQUE: CT imaging of the abdomen and pelvis was performed without contrast. Solid organ, bowel a nd vascular assessment is limited due to lack of IV and oral contrast. All CT scans are performed using dose optimization technique as appropriate and may include automated exposure control or mA/KV adjustment according to patient size. FINDINGS: The lower lung sanchez are clear.Cholecystectomy clips. The liver, spleen, pancreas, adrenal glands and kidneys are within normal limits for a limited non-co ntrast examination. No bowel obstruction, free air, free fluid or abscess. Moderate stool is present throughout the colon . Diverticulosis coli of the sigmoid colon with subtle inflammation possible. The appendix is not kellen ntified as a discrete structure, however, no secondary findings of appendicitis are identified. Moderate lower lumbar degenerative changes. IMPRESSION: Very early sigmoid diverticulitis is possible. A limited non-contrast examination was performed as detailed.
[2024-03-23 19:38] VITALS: BMI 29.7
[2024-03-23] MEDS: MELATONIN 5 MG TABLET PO PRN (22:14)
[2024-03-23] MEDS: NA CHLORIDE 0.9% 1,000 ML IV SCH (22:14)
[2024-03-23] MEDS: ROPINIROLE HCL 1 MG TAB PO SCH (22:14)
[2024-03-24] MEDS: HYDROCODONE/CHLORPHEN 5 ML/OSYR PO PRN (03:31)
[2024-03-24 04:18] LABS: Specific Gravity 1.008 (1.005-1.030); Sqamous Epithelial None Seen /HPF (None Seen); Urine Bacteria <20 /HPF (<20); Urine Bilirubin NEGATIVE (Negative); Urine Blood Negative (Negative); Urine Clarity Clear (Clear); Urine Color Light-Yellow (Yellow); Urine Culture Reflex Order NOT NEEDED; Urine Glucose NEGATIVE (Negative); Urine Ketones NEGATIVE (Negative); Urine Microscopic Reflex YN ORDER UMIC; Urine Nitrite NEGATIVE (Negative); Urine Protein NEGATIVE (Negative); Urine RBC None Seen /HPF (None Seen); Urine Urobilinogen Normal (Normal); Urine WBC <5 /HPF (<5)
[2024-03-24 07:40] LABS: Absolute Lymphocytes (CBC) 1.6 K/uL (0.7-4.9); Absolute Monocytes 0.4 K/uL (0.1-1.3); Absolute Neutrophil 1.2 K/uL (1.8-8.0); Basophils % 0.3 % (0-1.3); Eosinophils % 0.8 % (0-4.4); Hematocrit 31.1 % (36.0-45.0); Hemoglobin 10.6 g/dL (12.0-15.0); Lymphocytes % 50.2 % (15.3-44.8); MCH 32.5 pg (27.0-35.0); MCHC 34.2 g/dL (32.0-36.0); MCV 95.1 fL (80-100); Monocytes % 11.4 % (3.3-12.3); Neutrophils % 37.3 % (41.7-73.7); Nucleated Red Blood Cells % 0.1 % (0-0); Platelets 147 thou/uL (152-406); RBC Red Blood Cell Count 3.28 M/uL (3.86-4.86); Red Cell Distribution Width 13.2 % (12.1-15.2)
[2024-03-24 07:59] LABS: Albumin 2.9 g/dL (3.4-5.0); Bilirubin Total 0.6 mg/dL (0.2-1.0); Globulin 2.9 g/dL (2.3-3.5); Protein, Total 5.8 g/dL (6.4-8.2)
[2024-03-24 08:00] LABS: Thyroid Stimulating Hormone 5.37 uIU/mL (0.358-3.740)
[2024-03-24 08:01] LABS: Troponin High Sensitivity 62.2 pg/mL (<58.9)
[2024-03-24] MEDS: PANTOPRAZOLE 40MG TABLET PO SCH (08:03)
--- NOTE | 2024-03-24 14:52 | ECHO ---
HEIGHT: 5 ft 7 in WEIGHT: 190 lb 0 oz DATE OF STUDY: 03/24/[address]: Barrett Cabral NP 2-DIMENSIONAL: YES M.MODE: YES DOPPLER: YES COLOR FLOW: YES TDS: PORTABLE: YES DEFINITY: BUBBLE STUDY: DIAGNOSIS: CONGESTIVE HEART FAILURE, HYPOTENSION, BRADYCARDIA CARDIAC HISTORY: CATHERIZATION: SURGERY: PROSTHETIC VALVE: PACEMAKER: MEASUREMENTS (cm) DIASTOLIC (NORMALS) SYSTOLIC (NORMALS) IVSd 1.3 (0.6-1.2) LA Diam 3.5 (1.9-4.0) LVEF 60-65% LVIDd 4.4 (3.5-5.7) LVIDs 2.9 (2.0-3.5) %FS 35% LVPWd 1.4 (0.6-1.2) Ao Diam 3.3 (2.0-3.7) 2 DIMENSIONAL ASSESSMENT: RIGHT ATRIUM: NORMAL LEFT ATRIUM: NORMAL RIGHT VENTRICLE: NORMAL LEFT VENTRICLE: NORMAL TRICUSPID VALVE: TRACE TRICUSPID REGURGITATION MITRAL VALVE: NORMAL PULMONIC VALVE: TRACE PULMONIC REGURGITATION AORTIC VALVE: TRACE AORTIC REGURGITATION PERICARDIAL EFFUSION: NONE AORTIC ROOT: NORMAL LEFT VENTRICULAR WALL MOTION: NORMAL DOPPLER/COLOR FLOW: GRADE II DIASTOLIC DYSFUNCTION COMMENTS: 1. NORMAL LEFT VENTRICULAR SYSTOLIC FUCNTION, EJECTION FRACTION 60-65%, NORMAL WALL MOTION 2. GRADE II DIASTOLIC DYSFUNCTION 3. NORMAL FILLING PRESSURE TECHNOLOGIST: HAILE AYALA
--- NOTE | 2024-03-24 16:10 | P.PN ---
Date of Service: 03/24/24 Subjective: Feeling bit better today Diarrhea has improved Still with cough ROS: 10 point ROS as noted above, otherwise negative Physical exam GEN: Alert, oriented, NAD HEENT: Normal conjunctiva, sclera anicteric CV: Regular rate and rhythm, no edema Pulm: Nonlabored respirations on room air ABD: Soft, nontender, nondistended MSK: No joint tenderness Integumentary: No rashes Neuro: Normal speech, normal affect Vitals reviewed Assessment: Acute kidney injury Diarrhea Hypotension/bradycardia Hyponatremia Weakness/deconditioning Atrial fibrillation on chronic anticoagulation Chronic CHFunknown EF GERD RLS Hypothyroidism Plan: Acute kidney injury Diarrhea Hypotension/bradycardia Hyponatremia Patient is a 3 days of diarrhea with 3-5 episodes per day Was recently on antibiotics a few weeks ago for UTI C. difficile ordered and pending, isolation precautions ordered Diarrhea has stopped, no bowel movement since yesterday, had not yet been able to obtain C. difficile stool specimen Urine negative for signs of UTI CT abdomen/pelvis without contrast showed possible early mild diverticulitis Creatinine slowly improving, continue gentle IV fluids Hold oral antihypertensive agents until blood pressure/heart rate improved Weakness/deconditioning States that assisted living, typically uses a wheelchair but is able to perform transfers independently Was able to work with PT today transferring closer to her baseline Atrial fibrillation on chronic anticoagulation Chronic CHFunknown EF Continue Xarelto, hold metoprolol/amiodarone/spironolactone while bradycardic/hypotensive Monitor on telemetry, trend troponins Echocardiogram-grade 2 diastolic dysfunction, normal systolic function GERD RLS Hypothyroidism Continue home medications when verified DVT PPX: Continue Xarelto Code status: Full Discharge Plan: Home Plan to discharge in: 48 Hours Time Spent Managing Pts Care (In Minutes): 35
[2024-03-24] MEDS: RIVAROXABAN 15 MG TABLET PO SCH (16:34)
--- NOTE | 2024-03-25 03:45 | CON ---
Date of Consultation: 03/24/2024 Chief Complaint: Acute kidney injury. History Of Present Illness: The patient presented to the hospital because of diarrhea and decreased p.o. intake. She is an 83-year-old woman with history of atrial fibrillation, on chronic anticoagula tion; GERD; congestive heart failure, unknown ejection fraction; previous history of cerebrovascular accident. She has history of hypertension, hypothyroidism. She [facility] because of hypotension, bradycardia, and severe diarrhea. The patient was hav ing at least 3 to 5 episodes of diarrhea and loose bowel movements for 3 to 4 days prior to admission . She was also complaining of cough as well as sore throat. She was recently seen at [facility] and had workup done to rule out urinary tract infection. Workup for urinary tract infection was negative on 2 occasions. The patient became confused prior to admission and was found to have hypot ension. Blood pressure was 80/49 and heart rate was declining to 46. The patient was brought to the emergency room and was found to have elevated BUN and creatinine levels. Nephrology consultation wa s requested for acute kidney injury. Creatinine level was 1.97. Hemoglobin 11.9. Lipase within nor mal limits. CT scan of the head was negative for acute findings. Chest x-ray showed no acute findin g, and no evidence of congestive heart failure decompensation. Blood pressure improved to 115 in the emergency room after she received IV fluids. Heart rate was ranging from 50 to 60. The patient was taking Lasix outpatient for congestive heart failure. She also has history of hypothyroidism and wa s taking thyroid tablets, and she was on hydrochlorothiazide for hypertension. Past Medical History: GERD; hypertension; thyroid disease; restless legs syndrome; history of thromb oembolism 15 years ago; UTI; acute cystitis; atrial fibrillation with chronic anticoagulation; conges tive heart failure, unknown ejection fraction; cholecystectomy; back surgery; hysterectomy; neck surg corine; cataract surgery; shoulder surgery. Family History: Father - Stroke. Mother - Diabetes. Sister - Cancer, blood disorder. Social History: Denies alcohol. Denies drugs and caffeine. Review of Systems: Constitutional: Denies fever, chills. Eyes: Denies vision changes. Ears, Nose, Mouth, and Throat: Denies sore throat, earache. She had sore throat prior to this admis raquel, which resolved. Respiratory: Denies PND, orthopnea. Has nonproductive cough. Denies hemoptysis. GI: Had diarrhea. Denies melena or hematemesis. Had nausea and vomiting. : Denies dysuria, hematuria. All other systems reviewed and all are negative. Physical Examination: General: The patient is awake, alert, follows commands. Eyes: Anicteric sclerae. EOMI. Ears, Nose, Mouth, and Throat: Oral mucosa moist. No pallor. Neck: Supple. No bruits. Lungs: Clear to auscultation bilaterally. Heart: S1, S2. Abdomen: Soft, benign, nontender. No rebound. No guarding. Extremities: No edema. No clubbing. No cyanosis. Neurological: Normal affect. Normal speech. Cranial nerves intact. No tremor. Laboratory Data: INR 1.36, PT 15.1. WBC 3.3, hemoglobin 11.9, hematocrit 35.2, platelets count 148, 000. Sodium 134, potassium 4.0, BUN 30, creatinine 1.97, glucose 111. Lipase 67, AP 67, ALT 47, AST 40. Impression And Plan: Acute kidney injury; diarrhea; volume depletion; hypotension; bradycardia; hypo natremia; weakness; deconditioning; atrial fibrillation; chronic kidney disease, likely secondary to hypertensive kidney disease; benign nephrosclerosis, although the patient developed severe acute kidn ey injury. She remains nonoliguric. She developed hypotension and bradycardia in the setting of sev ere diarrhea and volume depletion. She responded to IV fluids. The patient will need workup for bra dycardia, and I recommended Cardiology consultation. CT scan of the abdomen and pelvis without contr ast was ordered due to acute kidney injury, to rule out obstructive uropathy. Plan is to continue IV fluids and monitor electrolytes and renal function. Atrial fibrillation, on chronic anticoagulation . The patient has chronic congestive heart failure, unknown ejection fraction. Metoprolol, amiodaro ne, spironolactone were stopped because of hypotension and bradycardia. Continue IV fluids for acute kidney injury. Plan is to check urinalysis to rule out active sediment and to rule out nephritis. Renal ultrasound will be done to check for evidence of chronic kidney disease and obstructive uropath y. SANDI/MODL Voice ID: [id number] Report ID: [id number]
[2024-03-25 06:52] LABS: Absolute Lymphocytes (CBC) 1.7 K/uL (0.7-4.9); Absolute Monocytes 0.4 K/uL (0.1-1.3); Absolute Neutrophil 1.3 K/uL (1.8-8.0); Basophils % 0.3 % (0-1.3); Eosinophils % 1.2 % (0-4.4); Hematocrit 31.3 % (36.0-45.0); Hemoglobin 10.6 g/dL (12.0-15.0); Lymphocytes % 49.8 % (15.3-44.8); MCH 32.4 pg (27.0-35.0); MCHC 33.9 g/dL (32.0-36.0); MCV 95.5 fL (80-100); MPV 9.6 fL (7.6-11.3); Monocytes % 10.3 % (3.3-12.3); Neutrophils % 38.4 % (41.7-73.7); Nucleated Red Blood Cells % 0.2 % (0-0); Platelets 166 thou/uL (152-406); RBC Red Blood Cell Count 3.28 M/uL (3.86-4.86); Red Cell Distribution Width 12.8 % (12.1-15.2)
[2024-03-25 07:14] LABS: Albumin 2.6 g/dL (3.4-5.0); Albumin/Globulin Ratio 0.9 (1.1-1.8); Anion Gap 5.7 mEq/L (5.0-15.0); Bilirubin Total 0.6 mg/dL (0.2-1.0); Globulin 2.9 g/dL (2.3-3.5); Potassium 3.7 mEq/L (3.5-5.1); Protein, Total 5.5 g/dL (6.4-8.2)
--- NOTE | 2024-03-25 07:46 | RAD REPORT ---
EXAM DESCRIPTION: US - Renal Ultrasound-Complete - 03/25/2024 6:55 am CLINICAL HISTORY: glen COMPARISON: Abdomen Pelvis Wo Contrast dated 03/23/2024 FINDINGS: Both kidneys are normal in size, shape and echotexture. The right kidney measures 8.3 cm. No hydronephrosis, focal mass or perinephric fluid. The left kidney measures 10.1 cm. No hydronephrosis, focal mass or perinephric fluid. The urinary bladder is incompletely distended without gross abnormality seen. IMPRESSION: No evidence of hydronephrosis. Renal ultrasound is within normal limits.
[2024-03-25 07:51] LABS: Troponin High Sensitivity 75.2 pg/mL (<58.9)
[2024-03-25] MEDS ORDERED: ONDANSETRON 4 MG (ODT) TAB PO PRN (11:28)
--- NOTE | 2024-03-25 11:46 | P.CNS ---
Date of Consult: 03/25/24 Chief Complaint: MICHAEL, diarrhea History of Present Illness: Patient with PMH of atrial fibrillation, diastolic heart failure, presented with generalized fatigue, weakness, patient has been on amiodarone and metoprolol and follow up with [facility] for her AF, her tele monitor overnight shows drop in HR to 30s but no pauses. no CP, no SOB, no palpitations, no syncope. Allergies No Known Allergies Allergy (Verified 03/23/24 19:39) Home medications list reviewed: Yes Home Medications: Duloxetine HCl [Cymbalta] 60 mg PO DAILY 10/20/22 Furosemide [Lasix*] 40 mg PO DAILY 10/20/22 Melatonin 10 mg PO BEDTIME 10/20/22 Ropinirole HCl 4 mg PO BEDTIME 10/20/22 Ondansetron [Zofran (Odt)*] 4 mg PO Q6H PRN 06/05/23 Acetaminophen 650 mg PO Q4H PRN 03/25/24 Amiodarone HCl [Cordarone*] 200 mg PO DAILY 03/25/24 Famotidine 20 mg PO BEDTIME 03/25/24 Levothyroxine [Synthroid*] 50 mcg PO DAILY 03/25/24 Metoprolol Succinate 12.5 mg PO DAILY 03/25/24 Pantoprazole Sodium [Protonix] 40 mg PO DAILY 03/25/24 Polyethylene Glycol 3350 [Miralax] 17 gm PO DAILY 03/25/24 Potassium Chloride 20 meq PO BID 03/25/24 Rivaroxaban [Xarelto*] 15 mg PO DAILY 03/25/24 Sennosides/Docusate Sodium [Senexon-S 50-8.6 mg Tablet] 8.6 - 50 mg PO BID 03/25/24 Spironolactone 25 mg PO DAILY 03/25/24 Thiamine Mononitrate (Vit B1) [Vitamin B1] 100 mg PO DAILY 03/25/24 - Past Medical/Surgical History Diabetic: No -: gerd -: hypertension -: thyroid issues -: restless leg syndrome -: Prior history of thromboembolism 15 years ago -: Bladder Infections -: Atrial fibrillation on chronic anticoagulation -: CHFunknown EF -: tish -: back surg -: hysterectomy -: neck surg -: foot surg -: cataract surg -: shoulder surg Psychosocial/ Personal History: Lives at [facility] - Family History Father Medical History: Stroke Mother Medical History: Diabetes Sister Medical History: Cancer, Blood disorders - Social History Smoking Status: Unknown if ever smoked Alcohol use: No CD- Drugs: No Caffeine use: Yes Place of Residence: [facility] Review of Systems 10-point ROS is otherwise unremarkable Physical Examination Temp Pulse Resp BP Pulse Ox 97.9 F 58 16 124/49 L 95 03/25/24 08:00 03/25/24 08:00 03/25/24 08:00 03/25/24 08:00 03/25/24 08:00 General: Alert, In no apparent distress HEENT: Atraumatic, PERRLA, Mucous membr. moist/pink, EOMI, Sclerae nonicteric Neck: Supple, 2+ carotid pulse no bruit, No LAD, Without JVD or thyroid abnormality Respiratory: Clear to auscultation bilaterally, Normal air movement Cardiovascular: Irregular heart rate/rhythm Gastrointestinal: Normal bowel sounds, No tenderness Musculoskeletal: No tenderness Integumentary: No rashes Neurological: Normal gait, Normal speech, Normal tone, Normal affect Lymphatics: No axilla or inguinal lymphadenopathy - Problems (1) Atrial fibrillation Current Visit: Yes Status: Acute Plan: patient is currently in AF, Rate in the 50s, no pauses overnight continue to monitor on tele continue to hold amio and metoprolol continue Xarelto 20 mg daily (report LA thrombus) if no more pauses overnight then will need event monitor on dsicharge, which can be arranged through office. (2) Chronic diastolic heart failure Current Visit: Yes Status: Acute Plan: looks euvolemic on exa, kidney function is up due to dehydration, continue to hold lasix. continue gentle hydration. (3) Hypertension Onset Date: 06/15/16 Current Visit: No Status: Acute Plan: BP is soft, medications on hold, continue to monitor. Qualifiers: Hypertension type: essential hypertension Qualified Code(s): I10 - Essential (primary) hypertension (4) Type 2 MN (myocardial infarction) Current Visit: Yes Status: Acute Plan: mild elevated troponin with no delta, most likely secondary to MICHAEL.
--- NOTE | 2024-03-25 12:09 | P.PN ---
Subjective Date of Service: 03/25/24 Chief Complaint: MICHAEL, diarrhea Subjective: No new changes Physical Examination - Vital Signs Temperature: 97.9 F Blood Pressure: 124/49 Pulse: 58 Respirations: 16 Pulse Ox (%): 95 - Physical Exam General: Other (chronically ill-appearing) HEENT: Atraumatic, Normocephalic Neck: Supple, JVD not distended Respiratory: Other (symmetric chest expansion) Cardiovascular: No rubs, No murmurs Gastrointestinal: Soft and benign Musculoskeletal: No clubbing Integumentary: No warmth Neurological: Other (nonfocal) Urinary: Other (no bladder distention) External genitalia: Deferred Rectal: Deferred - Studies Microbiology Data (last 24 hrs): 03/23/24 15:37 Throat Group A Streptococcus Rapid Screen - Final 03/23/24 15:37 Throat Culture & Sensitivity - Final NORMAL UPPER RESPIRATORY NEELA GROWN. Assessment And Plan - Plan # Acute kidney injury 2/2 prerenal state + ATN 2/2 hypovolemia/diarrhea, hypotension, & bradycardia SCr decreased from 2.0-1.4 Baseline serum creatinine 0.7-1.0 as of May 2023 F/u random urine chemistry, UPCR, BNP IVF dc/'ed [place] po fluid intake at least 2 L per day Monitor renal panel # Chronic systolic heart failure TTE on July 01 showed LVEF 43%, RVSP moderately increased at 40-50 mmHg IVF d/c'ed # Bradycardia Per Cardiology # Chronic A. fib Per other services
--- NOTE | 2024-03-25 14:58 | P.PN ---
Date of Service: 03/25/24 Subjective: Feeling bit better today Had some bradycardia overnight, no pauses No further diarrhea ROS: 10 point ROS as noted above, otherwise negative Physical exam GEN: Alert, oriented, NAD HEENT: Normal conjunctiva, sclera anicteric CV: Regular rate and rhythm, no edema Pulm: Nonlabored respirations on room air ABD: Soft, nontender, nondistended MSK: No joint tenderness Integumentary: No rashes Neuro: Normal speech, normal affect Vitals reviewed Assessment: Acute kidney injury Diarrhea Hypotension/bradycardia Hyponatremia Bradycardia Weakness/deconditioning Atrial fibrillation on chronic anticoagulation Chronic CHFunknown EF GERD RLS Hypothyroidism Plan: Acute kidney injury Diarrhea Hypotension/bradycardia Hyponatremia Patient is a 3 days of diarrhea with 3-5 episodes per day Was recently on antibiotics a few weeks ago for UTI C. difficile ordered and pending, isolation precautions ordered Diarrhea has stopped, no bowel movement since yesterday, had not yet been able to obtain C. difficile stool specimen Urine negative for signs of UTI CT abdomen/pelvis without contrast showed possible early mild diverticulitis Creatinine improved Hold oral antihypertensive agents until blood pressure/heart rate improved Bradycardia Had bradycardia in to the 30s to 40s overnight short episodes, no pauses Continue to hold amio, metoprolol Cardiology following Monitor on tele, possible event monitor at [place] Weakness/deconditioning States that assisted living, typically uses a wheelchair but is able to perform transfers independently Was able to work with PT today transferring closer to her baseline Atrial fibrillation on chronic anticoagulation Chronic CHFunknown EF Continue Xarelto, hold metoprolol/amiodarone/spironolactone while bradycardic/hypotensive Monitor on telemetry, trend troponins Echocardiogram-grade 2 diastolic dysfunction, normal systolic function GERD RLS Hypothyroidism Continue home medications when verified DVT PPX: Continue Xarelto Code status: Full Discharge Plan: Home Plan to discharge in: 48 Hours Time Spent Managing Pts Care (In Minutes): 35
[2024-03-25 17:25] LABS: UR PROTEIN 13.7 mg/dL (<11.9); Urine Protein/Creatinine Ratio 0.2 ratio (<0.15)
[2024-03-25] MEDS ORDERED: MELATONIN 10 MG PO SCH (21:00)
[2024-03-25] MEDS ORDERED: FAMOTIDINE 20 MG TAB PO SCH (21:00)
[2024-03-25] MEDS: DOCUSATE NA/SENNA CONC 1 TAB PO SCH (21:45)
[2024-03-26] MEDS: LEVOTHYROXINE SOD 0.05 MG TABLET PO SCH (05:57)
[2024-03-26 06:17] LABS: Absolute Lymphocytes (CBC) 1.8 K/uL (0.7-4.9); Absolute Monocytes 0.6 K/uL (0.1-1.3); Absolute Neutrophil 3.6 K/uL (1.8-8.0); Basophils % 0.3 % (0-1.3); Eosinophils % 0.4 % (0-4.4); Hematocrit 32.6 % (36.0-45.0); Hemoglobin 11.1 g/dL (12.0-15.0); Lymphocytes % 30.3 % (15.3-44.8); MCH 32.6 pg (27.0-35.0); MCV 95.8 fL (80-100); MPV 9.3 fL (7.6-11.3); Monocytes % 9.7 % (3.3-12.3); Neutrophils % 59.3 % (41.7-73.7); Nucleated Red Blood Cells % 0.1 % (0-0); Platelets 185 thou/uL (152-406); Red Cell Distribution Width 13.3 % (12.1-15.2)
[2024-03-26 06:36] LABS: Albumin 2.8 g/dL (3.4-5.0); Albumin/Globulin Ratio 0.9 (1.1-1.8); Anion Gap 8.5 mEq/L (5.0-15.0); Bilirubin Total 0.8 mg/dL (0.2-1.0); Globulin 3.2 g/dL (2.3-3.5); Potassium 3.5 mEq/L (3.5-5.1)
[2024-03-26] MEDS: DULOXETINE 30 MG CAP PO SCH (08:37)
[2024-03-26] MEDS: POLYETHYL GLY 3350 17 GM/DOSE PO SCH (08:38)
[2024-03-26] MEDS: THIAMINE HCL 100 MG TABLET PO SCH (08:38)
[2024-03-26] MEDS ORDERED: PANTOPRAZOLE 40MG TABLET PO SCH (09:00)
[2024-03-26] MEDS ORDERED: THIAMINE MONONITRATE PO SCH (09:00)
[2024-03-26] MEDS ORDERED: LEVOTHYROXINE SOD 0.05 MG TABLET PO SCH (09:00)
[2024-03-26 10:02] VITALS: BP 134/62; TEMP 99
--- NOTE | 2024-03-26 11:12 | P.PN ---
Subjective Date of Service: 03/26/24 Chief Complaint: MICHAEL, diarrhea Subjective: Other (bedbound.) Physical Examination - Vital Signs Temperature: 99.0 F Blood Pressure: 134/62 Pulse: 67 Respirations: 20 Pulse Ox (%): 94 - Physical Exam General: Other (no acute distress) HEENT: Atraumatic, Normocephalic Neck: Supple, JVD not distended Respiratory: Other (symmetric chest expansion) Cardiovascular: No rubs, No murmurs Gastrointestinal: Soft and benign, No rebound Musculoskeletal: No clubbing Integumentary: No warmth Neurological: Other (Nonfocal) Urinary: Other (No bladder distention) External genitalia: Deferred Rectal: Deferred - Studies Microbiology Data (last 24 hrs): 03/23/24 15:37 Throat Group A Streptococcus Rapid Screen - Final 03/23/24 15:37 Throat Culture & Sensitivity - Final NORMAL UPPER RESPIRATORY NEELA GROWN. Assessment And Plan - Plan # Acute kidney injury 2/2 prerenal state + ATN 2/2 hypovolemia/diarrhea, hypotension, & bradycardia SCr decreased to 1.3 Baseline serum creatinine 0.7-1.0 as of May 2023 [place] po fluid intake at least 2 L per day. IVF prn. Monitor renal panel # Chronic systolic heart failure TTE on July 01 showed LVEF 43%, RVSP moderately increased at 40-50 mmHg IVF d/c'ed # Bradycardia Per Cardiology # Chronic A. fib Per other services # Anemia Further workup as outpatient
[2024-03-26 11:39] VITALS: O2SAT 94
--- NOTE | 2024-03-26 14:40 | P.DS ---
Admission Date: 03/23/24 Discharge Date: 03/26/24 Disposition: ROUTINE DISCHARGE Discharge Condition: GOOD Reason for Admission: MICHAEL, diarrhea Consultations: CardiologyDr. Ojeda NephrologyDr. Cage Brief History of Present Illness: 83-year-old female with history of atrial fibrillation on chronic anticoagulation, GERD, CHFunknown EF, previous CVA, hypertension, hypothyroidism presents to the emergency department from assisted living facility for hypotension, bradycardia, diarrhea. She reports she has had diarrhea for about 3 days with 3-5 episodes per day, cough for 2 days as well as a sore throat. She was recently seen at an urgent care where she had viral swabs and a urine test performed which were all negative, also had a another urine test at the [facility] which was also negative for UTI. This afternoon she was more confused and when they checked her blood pressure was 80/49 with a heart rate of 46. Patient was brought to the emergency department and evaluated, her labs were significant for an acute kidney injury with a creatinine of 1.97 sodium 134 hemoglobin 11.9 hematocrit 35.2 LFTs and lipase within normal limits CT head was negative for acute findings chest x-ray also showed no acute findings blood pressure has improved to 115 systolic heart rate between 50 and 60 currently. ED provider wishes to admit patient for MICHAEL, dehydration, diarrhea Hospital Course: Assessment: Acute kidney injury Diarrhea Hypotension/bradycardia Hyponatremia Bradycardia Weakness/deconditioning Atrial fibrillation on chronic anticoagulation Chronic diastolic congestive heart failure GERD RLS Hypothyroidism Physical exam GEN: Alert, oriented, NAD HEENT: Normal conjunctiva, sclera anicteric CV: Regular rate and rhythm, no edema Pulm: Nonlabored respirations on room air ABD: Soft, nontender, nondistended MSK: No joint tenderness Integumentary: No rashes Neuro: Normal speech, normal affect Patient was admitted to the hospital initially for acute kidney injury, diarrhea. She was also bradycardic and hypotensive upon arrival. During her hospitalization her troponin was checked and mildly elevated as high as 75.2, also on the evening of 03/24 patient had some bradycardia with heart rate dipping into the 30s for about 6 seconds. Cardiology and nephrology were consulted during hospitalization, patient was treated with IV fluids for acute kidney injury which is significantly improved, initial creatinine was 1.97 it is improved to 1.24 at this time, she has been off of IV fluids for around 24 hours now and renal function has been stable. Prior to hospitalization patient was taking metoprolol, amiodarone, Lasix and spironolactone for atrial fibrillation and CHF. Cardiology evaluated patient recommended discontinuation of amiodarone and metoprolol given significant bradycardia overnight and resting heart rate in the 50s. Echocardiogram was also performed with the following results: 1. NORMAL LEFT VENTRICULAR SYSTOLIC FUCNTION, EJECTION FRACTION 60-65%, NORMAL WALL MOTION 2. GRADE II DIASTOLIC DYSFUNCTION 3. NORMAL FILLING PRESSURE Patient breathing well on room air, has had no further episodes of diarrhea while in the hospital. Stable for discharge and outpatient follow-up with cardiology/nephrology. Please follow-up with your floor helper in 1 week, if you are having difficulty seeing your floor helper Dr. Ojeda will be happy to see you in clinic, his information will be in the packet Please also follow-up with nephrologyDr. Cage in regards to the renal func tion which improved with IV fluids. The following medication changes have been made: Stop amiodarone Stop metoprolol Stop spironolactone Lasix reduced from 40 mg twice daily to 20 mg twice daily Your floor helper/supervisor specialty plant may just these medications further outpatient Vital Signs/Physical Exam: Temp Pulse Resp BP Pulse Ox 99.0 F 67 20 134/62 94 03/26/24 11:12 03/26/24 11:12 03/26/24 11:12 03/26/24 11:12 03/26/24 11:12 Laboratory Data at Discharge: WBC 6.00 thou/uL (4.3-10.9) 03/26/24 05:53 Hgb 11.1 g/dL (12.0-15.0) L 03/26/24 05:53 Hct 32.6 % (36.0-45.0) L 03/26/24 05:53 Plt Count 185 thou/uL (152-406) 03/26/24 05:53 PT 15.1 SECONDS (9.4-12.5) H 03/23/24 15:33 INR 1.36 03/23/24 15:33 Sodium 138 mEq/L (136-145) 03/26/24 05:53 Potassium 3.5 mEq/L (3.5-5.1) 03/26/24 05:53 BUN 14 mg/dL (7-18) 03/26/24 05:53 Creatinine 1.25 mg/dL (0.55-1.02) H 03/26/24 05:53 Glucose 109 mg/dL (74-106) H 03/26/24 05:53 Total Bilirubin 0.8 mg/dL (0.2-1.0) 03/26/24 05:53 AST 72 U/L (15-37) H 03/26/24 05:53 ALT 45 U/L (13-56) 03/26/24 05:53 Alkaline Phosphatase 61 U/L (45-117) 03/26/24 05:53 Lipase 67 U/L (13-75) 03/23/24 15:33 Home Medications: Duloxetine HCl [Cymbalta] 60 mg PO DAILY 10/20/22 Melatonin 10 mg PO BEDTIME 10/20/22 Ropinirole HCl 4 mg PO BEDTIME 10/20/22 Acetaminophen 650 mg PO Q4H PRN 03/25/24 Famotidine 20 mg PO BEDTIME 03/25/24 Levothyroxine [Synthroid*] 50 mcg PO DAILY 03/25/24 Pantoprazole Sodium [Protonix] 40 mg PO DAILY 03/25/24 Polyethylene Glycol 3350 [Miralax] 17 gm PO DAILY 03/25/24 Potassium Chloride 20 meq PO BID 03/25/24 Rivaroxaban [Xarelto*] 15 mg PO DAILY 03/25/24 Sennosides/Docusate Sodium [Senexon-S 50-8.6 mg Tablet] 8.6 - 50 mg PO BID 03/25/24 Thiamine Mononitrate (Vit B1) [Vitamin B1] 100 mg PO DAILY 03/25/24 Furosemide [Lasix] 20 mg PO BIDL #60 tab 03/26/24 New Medications: Furosemide [Lasix] 20 mg PO BIDL #60 tab Physician Discharge Instructions: Patient was admitted to the hospital initially for acute kidney injury, diarrhea. She was also bradycardic and hypotensive upon arrival. During her hospitalization her troponin was checked and mildly elevated as high as 75.2, also on the evening of 03/24 patient had some bradycardia with heart rate dipping into the 30s for about 6 seconds. Cardiology and nephrology were consulted during hospitalization, patient was treated with IV fluids for acute kidney injury which is significantly improved, initial creatinine was 1.97 it is improved to 1.24 at this time, she has been off of IV fluids for around 24 hours now and renal function has been stable. Prior to hospitalization patient was taking metoprolol, amiodarone, Lasix and spironolactone for atrial fibrillation and CHF. Cardiology evaluated patient recommended discontinuation of amiodarone and metoprolol given significant bradycardia overnight and resting heart rate in the 50s. Echocardiogram was a lso performed with the following results: 1. NORMAL LEFT VENTRICULAR SYSTOLIC FUCNTION, EJECTION FRACTION 60-65%, NORMAL WALL MOTION 2. GRADE II DIASTOLIC DYSFUNCTION 3. NORMAL FILLING PRESSURE Patient breathing well on room air, has had no further episodes of diarrhea while in the hospital. Stable for discharge and outpatient follow-up with cardiology/nephrology. Please follow-up with your floor helper in 1 week, if you are having difficulty seeing your floor helper Dr. Ojeda will be happy to see you in clinic, his information will be in the packet Please also follow-up with nephrologyDr. Cage in regards to the renal function which improved with IV fluids. The following medication changes have been made: Stop amiodarone Stop metoprolol Stop spironolactone Lasix reduced from 40 mg twice daily to 20 mg twice daily Your floor helper/supervisor specialty plant may just these medications further outpatient Diet: AHA Activity: Fall precautions Followup: Wade Ojeda MD [ACTIVE - CAN ADMIT] - 1 Week Flo Weiss MD [Primary Care Provider] - 1-2 Weeks Time spent managing pt's care (in minutes): 35
--- NOTE | 2024-03-28 18:02 | EKG ---
Test Date: 2024-03-23 Test Time: 15:30:12 [employer] Finisher: MEASUREMENT RESULTS: Intervals: Rate: 48 AR: 210 QRSD: 88 QT: 582 QTc: 519 [place]: P: 32 AR: 210 QRS: 13 T: 85 INTERPRETIVE STATEMENTS: Marked sinus bradycardia with 1st degree AV block Prolonged QT Abnormal ECG Compared to ECG 10/04/2023 08:40:44 Sinus rhythm no longer present Electronically Signed On 03-28-24 17:51:55 CDT by Wade Ojeda
== END 2024-03-26 13:17 | disposition home or self-care (01) | DRG 682 ==
LOC: ER 14:16 → ERHOLD 17:33 → 2ND 17:58
PROVIDERS: ADMIT Hospitalist; ATTEND Hospitalist
DX: N17.0 Acute kidney failure with tubular necrosis (principal); I21.A1 Myocardial infarction type 2; E87.1 Hypo-osmolality and hyponatremia; I13.0 Hypertensive heart and chronic kidney disease with heart failure and stage 1 through stage 4 chronic kidney disease, or unspecified chronic kidney disease; I50.32 Chronic diastolic (congestive) heart failure; I48.20 Chronic atrial fibrillation, unspecified; N18.9 Chronic kidney disease, unspecified; D63.1 Anemia in chronic kidney disease; E86.9 Volume depletion, unspecified; E86.0 Dehydration; E03.9 Hypothyroidism, unspecified; G25.81 Restless legs syndrome; I44.0 Atrioventricular block, first degree; K21.9 Gastro-esophageal reflux disease without esophagitis; Z74.01 Bed confinement status; Z11.52 Encounter for screening for COVID-19; Z79.01 Long term (current) use of anticoagulants; Z86.73 Personal history of transient ischemic attack (TIA), and cerebral infarction without residual deficits; Z79.899 Other long term (current) drug therapy; Z79.890 Hormone replacement therapy; Z90.710 Acquired absence of both cervix and uterus
CPT/HCPCS: 36415; 70450; 71045; 74176; 76770; 80053; 81001; 82570; 83605; 83690; 83880; 83935; 84132; 84156; 84300; 84439; 84443; 84484; 85025; 85610; 87040; 87070; 87081; 87804; 87811; 93005; 93306; 97161; 97530; 99284; J7030

== ENCOUNTER 2024-06-08 11:07 | Emergency (ER) | payer OTHER ==
[2024-06-08] MEDS ORDERED: METOCLOPRAMIDE 10 MG/2mL INJ ONE (11:24)
[2024-06-08] MEDS ORDERED: DIPHENHYDRAMINE 50 MG/ML VIAL ONE (11:24)
[2024-06-08] MEDS ORDERED: NA CHLORIDE 0.9% 500 ML ONE (11:24)
[2024-06-08 12:02] LABS: Absolute Eosinophils 0.1 K/uL (0-0.5); Absolute Monocytes 0.3 K/uL (0.1-1.3); Absolute Neutrophil 2.3 K/uL (1.8-8.0); Basophils % 1.2 % (0-1.3); Eosinophils % 3.1 % (0-4.4); Hematocrit 35.8 % (36.0-45.0); Hemoglobin 11.7 g/dL (12.0-15.0); Lymphocytes % 27.2 % (15.3-44.8); MCH 31.2 pg (27.0-35.0); MCHC 32.7 g/dL (32.0-36.0); MCV 95.5 fL (80-100); MPV 9.6 fL (7.6-11.3); Monocytes % 8.9 % (3.3-12.3); Neutrophils % 59.6 % (41.7-73.7); Platelets 189 thou/uL (152-406); RBC Red Blood Cell Count 3.75 M/uL (3.86-4.86); Red Cell Distribution Width 13.4 % (12.1-15.2)
--- NOTE | 2024-06-08 12:08 | RAD REPORT ---
EXAM: CT brain without contrast HISTORY: GLF COMPARISON: 05/01/2024 TECHNIQUE: Multiple contiguous axial images were obtained and a CT of the brain without contrast. Sag ittal and coronal reformats were performed. FINDINGS: Stable ventricular prominence, may relate to central predominant parenchymal volume loss versus seque lae of normal pressure hydrocephalus. No evidence of intracranial hemorrhage, or extra-axial fluid collection. Moderate brain atrophy with moderate periventricular and deep white matter chronic microvascular isch emic changes present. The calvarium is intact. The visualized paranasal sinuses and mastoid air cells are essentially clear . IMPRESSION: No evidence of acute intracranial abnormality. EXAM: CT of the cervical spine without contrast HISTORY: GLF COMPARISON: None TECHNIQUE: Multiple contiguous axial images were obtained in a CT of the cervical spine without contr ast. Sagittal and coronal reformats were performed. FINDINGS: The vertebral bodies demonstrate normal height and alignment. No evidence of acute fracture or subluxation.. Stable moderate degenerative changes, with pannus at the C1-2 articulation, and moderate degrees of neural foraminal narrowing of the upper cervical spine, to the level of C5-6. No prevertebral soft tissue swelling is seen. The posterior facets are well aligned. Normal alignment of the skull base with the cervical spine is seen. The lung apices are unremarkable. IMPRESSION: No evidence of acute osseous abnormality of the cervical spine. Stable degenerative changes as above.
[2024-06-08 12:22] LABS: Anion Gap 7.8 mEq/L (5.0-15.0); Potassium 3.8 mEq/L (3.5-5.1); Troponin High Sensitivity 35.5 pg/mL (<58.9)
--- NOTE | 2024-06-08 12:29 | RAD REPORT ---
EXAMINATION: CT LUMBAR SPINE WITHOUT CONTRAST CLINICAL INDICATION: Female, 84 years old. GLF TECHNIQUE: Axial CT images were obtained through the lumbar spine in soft tissue and bone windows wit hout intravenous contrast. Coronal and Sagittal reformatted images were created from the data set. One or more of the following dose reduction techniques were used: Automated exposure control, adjustm ent of the mA and/ or kV according to patient size, and/or iterative reconstruction. Unless otherwise specified, incidental findings do not require dedicated imaging follow-up. COMPARISON: 03/28/2020 FINDINGS: For purposes of this dictation, it is assumed that there are 5 non rib-bearing lumbar type vertebrae, and the most caudal fully segmented lumbar vertebra is labeled L5. ALIGNMENT: The lumbar spine demonstrates normal alignment without scoliosis or spondylolisthesis. BONES: No significant soft tissue abnormalities. No aggressive osseous lesions. Sequelae of cement in jection along the left sacral ala. Right sacral neurostimulator device in place. DISCS: Multilevel disc height loss, most pronounced at L4-5. Progressive disc herniations centered on the central zone at L3-4, L4-5 and L5-S1, with a disc extrusion containing vacuum phenomenon at least mildly effacing the ventral CSF space at L4-5. LEVELS: No significant spinal canal or neural foraminal stenosis. No visualized abnormality within th e spinal canal. SOFT TISSUE: Distal colonic diverticulosis. Sequelae of cholecystectomy. IMPRESSION: No acute lumbar spine fracture or subluxation. Progressive discogenic degenerative changes as above, most pronounced at L4-5. Please correlate with patient's symptoms, and consider additional evaluation by dedicated lumbar spine MRI if there is concern for radiculopathy.
--- NOTE | 2024-06-08 12:36 | EDPHYS ---
Physician Documentation [facility] Name: Joellen Klein Age: 84 yrs Sex: Female : 1940 Arrival Date: 06/08/2024 Time: 11:07 Bed 17 Private MD: ED Physician Harjinder Loja HPI: 06/08 11:20 This 84 yrs old Female presents to ER via EMS with complaints of Fall Injury. ec2 11:20 Patient arrives today for evaluation after ground-level fall. Patient reports that she ec2 stepped backward subsequently tripped fell and hit the back of her head. On anticoagulation. Patient reports maybe she lost consciousness. Patient reports no chest pain difficulty breathing, complaining of head, neck, low back pain. Denies prodromal symptoms.. Historical: - Allergies: 11:15 No Known Allergies; rs5 - PMHx: 11:15 Atrial fibrillation; blood clots; diabetes mellitus; GERD; Hypertension; rs5 Hypothyroidism; osteoarthritis; restless leg syndrome; - Immunization history:: Adult Immunizations up to date. - Infectious Disease History:: Denies. - Social history:: Smoking status: Patient denies any tobacco usage or history of. ROS: 11:20 Constitutional: as per hpi ec2 Exam: 11:20 Constitutional: GEN: NAD Head: atraumatic Eyes: EOMI Ears: External ears are ec2 normal. CV: regular rate LUNGS: no respiratory distress ABD: non-distended SKIN: no evidence of rashes MSK: no evidence of trauma, minimal C/L-spine TTP without deformities or crepitus appreciated. C-collar in place. Vital Signs: 11:11 BP 159 / 65; Pulse 70; Resp 17; Pulse Ox 100% on R/A; rs5 12:06 BP 165 / 64; Pulse 66; Resp 16 S; Pulse Ox 100% on R/A; kc6 MDM: 11:13 Medical Screening Exam initiated ec2 11:20 Data reviewed: vital signs. ED course: Patient arrives today for evaluation after ec2 ground-level fall. Examination remarkable for well-appearing nontoxic vigorous otherwise in no acute distress with a reassuring examination. Will obtain lab work, CT scan of the head and C-spine as well as L-spine. Differential diagnoses considered include processes such as intracranial brain bleed, C-spine fracture, L-spine fracture, electrolyte disturbance, anemia.. 12:00 ED course: EKG independently reviewed and interpreted by me, shows sinus rhythm, rate ec2 of 64, no acute ST segment elevations, PVC noted, intervals are nonactionable.. 12:35 ED course: CT of the L-spine with no acute pathology. Chest x-ray independently ec2 reviewed and interpreted by me, shows no acute intrathoracic process. Will discharge home have the patient follow-up primary care. Return precautions given.. 06/08 11:14 Order name: Basic Metabolic Panel; Complete Time: 12:27 ec2 06/08 11:14 Order name: CBC with Diff; Complete Time: 12:18 ec2 06/08 11:14 Order name: Troponin HS; Complete Time: 12:27 ec2 06/08 11:14 Order name: XRAY Chest (1 view); Complete Time: 12:43 ec2 06/08 11:19 Order name: CT Head C Spine; Complete Time: 12:18 ec2 06/08 11:19 Order name: CT Lumbar Spine Wo Con; Complete Time: 12:35 ec2 06/08 11:14 Order name: Cardiac monitoring; Complete Time: 11:57 ec2 06/08 11:14 Order name: EKG - Nurse/Tech; Complete Time: 11:57 ec2 06/08 11:14 Order name: IV Saline Lock; Complete Time: 11:20 ec2 06/08 11:14 Order name: Labs collected and sent; Complete Time: 11:57 ec2 06/08 11:14 Order name: O2 Per Protocol; Complete Time: 11:20 ec2 06/08 11:14 Order name: O2 Sat Monitoring; Complete Time: 11:20 ec2 Administered Medications: 11:57 Drug: metoCLOPramide IVP 10 mg IVP once; over 1 to 2 minutes Route: IVP; Site: right kc6 forearm; 12:07 Follow up: Response: No adverse reaction kc6 11:57 Drug: NS 0.9% IV 500 ml 500 ml IV at 1 bolus once; to be given as a bolus over 30 kc6 minutes Volume: 500 ml; Route: IV; Rate: 1 bolus; Site: right forearm; 12:57 Follow up: Response: No adverse reaction; IV Status: Completed infusion; IV Intake: kc6 500ml 11:57 Drug: diphenhydrAMINE IVP 12.5 mg IVP once Route: IVP; Site: right forearm; kc6 12:07 Follow up: Response: No adverse reaction kc6 Disposition Summary: 06/08/24 12:36 Discharge Ordered Notes: Location: Home ec2 Condition: Stable ec2 Diagnosis - Fall on same level, unspecified ec2 - Headache ec2 - Contusion of unspecified part of neck, initial encounter ec2 - Low back pain ec2 Followup: ec2 - With: Private Physician - When: - Reason: Re-evaluation by your physician Discharge Instructions: - Discharge Summary Sheet ec2 - Acute Back Pain, Adult ec2 Forms: - Medication Reconciliation Form ec2 - Antibiotic Education ec2 - Prescription Opioid Use ec2 - Patient Portal Instructions ec2 - Leadership Thank You Letter ec2 Signatures: Dispatcher [employer] Pura Mckay RN RN kc6 Reji Ball RN RN rs5 Harjinder Loja MD MD ec2 Corrections: (The following items were deleted from the chart) 11:14 11:14 Chest Single View+RAD.RAD.BRZ ordered. BRANDEN OTERO
--- NOTE | 2024-06-08 12:36 | ER ---
Nurse's Notes [facility] Name: Joellen Kleni Age: 84 yrs Sex: Female : 1940 Arrival Date: 06/08/2024 Time: 11:07 Bed 17 Private MD: Diagnosis: Fall on same level, unspecified;Headache;Contusion of unspecified part of neck, initial encounter;Low back pain Presentation: 06/08 11:11 Chief complaint: EMS states: [facility] toned out EMS for a fall. Pt rs5 was grabbing something out of her dresser, fell backwards and hit her head, became nauseated and threw up when returned to consciousness. Pt reports positive LOC, fall was unwitnessed, pt is on blood thinners. Coronavirus screen: At this time, the client does not indicate any symptoms associated with coronavirus-19. Ebola Screen: No symptoms or risks identified at this time. Initial Sepsis Screen: Does the patient meet any 2 criteria? No. Patient's initial sepsis screen is negative. Does the patient have a suspected source of infection? No. Patient's initial sepsis screen is negative. Risk Assessment: Do you want to hurt yourself or someone else? Patient reports no desire to harm self or others. Onset of symptoms was June 08, 2024. 11:11 Method Of Arrival: EMS: [facility] rs5 11:11 Acuity: SRINIVASA 3 rs5 11:11 Care prior to arrival: Cervical collar in place. Medication(s) given: zofran 4 mg, IV kc6 initiated. 20 [place], in the right forearm, Glucose check: 111. Historical: - Allergies: 11:15 No Known Allergies; rs5 - PMHx: 11:15 Atrial fibrillation; blood clots; diabetes mellitus; GERD; Hypertension; rs5 Hypothyroidism; osteoarthritis; restless leg syndrome; - Immunization history:: Adult Immunizations up to date. - Infectious Disease History:: Denies. - Social history:: Smoking status: Patient denies any tobacco usage or history of. Screenin:21 [facility] ED Fall Risk Assessment (Adult) History of falling in the last 3 months, kc6 including since admission Yes- single mechanical fall (1 pt) Confusion or Disorientation No (0 pts) Intoxicated or Sedated No (0 pts) Impaired Gait Yes (1 pt) Mobility Assist Device Used Yes (1 pt) Altered Elimination No (0 pt) Score/Fall Risk Level 3 or more points = High Risk Oriented to surroundings, Maintained a safe environment, Educated pt \T\ family on fall prevention, incl call for assistance when getting out of bed. Abuse screen: Denies threats or abuse. Denies injuries from another. Nutritional screening: No deficits noted. Tuberculosis screening: No symptoms or risk factors identified. Assessment: 11:21 Reassessment: pt placed on purewick. kc6 11:27 General: Appears in no apparent distress. comfortable, well groomed, well developed, kc6 Behavior is calm, cooperative, appropriate for age. Pain: Complains of pain in base of the skull, lumbar area, left low back and right low back. Neuro: Level of Consciousness is awake, alert, obeys commands, Oriented to person, place, time, situation, Appropriate for age. Cardiovascular: Capillary refill < 3 seconds. Respiratory: Airway is patent Trachea midline Respiratory effort is even, unlabored, Respiratory pattern is regular, symmetrical. GI: Abdomen is flat, non-distended, Reports nausea, vomiting, Patient currently denies abdominal pain, diarrhea. : No signs and/or symptoms were reported regarding the genitourinary system. EENT: No signs and/or symptoms were reported regarding the EENT system. Derm: No signs and/or symptoms reported regarding the dermatologic system. Skin is intact, is healthy with good turgor, Skin is pink, warm \T\ dry. Musculoskeletal: Circulation, motion, and sensation intact. Capillary refill < 3 seconds, Range of motion: intact in all extremities. Vital Signs: 11:11 BP 159 / 65; Pulse 70; Resp 17; Pulse Ox 100% on R/A; rs5 12:06 BP 165 / 64; Pulse 66; Resp 16 S; Pulse Ox 100% on R/A; kc6 ED Course: 11:11 Patient arrived in ED. rs5 11:11 Harjinder Loja MD is Attending Physician. ec2 11:11 Arm band placed on. kc6 11:12 Pura Malone RN is Primary Nurse. kc6 11:15 Triage completed. rs5 11:20 Maintain EMS IV. Dressing intact. Good blood return noted. Site clean \T\ dry. Gauge \T\ brittany 6 site: 20G RFA. Flushed with 10 mL NS. Patient maintains SpO2 saturation greater than 95% on room air. 11:21 Patient has correct armband on for positive identification. Placed in gown. Bed in low kc6 position. Call light in reach. Side rails up X2. Adult w/ patient. video intern on. Pulse ox on. NIBP on. Door closed. Noise minimized. Lights dimmed. Warm blanket given. Pillow given. 11:[address] via stretcher. kc6 11:39 CT Head C Spine In Process Unspecified. EDMS 11:40 CT Lumbar Spine Wo Con In Process Unspecified. EDMS 11:50 XRAY Chest (1 view) In Process Unspecified. EDMS 12:55 Removal of Cervical Collar. kc6 12:56 No provider procedures requiring assistance completed. IV discontinued, intact, kc6 bleeding controlled, No redness/swelling at site. Pressure dressing applied. Administered Medications: 11:57 Drug: metoCLOPramide IVP 10 mg IVP once; over 1 to 2 minutes Route: IVP; Site: right kc6 forearm; 12:07 Follow up: Response: No adverse reaction kc6 11:57 Drug: NS 0.9% IV 500 ml 500 ml IV at 1 bolus once; to be given as a bolus over 30 kc6 minutes Volume: 500 ml; Route: IV; Rate: 1 bolus; Site: right forearm; 12:57 Follow up: Response: No adverse reaction; IV Status: Completed infusion; IV Intake: kc6 500ml 11:57 Drug: diphenhydrAMINE IVP 12.5 mg IVP once Route: IVP; Site: right forearm; kc6 12:07 Follow up: Response: No adverse reaction kc6 Medication: 12:57 VIS not applicable for this client. kc6 Intake: 12:57 IV: 500ml; Total: 500ml. kc6 Outcome: 12:36 Discharge ordered by MD. ec2 12:56 Discharged to fpc. via wheelchair with significant other kc6 12:56 Condition: good 12:56 Discharge instructions given to patient, significant other, Instructed on discharge instructions, follow up and referral plans. Demonstrated understanding of instructions, follow-up care, 12:57 Patient left the ED. kc6 Signatures: Dispatcher [employer] Pura Mckay RN RN kc6 Reji Ball RN RN rs5 Harjinder Loja, MD ec2
--- NOTE | 2024-06-08 12:40 | RAD REPORT ---
EXAMINATION: ONE VIEW CHEST XR CLINICAL INDICATION: Female, 84 years old.,GLF TECHNIQUE: Frontal chest projection is submitted. Examination is limited by patient positioning and t echnique. COMPARISON: 03/23/2024 FINDINGS: The lungs are slightly suboptimally inflated, and clear. No pneumothorax or sizable effusion. The he art is upper limit of normal in size. Spinal stimulator electrodes in place. Mediastinal contours are unremarkable. IMPRESSION: No acute intrathoracic abnormalities. Stable mild cardiac prominence.
[2024-06-08 13:01] VITALS: O2SAT 100
[2024-06-08 13:02] VITALS: BP 165/64
--- NOTE | 2024-06-12 12:24 | EKG ---
Test Date: 2024-06-08 Test Time: 11:46:57 Cruller Maker Machine: DANYELL MEASUREMENT RESULTS: Intervals: Rate: 64 [place]: QRSD: 92 QT: 468 QTc: 482 Guys: P: [place]: QRS: 70 T: 13 INTERPRETIVE STATEMENTS: Junctional rhythm with occasional premature ventricular complexes Abnormal ECG Compared to ECG 03/23/2024 15:30:12 Junctional rhythm now present Ventricular premature complex(es) now present Sinus bradycardia no longer present First degree AV block no longer present Prolonged QT interval no longer present Electronically Signed On 06-12-24 12:17:58 TACK PULLER by Wade Ojeda
== END 2024-06-08 12:57 | disposition home or self-care (01) ==
LOC: ER 11:07
DX: R51.9 Headache, unspecified (principal); S10.93XA Contusion of unspecified part of neck, initial encounter; M54.50 Low back pain, unspecified; W01.10XA Fall on same level from slipping, tripping and stumbling with subsequent striking against unspecified object, initial encounter; E11.9 Type 2 diabetes mellitus without complications; I10 Essential (primary) hypertension; I48.91 Unspecified atrial fibrillation
CPT/HCPCS: 96361; 93005; 85025; 80048; 36415; 84484; 72131; 70450; 72125; 71045; 96375; 96374; 99285; J2765; J1200; J7040

== ENCOUNTER 2024-07-16 15:03 | Emergency (ER) | payer OTHER ==
[2024-07-16 17:33] LABS: Absolute Basophils 0.1 K/uL (0-0.5); Absolute Eosinophils 0.1 K/uL (0-0.5); Absolute Lymphocytes (CBC) 1.3 K/uL (0.7-4.9); Absolute Monocytes 0.7 K/uL (0.1-1.3); Absolute Neutrophil 3.3 K/uL (1.8-8.0); Hematocrit 41.3 % (36.0-45.0); Hemoglobin 13.6 g/dL (12.0-15.0); MCV 93.9 fL (80-100); MPV 9.9 fL (7.6-11.3); Monocytes % 12.6 % (3.3-12.3); Neutrophils % 61.4 % (41.7-73.7); Platelets 215 thou/uL (152-406); Red Cell Distribution Width 13.8 % (12.1-15.2)
[2024-07-16] MEDS ORDERED: NA CHLORIDE 0.9% 1,000 ML ONE (17:51)
[2024-07-16] MEDS ORDERED: ONDANSETRON 4 MG/2 ML VIAL ONE (17:51)
[2024-07-16] MEDS ORDERED: MORPHINE 4 MG/ML SYR ONE (17:51)
[2024-07-16 18:00] LABS: Albumin 3.7 g/dL (3.4-5.0); Albumin/Globulin Ratio 0.9 (1.1-1.8); Anion Gap 11.1 mEq/L (5.0-15.0); Bilirubin Total 0.5 mg/dL (0.2-1.0); Globulin 4.1 g/dL (2.3-3.5); Potassium 4.1 mEq/L (3.5-5.1); Protein, Total 7.8 g/dL (6.4-8.2); Troponin High Sensitivity 40.6 pg/mL (<58.9)
--- NOTE | 2024-07-16 18:41 | RAD REPORT ---
EXAMINATION: CT ABDOMEN AND PELVIS WITH CONTRAST CLINICAL INDICATION: Female, 84 years old.ABD PAIN TECHNIQUE: CT abdomen and pelvis was performed, after the administration of IV contrast, as per depar tment protocol. Axial, sagittal and coronal reconstructions were obtained. One or more of the following dose reduction techniques were used: Automated exposure control, adjustment of the mA and/o r kV according to patient size, and/or iterative reconstruction. Unless otherwise specified, incidental findings do not require dedicated imaging follow-up. [id number]. COMPARISON: 03/13/2019, 03/23/2024 FINDINGS: LOWER CHEST: Cardiomegaly. Mitral annular calcifications. LIVER: Mild intrahepatic biliary ductal dilatation. No focal mass. GALLBLADDER/BILE DUCT: Dilated common bile duct measuring 13 mm. This is similar to 03/13/2019.? PANCREAS: No significant abnormality. SPLEEN: Normal size. No focal lesion. ADRENALS: Normal; no mass. KIDNEYS AND URETERS: Normal size and contour. No hydronephrosis. GASTROINTESTINAL TRACT: Diverticulosis. No evidence of acute diverticulitis. No bowel obstruction. PERITONEUM: No ascites. LYMPH NODES: No lymphadenopathy. ABDOMINAL AORTA AND OTHER VESSELS: Atherosclerotic changes. URINARY BLADDER: Normal contour. Bladder stimulator. REPRODUCTIVE ORGANS: Uterus surgically absent. No adnexal abnormality. MUSCULOSKELETAL: No acute or suspicious osseous abnormality. Left sacralplasty. Multilevel degenerati ve changes are present in the spine. ADDITIONAL FINDINGS: None. IMPRESSION: No acute or significant abnormalities seen in the abdomen or pelvis. Cholecystectomy. Similar biliary duct dilatation compared with 2019.
--- NOTE | 2024-07-16 18:47 | EDPHYS ---
Physician Documentation [facility] Name: Joellen Klein Age: 84 yrs Sex: Female : 1940 Arrival Date: 07/16/2024 Time: 15:03 Bed DX4 Private MD: ED Physician Sara Fitzpatrick HPI: 07/16 17:40 This 84 yrs old Female presents to ER via Wheelchair with complaints of Diarrhea and sp3 abdominal pain. 17:40 84-year-old female with history of atrial fibrillation, diabetes, GERD, hypertension, sp3 hypothyroidism presents with chief complaint abdominal pain and diarrhea for the last 24 hours. Patient states that the abdominal cramping is severe when it occurs and comes in spurts. It occurs worse after she eats. She denies any vomiting, fever, chest pain, shortness of breath, syncope, near syncope, symptoms, rash, bleeding, known sick contacts, travel history, potential bad food, or any other signs or symptoms on ROS at this time.. Historical: - Allergies: 15:39 No Known Allergies; aa5 - PMHx: 15:39 Atrial fibrillation; blood clots; diabetes mellitus; GERD; Hypertension; aa5 Hypothyroidism; osteoarthritis; restless leg syndrome; CVA (Unknown); Heart Failure (Unknown); Skin cancer (restless leg syndrome); Psoriatic arthritis; - Immunization history:: Adult Immunizations unknown. - Infectious Disease History:: Denies. - Social history:: Smoking status: Patient denies any tobacco usage or history of. ROS: 17:41 Constitutional: Negative for fever, chills, and weight loss, Eyes: Negative for injury, sp3 pain, redness, and discharge, Neck: Negative for injury, pain, and swelling, Cardiovascular: Negative for chest pain, palpitations, and edema, Respiratory: Negative for shortness of breath, cough, wheezing, and pleuritic chest pain, Back: Negative for injury and pain, MS/Extremity: Negative for injury and deformity, Skin: Negative for injury, rash, and discoloration, Neuro: Negative for headache, weakness, numbness, tingling, and seizure, Psych: Negative for depression, anxiety, suicide ideation, homicidal ideation, and hallucinations, Allergy/Immunology: Negative for hives, rash, and allergies, Endocrine: Negative for neck swelling, polydipsia, polyuria, polyphagia, and marked weight changes, 17:41 All other systems are negative, Exam: 17:41 Constitutional: This is a well developed, well nourished patient who is awake, alert, sp3 and in no acute distress. Head/Face: Normocephalic, atraumatic. Eyes: Pupils equal round and reactive to light, extra-ocular motions intact. Lids and lashes normal. Conjunctiva and sclera are non-icteric and not injected. Cornea within normal limits. Periorbital areas with no swelling, redness, or edema. Neck: Trachea midline, no thyromegaly or masses palpated, and no cervical lymphadenopathy. Supple, full range of motion without nuchal rigidity, or vertebral point tenderness. No Meningismus. Chest/axilla: Normal chest wall appearance and motion. Nontender with no deformity. No lesions are appreciated. Cardiovascular: Regular rate and rhythm with a normal S1 and S2. No gallops, murmurs, or rubs. Normal PMI, no JVD. No pulse deficits. Respiratory: Lungs have equal breath sounds bilaterally, clear to auscultation and percussion. No rales, rhonchi or wheezes noted. No increased work of breathing, no retractions or nasal flaring. Back: No spinal tenderness. No costovertebral tenderness. Full range of motion. Skin: Warm, dry with normal turgor. Normal color with no rashes, no lesions, and no evidence of cellulitis. MS/ Extremity: Pulses equal, no cyanosis. Neurovascular intact. Full, normal range of motion. Neuro: Awake and alert, GCS 15, oriented to person, place, time, and situation. Cranial nerves II-XII grossly intact. Motor strength 5/5 in all extremities. Sensory grossly intact. Cerebellar exam normal. Normal gait. Psych: Awake, alert, with orientation to person, place and time. Behavior, mood, and affect are within normal limits. 17:41 Abdomen/GI: Diffuse pain to palpation without peritoneal signs, rebound or guarding. Vital signs are normal., Vital Signs: 15:38 BP 130 / 64; Pulse 78; Resp 18 S; Temp 98.7(O); Pulse Ox 99% on R/A; Weight 86.18 kg aa5 (R); Height 5 ft. 7 in. (R); 19:00 BP 127 / 70; Pulse 74; Resp 17; Pulse Ox 99% on R/A; rs5 15:38 Body Mass Index 29.76 (86.18 kg, 170.18 cm) aa5 MDM: 16:18 Medical Screening Exam initiated sp3 17:42 Data reviewed: vital signs, nurses notes, lab test result(s), EKG, radiologic studies. sp3 17:42 ED course: 84-year-old female with diarrhea and abdominal pain. Differential diagnosis sp3 is broad includes gastroenteritis, foodborne illness, colitis, diverticulitis, viral illness, among others. I am not highly suspicious of , vascular or cardiac pathology. EKG and troponin have been ordered as well. CT scan of the abdomen pelvis with IV contrast, general labs, UA and general supportive care pending workup completion. Disposition pending workup and patient course.. 18:46 ED course: Labs within normal limits, and CT negative. Patient is feeling better. I sp3 will discharge home on Bentyl, Zofran and general precautions. Symptoms are likely foodborne versus viral. Follow-up PCP as needed.. 12 16:19 Order name: CBC with Diff; Complete Time: 17:43 sp3 07/16 16:19 Order name: CMP; Complete Time: 18:42 sp3 07/16 16:19 Order name: Lipase; Complete Time: 18:42 sp3 07/16 16:19 Order name: Lactate w/ 2H reflex if indic.; Complete Time: 18:42 sp3 07/16 16:19 Order name: Troponin High Sensitivity; Complete Time: 18:42 sp3 07/16 16:19 Order name: CT Abd/Pelvis - IV Contrast Only; Complete Time: 18:42 sp3 07/16 16:19 Order name: EKG; Complete Time: 16:19 sp3 07/16 16:19 Order name: IV Saline Lock; Complete Time: 17:27 sp3 07/16 16:19 Order name: Labs collected and sent; Complete Time: 17:27 sp3 07/16 16:19 Order name: EKG - Nurse/Tech; Complete Time: 19:28 sp3 Administered Medications: 17:22 Drug: NS 0.9% IV 1000 ml IV at 1 bolus Per protocol; to be given as a bolus over 60 rs5 minutes Route: IV; Rate: 1 bolus; Site: left antecubital; 18:24 Follow up: Response: No adverse reaction; IV Status: Completed infusion; IV Intake: rs5 999ml 17:51 Drug: morphine IVP or IV 5 mg IVP once over 4 mins Route: IVP; Infused Over: 4 mins; rs5 Site: left antecubital; 18:10 Follow up: Response: No adverse reaction; Pain is decreased rs5 17:51 Drug: Ondansetron IVP 4 mg IVP once; over 2 minutes Route: IVP; Site: left antecubital; rs5 18:10 Follow up: Response: No adverse reaction rs5 19:27 Not Given (Patient Refused): ondansetron 4 mg IVP once; over 2 minutes rs5 Disposition Summary: 07/16/24 18:47 Discharge Ordered Notes: Location: Home sp3 Condition: Stable sp3 Diagnosis - Infectious gastroenteritis and colitis, unspecified sp3 Followup: sp3 - With: Private Physician - When: Upon discharge from the Emergency Department - Reason: Continuance of care Discharge Instructions: - Discharge Summary Sheet sp3 - Viral Gastroenteritis, Adult sp3 Forms: - Medication Reconciliation Form sp3 - Antibiotic Education sp3 - Prescription Opioid Use sp3 - Patient Portal Instructions sp3 - Leadership Thank You Letter sp3 Prescriptions: - Zofran 4 mg Oral Tablet - take 1 tablet ORAL route every 12 hours As needed; 20 tablet; Refills: 0, sp3 Product Selection Permitted - dicyclomine 10 mg Oral capsule - take 1 capsule ORAL route 3 times per day; 20 capsule; Refills: 0, Product sp3 Selection Permitted Signatures: Dispatcher [employer] Wen Alan RN RN aa5 Sara Fitzpatrick MD MD sp3 Reji Ball RN RN rs5 Corrections: (The following items were deleted from the chart) 16:19 16:19 CBC+H.LAB.BRZ ordered. EDMS EDMS 16:19 16:19 COMPREHENSIVE METABOLIC PANEL+C.LAB.BRZ ordered. EDMS EDMS 16:19 16:19 LIPASE+C.LAB.BRZ ordered. EDMS EDMS 16:19 16:19 Urinalysis+U.LAB.BRZ ordered. EDMS EDMS 16:19 16:19 LACTATE+C.LAB.BRZ ordered. EDMS EDMS 16:19 16:19 Troponin High Sensitivity+C.LAB.BRZ ordered. EDMS EDMS
--- NOTE | 2024-07-16 18:47 | ER ---
Nurse's Notes [facility] Name: Joellen Klein Age: 84 yrs Sex: Female : 1940 Arrival Date: 07/16/2024 Time: 15:03 Bed DX4 Private MD: Diagnosis: Infectious gastroenteritis and colitis, unspecified Presentation: 07/16 15:38 Chief complaint: Patient states: abdominal cramping and diarrhea that began 1 day ago. aa5 Pt reports fatigue, states "I just don't feel good". Coronavirus screen: fatigue. Ebola Screen: Patient denies travel to an Ebola-affected area in the 21 days before illness onset. Initial Sepsis Screen: Does the patient meet any 2 criteria? No. Patient's initial sepsis screen is negative. Does the patient have a suspected source of infection? No. Patient's initial sepsis screen is negative. Risk Assessment: Do you want to hurt yourself or someone else? Patient reports no desire to harm self or others. Onset of symptoms was July 2024. 15:38 Method Of Arrival: Wheelchair aa5 15:38 Acuity: SRINIVASA 3 aa5 Historical: - Allergies: 15:39 No Known Allergies; aa5 - PMHx: 15:39 Atrial fibrillation; blood clots; diabetes mellitus; GERD; Hypertension; aa5 Hypothyroidism; osteoarthritis; restless leg syndrome; CVA (Unknown); Heart Failure (Unknown); Skin cancer (restless leg syndrome); Psoriatic arthritis; - Immunization history:: Adult Immunizations unknown. - Infectious Disease History:: Denies. - Social history:: Smoking status: Patient denies any tobacco usage or history of. Screenin:35 [facility] ED Fall Risk Assessment (Adult) History of falling in the last 3 months, rs5 including since admission No falls in past 3 months (0 pts) Confusion or Disorientation No (0 pts) Intoxicated or Sedated No (0 pts) Impaired Gait Yes (1 pt) Mobility Assist Device Used Yes (1 pt) Altered Elimination No (0 pt) Score/Fall Risk Level 0 - 2 = Low Risk Oriented to surroundings, Maintained a safe environment. Abuse screen: Denies threats or abuse. Nutritional screening: No deficits noted. Tuberculosis screening: No symptoms or risk factors identified. Assessment: 15:40 Reassessment: Patient and/or family updated on plan of care and expected duration. Pain rs5 level reassessed. Patient is alert, oriented x 3, equal unlabored respirations, skin warm/dry/pink. 16:22 Reassessment: Patient and/or family updated on plan of care and expected duration. Pain rs5 level reassessed. Patient is alert, oriented x 3, equal unlabored respirations, skin warm/dry/pink. 16:22 General: Appears in no apparent distress. uncomfortable, Behavior is calm, cooperative. rs5 17:20 Pain: Complains of pain in abdomen Pain currently is 8 out of 10 on a pain scale. rs5 Quality of pain is described as aching, Is continuous. 17:20 Neuro: Level of Consciousness is awake, alert, obeys commands, Oriented to person, rs5 place, time, situation. Cardiovascular: Patient's skin is warm and dry. Respiratory: Airway is patent Respiratory effort is even, unlabored, Respiratory pattern is regular, symmetrical. GI: Abdomen is round non-distended, Reports diarrhea, nausea. : No signs and/or symptoms were reported regarding the genitourinary system. EENT: No signs and/or symptoms were reported regarding the EENT system. Derm: Skin is intact, Skin is pink, warm \\T\\ dry. Musculoskeletal: Range of motion: intact in all extremities. Vital Signs: 15:38 BP 130 / 64; Pulse 78; Resp 18 S; Temp 98.7(O); Pulse Ox 99% on R/A; Weight 86.18 kg aa5 (R); Height 5 ft. 7 in. (R); 19:00 BP 127 / 70; Pulse 74; Resp 17; Pulse Ox 99% on R/A; rs5 15:38 Body Mass Index 29.76 (86.18 kg, 170.18 cm) aa5 ED Course: 15:13 Patient arrived in ED. mg5 15:34 Arm band placed on. aa5 15:35 Patient has correct armband on for positive identification. Placed in gown. Bed in low rs5 position. Call light in reach. Side rails up X2. 15:35 No provider procedures requiring assistance completed. rs5 15:39 Triage completed. aa5 16:17 Sara Fitzpatrick MD is Attending Physician. sp3 17:27 Troponin High Sensitivity Sent. kc6 17:27 Lactate w/ 2H reflex if indic. Sent. kc6 17:27 CBC with Diff Sent. kc6 17:27 CMP Sent. kc6 17:27 Lipase Sent. kc6 17:27 Inserted saline lock: 20 gauge in left antecubital area, using aseptic technique. Blood kc6 collected. Flushed with 10 mL NS. 18:29 CT Abd/Pelvis - IV Contrast Only In Process Unspecified. EDMS 19:00 IV discontinued, intact, bleeding controlled, No redness/swelling at site. Pressure rs5 dressing applied. Administered Medications: 17:22 Drug: NS 0.9% IV 1000 ml IV at 1 bolus Per protocol; to be given as a bolus over 60 rs5 minutes Route: IV; Rate: 1 bolus; Site: left antecubital; 18:24 Follow up: Response: No adverse reaction; IV Status: Completed infusion; IV Intake: rs5 999ml 17:51 Drug: morphine IVP or IV 5 mg IVP once over 4 mins Route: IVP; Infused Over: 4 mins; rs5 Site: left antecubital; 18:10 Follow up: Response: No adverse reaction; Pain is decreased rs5 17:51 Drug: Ondansetron IVP 4 mg IVP once; over 2 minutes Route: IVP; Site: left antecubital; rs5 18:10 Follow up: Response: No adverse reaction rs5 19:27 Not Given (Patient Refused): ondansetron 4 mg IVP once; over 2 minutes rs5 Medication: 19:00 VIS not applicable for this client. rs5 Intake: 18:24 IV: 999ml; Total: 999ml. rs5 Outcome: 18:47 Discharge ordered by . sp3 19:00 Discharged to home ambulatory, rs5 19:00 Condition: stable 19:00 Discharge instructions given to patient, family, Instructed on discharge instructions, follow up and referral plans. Demonstrated understanding of instructions, follow-up care, 19:05 Patient left the ED. rs5 Signatures: Dispatcher [employer] EDWen Albert, RN RN alcides5 Sara Fitzpatrick MD MD sp3 Pura Malone RN RN kc6 Reji Ball RN RN rs5 Mary Kate Johnson mg5 Corrections: (The following items were deleted from the chart) 19:31 19:29 Patient left the ED. rs5 rs5
[2024-07-16 22:54] VITALS: TEMP 98.7; O2SAT 99
[2024-07-16 22:59] VITALS: BP 127/70
== END 2024-07-16 19:29 | disposition home or self-care (01) ==
LOC: ER 15:03
DX: A09 Infectious gastroenteritis and colitis, unspecified (principal); E11.9 Type 2 diabetes mellitus without complications; I10 Essential (primary) hypertension; I48.91 Unspecified atrial fibrillation
CPT/HCPCS: 96361; 85025; 36415; 83605; 84484; 83690; 80053; 74177; 96375; 96374; 99284; Q9967; J2405; J7030

== ENCOUNTER 2024-08-26 08:06 | Emergency (ER) | payer OTHER ==
[2024-08-26 08:38] LABS: Absolute Eosinophils 0.2 K/uL (0-0.5); Absolute Lymphocytes (CBC) 1.9 K/uL (0.7-4.9); Absolute Monocytes 0.6 K/uL (0.1-1.3); Basophils % 0.6 % (0-1.3); Hematocrit 36.2 % (36.0-45.0); Hemoglobin 12.2 g/dL (12.0-15.0); MCH 30.9 pg (27.0-35.0); MCHC 33.6 g/dL (32.0-36.0); MPV 9.5 fL (7.6-11.3); Monocytes % 10.1 % (3.3-12.3); Neutrophils % 53.3 % (41.7-73.7); Platelets 224 thou/uL (152-406); RBC Red Blood Cell Count 3.94 M/uL (3.86-4.86); Red Cell Distribution Width 13.6 % (12.1-15.2)
[2024-08-26 08:40] LABS: PT Prothrombin Time 18.4 SECONDS (9.4-12.5); Protime INR 1.76
[2024-08-26 08:46] LABS: Albumin/Globulin Ratio 0.9 (1.1-1.8); Anion Gap 7.9 mEq/L (5.0-15.0); Bilirubin Total 0.6 mg/dL (0.2-1.0); Globulin 3.5 g/dL (2.3-3.5); Potassium 3.9 mEq/L (3.5-5.1); Protein, Total 6.5 g/dL (6.4-8.2)
[2024-08-26] MEDS ORDERED: NA CHLORIDE 0.9% 500 ML ONE (08:59)
--- NOTE | 2024-08-26 11:21 | ER ---
Nurse's Notes 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 Coronavirus screen: At this time, the client does not indicate any symptoms associated with coronavirus-19. Ebola Screen: No symptoms or risks identified at this time. Initial Sepsis Screen: Does the patient meet any 2 criteria? No. Patient's initial sepsis screen is negative. Does the patient have a suspected source of infection? No. Patient's initial sepsis screen is negative. Risk Assessment: Do you want to hurt yourself or someone else? Patient reports no desire to harm self or others. Onset of symptoms was August 26, 2024. 08:10 Method Of Arrival: EMS: [facility] ko1 08:10 Acuity: SRINIVASA 3 ko1 Triage Assessment: 08:42 General: Appears in no apparent distress. Behavior is calm, cooperative, appropriate ko1 for age. Pain: Denies pain. Historical: - Allergies: 08:42 No Known Allergies; ko1 - PMHx: 08:42 Atrial fibrillation; blood clots; CVA (Unknown); diabetes mellitus; GERD; HEART FAILURE ko1 (Unknown); Hypertension; Hypothyroidism; osteoarthritis; Psoriatic Arthritis; restless leg syndrome; skin cancer (restless leg syndro); - PSHx: 08:42 tumor removal lip (skin cancer); ko1 - Immunization history:: Adult Immunizations up to date. - Infectious Disease History:: Denies. - Social history:: Smoking status: Patient denies any tobacco usage or history of. - Family history:: not pertinent. Screenin:44 [facility] ED Fall Risk Assessment (Adult) History of falling in the last 3 months, ko1 including since admission No falls in past 3 months (0 pts) Confusion or Disorientation No (0 pts) Intoxicated or Sedated No (0 pts) Impaired Gait Yes (1 pt) Mobility Assist Device Used Yes (1 pt) Altered Elimination No (0 pt) Score/Fall Risk Level 0 - 2 = Low Risk Oriented to surroundings, Maintained a safe environment, Educated pt \T\ family on fall prevention, incl call for assistance when getting out of bed, Assessed \T\ reinforced patient's understanding of fall precautions, Hourly rounding (assess needs \T\ fall precautionary measures) done. Abuse screen: Denies threats or abuse. Denies injuries from another. Nutritional screening: No deficits noted. Tuberculosis screening: No symptoms or risk factors identified. Assessment: 08:44 General: Appears in no apparent distress. Pain: Denies pain. Neuro: No deficits noted. ko1 Cardiovascular: No deficits noted. Respiratory: No deficits noted. GI: No deficits noted. : No deficits noted. EENT: No deficits noted. Derm: dried blood to upper lip. Musculoskeletal: No deficits noted. Vital Signs: 08:10 BP 138 / 57; Pulse 63; Resp 15; Temp 98; Pulse Ox 100% on R/A; ko1 09:13 BP 146 / 53; Pulse 64; Resp 15; Pulse Ox 96% ; ko1 10:19 BP 150 / 61; Pulse 63; Resp 15; Pulse Ox 98% on R/A; ko1 11:37 BP 148 / 57; Pulse 64; Resp 17; Pulse Ox 97% on R/A; ko1 ED Course: 08:07 Patient arrived in ED. uriel 08:07 James Jimenez MD is Attending Physician. uriel 08:42 Triage completed. ko1 08:42 Arm band placed on right wrist. Patient placed in an exam room, on a stretcher, on ko1 front desk monitor, on pulse oximetry, Patient notified of wait time. 08:44 Patient has correct armband on for positive identification. Bed in low position. Call ko1 light in reach. Side rails up X2. Provided Education on: wound care. Pulse ox on. NIBP on. Door closed. Noise minimized. Lights dimmed. Warm blanket given. Pillow given. 08:44 No provider procedures requiring assistance completed. Initial lab(s) drawn, by ED ko1 staff, sent to lab. Maintain EMS IV. Dressing intact. Good blood return noted. Site clean \T\ dry. Gauge \T\ site: 18g right hand. Flushed with 10 mL NS. 08:46 Belle Young, RN is Primary Nurse. ko1 08:55 Wound care: to surgical located on upper lip was soaked in normal saline solution, ice ko1 pack applied. Patient tolerated well. 11:20 Wendi French MD is Referral Physician. [facility] 11:37 IV discontinued, intact, bleeding controlled, No redness/swelling at site. Pressure ko1 dressing applied. Administered Medications: 08:46 Drug: NS 0.9% IV 500 ml 500 ml IV at 1 bolus once; to be given as a bolus over 30 ko1 minutes Volume: 500 ml; Route: IV; Rate: 1 bolus; Site: right hand; 11:38 Follow up: Response: No adverse reaction; IV Status: Completed infusion; IV Intake: ko1 500ml Medication: 08:44 VIS not applicable for this client. ko1 Intake: 11:38 IV: 500ml; Total: 500ml. ko1 Outcome: 11:20 Discharge ordered by . [facility] 11:43 Discharged to [facility]. Report called to STEVEN Box ko1 11:43 Condition: stable 11:43 Discharge instructions given to patient, family, [facility] [facility], Instructed on discharge instructions, follow up and referral plans. wound care, Demonstrated understanding of instructions, follow-up care, medications, wound care, 12:12 Patient left the ED. ko1 Signatures: James Jimenez MD MD cha Oliver, Kathy, RN RN ko1
--- NOTE | 2024-08-26 11:21 | EDPHYS ---
Physician Documentation [facility] Name: Joellen Klein Age: 84 yrs Sex: Female : 1940 Arrival Date: 08/26/2024 Time: 08:06 Bed 6 Private MD: ED Physician James Jimenez HPI: 08/26 11:15 This 84 yrs old Female presents to ER via EMS with complaints of Mouth uriel Problem. 11:15 The patient presents with bleeding. The problem is located in the upper lip. Onset: The uriel symptoms/episode began/occurred 1 day(s) ago. Duration: The symptoms are continuous, but are markedly better than the original presentation. Modifying factors: The symptoms are alleviated by nothing, the symptoms are aggravated by chewing, talking. Associated signs and symptoms: The patient has no apparent associated signs or symptoms. Severity of symptoms: At their worst the symptoms were mild, in the emergency department the symptoms have improved, moderately. Historical: - Allergies: 08:42 No Known Allergies; ko1 - PMHx: 08:42 Atrial fibrillation; blood clots; CVA (Unknown); diabetes mellitus; GERD; HEART FAILURE ko1 (Unknown); Hypertension; Hypothyroidism; osteoarthritis; Psoriatic Arthritis; restless leg syndrome; skin cancer (restless leg syndro); - PSHx: 08:42 tumor removal lip (skin cancer); ko1 - Immunization history:: Adult Immunizations up to date. - Infectious Disease History:: Denies. - Social history:: Smoking status: Patient denies any tobacco usage or history of. - Family history:: not pertinent. ROS: 11:15 Constitutional: Negative for fever, chills, and weight loss, Eyes: Negative for injury, uriel pain, redness, and discharge, Neck: Negative for injury, pain, and swelling, Cardiovascular: Negative for chest pain, palpitations, and edema, Respiratory: Negative for shortness of breath, cough, wheezing, and pleuritic chest pain, Abdomen/GI: Negative for abdominal pain, nausea, vomiting, diarrhea, and constipation, Back: Negative for injury and pain, MS/Extremity: Negative for injury and deformity, Skin: Negative for injury, rash, and discoloration, Neuro: Negative for headache, weakness, numbness, tingling, and seizure, Psych: Negative for depression, anxiety, suicide ideation, homicidal ideation, and hallucinations, Allergy/Immunology: Negative for hives, rash, and allergies, Endocrine: Negative for neck swelling, polydipsia, polyuria, polyphagia, and marked weight changes, Hematologic/Lymphatic: Negative for swollen nodes, abnormal bleeding, and unusual bruising, 11:15 ENT: Positive for upper lip bleeding, sp procedure, on eliquis, Exam: 11:15 Constitutional: This is a well developed, well nourished patient who is awake, alert, uriel and in no acute distress. Head/Face: Normocephalic, atraumatic. Eyes: Pupils equal round and reactive to light, extra-ocular motions intact. Lids and lashes normal. Conjunctiva and sclera are non-icteric and not injected. Cornea within normal limits. Periorbital areas with no swelling, redness, or edema. Neck: Trachea midline, no thyromegaly or masses palpated, and no cervical lymphadenopathy. Supple, full range of motion without nuchal rigidity, or vertebral point tenderness. No Meningismus. Chest/axilla: Normal chest wall appearance and motion. Nontender with no deformity. No lesions are appreciated. Cardiovascular: Regular rate and rhythm with a normal S1 and S2. No gallops, murmurs, or rubs. Normal PMI, no JVD. No pulse deficits. Respiratory: Lungs have equal breath sounds bilaterally, clear to auscultation and percussion. No rales, rhonchi or wheezes noted. No increased work of breathing, no retractions or nasal flaring. Abdomen/GI: Soft, non-tender, with normal bowel sounds. No distension or tympany. No guarding or rebound. No evidence of tenderness throughout. Back: No spinal tenderness. No costovertebral tenderness. Full range of motion. Skin: Warm, dry with normal turgor. Normal color with no rashes, no lesions, and no evidence of cellulitis. MS/ Extremity: Pulses equal, no cyanosis. Neurovascular intact. Full, normal range of motion., bilateral aka Neuro: Awake and alert, GCS 15, oriented to person, place, time, and situation. Cranial nerves II-XII grossly intact. Motor strength 5/5 in all extremities. Sensory grossly intact. Cerebellar exam normal. Normal gait. Psych: Awake, alert, with orientation to person, place and time. Behavior, mood, and affect are within normal limits. 11:15 ENT: Mouth: Lips: upper jacqueline border and upper lip, slight bleeding at suture line, Vital Signs: 08:10 BP 138 / 57; Pulse 63; Resp 15; Temp 98; Pulse Ox 100% on R/A; ko1 09:13 BP 146 / 53; Pulse 64; Resp 15; Pulse Ox 96% ; ko1 10:19 BP 150 / 61; Pulse 63; Resp 15; Pulse Ox 98% on R/A; ko1 11:37 BP 148 / 57; Pulse 64; Resp 17; Pulse Ox 97% on R/A; ko1 MDM: 08:07 Medical Screening Exam initiated uriel 11:17 Differential diagnosis: dental caries, post procedure bleeding. Data reviewed: vital uriel signs, nurses notes, lab test result(s), CBC, electrolytes. Consideration of Admission/Observation Escalation of care including admission/observation considered. I considered the following discharge prescriptions or medication management in the emergency department Medications were administered in the Emergency Department. See MAR. Historians other than the Patient: EMS: ems well informed. Care significantly affected by the following chronic conditions: Diabetes, Hypertension, Congestive Heart Failure, Obesity, a fib , eliquis. Counseling: I had a detailed discussion with the patient and/or guardian regarding the historical points, exam findings, and any diagnostic results supporting the discharge/admit diagnosis, lab results, the need for outpatient follow up, for definitive care, an ENT specialist. 08/26 08:08 Order name: CBC with Diff; Complete Time: 11:11 [facility] 08/26 08:08 Order name: Comprehensive Metabolic Panel; Complete Time: 11: [facility] 08/26 08:08 Order name: PT-INR; Complete Time: 11: [facility] 08/26 08:08 Order name: Wound Care; Complete Time: 08:09 uriel Administered Medications: 08:46 Drug: NS 0.9% IV 500 ml 500 ml IV at 1 bolus once; to be given as a bolus over 30 ko1 minutes Volume: 500 ml; Route: IV; Rate: 1 bolus; Site: right hand; 11:38 Follow up: Response: No adverse reaction; IV Status: Completed infusion; IV Intake: ko1 500ml Disposition Summary: 08/26/24 11:20 Discharge Ordered Notes: Location: Home uriel Condition: Fair uriel Problem: new uriel Symptoms: have improved uriel Diagnosis - Postprocedural hemorrhage of skin and subcutaneous tissue following other procedure uriel - manager long term care (current) use of anticoagulants uriel Followup: uriel - With: Private Physician - When: 1 - 2 days - Reason: Recheck today's complaints, Continuance of care, Re-evaluation by your physician Followup: uriel - With: Wendi Frnech MD - When: 2 - 3 days - Reason: Recheck today's complaints, Re-evaluation by your physician Discharge Instructions: - Discharge Summary Sheet uriel - Wound Care, Adult uriel - Bleeding Precautions When on Anticoagulant Therapy, Adult uriel - Bleeding After Dental Procedures uriel Forms: - Medication Reconciliation Form uriel - Antibiotic Education uriel - Prescription Opioid Use uriel - Patient Portal Instructions uriel - Leadership Thank You Letter uriel Signatures: Dispatcher [employer] James Briones MD MD cha Oliver, Kathy, RN RN ko1
[2024-08-26 12:21] VITALS: TEMP 98
[2024-08-26 12:25] VITALS: BP 148/57; O2SAT 97
== END 2024-08-26 12:12 | disposition home or self-care (01) ==
LOC: ER 08:06
DX: L76.22 Postprocedural hemorrhage of skin and subcutaneous tissue following other procedure (principal); Y84.9 Medical procedure, unspecified as the cause of abnormal reaction of the patient, or of later complication, without mention of misadventure at the time of the procedure; I48.91 Unspecified atrial fibrillation; I10 Essential (primary) hypertension; E11.9 Type 2 diabetes mellitus without complications; E03.9 Hypothyroidism, unspecified; L40.50 Arthropathic psoriasis, unspecified; M19.90 Unspecified osteoarthritis, unspecified site; Z79.01 Long term (current) use of anticoagulants
CPT/HCPCS: 96361; 85025; 36415; 85610; 80053; 96360; 99284; J7040

== ENCOUNTER 2025-05-02 17:34 | Emergency (ER) | payer OTHER ==
[2025-05-02 19:06] LABS: Absolute Lymphocytes (CBC) 1.4 K/uL (0.7-4.9); Hematocrit 41.6 % (36.0-45.0); Hemoglobin 14.1 g/dL (12.0-15.0); MCH 30.5 pg (27.0-35.0); MCHC 34.0 g/dL (32.0-36.0); MCV 89.8 fL (80-100); MPV 9.1 fL (7.6-11.3); Nucleated RBC Absolute Count 0.0 (0-0); Nucleated Red Blood Cells % 0.1 % (0-0); RBC Red Blood Cell Count 4.64 M/uL (3.86-4.86); White Blood Count 8.60 thou/uL (4.3-10.9)
[2025-05-02 19:15] LABS: PT Prothrombin Time 18.3 SECONDS (10-13.0); PTT, Activated Partial Thromb 65.6 SECONDS (27.2-37.4); Protime INR 1.64
--- NOTE | 2025-05-02 19:20 | RAD REPORT ---
EXAMINATION: XR Femur Right CLINICAL INDICATION: Female, 85 years old. PAIN RIGHT TECHNIQUE: 2 view radiograph of the right femur were obtained. COMPARISON: No prior exam. FINDINGS: No evidence of fracture or dislocation. Normal alignment. Mild to moderate degenerative uriel nges. Sacral nerve stimulator in place. No other focal bone lesion. Soft tissues are unremarkable. IMPRESSION: No acute osseous abnormalities. Mild to moderate hip joint degenerative changes.
--- NOTE | 2025-05-02 19:21 | RAD REPORT ---
EXAMINATION: XR PELVIS CLINICAL INDICATION: Female, 85 years old. RUST MAIN fall Bed Name: 11 TECHNIQUE: AP Pelvis radiograph was obtained. COMPARISON: No prior exam. FINDINGS: No evidence of fracture or dislocation. Normal alignment. No evidence of AVN. Bilateral up to moderate hip joint degenerative changes. Soft tissues are unremarkable. Osseous augmentation changes along the left sacral ala. IMPRESSION: No acute osseous abnormalities. Bilateral hip joint changes.
--- NOTE | 2025-05-02 19:22 | RAD REPORT ---
EXAMINATION: XR Tib Fib Right CLINICAL INDICATION: Female, 85 years old. fall;Pain TECHNIQUE: 2 view radiograph of the right tibia and fibula were obtained. COMPARISON: No prior exam. FINDINGS: No evidence of fracture or dislocation. Right total knee arthroplasty in satisfactory align ment. Moderate calcaneal spur. Mild degenerative changes. No focal bone lesion. Soft tissues are unremarkable. IMPRESSION: No acute osseous abnormalities. Findings as above
--- NOTE | 2025-05-02 19:23 | RAD REPORT ---
EXAMINATION: XR Femur Left CLINICAL INDICATION: Female, 85 years old. fall;Pain TECHNIQUE: 2 view radiograph of the left femur were obtained. COMPARISON: No prior exam. FINDINGS: No evidence of fracture or dislocation. Normal alignment. Moderate hip and knee joint degen erative changes. No other focal bone lesion. Soft tissues are unremarkable. IMPRESSION: No acute or significant abnormalities.
[2025-05-02 19:25] LABS: ALT/SGPT 22.0 U/L (13-56); AST/SGOT 15.0 U/L (15-37); Albumin 3.7 g/dL (3.4-5.0); Albumin/Globulin Ratio 0.9 (1.1-1.8); Alkaline Phosphatase 96.0 U/L (45-117); Anion Gap 9.7 mEq/L (5.0-15.0); BUN Blood Urea Nitrogen 19.0 mg/dL (7-18); Bilirubin Indirect, Calculated 0.3 mg/dL (0.2-0.8); Globulin 4.0 g/dL (2.3-3.5); Glucose Level 108.0 mg/dL (74-106); Magnesium 2.3 mg/dL (1.6-2.4); Potassium 3.7 mEq/L (3.5-5.1); Troponin High Sensitivity 49.5 pg/mL (<58.9)
[2025-05-02] MEDS ORDERED: FENTANYL CITR 100 MCG/2 ML ONE (20:04)
--- NOTE | 2025-05-02 20:18 | RAD REPORT ---
EXAM: CT brain without contrast HISTORY: fall COMPARISON: 06/08/2024 TECHNIQUE: Multiple contiguous axial images were obtained and a CT of the brain without contrast. Sag ittal and coronal reformats were performed. FINDINGS: No evidence of hydrocephalus, intracranial hemorrhage, or extra-axial fluid collection. Stable ventricular prominence, out of proportion to sulcal prominence, with relative crowding of the sulci at the vertex. The calvarium is intact. The visualized paranasal sinuses and mastoid air cells are essentially clear . IMPRESSION: No evidence of acute intracranial abnormality. EXAM: CT of the cervical spine without contrast HISTORY: fall COMPARISON: None TECHNIQUE: Multiple contiguous axial images were obtained in a CT of the cervical spine without contr ast. Sagittal and coronal reformats were performed. FINDINGS: The vertebral bodies demonstrate normal height and alignment. No evidence of acute fracture or subluxation.. Moderate multilevel degenerative changes are present. No prevertebral soft tissue swelling is seen. The posterior facets are well aligned. Normal alignment of the skull base with the cervical spine is seen. Nonspecific right apical reticular opacities, could reflect scarring IMPRESSION: No evidence of acute osseous abnormality of the cervical spine. Multilevel cervical spine degenerativ e changes.
--- NOTE | 2025-05-02 20:47 | RAD REPORT ---
EXAM: CT CHEST, ABDOMEN AND PELVIS WITHOUT CONTRAST CLINICAL INDICATION: Female, 85 years old. RUST MAIN FALL TECHNIQUE: CT chest, abdomen and pelvis was performed, without IV contrast, as per department protoco l. Axial, sagittal and coronal reconstructions were obtained. One or more of the following dose reduction techniques were used: Automated exposure control, adjustment of the mA and/or kV according to the patient size, and/or iterative reconstruction. Unless otherwise specified, incidental findings do not require dedicated imaging follow-up. COMPARISON: 06/12/2023 CT chest. 07/16/2024 CT abdomen and pelvis. FINDINGS: The lack of intravenous contrast limits the sensitivity of this exam for evaluation of solid visceral organs, vascular structures, and retroperitoneum. Chest: LOWER NECK/CHEST WALL: Visualized thyroid gland and soft tissues are normal. LUNGS AND AIRWAYS: Airways are clear. No evidence of airspace or interstitial process. No nodules. PLEURA: No pleural effusion. No pneumothorax. Hemidiaphragms are normally positioned. MEDIASTINUM AND LYMPH NODES: No mediastinal mass or fluid collection. Normal size mediastinal, hilar, and axillary lymph nodes. THORACIC AORTA: Normal caliber and configuration. PULMONARY ARTERIES: Normal caliber. HEART: Unremarkable. Abdomen/Pelvis LIVER: Normal in size and contour. No focal lesion. GALLBLADDER/BILE DUCTS: Status post cholecystectomy. Stable prominence of the common bile duct and co mmon hepatic duct PANCREAS: No mass, ductal dilation, or feng-pancreatic fluid. SPLEEN: Normal size. No focal lesion. ADRENALS: Normal; no mass. KIDNEYS AND URETERS: Normal size and contour. No hydronephrosis. GASTROINTESTINAL TRACT: Stomach is non-dilated. Small bowel has normal course and caliber. No colonic wall thickening or pericolonic inflammatory changes. Extensive colonic diverticulosis most pronounced distally. PERITONEUM: No free fluid. LYMPH NODES: No lymphadenopathy. ABDOMINAL AORTA AND OTHER VESSELS: Normal caliber aorta and IVC. URINARY BLADDER: Normal contour. REPRODUCTIVE ORGANS: No pathologic process. MUSCULOSKELETAL: No acute or suspicious osseous abnormality. ADDITIONAL FINDINGS: Diastasis recti IMPRESSION: No acute or significant abnormalities in the chest, abdomen, or pelvis. Stable incidental findings including stable prominence of the common bile duct and common hepatic magali t.
--- NOTE | 2025-05-02 21:57 | ER ---
Nurse's Notes [facility] Name: Joellen Klein Age: 85 yrs Sex: Female : 1940 Arrival Date: 05/02/2025 Time: 17:34 Bed 11 Private MD: Diagnosis: Fall on same level from slipping, tripping and stumbling with subsequent striking against object;Dorsalgia, unspecified;Pain in left hip;Pain in right hip;Pain in right lower leg Presentation: 05/02 17:41 Chief complaint: Patient states: Fell off riser chair when leaning over using restroom. ll1 Back pain and R leg pain since fall. No head injury no LOC EMS states: VSS. [id number]. A fib on monitor. Coronavirus screen: Client denies travel out of the [place] in the last 14 days. At this time, the client does not indicate any symptoms associated with coronavirus-19. Ebola Screen: Patient denies travel to an Ebola-affected area in the 21 days before illness onset. Initial Sepsis Screen: Does the patient meet any 2 criteria? No. Patient's initial sepsis screen is negative. Does the patient have a suspected source of infection? No. Patient's initial sepsis screen is negative. Risk Assessment: Do you want to hurt yourself or someone else? Patient reports no desire to harm self or others. Onset of symptoms was May 02, 2025. 17:41 Method Of Arrival: EMS: [facility] 17:41 Acuity: SRINIVASA 3 ll1 20:00 Care prior to arrival: None. Mechanism of Injury: Fall. Trauma event details: Injury rg5 occurred in the [facility]. Triage Assessment: 17:44 General: Appears uncomfortable, Behavior is calm, cooperative, appropriate for age. ll1 Pain: Complains of pain in right leg. Neuro: Reports headache weakness. Musculoskeletal: Circulation, motion, and sensation intact. Capillary refill < 3 seconds, in right toes. Reports pain in back and right leg. Historical: - Allergies: 17:44 No Known Allergies; ll1 - PMHx: 17:44 Atrial fibrillation; blood clots; CVA (Unknown); diabetes mellitus; GERD; HEART FAILURE ll1 (Unknown); Hypertension; Hypothyroidism; osteoarthritis; Psoriatic Arthritis; restless leg syndrome; skin cancer (restless leg syndro); - PSHx: 17:44 tumor removal lip (an); ll1 - Immunization history:: Adult Immunizations up to date. - Infectious Disease History:: Denies. - Social history:: Smoking status: Patient denies any tobacco usage or history of. Screenin:15 [facility] ED Fall Risk Assessment (Adult) History of falling in the last 3 months, rg5 including since admission Yes- single mechanical fall (1 pt) Confusion or Disorientation No (0 pts) Intoxicated or Sedated No (0 pts) Impaired Gait Yes (1 pt) Mobility Assist Device Used Yes (1 pt) Altered Elimination No (0 pt) Score/Fall Risk Level 3 or more points = High Risk Maintained a safe environment, Educated pt \T\ family on fall prevention, incl call for assistance when getting out of bed, Hourly rounding (assess needs \T\ fall precautionary measures) done. Abuse screen: Denies threats or abuse. Nutritional screening: No deficits noted. Tuberculosis screening: No symptoms or risk factors identified. Primary Survey: 20:00 NO uncontrolled hemorrhage observed. A: The client is awake and alert. The airway is rg5 patent. Breathing/Chest: Spontaneous respiratory effort, equal unlabored respirations, breath sounds clear bilaterally, regular pattern, symmetrical chest rise and fall. Circulation: No external hemorrhage present. Regular and strong central pulse, skin warm/dry/normal color. Disability Pupils are equal, round, reactive to light and accommodation. Client is alert. 21:38 Exposure/Environment: All clothing and personal items were removed. Forensic evidence rg5 collection is not deemed to be indicated at this time. Items placed in patient belonging bag. There is no evidence of uncontrolled external bleeding. Reassessment Alertness and Airway: Awake and alert. The airway is patent. Breathing: Respiratory effort Circulation: No external hemorrhage noted. Regular and strong central pulse, skin warm/dry/normal color. Disability: Pupils Pupils are equal, round, reactive to light and accomodation. Assessment: 20:00 General: Appears in no apparent distress. comfortable, Behavior is calm, cooperative, rg5 appropriate for age. Pain: Complains of pain in left foot and left leg, hip Quality of pain is described as aching. Neuro: Level of Consciousness is awake, alert, obeys commands, Oriented to person, place, time, situation. Cardiovascular: Denies chest pain. Respiratory: Airway is patent Respiratory effort is even, unlabored. GI: No signs and/or symptoms were reported involving the gastrointestinal system. Abdomen is round. : No signs and/or symptoms were reported regarding the genitourinary system. EENT: No signs and/or symptoms were reported regarding the EENT system. Derm: Skin is intact, Skin is dry, Skin is normal, Skin temperature is warm. Musculoskeletal: Circulation, motion, and sensation intact. Range of motion: intact in all extremities. 21:37 Reassessment: No changes from previously documented assessment. Patient and/or family rg5 updated on plan of care and expected duration. Pain level reassessed. Patient is alert, oriented x 3, equal unlabored respirations, skin warm/dry/pink. Vital Signs: 17:41 BP 124 / 67; Pulse 81; Resp 17; Temp 98.1; Pulse Ox 96% on R/A; Weight 90.72 kg; Height ll1 5 ft. 6 in. ; Pain 6/10; 21:15 BP 125 / 65; Pulse 76; Resp 18; Pulse Ox 100% on R/A; Pain 3/10; rg5 17:41 Body Mass Index 32.28 (90.72 kg, 167.64 cm) ll1 17:41 Pain Scale: Adult ll1 21:15 Pain Scale: Adult rg5 Karyn Coma Score: 21:15 Eye Response: spontaneous(4). Motor Response: obeys commands(6). Verbal Response: rg5 oriented(5). Total: 15. Trauma Score (Adult): 21:15 Eye Response: spontaneous(1); Verbal Response: oriented(1); Motor Response: obeys rg5 commands(2); Systolic BP: > 89 mm Hg(4); Respiratory Rate: 10 to 29 per min(4); Brayton Score: 15; Trauma Score: 12 ED Course: 17:41 Patient arrived in ED. ll1 17:43 James Fregoso PA-C is [facility]. cp 17:43 James Jimenez MD is Attending Physician. cp 17:44 Triage completed. ll1 17:44 Arm band placed on Patient placed in an exam room, on a stretcher. ll1 18:37 XRAY Femur RIGHT In Process Unspecified. EDMS 18:37 XRAY Pelvis In Process Unspecified. EDMS 18:37 XRAY Tib Fib RIGHT In Process Unspecified. EDMS 18:37 XRAY Femur LEFT In Process Unspecified. EDMS 18:55 EKG done, by automotive diagnostic technician. reviewed by James Fregoso PA-C. ts3 18:55 Initial lab(s) drawn, by recyclable materials distributor, sent to lab. Inserted saline lock: 20 gauge in right ts3 antecubital area, using aseptic technique. Blood collected. Flushed with 10 mL NS. 19:36 Mansoor Dangelo, RN is Primary Nurse. rg5 19:49 Chest Abd Pelvis Wo Con In Process Unspecified. EDMS 19:49 Head C Spine Mpr Wo Con In Process Unspecified. EDMS 21:15 Patient has correct armband on for positive identification. Bed in low position. Call rg5 light in reach. Side rails up X 1. Adult w/ patient. Door closed. Noise minimized. Warm blanket given. 22:00 No provider procedures requiring assistance completed. IV discontinued, bleeding rg5 controlled, No redness/swelling at site. Pressure dressing applied. Administered Medications: 20:00 Drug: fentaNYL (PF) IVP 25 mcg IVP once Route: IVP; Site: right antecubital; rg5 21:39 Follow up: Response: No adverse reaction; Pain is decreased rg5 22:01 Drug: Acetaminophen PO 1000 mg PO once Route: PO; rg5 22:15 Follow up: Response: No adverse reaction; Pain is decreased rg5 22:01 Drug: traMADol PO 50 mg PO once Route: PO; rg5 22:15 Follow up: Response: No adverse reaction; Pain is decreased rg5 Medication: 21:15 VIS not applicable for this client. rg5 Outcome: 21:57 Discharge ordered by MD. felipe 22:00 Discharged to home via wheelchair, rg5 22:00 Condition: stable 22:00 Discharge instructions given to patient, family, Instructed on discharge instructions, Demonstrated understanding of instructions, 22:24 Patient left the ED. rg5 Signatures: Dispatcher [employer] EDKY James Fregoso PA-C PA-C cp Lewis, Lynsay RN RN ll1 Mansoor Dangelo, STEVEN RN rg5 Saloni Friedman ts3
--- NOTE | 2025-05-02 21:57 | EDPHYS ---
Physician Documentation [facility] Name: Joellen Klein Age: 85 yrs Sex: Female : 1940 Arrival Date: 05/02/2025 Time: 17:34 Bed 11 Private MD: ED Physician James Jimenez HPI: 05/02 18:00 This 85 yrs old Female presents to ER via EMS with complaints of Fall Injury, Leg cp Injury. 18:00 Details of fall: The patient fell from an upright position, while standing, while cp wiping after using the restroom, and struck a tile surface. Onset: The symptoms/episode began/occurred today. Associated injuries: The patient sustained neck injury, pain, pain with movement, injury to the low back, pain, pain with movement, right leg and left upper leg, painful injury. Severity of symptoms: in the emergency department the symptoms are unchanged, despite EMS interventions. Historical: - Allergies: 17:44 No Known Allergies; ll1 - PMHx: 17:44 Atrial fibrillation; blood clots; CVA (Unknown); diabetes mellitus; GERD; HEART FAILURE ll1 (Unknown); Hypertension; Hypothyroidism; osteoarthritis; Psoriatic Arthritis; restless leg syndrome; skin cancer (restless leg syndro); - PSHx: 17:44 tumor removal lip (an); ll1 - Immunization history:: Adult Immunizations up to date. - Infectious Disease History:: Denies. - Social history:: Smoking status: Patient denies any tobacco usage or history of. ROS: 18:05 Constitutional: Negative for body aches, chills, fever, poor PO intake, cp 18:05 Neck: Positive for pain with movement, pain at rest, cp 18:05 Cardiovascular: Negative for chest pain, palpitations, 18:05 Respiratory: Negative for cough, shortness of breath, wheezing, 18:05 Abdomen/GI: Negative for abdominal pain, vomiting, diarrhea, constipation, 18:05 Back: Positive for pain at rest, pain with movement, 18:05 MS/extremity: Positive for pain, of the right leg and left upper leg, Negative for deformity, 18:05 Skin: Negative for cellulitis, rash, 18:05 Neuro: Negative for altered mental status, headache, loss of consciousness, syncope, near syncope, weakness, 18:05 All other systems are negative, Exam: 18:10 Constitutional: The patient appears in no acute distress, alert, awake, cp non-diaphoretic, non-toxic, well developed, well nourished, obese, uncomfortable, 18:10 Head/Face: Normocephalic, atraumatic. cp 18:10 Eyes: Periorbital structures: appear normal, Pupils: equal, round, and reactive to light and accomodation, Extraocular movements: intact throughout, Conjunctiva: normal, no exudate, no injection, Sclera: no appreciated abnormality, Lids and lashes: appear normal, bilaterally, 18:10 ENT: External ear(s): are unremarkable, Nose: is normal, Mouth: Lips: moist, Oral mucosa: moist, Posterior pharynx: Airway: no evidence of obstruction, patent, 18:10 Neck: ROM/movement: pain, that is mild, with any movement, limited range of motion, is not appreciated, 18:10 Chest/axilla: Inspection: normal, Palpation: crepitus, is not appreciated, tenderness, is not appreciated, 18:10 Cardiovascular: Rate: normal, Rhythm: regular, Edema: is not appreciated, JVD: is not appreciated, 18:10 Respiratory: the patient does not display signs of respiratory distress, Respirations: normal, no use of accessory muscles, no retractions, labored breathing, is not present, Breath sounds: are clear throughout, no decreased breath sounds, no stridor, no wheezing, 18:10 Abdomen/GI: Inspection: abdomen appears normal, Bowel sounds: active, all quadrants, Palpation: abdomen is soft and non-tender, in all quadrants, 18:10 Back: pain, that is moderate, of the lumbar area, ROM is painful, with all movement, 18:10 Musculoskeletal/extremity: Extremities: grossly normal except: noted in the right leg: pain, There is no evidence of decreased ROM, deformity, noted in the left upper leg: pain, no evidence of decreased ROM, deformity, 18:10 Skin: cellulitis, is not appreciated, no rash present. 18:10 Neuro: Orientation: to person, place \T\ time. Mentation: is normal, Motor: moves all fours, no focal deficits, Sensation: no obvious gross deficits, 18:49 ECG was reviewed by the Attending Physician. cp Vital Signs: 17:41 BP 124 / 67; Pulse 81; Resp 17; Temp 98.1; Pulse Ox 96% on R/A; Weight 90.72 kg; Height ll1 5 ft. 6 in. ; Pain 6/10; 21:15 BP 125 / 65; Pulse 76; Resp 18; Pulse Ox 100% on R/A; Pain 3/10; rg5 17:41 Body Mass Index 32.28 (90.72 kg, 167.64 cm) ll1 17:41 Pain Scale: Adult ll1 21:15 Pain Scale: Adult rg5 [place] Coma Score: 21:15 Eye Response: spontaneous(4). Motor Response: obeys commands(6). Verbal Response: rg5 oriented(5). Total: 15. Trauma Score (Adult): 21:15 Eye Response: spontaneous(1); Verbal Response: oriented(1); Motor Response: obeys rg5 commands(2); Systolic BP: > 89 mm Hg(4); Respiratory Rate: 10 to 29 per min(4); Karyn Score: 15; Trauma Score: 12 MDM: 17:44 Medical Screening Exam initiated cp 21:57 Data reviewed: vital signs, nurses notes, lab test result(s), EKG, radiologic studies, cp CT scan, plain films. 21:57 Differential diagnosis: closed head injury, contusion, fracture, laceration, multiple cp trauma. I considered the following discharge prescriptions or medication management in the emergency department Medications were administered in the Emergency Department. See MAR. Care significantly affected by the following chronic conditions: Diabetes, Obesity. Counseling: I had a detailed discussion with the patient and/or guardian regarding the historical points, exam findings, and any diagnostic results supporting the discharge/admit diagnosis, lab results, radiology results, to return to the emergency department if symptoms worsen or persist or if there are any questions or concerns that arise at home. Response to treatment: the patient's symptoms have mildly improved after treatment, and as a result, I will discharge patient. ED course: VSS. Pain improved with meds. Reviewed radiology studies that were negative for any acute injuries. Will discharge back to long-term care facility for continued monitoring. 05/02 17:57 Order name: Basic Metabolic Panel; Complete Time: 21:07 cp 05/02 21:08 Interpretation: Normal except: GLUC 108; BUN 19; CRE 1.46; GFR 35. cp 05/02 17:57 Order name: CBC with Diff; Complete Time: 21:07 cp 05/02 17:57 Order name: LFT's; Complete Time: 21:07 cp 05/02 21:08 Interpretation: Normal except: GLOB 4.0; A/G 0.9. cp 05/02 17:57 Order name: Magnesium; Complete Time: 21:07 cp 05/02 17:57 Order name: PT-INR; Complete Time: 21:07 cp 05/02 21:09 Interpretation: Abnormal: PT 18.3. cp 05/02 17:57 Order name: Troponin HS; Complete Time: 21:07 cp 05/02 17:57 Order name: Ptt, Activated; Complete Time: 21:07 cp 05/02 21:09 Interpretation: Abnormal: PTT 65.6. cp 05/02 17:57 Order name: XRAY Femur RIGHT; Complete Time: 21:07 cp 05/02 21:09 Interpretation: Report reviewed. cp 05/02 17:57 Order name: XRAY Pelvis; Complete Time: 21:07 cp 05/02 21:10 Interpretation: Report reviewed. cp 05/02 17:57 Order name: XRAY Tib Fib RIGHT; Complete Time: 21:07 cp 05/02 17:57 Order name: XRAY Femur LEFT; Complete Time: 21:07 cp 05/02 19:09 Order name: Chest Abd Pelvis Wo Con; Complete Time: 21:07 EDMS 05/02 19:10 Order name: Head C Spine Mpr Wo Con; Complete Time: 21:07 EDMS 05/02 21:52 Interpretation: Report reviewed. cp 05/02 17:57 Order name: EKG; Complete Time: 17:57 cp 05/02 17:57 Order name: Cardiac monitoring; Complete Time: 18:55 cp 05/02 17:57 Order name: EKG - Nurse/Tech; Complete Time: 18:55 cp 05/02 17:57 Order name: IV Saline Lock; Complete Time: 18:55 cp 05/02 17:57 Order name: Labs collected and sent; Complete Time: 18:55 cp 05/02 17:57 Order name: O2 Per Protocol; Complete Time: 18:16 cp 05/02 17:57 Order name: O2 Sat Monitoring; Complete Time: 18:16 cp EC:49 Rate is 73 beats/min. Rhythm is regular. SC interval is normal. QRS interval is normal. cp QT interval is normal. T waves are Inverted in lead aVR. Interpreted by me. Reviewed by me. Administered Medications: 20:00 Drug: fentaNYL (PF) IVP 25 mcg IVP once Route: IVP; Site: right antecubital; rg5 21:39 Follow up: Response: No adverse reaction; Pain is decreased rg5 22:01 Drug: Acetaminophen PO 1000 mg PO once Route: PO; rg5 22:15 Follow up: Response: No adverse reaction; Pain is decreased rg5 22:01 Drug: traMADol PO 50 mg PO once Route: PO; rg5 22:15 Follow up: Response: No adverse reaction; Pain is decreased rg5 Disposition Summary: 05/02/25 21:57 Discharge Ordered Notes: Location: Home cp Problem: new cp Symptoms: have improved cp Condition: Stable cp Diagnosis - Fall on same level from slipping, tripping and stumbling with subsequent striking cp against object - Dorsalgia, unspecified cp - Pain in left hip cp - Pain in right hip cp - Pain in right lower leg cp Followup: cp - With: Private Physician - When: 2 - 3 days - Reason: Recheck today's complaints Discharge Instructions: - Discharge Summary Sheet cp - Joint Pain cp - Acute Back Pain, Adult cp - Fall Prevention in the Home, Adult cp - Musculoskeletal Pain cp - Hip Pain cp - Back Exercises cp Forms: - Medication Reconciliation Form cp - Antibiotic Education cp - Prescription Opioid Use cp - Patient Portal Instructions cp - Leadership Thank You Letter cp Signatures: Dispatcher [employer] EDMS James Fregoso PA-C PA-C cp Nayeli Verduzco RN RN ll1 Mansoor Dangelo, STEVEN RN rg5 Corrections: (The following items were deleted from the chart) 18:53 18:53 Head C Spine Cap Wo Con+CT.RAD.BRZ ordered. EDMS EDMS
[2025-05-02] MEDS ORDERED: ACETAMINOPHEN 500 MG TAB ONE (21:59)
[2025-05-02] MEDS ORDERED: TRAMADOL HCL 50 MG TAB ONE (21:59)
[2025-05-02 23:16] VITALS: TEMP 98.1
[2025-05-02 23:17] VITALS: BP 125/65; O2SAT 100
== END 2025-05-02 22:24 | disposition home or self-care (01) ==
LOC: ER 17:34
DX: M54.9 Dorsalgia, unspecified (principal); M54.2 Cervicalgia; M25.552 Pain in left hip; M25.551 Pain in right hip; M79.661 Pain in right lower leg; W01.198A Fall on same level from slipping, tripping and stumbling with subsequent striking against other object, initial encounter
CPT/HCPCS: 93005; 85025; 80048; 36415; 83735; 85610; 80076; 85730; 84484; 70450; 71250; 72125; 74176; 72170; 73552 ×2; 73590; 96374; 99284; J3010